=== PATIENT | female | born 1955 | race Caucasian/White ===

== ENCOUNTER 2019-03-08 05:50 | Day surgery (SDC) | payer MEDICARE ==
[~2019-03-08] VITALS: Ht 154.9 cm; Wt 46.7 kg
[~2019-03-08 05:50] MED LIST: CITRACAL + BON1 EACH PO; DONEPEZIL HCL5 MG PO; LEVOTHYROXINE100 MCG PO; MYRBETRIQ25 MG PO; VITAMIN D32000 UNI1 PO
[2019-03-08] MEDS ORDERED: ASPIRIN325 MG PO (06:42)
--- NOTE | 2019-03-08 08:22 | NUR ---
03/08/19 0821 Andreea Sena 0817- PT ARRIVES TO PACU NONAROUSABLE TO NOXIOUS STIMULI WITH AN OPA IN PLACE. OXYGEN SAT HIGH 90'S TO 100% ON 10L VIA MASK. RESP EVEN AND UNLABORED. 0819- OXYGEN TITRATED DOWN TO 6L VIA MASK. 0820- PT AWAKENING AND TRYING TO REMOVE OPA. PT INSTRUCTED TO OPEN HER MOUTH. OPA REMOVED. RESP EVEN AND UNLABORED.
--- NOTE | 2019-03-08 17:27 | OR ---
[facility] [address], [place] [address] Signed DATE OF OPERATION: 03/08/2019 SURGEON: Guilherme Ramirez MD PREOPERATIVE DIAGNOSIS: Constipation alternating with episodes of diarrhea and episodic rectal bleeding. No family history of colon cancer. POSTOPERATIVE DIAGNOSES: 1. Sigmoid diverticulosis. 2. Hyperplastic polyp of sigmoid. PROCEDURE: Total colonoscopy to cecum with cold morcellation, excision of hyperplastic polyp and biopsy of cecum and rectum. ANESTHESIA: Intravenous sedation, propofol infusion; Guilherme Gamez CRNA. INDICATION: This markedly debilitated 63-year-old white woman is a patient Dr. Ayala and has undergone colonoscopy 10 years ago noting a hyperplastic polyp. 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 She is bothered by constipation abdominally, but occasions of diarrhea and occasions of rectal bleeding. She is admitted at this time to undergo colonoscopy for surveillance as well as for evaluation of those problems. The risks of bleeding, infection, and perforation related to colonoscopy were reviewed with her. She understands and wished to proceed. FINDINGS: The prep was adequate. Irrigation was required. There was no solid stool. Complete colonoscopy was undertaken of the cecum without question. Good visualization of the ileocecal valve was noted. She had no actual colitis per se, though biopsies were taken to assess for occult colitis. Diverticular changes noted of the sigmoid. There was a small hyperplastic polyp of the sigmoid, which was excised as well. Internal hemorrhoids were noted as well. DESCRIPTION OF PROCEDURE: The patient was brought to the surgical endoscopy suite, placed in lateral decubitus position, given intravenous sedation to the point of slurred speech and nystagmus with Electronically Signed By: GUILHERME RAMIREZ MD 03/08/19 1727 PATIENT NAME: ABEL CANAS OPERATIVE REPORT DATE OF : 53 REPORT #: [id number] PHYSICIAN: GUILHERME RAMIREZ MD PCP: SANTY AYALA MD REPORT IS CONFIDENTIAL AND NOT TO BE RELEASED WITHOUT AUTHORIZATION [facility] [address], [place] [address] Signed full cardiopulmonary monitoring by the farm rancher. Digital rectal examination was essentially normal. An Olympus video colonoscope was passed in the rectum and manipulated throughout the colon. Irrigation was required. A redundant colon was noted. Abdominal wall stabilization was required. The scope was ultimately manipulated to the cecum. The ileocecal valve appeared normal as did the cecum itself. Attempts to intubate the ileocecal valve were unsuccessful. The valve was small, but normal otherwise. Biopsies were taken of the cecum. The scope was carefully withdrawn from that point. Examination throughout showed no sign of active colitis, but did show diverticula of the sigmoid and left colon. Hyperplastic-appearing polyp was noted at the sigmoid. This was excised with cold morcellation technique. Further withdrawal allowed for biopsy of the rectum, which was otherwise normal. Retroflexed view confirmed internal hemorrhoidal changes. The scope was removed. The patient was taken to recovery room in good condition. CONCLUDING DIAGNOSIS: Symptoms likely related to diverticular disease, physical activity and hemorrhoidal changes. PLAN: I would recommend Citrucel one scoop p.o. daily with added fluids. She will return to the ongoing care of Dr. Ayala. Repeat colonoscopy recommended for 10 years if clinically appropriate at that point. Guilherme Ramirez MD JM/MODL /[id number] cc: Santy Ayala MD Copies: SANTY AYALA MD Electronically Signed By: GUILHERME RAMIREZ MD 03/08/19 1727 PATIENT NAME: GINGER CANASALBINA GRAY OPERATIVE REPORT DATE OF : 53 REPORT #: [id number] PHYSICIAN: GUILHERME RAMIREZ MD PCP: SANTY AYALA MD REPORT IS CONFIDENTIAL AND NOT TO BE RELEASED WITHOUT AUTHORIZATION [address] [place], [place] [address] Signed ~ Electronically Signed By: GUILHERME RAMIREZ MD 03/08/19 1727 PATIENT NAME: ABEL CANAS OPERATIVE REPORT DATE OF : 53 REPORT #: [id number] PHYSICIAN: GUILHERME RAMIREZ MD PCP: SANTY AYALA MD REPORT IS CONFIDENTIAL AND NOT TO BE RELEASED WITHOUT AUTHORIZATION
--- NOTE | 2019-03-09 17:17 | PATH ---
[facility] [address] [place], [place] [address] Signed SPECIMEN(S): A ASCENDING SPECIMEN(S): B SIGMOID POLYP SPECIMEN(S): C RECTUM SPECIMEN SOURCE: A. ASCENDING B. SIGMOID POLYP C. RECTUM CLINICAL HISTORY: Preop: History of constipation. Postop: Hyperplastic polyp, diverticula MICROSCOPIC DESCRIPTION: Histologic sections of all submitted blocks are examined by light microscopy. These findings, together with the gross examination, support the pathologic diagnosis. FINAL PATHOLOGIC DIAGNOSIS: A. Colon, ascending, biopsy: - Colonic mucosa with no histopathologic abnormality. - Negative for dysplasia or malignancy. B. Colon, sigmoid, polyp, polypectomy: - Tubular adenoma. - Negative for high-grade dysplasia or malignancy. C. Rectum, biopsy: - Rectal mucosa with mild hyperplastic mucosa changes. - Negative for dysplasia or malignancy. NAL:cml:C2NR GROSS DESCRIPTION: Three specimens are received in three containers, labeled "MP." A. The specimen, labeled "MP, ascending colon biopsy," is received in formalin and consists of a single 0.2 cm stoddard tissue fragment. The specimen is entirely submitted in cassette (A1). B. The specimen, labeled "MP, sigmoid colon polyp," is received in formalin and consists of a single 0.2 cm stoddard-brown tissue fragment. The specimen is entirely submitted in cassette (B1). C. The specimen, labeled "MP, rectal biopsy," is received in formalin and consists of a single 0.2 cm stoddard tissue fragment. The specimen is entirely submitted in cassette (C1). AM (under the direct supervision of a pathologist) The Gross Description was prepared using a voice recognition system. The PATIENT NAME: ABEL CANAS PATHOLOGY DATE OF : 53 REPORT #: [id number] PHYSICIAN: DOMO BISHOP PCP: SANTY NELSON MD REPORT IS CONFIDENTIAL AND NOT TO BE RELEASED WITHOUT AUTHORIZATION [facility] [address] [place] [address] Signed report was reviewed for accuracy; however, sound-alike word errors, addition and/or deletions may occur. If there is any question about this report, please contact Client Services. PERFORMING LABORATORY: The technical component was performed by [employer] [address] (Workforce Management Coordinator: Faby Mansfield MD; CLIA# [id number]). Professional interpretation was performed by [facility], [address] [address] (Workforce Management Coordinator: Jacques Duran MD; CLIA# [id number]). Diagnostician: Nati Mckoy MD Pathologist Electronically Signed 03/09/2019 Copies: ~ PATIENT NAME: ABEL CANAS PATHOLOGY DATE OF : 53 REPORT #: [id number] PHYSICIAN: DOMO PATHOLOGY PCP: SANTY NELSON MD REPORT IS CONFIDENTIAL AND NOT TO BE RELEASED WITHOUT AUTHORIZATION
== END 2019-03-08 09:05 | disposition home or self-care (01) ==
LOC: OPS 05:50 → DS 05:50 → OPS 06:45 → DS 06:45 → OPS 09:05
PROVIDERS: Surgery
PROC: 0DBP8ZX Excision of Rectum, Via Natural or Artificial Opening Endoscopic, Diagnostic (ICD-10-PCS; 2019-03-08)
PROC: 0DBN8ZZ Excision of Sigmoid Colon, Via Natural or Artificial Opening Endoscopic (ICD-10-PCS; 2019-03-08)
PROC: 0DBK8ZX Excision of Ascending Colon, Via Natural or Artificial Opening Endoscopic, Diagnostic (ICD-10-PCS; principal; 2019-03-08 06:45)
DX: D12.5 Benign neoplasm of sigmoid colon (principal); K57.31 Diverticulosis of large intestine without perforation or abscess with bleeding; K64.8 Other hemorrhoids; E03.9 Hypothyroidism, unspecified; E75.29 Other sphingolipidosis; K21.0 Gastro-esophageal reflux disease with esophagitis; R32 Unspecified urinary incontinence; Z79.899 Other long term (current) drug therapy
CPT/HCPCS: J2704; J7121

== ENCOUNTER 2019-03-08 15:23 | Emergency (ER) | payer MEDICARE ==
[~2019-03-08] VITALS: Ht 154.9 cm; Wt 56.7 kg
--- OUTSIDE RECORDS SUMMARY | ~2019-03-08 | XMS | Encounter Summary ---
Demographics + + + | Address | [address] | | | [place] [address] | + + + | Home Phone | | + + + | Preferred Language | Unknown | + + + | Marital Status | | + + + | Tenriism Affiliation | Unknown | + + + | Race | White | + + + | Ethnic Group | Not or | + + + Author + + + | Author | [facility] | + + + | Organization | [facility] | + + + | Address | Unknown | + + + | Phone | Unavailable | + + + Support + + +---------+ + | Name | Relationship | Address | Phone | + + +---------+ + | Nahomy Briana | ECON | Unknown | | + + +---------+ + Care Team Providers + +------+ + | Care Identification And Records Commander Name | Role | Phone | + +------+ + | Owen Swartz MD | PCP | | + +------+ + Reason for Referral Diagnostic Testing (Routine) +--------+--------+ + + + + | Status | Reason | Specialty | Diagnoses / | Referred By | Referred To | | | | | Procedures | Contact | Contact | +--------+--------+ + + + + | Closed | | Clinical | Diagnoses | Raoul Davis | Cnl Emg | | | | Neurophysiolo | Neuropathy | MD Joshua,PhD | [address] | | | | gy | | [address] | | | | | Leukodystrop | [address] | Mailcode: | | | | | hy ([facility]) | [place], [place] | [facility] | | | | | Procedures | [id number] | for Health | | | | | EMG/NERVE | | and Healing, | | | | | CONDUCTION | | Building [address], | | | | | STUDIES - | | 8th Floor | | | | | NEUROLOGY | | [place], [place] | | | | | | | [address] | | | | | | | Phone: | | | | | | | [phone] | | | | | | | Fax: | | | | | | | [phone] | +--------+--------+ + + + + Reason for Visit + + + | Reason | Comments | + + + | New patient | | | consultation | | + + + | Neuropathy | | + + + Consultation (Routine) +--------+--------+ + + + + | Status | Reason | Specialty | Diagnoses / | Referred By | Referred To | | | | | Procedures | Contact | Contact | +--------+--------+ + + + + | Closed | | Neurology | Diagnoses | Jorge, | Derrick | | | | | Unspecified | Salazar Pickard MD | Neuromusc | | | | | hereditary | [place] | [facility] [address] | | | | | and | CLINIC | [address] | | | | | idiopathic | NEUROLOGY | Mailcode: | | | | | peripheral | [address] | [facility] | | | | | neuropathy | [facility] | for Health | | | | | Leukodystrop | [place], [place] | and Healing, | | | | | hy ([facility]) | [id number] | [address], | | | | | | Phone: | [facility] Floor | | | | | | [phone] | [place], [place] | | | | | | Fax: | [address] | | | | | | [phone] | Phone: | | | | | | | [phone] | | | | | | | Fax: | | | | | | | [phone] | +--------+--------+ + + + + Encounter Details +--------+---------+ + + + | Date | Type | Department | Care Team | Description | +--------+---------+ + + + | 07/08/ | Office | Neurology at | Alan Taylor, | Neuropathy; | | 2010 | Visit | [facility] & | Severino Kate MD | Leukodystrophy | | | | Healing [address] | | | | | | [address] Mailcode: | | | | | | [facility] | | | | | | Health and Healing, | | | | | | [facility] | | | | | | Floor [place], [place] | | | | | | [address] | | | | | | [phone] | | | +--------+---------+ + + + Social History + +-------+ +--------+------+ | Tobacco Use | Types | Packs/Day | Years | Date | | | | | Used | | + +-------+ +--------+------+ | Never Smoker | | | | | + +-------+ +--------+------+ + +---+---+---+ | Smokeless Tobacco: | | | | | Never Used | | | | + +---+---+---+ + + +---------+ + | Alcohol Use | Drinks/Week | oz/Week | Comments | + + +---------+ + | Not Asked | | | | + + +---------+ + + + + | Sex Assigned at | Date Recorded | | | | + + + | Not on file | | + + + + + + + | Job Start Date | Occupation | Industry | + + + + | Not on file | Not on file | Not on file | + + + + + + + + | Travel History | Travel Start | Travel End | + + + + + + | No recent travel history available. | + + documented as of this encounter Last Filed Vital Signs + + + + + | Vital Sign | Reading | Time Taken | Comments | + + + + + | Blood Pressure | 119/60 | 07/08/2010 12:37 PM | | | | | PDT | | + + + + + | Pulse | 76 | 07/08/2010 12:37 PM | | | | | PDT | | + + + + + | Temperature | - | - | | + + + + + | Respiratory Rate | 15 | 07/08/2010 12:37 PM | | | | | PDT | | + + + + + | Oxygen Saturation | - | - | | + + + + + | Inhaled Oxygen | - | - | | | Concentration | | | | + + + + + | Weight | 51.3 kg (113 lb) | 07/08/2010 12:37 PM | | | | | PDT | | + + + + + | Height | 154.9 cm (5' 1") | 07/08/2010 12:37 PM | | | | | PDT | | + + + + + | Body Mass Index | 21.35 | 07/08/2010 12:37 PM | | | | | PDT | | + + + + + documented in this encounter Progress Notes Raoul Davis MD,PhD - 07/09/2010 2:24 PM PDTI personally interviewed the patient, duplic ated the pertinent parts of the physical examination and personally formulated the plan with Dr. Kelly. I agreed with his Documentation and plan. Raoul Davis M.D., Ph.D. Director, Neuromuscular Rehab Tech, EMG Laboratory urba colton Taylor, Severino Kate MD - 07/08/2010 1:49 PM PDTFormatting of this note might be di fferent from the original. NEUROMUSCULAR CONSULT NOTE Author: SEVERINO KELLY MD Consult question: second opinion on leukodystrophy HPI: Charissa Goss is a 54 y.o. female with progressive neurologic symptoms of impaired bal ance, memory, urinary dysfunction, and foot numbness. The first thing she noticed was 10 years ago when she noticed difficulty walking down a slo pe. Around the same time started having problems with balance. If closes eyes in shower wi ll fall over. Not sure if she has any weakness- says legs feel a little weak but might just be balance. Has difficulty walking on uneven ground. Pins and needles in bottoms of feet x 4-5 years, not spreading up her legs. Feet numb x 2 years, not spreading up feet. Sympt oms have all gradually worsened. Memory problems started about 3-4 years ago- for example recently typed up a [employer] bulletin twice over. Aricept helps memory. Cannot take more th an 10 mg due to N/V. Bowel/ bladder problems x 3 years. Started after had thyroidectomy a nd radioactive iodine for thyroid cancer. Very constipated, no bowel incontinence. Urinary incontinence, cannot feel when she urinates, has seen urologist who told her this was a derrick rologic problem. Also has noticed decreased vaginal sensation. Not having significant pain. Very stiff, especially when she's been sitting a long time. Difficult to stand for a long time, eg for an hour during assembly, but is okay if uses cane. No difficulty walkign up s tairs as long as has handrail for balance. Going down stairs is difficult due to balance. No difficulty combing hair or reaching up for things. Gets dizzy if she looks up. No probl ems in hands or arms- no weakness or clumsiness in hands, no numbness in hands. No vertigo, diplopia, slurred speech, changes in mood or personality, language problems, he aring problems, smell or taste problems. Rare difficulty swallowing. Feels like her thinkin erendira is slower. 5-6 years ago started seeing floating diamonds in her eyes, only once or twice a year. Brandi ght light bothers her eyes. Has cataracts. No blurred vision. Vision os 20/30. Has dry e ye. Not aware of any loss of color vision. All of her symptoms have gradually worsened. Never had episodic symptoms coming on over ho urs to days. Did not walk until age 1. Could never keep up with other children when running. Couldn't play basket ball because uncoordinated. Did fine academically in school. Doctor wanted her to be evalauted but patient's parents refused. Reviewed notes from patient's neurologist Dr. Patel. He noted, among other findings, a si gnificant loss of color vision when tested with ishihara color plates. 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 Urine arylsulfatase levels were normal B12 levels were normal. TSH was low (0.08); she is on thyroid replacement after thyroid christensen rgery. 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 Sisters three children all have seizures. Has two adopted children. Mother had similar symptoms to patient. Had difficulty walking due to poor balance, starti ng around age 50s or 60s. Had GTCs since teenager. at 70 from dementia. Started havi ng memory problems around 64. Mother had high arched feet like patient. Father at 85, did not have symptoms like this. Mother had 3 sisters and two brothers, none had symptoms like these or seizures or any othe r neurologic problems. None early except mother. Maternal grandfather at 35 in logging accident Maternal grandmother lived to 90s in good health. Review of Systems: As per HPI, all other systems reviewed and negative General: +fatigue. No constitutional symptoms of fevers,chills, weight loss or sweats. Eye s: +light sensitivity, night blindness, tearing, dry eyes. No changes in vision loss, doub le vision, eye pain, eye irritation, discharge, blurred vision or light sensitivity. Ears, Nose and Throat: +mouth sores, gums receding, dry mouth.No hearing loss, ringing in the ears, ear discharge, earache, nosebleeds, nasal congestion, difficulty swallowing, hoars eness or sore throat. Respiratory: No shortness of breath, coughing up blood, excessive sputum, cough, chest dis comfort or wheezing. Cardiovascular: No chest pain, skipping beats, lightheadedness, difficulty breathing uprig ht or lying down, fatigue, near fainting or fainting, palpitations, weight gain, edema, leg cramps. Gastrointestinal: +vomiting after aricept. +severe constipation. No loss of appetite, ex cessive appetite, indigestion, nausea, gas, abdominal pain, hemorrhoids, diarrhea, bloatin g, bloody stools or dark tarry stools. Genitourinary: +urinary incontinence, frequency, impaired vaginal sensation, infertility. No blood in urine, difficulty in urination, discharge, painful urination, or genital sores. Neurologic: +lightheadedness, falls, weakness, clumsiness, diplopia. No unusual headaches , inability to speak, tremors, sensation of room spinning. Musculoskeletal: +backache. No joint pain, swelling, stiffness, arthritis, muscle aches, muscle cramps or loss of strength. Skin: +dry skin. No itching, rash, poor wound healing, night sweats, changes in skin color , dryness, flushing or suspicious lesions. Psychiatric: +memory change, loss of energy. No abnormal anxiety, depression, thoughts of suicide or hallucinations. PE: BP 119/60 | Pulse 76 | RR 15 | Ht 1.549 m (5' 1") | Wt 51.256 kg (113 lb) | BMI 21.35 kg/(m ^2) Constitutional: NAD Admission Weight: Weight: 51.256 kg (113 lb) (07/08/10 1237) Neurological: Mental Status: General: Awake, alert and oriented to person, place and time Concentration and attention span: Normal. Able to spell world forwards and backwards. Fund of knowledge: Adequate recent and remote recall Language: Fluent and articulate without evidence of aphasia or dysarthria +emotionally labile, cried several times during interview Cranial Nerves: I: Not tested II: PERRL, visual hackett full to confrontation bilaterally III, IV, : Gaze conjugate, EOMI. +saccades slow, with undershoot and catch-up saccades V: Sensation intact and symmetric to light touch V1-V3 VII: Symmetric facial motor function bilaterally VIII: Intact to finger rub bilaterally IX: Palate elevates symmetrically X: Normal cough XI: Normal shrug bilaterally XII: Tongue protrudes midline Motor:no atrophy. +pes cavus deformity of feet. No spasticity in BUE. No significant atro phy except for small feet. Calves large. Delt Tri Bi WE WF DI HF KF KE APF ADF Left 5 5 5 5 5 5 5- 5 5 5 5- Right 5 5 5 5 5 5 5- 5 5 5 4+ Sensation: Light touch: absent to mid thigh bialt Pin prick: intact BUE, reduced at toes bilat Temp: intact BUE, absent to knees bilat Vibration: Intact and symmetric in the fingers bilat (20+seconds), absent at toes, greatly reduced (1-2 seconds) at knees bilat Proprio:present but reduced at toes DTRs: Biceps Brachioradialis Knee Ankle Left 3+ 3+ 3+ 1+ Right 3+ 3+ 3+ 2+ Right toe is down, left toe is equivocal Coordination: Rapid alternating movements are of normal speed and fluency Finger to nose is of normal speed, no action tremor, and no end-point dysmetria Gait: very wide based, unsteady gait, not clearly spastic. ROMBERG: negative HEENT: NCAT. 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 Her family history with a similarly affected mother implies this is autosomal dominant. 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 He r MRI shows severe confluent demyelination and atrophy sparing the basal ganglia and the cor pus callosum. Reviewing her MRI with neuroradiology, it was felt to be most consistent with leukodystrophy (although not completely typical because the demyelination spared the juxtac ortical area), lipid storage disorder, or severe small vessel disease. Small vessel disease was felt to be much less likely due to the sparing of the basal ganglia. Reviewing the various lipid storage disorders, none appeared to fit her clinical case well. They are also predominantly autosomal recessive. Reviewing the leukodystrophies; the most common causes of leukodystrophy are metachromatic leukodystrophy, adrenoleukodystrophy, Krabbe's disease and multiple sulfatase deficiency. M etachromatic leukodystrophy has already been ruled out with aryl sulfatase testing. Krabbe' s disease has been ruled out with galactocerebrosidase testing. Multiple sulfatase deficien cy affects infants and does not fit her clinical syndrome. Adrenoleukodystrophy is X linked but can occur in heterozygous females as well and would ex plain her combination of central and peripheral demyelination. She has already had VLCFA lev els which were normal, however this only captures 80-85% of heterozygous females. Will obta in ABCD1 gene testing to conclusively rule in or rule out adrenoleukodystrophy. If this is negative then she most likely has a previously undescribed mutation causing a leukodystroph y. Will also repeat EMG/NCS. She would likely benefit from physical therapy to address her unsteady gait. -EMG/NCS -will send ABCD1 testing for adrenoleukodystrophy -suggest her local neurologist or PCP order physical therapy to be done locally -followup in neuromuscular clinic in 3 months, after EMG and ABCD1 testing This patient has been seen and examined with Dr. Davis, attending physician, who agrees with the above assessment and plan. SEVERINO KELLY MD docu mented in this encounter Plan of Treatment Not on filedocumented as of this encounter Procedures + +--------+ + + + | Procedure Name | Priori | Date/Time | Associated Diagnosis | Comments | | | ty | | | | + +--------+ + + + | EMG/NERVE CONDUCTION | Routin | 07/16/2010 | Neuropathy | Results for this | | STUDIES,ADULT - | e | | Leukodystrophy | procedure are in the | | NEUROLOGY | | | | results section. | + +--------+ + + + documented in this encounter Results EMG/NERVE CONDUCTION STUDIES,ADULT - NEUROLOGY (07/16/2010) + + + | Narrative | Performed At | + + + | Patient History 54 yo woman with bilateral lower extremity | | | numbness and pes cavus foot deformities Conclusion This is | | | an abnormal study. There is electrophysiologic evidence of: | | | 1. mild left median nerve entrapment at the wrist 2. mild left | | | ulnar nerve entrapment of the wrist 3. 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 | | + + + documented in this encounter Visit Diagnoses + + | Diagnosis | + + | Neuropathy Mononeuritis of unspecified site | + + | Leukodystrophy (HCC) Leukodystrophy | + + documented in this encounter
--- OUTSIDE RECORDS SUMMARY | ~2019-03-08 | XMS | Encounter Summary ---
Demographics + + + | Address | [address] | | | [place] [address] | + + + | Home Phone | | + + + | Preferred Language | Unknown | + + + | Marital Status | | + + + | Adventist Affiliation | 1001 | + + + | Race | Unknown | + + + | Ethnic Group | Unknown | + + + Author + + + | Author | [facility] | | | and [place] | + + + | Organization | [facility] | | | and [place] | + + + | Address | Unknown | + + + | Phone | Unavailable | + + + Support + + + + + | Name | Relationship | Address | Phone | + + + + + | Jesus Goss | LANCE | [address] | | | | | [place], [place] | | | | | [address] | | + + + + + | Tiffanie Chisholm | ECON | [address] | | | | | [place], [place] | | | | | [address] | | + + + + + Care Team Providers + +------+ + | Care Menhaden Vessel Pilot Name | Role | Phone | + +------+ + | Owen Swartz MD | PCP | | + +------+ + Reason for Visit + + + | Reason | Comments | + + + | Enuresis | | + + + Encounter Details +--------+ + + + + | Date | Type | Department | Care Team | Description | +--------+ + + + + | 01/12/ | Clinical | [facility] | Bert Linder, | Urge incontinence | | 2018 | Support | [address] | [address] | | | | | [place] | [place] | | | | | [address] | [address] | | | | | [phone] | | | +--------+ + + + + Social History + +-------+ [...] + +---------+ + | Not Asked | 0 Standard drinks | 0.0 | | | | or equivalent | | | + + +---------+ + [...] + + documented as of this encounter Progress Notes Blessing Rodríguez RN - 01/12/2018 3:30 PM PST Percutaneous tibial nerve stimulation (PTNS) was prescribed for Charissa's overactive symptoms of urge incontinence per Dr. Linder's order. The needle electrode was inserted into the lo wer, inner aspect of the right leg. The surface electrode was placed on the bottom of the f oot on the treatment leg. The lead set was connected to the stimulator, and the needle elec trode clip was connected to the needle electrode. The stimulator that produces an adjustabl e electrical pulse that travels to the sacral nerve plexus via the tibial nerve was adjusted to a setting of 19. The patient's response to treatment was reviewed with patient. See fl ow sheet in chart. PERCUTANEOUS TIBIAL NERVE STIMULATION FLOW SHEET Related health & social habits Comments Caffeine #/day Alcohol #/day Daytime voids #/day Night-time voids #/night Urgency 0=none, 4=severe Incontinenceepisodes #/day Ankle used Setting Feeling/ Response [x] Same [] Change 0 0 3 2-3 0 2-3 [x] R [] L 19 [] Toe Flex [x] Foot sensation [] Both documented in this encounter Plan of Treatment +--------+---------+ + + + | Date | Type | Specialty | Care Team | Description | +--------+---------+ + + + | 05/30/ | Office | Neurology | Negin Campos | | 2019 | Visit | | MD Josiah [address] | | | | | | [place] | | | | | | [place] [address] | | | | | | [phone] | | | | | | | | +--------+---------+ + + + | 07/04/ | Office | Urology | Bert Linder, | | 2019 | Visit | | MD Joy PERSON | | | | | | [place] | | | | | | [id number] | | | | | | | | +--------+---------+ + + + documented as of this encounter Visit Diagnoses + + | Diagnosis | + + | Urge incontinence | + + documented in this encounter"
--- OUTSIDE RECORDS SUMMARY | ~2019-03-08 | XMS | Encounter Summary ---
Demographics + + + | Address | [address] | | | [place] [address] | + + + | Home Phone | | + + + | Preferred Language | Unknown | + + + | Marital Status | | + + + | Druze Affiliation | 1001 | + + + | Race | Unknown | + + + | Ethnic Group | Unknown | + + + Author + + + | Author | [facility] | | | and [place] | + + + | Organization | [facility] | | | and [place] | [...] [place], [place] | | | | | [address] | | + + + + + | Tiffanie Chisholm | ECON | [address] | | | | | [place], [place] | | | | | [address] | | + + + + + Care Team Providers + +------+ + | Care Colorer Hides And Skins Name | Role | Phone | + [...] | +--------+ + + + + | 08/19/ | Clinical | [facility] | Bert Linder, | Urge incontinence | | 2016 | Support | [address] | [address] | (Primary Dx) | | | | [place] | [place] | | | | | [address] | [address] | | | | | [phone] | | | +--------+ + + + [...] encounter Progress Notes Blessing Rodríguez RN - 08/20/2015 6:05 PM PDT Percutaneous tibial nerve stimulation (PTNS) was prescribed for Charissa's urge incontinence. The needle electrode was inserted into the lower, inner aspect of the right leg. The surfa ce electrode was placed on the bottom of the foot on the treatment leg. The lead set was co nnected to the stimulator, and the needle electrode clip was connected to the needle electro de. The stimulator that produces an adjustable electrical pulse that travels to the sacral nerve plexus via the tibial nerve was adjusted to a setting of 13. The patient's response t o treatment was reviewed with patient. See flow sheet in chart. PERCUTANEOUS TIBIAL NERVE STIMULATION FLOW SHEET Related health & social habits Comments Caffeine #/day Alcohol #/day Daytime voids #/day Night-time voids #/night Urgency 0=none, 4=severe Incontinenceepisodes #/day Ankle used Setting Feeling/ Response [x] Same [] Change 0 0 5-6 0 3 2-2 [x] R [] L 13 [] Toe Flex [x] Foot sensation [] [...] [place] | | | | | | [place], [place] [address] | | | | | | [phone] | | | | | | | | +--------+---------+ + + + | 07/04/ | Office | Urology | Bert Linder, | | 2019 | Visit | | MD Joy PERSON | | | | | | [place] | | | | | | [id number] | | | | | | | | +--------+---------+ + + + documented as of this encounter Visit Diagnoses + + | Diagnosis | + + | Urge incontinence - Primary | + + documented in this encounter"
--- OUTSIDE RECORDS SUMMARY | ~2019-03-08 | XMS | Encounter Summary ---
Demographics + + + | Address | [address] | | | [place] [address] | + + + | Home Phone | | + + + | Preferred Language | Unknown | + + + | Marital Status | | + + + | Jainism Affiliation | Unknown | + + + | Race | White | + + + | Ethnic Group | Not or | + + + Author + + + | Author | [facility] | + + + | Organization | [facility] | + + + | Address | Unknown | + + + | Phone | Unavailable | + + + Support + + +---------+ + | Name | Relationship | Address | Phone | + + +---------+ + | Nahomy Briana | ECON | Unknown | | + + +---------+ + Care Team Providers + +------+ + | Care Concrete Paving Supervisor Name | Role | Phone | + +------+ + | Owen Swartz MD | PCP | | + +------+ + Reason for Visit + + + | Reason | Comments | + + + | Referral | for outside physical therapy and orthotics | + + + Encounter Details +--------+ + + + + | Date | Type | Department | Care Team | Description | +--------+ + + + + | 03/29/ | Documentati | Neurology at | Ber[facility] | Referral (for | | 2011 | on | [facility] & | MD Valentin | outside physical | | | | Healing [address] | | therapy and | | | | Stewart Janice Mailcode: | | orthotics ) | | | | 8[facility] | | | | | | Health and Healing, | | | | | | [address], [address] | | | | | | Floor [place], [place] | | | | | | [address] | | | | | | [phone] | | | +--------+ + + + [...] + + documented as of this encounter Plan of Treatment Not on filedocumented as of this encounter Visit Diagnoses Not on filedocumented in this encounter"
--- OUTSIDE RECORDS SUMMARY | ~2019-03-08 | XMS | Encounter Summary ---
Demographics + + + | Address | [address] | | | [place] [address] | + + + | Home Phone | | + + + | Preferred Language | Unknown | + + + | Marital Status | | + + + | Sabianism Affiliation | 1001 | + + + | Race | Unknown | + + + | Ethnic Group | Unknown | + + + Author + + + | Author | and [facility] | | | and [place] | + + + | Organization | and [facility] | | | and [place] | [...] [place], [place] | | | | | [address] | | + + + + + | Tiffanie Chisholm | ECON | [address] | | | | | [place], [place] | | | | | [address] | | + + + + + Care Team Providers + +------+ + | Care Platinumsmith Name | Role | Phone | + +------+ + | Owen Swartz MD | PCP | | + +------+ + Reason for Visit + + + | Reason | Comments | + + + | Enuresis | | + + + Encounter Details +--------+---------+ + + + | Date | Type | Department | Care Team | Description | +--------+---------+ + + + | 04/20/ | Office | [facility] | Bert Linder, | Urge incontinence | | 2017 | Visit | [address] | [address] | (Primary Dx); | | | | [place] | [place] | Neurogenic bladder; | | | | [address] | [address] | Leukodystrophy; | | | | [phone] | | Pyuria | +--------+---------+ + + + Social History [...] + + + | Blood Pressure | 90/58 | 04/20/2016 9:43 AM | | | | | PST | | + + + + + | Pulse | 76 | 04/20/2016 9:43 AM | | | | | PST | | + + + + + | Temperature | - | - | | + + + + + | Respiratory Rate | 12 | 04/20/2016 9:43 AM | | | | | PST | | + + + + + | Oxygen Saturation | - | - | | + + + + + | Inhaled Oxygen | - | - | | | Concentration | | | | + + + + + | Weight | 54.4 kg (120 lb) | 04/20/2016 9:43 AM | | | | | PST | | + + + + + | Height | 154.9 cm (5' 1") | 04/20/2016 9:43 AM | | | | | PST | | + + + + + | Body Mass Index | 22.67 | 04/20/2016 9:43 AM | | | | | PST | | + + + + + documented in this encounter Patient Instructions Patient Instructions Bert Linder MD - 04/20/2016 12:10 PM PSTBladder Irritants Certain foods and liquids, such as those listed below, can be slightly irritating to the bl adder, causing increased frequency of urination, discomfort, and slower stream. Generally, it is not necessary to completely eliminate these foods from your diet, but you may see impr ovement in your symptoms if you reduce the consumption of these food items. It is also bene ficial for your urination symptoms to keep the bowel movements regular and soft, as constipa tion may exacerbate your bladder symptoms. Metamucil and other similar agents typically wor k well in this regard. Alcoholic beverages Apples/Apple juices Cantaloupe Carbonated beverages Chiles/spicy food Chocolate Laurel fruits and drinks Coffee, including decaf Cranberries and cranberry juice Grape/grape juice Guava Peaches Pineapple Plums Strawberries Tea Tomatoes Vinegar Vitamin B complex Vitamin C Other potential irritants: Avocados Bananas Sanchez's yeast Canned figs Champagne Aged Cheese Chicken livers Corned Beef Lucas beans Redmond beans Mayonnaise Nutrasweet Nuts Onions Pickled moscoso Prunes Raisins Safford bread Saccharine Sour cream Soy sauce Wine Yogurt Substitutions: Low acid fruits: Pears, Apricots, papayas, watermelon For tea and coffee drinkers: Non-citrus herbal tea documented in this encounter Progress Notes Bert Linder MD - 04/20/2016 9:41 AM PSTFormatting of this note might be different fro m the original. Charissa is a 60 y.o. female patient of Owen Swartz being seen today for neurogenic bl adder and urinary incontinence. 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 She also has history of microscopic hematuria followed by Dr. Barnes. Charissa has a several year history of urinary urgency and urge incontinence. She underwent u rodynamic studies by Dr. Barnes on 04/10/2010 which demonstrated "overactive bladder, possibl y neurogenic, related to her neuropathy with some sensory abnormality." She also has history of chronic microhematuria. Dr. Barnes performedystoscopy in 2010 whic h was reported as benign. Prior to Dr. Barnes's departure from [place], Charissa was being treated with bladder neurom odulation with percutaneous tibial nerve stimulation (PTNS). She has also been using Myrbet riq 50 mg by mouth daily. Charissa reports that she continues to receive benefit from both Myr betriq and PTNS. She has been undergoing maintenance therapy with once monthly PTNS. With the adverse winter weather, she has not been able to undergo PTNS for the past 2 or 3 months , and she indicates that she has noticed worsening of her urge incontinence. Otherwise, Charissa reports that she has done fairly well over the course of the past year. She has both urge and stress incontinence, but the urge incontinence is much more prominent . She has nocturia 0. She has urinary frequency every 6 hours. She has any dysuria or h ematuria. She denies any urinary tract infections. She is thankful that while she does hav e nocturnal enuresis, her pad is usually absorbent enough that she does not soil her bed she ets. She states that due to her leukodystrophy, her legs are very weak, and she can no longer am bulate. She indicates that she has no sensation in the legs. She states she has been using a wheelchair for about 2 years. She also has difficulties with chronic constipation. She indicates that she has been told that she had a very lengthy, tortuous bowel. She states she goes several days between each bowel movement. She denies any fecal incontinence. She denies any saddle paresthesias. Other than feeling too cold, 10 point review of systems today is negative. Over 25 minute encounter with Charissa today, over 50% of this time spent counseling regarding her neurogenic bladder and urge incontinence and treatment options. Past Medical History She has a past medical history of Malignant neoplasm of thyroid gland (HCC); Microhematuria ; Gross hematuria; Hypothyroidism; Leukodystrophy; Neurogenic bladder; and Neuropathy (HCC). Past Surgical History She has past surgical history that includes Dilation and curettage of uterus and Thyroidect joanie. Family History: Her family history includes Other (see comment) in her mother. Social History: She reports that she has never smoked. She has never used smokeless tobacco. Allergies Allergen Reactions Chocolate Peanut-Containing Drug Products Medications: Outpatient Encounter Prescriptions as of 04/20/2016 Medication Sig Dispense Refill calcium citrate-vitamin D (CITRACAL+D) 315 mg-200 units per tablet Take 1 tablet by vitaliy th Daily. donepezil (ARICEPT) 10 MG tablet Take 10 mg by mouth every morning. levothyroxine (SYNTHROID, LEVOTHROID) 100 mcg tablet 3 [DISCONTINUED] levothyroxine (SYNTHROID, LEVOTHROID) 75 MCG tablet Take 1 tablet by vitaliy th Daily. mirabegron (MYRBETRIQ) 50 mg ER tablet Take 50 mg by mouth Daily. Multiple Vitamins-Minerals (ADULT MULTIVITAMIN WITH MINERALS/IRON) TABS Take 1 tablet b y mouth Daily. No facility-administered encounter medications on file as of 04/20/2016. REVIEW OF SYSTEMS: [] All Negative Constitutional Symptoms: []Fever []Chills []Headache []Change in appetite [] Change in weight [] Change in energy []Other: Neurological: []Tremors []Dizzy Spells []Numbness/Tingling []Seizures []Other: Endocrine: []Excessive thirst []Too hot [x] Too cold []Tired/Sluggish Gastrointestinal: []Abdominal pain []Nausea/vomiting []Indigestion/heartburn []Change in stool size [] Martinez e in stool shape [] Change in stool color []Pain with swallowing []Other: Cardiovascular: []Chest Pain []Rapid heart rate []High blood pressure []Other: Integumentary: []Skin rash []Boils []Persistent itch []Other: Musculoskeletal: []Neck Pain []Joint swelling/pain []Back pain []Bone pain []Other: Respiratory: []Wheezing []Frequent cough []Shortness of breath []Other: Hematologic/Lymphatic: []Swollen glands []Blood clotting problems []Prior blood transfusions []Other: Psychologic: Are you generally satisfied with your life? yes Do you feel severely depressed? no Have you considered suicide? no Other: Habits: Do you smoke? no [x] Yes [] No Patient advised to follow up with PCP regarding positive review of syste ms. PHYSICAL EXAM Vitals: BP 90/58 mmHg | Pulse 76 | Resp 12 | Ht 1.549 m (5' 1") | Wt 54.432 kg (120 lb) | B AK 22.69 kg/m2 General: Awake, alert, in no acute distress. Speech is fluent. Appears elderly and frail. Essentially wheelchair-bound. Neck: Supple; no lymphadenopathy. Scar overlying the lower neck, well-healed. No thyroid tissue or mass palpable. Lungs: Normal respiratory effort, no wheezing, no stridor, no tachypnea. Chest: No rib or bony tenderness. Back: No CVA tenderness. Kyphosis. Abdomen: Soft, nontender, no hepatosplenomegaly. No masses. No guarding; benign. Bladder nondistended. Extremities: Minimal-trace ankle edema. Hips and long bones nontender to fist percussion. Neuro: Awake, alert, oriented x3. Abnormal station. Gait not observed. Lower extremitie s weak. Psychiatric: Mood and affect are normal. Normal judgment. Skin: Warm and dry, no erythematous rash. Groin: No mass. No lymphadenopathy. Genitalia: No vaginal drainage or discharge or bleeding. Normal-appearing external genita chaka. DIAGNOSTIC DATA: PVR 04/20/2016 is 128 cc . PVR 03/13/2015 is 94 cc. Lab Results Component Value Date WBCUA >100* 04/20/2016 RBCUA 5-10* 04/20/2016 SQUAMEPIUA 0-2 04/20/2016 BACTERIAUA Negative 04/20/2016 Lab Results Component Value Date COLORPOC Yellow 04/20/2016 CLARITYU Cloudy 04/20/2016 GLUCOSEPOC Negative 04/20/2016 BILIPOC Negative 04/20/2016 SG 1.020 04/20/2016 RBCUR Negative 04/20/2016 PHUAPOC 7.5 04/20/2016 PROTEINPOC 30 mg/dL* 04/20/2016 UROBILINOGEN 0.2 04/20/2016 NITRITEPOC Negative 04/20/2016 LEUKOCYTESUR Moderate* 04/20/2016 REMARK Culture set up 04/09/2015 Chemistry panel 03/18/2016 shows creatinine 0.51, with GFR >120. Electrolytes are normal. Urine cytology 04/11/2015 is negative for malignancy. IMPRESSION: 1. Neurogenic bladder secondary to leukodystrophy. 2. Urge incontinence. Significant symptom improvement with use of PTNS and Myrbetriq. 3. Leukodystrophy. 4. Microhematuria. Chronic. 5. Chronic constipation. She goes several days between bowel movements. This will signif icantly exacerbate her voiding dysfunction. PLAN: Charissa wishes to continue with percutaneous tibial nerve stimulation. She will also continue Myrbetriq 50 mg by mouth daily. She will undergo PTNS today. She wishes to follow-up for PTNS once a month. She should avoid constipation, and carbonated and caffeinated beverages and alcohol, as all of these may exacerbate her symptoms. She will follow-up in one year with a repeat urinalysis, urine cytology, NMP 22 bladder anegl ck test, renal ultrasound, and PVR and basic metabolic panel at her follow-up visit. She will follow up sooner if any difficulties should arise in the interim. Charissa is instructed to resume her usual and customary care with her primary care provider. I asked Charissa to notify me if there were any difficulties voiding, or UTI symptoms, or flan k pain, or for any questions or concerns whatsoever. This document was generated in part using voice recognition software. Although I have atte mpted to edit the content, I have not thoroughly proofread this note, and manufacturing technology analyst erro rs may occur. CC: Dr Swartz Nursing Note: Percutaneous tibial nerve stimulation (PTNS) was prescribed for Charissa's overactive symptoms of urge incontinence. The needle electrode was inserted into the lower, inner aspect of th e right leg. The surface electrode was placed on the bottom of the foot on the treatment le g. The lead set was connected to the stimulator, and the needle electrode clip was connecte d to the needle electrode. The stimulator that produces an adjustable electrical pulse that travels to the sacral nerve plexus via the tibial nerve was adjusted to a setting of 18. T he patient's response to treatment was reviewed with patient. See flow sheet in chart. PERCUTANEOUS TIBIAL NERVE STIMULATION FLOW SHEET Related health & social habits Comments Caffeine #/day Alcohol #/day Daytime voids #/day Night-time voids #/night Urgency 0=none, 4=severe Incontinenceepisodes #/day Ankle used Setting Feeling/ Response [x] Same [] Change 0 0 4 0 3 2 [x] R [] L 18 [] Toe Flex [x] Foot sensation [] Both documented in this en counter Plan of Treatment +--------+---------+ + + + | Date | Type | Specialty | Care Team | Description | +--------+---------+ + + + | 05/30/ | Office | Neurology | Negin Campos | | | 2019 | Visit | | MD Josiah [address] | | | | | | [place] | | | | | | [place] [address] | | | | | | [phone] | | | | | | | | +--------+---------+ + + + | 07/04/ | Office | Urology | Bert Linder, | | | 2019 | Visit | | [address] | | | | | | [place] | | | | | | [address] | | | | | | | | +--------+---------+ + + + documented as of this encounter Procedures + +--------+ + + + | Procedure Name | Priori | Date/Time | Associated Diagnosis | Comments | | | ty | | | | + +--------+ + + + | URINALYSIS, | Routin | 04/20/2016 | Pyuria | Results for this | | MICROSCOPIC ONLY, | e | 10:50 AM | | procedure are in the | | WITH CULTURE IF | | PST | | results section. | | INDICATED | | | | | + +--------+ + + + | POCT URINALYSIS, | Routin | 04/20/2016 | Pyuria | Results for this | | AUTO WITH CONF | e | 10:49 AM | | procedure are in the | | | | PST | | results section. | + +--------+ + + + | IMAGING REPORT - | | 04/20/2016 | | Results for this | | EXTERNAL SCAN | | 12:00 AM | | procedure are in the | | | | PST | | results section. | + +--------+ + + + | LABS - EXTERNAL SCAN | | 03/18/2016 | | Results for this | | | | 12:00 AM | | procedure are in the | | | | PST | | results section. | + +--------+ + + + documented in this encounter Results Urinalysis, Microscopic Only, with Culture if Indicated (04/20/2016 10:50 AM PST) + + + + + + | Component | Value | Ref Range | Performed | Pathologist | | | | | At | Signature | + + + + + + | WBC UA | >100 (A) | 0 - 2 /HPF | [facility] | | | | | [facility] | | | | | [facility] | | | [facility] - | | | | | | [facility] | | + + + + + + | RBC UA | 5-10 (A) | 0 - 2 /HPF | [facility] | | | | | [facility] | | | | | | [facility] | | | | [facility] - | | | | | | LAB[facility]ATORY | | + + + + + + | SQUAMOUS | 0-2 | 0 - 2 /LPF | [facility] | | [facility] | | [facility] | | | [facility] | | | [facility] | | | | | | [facility] - | | | | | | LABORATORY | | + + + + + + | BACTERIA UA | Negative | Negative /HPF | [facility] | | | | | [facility] | | | | | | [facility] | | | | | [facility] - | | | | | | LAB[facility]ATORY | | + + + + + + | MUCUS UA | Present (A) | Negative /LPF | [facility] | | | | | [facility] | | | | | | [facility] | | | | | [facility] - | | | | | | LAB[facility]ATORY | | + + + + + + + + | Specimen | + + | Urine - Urine | | specimen obtained by | | clean catch | | procedure (specimen) | + + + + + + + | Performing | Address | City/State/Zipcode | Phone Number | | Organization | | | | + + + + + | [facility] | [address] | [place], [place] | [phone] | | [facility] | | [address] | | | - LABORATORY | | | | + + + + + POCT Urinalysis Dipstick Automated (04/20/2016 10:49 AM PST) + + + + + + | Component | Value | Ref Range | Performed | Pathologist | | | | | At | Signature | + + + + + + | Color, UA, | Yellow | Yellow, Light | | | | POC | | Yellow | | | + + + + + + | Clarity, | Cloudy | | | | | UA, POC | | | | | + + + + + + | Glucose, | Negative | Negative | | | | UA, POC | | | | | + + + + + + | Bilirubin, | Negative | Negative | | | | UA, POC | | | | | + + + + + + | Ketones, | Negative | Negative, 100 | | | | UA, POC | | mg/dL | | | + + + + + + | Specific | 1.020 | 1.001 - 1.030 | | | | Cobb, | | | | | | UA, POC | | | | | + + + + + + | Blood, UA, | Negative | Negative | | | | POC | | | | | + + + + + + | pH, UA, POC | 7.5 | 5.0, 6.0, 7.0, | | | | | | 8.0, 5.5, 6.5, | | | | | | 7.5 | | | + + + + + + | Protein, | 30 mg/dL (A) | Negative | | | | UA, POC | | | | | + + + + + + | Urobilinoge | 0.2 | 0.2, Negative, | | | | n, UA, POC | | Normal, < 0.2 | | | | | | mg/dL, 1 mg/dL, | | | | | | < 0.2 E.U./dl, | | | | | | 1.0 E.U./dL, | | | | | | 0.2 mg/dL | | | + + + + + + | Nitrite, | Negative | Negative | | | | UA, POC | | | | | + + + + + + | Leukocyte | Moderate (A) | Negative | | | | Esterase, | | | | | | UA, POC | | | | | + + + + + + | Reducing | | | | | | Substances, | | | | | | Urine | | | | | + + + + + + | Ictotest | | Negative | | | + + + + + + | Remark | | | | | + + + + + + + + | Specimen | + + | Urine specimen | | (specimen) | + + IMAGING REPORT - EXTERNAL SCAN (04/20/2016 12:00 AM PST) + + + | Narrative | Performed At | + + + | Ordered by an | | | unspecified provider. | | + + + LABS - EXTERNAL SCAN (03/18/2016 12:00 AM PST) + + + | Narrative | Performed At | + + + | Ordered by an | | | unspecified provider. | | + + + documented in this encounter Visit Diagnoses + + | Diagnosis | + + | Urge incontinence - Primary | + + | Neurogenic bladder Neurogenic bladder, NOS | + + | Leukodystrophy (HCC) Leukodystrophy | + + | Pyuria Other nonspecific finding on examination of urine | + + documented in this encounter
--- OUTSIDE RECORDS SUMMARY | ~2019-03-08 | XMS | Encounter Summary ---
Demographics + + + | Address | [address] | | | [place] [address] | + + + | Home Phone | | + + + | Preferred Language | Unknown | + + + | Marital Status | | + + + | Sikhism Affiliation | Unknown | + + + | Race | White | + + + | Ethnic Group | Not or | + + + Author + + + | Author | [facility] | + + + | Organization | [facility] | + + + | Address | Unknown | + + + | Phone | Unavailable | + + + Support + + +---------+ + | Name | Relationship | Address | Phone | + + +---------+ + | Nahomy Briana | ECON | Unknown | | + + +---------+ + Care Team Providers + +------+ + | Care Production Weigher Name | Role | Phone | + +------+ + | Owen Swartz MD | PCP | | + +------+ + Encounter Details +--------+ + + + + | Date | Type | Department | Care Team | Description | +--------+ + + + + | 09/01/ | MyChart | Neurology at | Other, Faculty | Appointment with | | 2011 | Encounter | [facility] & | [phone] | [facility] | | | | [facility] [address] | | | | | | [place] Mailcode: | | | | | | [facility] | | | | | | [facility], | | | | | | [facility] | | | | | | Floor [place], [place] | | | | | | [address] | | | | | | [phone] | | | +--------+ + + + [...]
--- OUTSIDE RECORDS SUMMARY | ~2019-03-08 | XMS | Encounter Summary ---
Demographics + + + | Address | [address] | | | [place] [address] | + + + | Home Phone | | + + + | Preferred Language | Unknown | + + + | Marital Status | | + + + | Hinduism Affiliation | 1001 | + + + | Race | Unknown | + + + | Ethnic Group | Unknown | + + + Author + + + | Author | [facility] | | | and [place] | + + + | Organization | [facility] | | | and [place] [...] [place], [place] | | | | | [address] | | + + + + + | Tiffanie Chisholm | ECON | [address] | | | | | [place], [place] | | | | | [address] | | + + + + + Care Team Providers + +------+ + | Care Customer Order Clerk Name | Role | Phone | + [...] | +--------+ + + + + | 07/15/ | Clinical | [facility] | Bert Linder, | Urge incontinence | | 2016 | Support | [address] | [address] | (Primary Dx) | | | | [place] | [place] | | | | | [address] | [address] | | | | | [phone] | | | +--------+ + + + [...] as of this encounter Progress Notes Blessing Rodríguez, RN - 07/16/2015 4:23 PM PDT Percutaneous tibial nerve stimulation (PTNS) was prescribed for Charissa's urge incontinence. The needle electrode was inserted into the lower, inner aspect of the right leg. The surf sujatha electrode was placed on the bottom of the foot on the treatment leg. The lead set was c onnected to the stimulator, and the needle electrode clip was connected to the needle electr ode. The stimulator that produces an adjustable electrical pulse that travels to the sacral nerve plexus via the tibial nerve was adjusted to a setting of 18. The patient's response to treatment was reviewed with patient. See flow sheet in chart. PERCUTANEOUS TIBIAL NERVE STIMULATION FLOW SHEET Related health & social habits Comments Caffeine #/day Alcohol #/day Daytime voids #/day Night-time voids #/night Urgency 0=none, 4=severe Incontinenceepisodes #/day Ankle used Setting Feeling/ Response [x] Same [] Change 0 0 5-6 0 3-4 2 [x] R [] L 18 [] [...] | | | | | [place], [place] [address] | | | | | | [phone] | | | | | | | | +--------+---------+ + + + | 07/04/ | Office | Urology | Bert Linder, | | 2019 | Visit | | MD Joy PERSON | | | | | | [place] | | | | | | [id number] | | | | | | | | +--------+---------+ + + + documented as of this encounter Visit Diagnoses + + | Diagnosis | + + | Urge incontinence - Primary | + + documented in this encounter"
--- OUTSIDE RECORDS SUMMARY | ~2019-03-08 | XMS | Encounter Summary ---
Demographics + + + | Address | [address] | | | [place] [address] | + + + | Home Phone | | + + + | Preferred Language | Unknown | + + + | Marital Status | | + + + | Anglican Affiliation | Unknown | + + + | Race | White | + + + | Ethnic Group | Not or | + + + Author + + + | Author | [facility] | + + + | Organization | [facility] | + + + | Address | Unknown | + + + | Phone | Unavailable | + + + Support + + +---------+ + | Name | Relationship | Address | Phone | + + +---------+ + | Nahomy Briana | ECON | Unknown | | + + +---------+ + Care Team Providers + +------+ + | Care Plugger Man Name | Role | Phone | + +------+ + | Owen Swartz MD | PCP | | + +------+ + Reason for Visit + + + | Reason | Comments | + + + | Prior Authorization | ABCD1 DNA Test | | Request | | + + + Encounter Details +--------+ + + + + | Date | Type | Department | Care Team | Description | +--------+ + + + + | 05/12/ | Documentati | Neurology at | Alan Taylor, | Prior Authorization | | 2010 | on | [facility] & | Maria Kate MD | Request (ABCD1 DNA | | | | [address] | | Test) | | | | [place] Mailcode: | | | | | | [facility] | | | | | | Health and Healing, | | | | | | Building | | | | | | Floor [place], [place] | | | | | | [address] | | | | | | [phone] | | | +--------+ + + + [...] filedocumented as of this encounter Visit Diagnoses + + | Diagnosis | + + | Neuropathy Mononeuritis of unspecified site | + + | Leukodystrophy (HCC) Leukodystrophy | + + documented in this encounter"
--- OUTSIDE RECORDS SUMMARY | ~2019-03-08 | XMS | Encounter Summary ---
Demographics + + + | Address | [address] | | | [place] [address] | + + + | Home Phone | | + + + | Preferred Language | Unknown | + + + | Marital Status | | + + + | Amish Affiliation | 1001 | + + + | Race | Unknown | + + + | Ethnic Group | Unknown | + + + Author + + + | Author | [facility] | | | and [place] | + + + | Organization | [facility] | | | and [place] | + + + | Address | Unknown | + + + | Phone | Unavailable | + + + Support + + + + + | Name | Relationship | Address | Phone | + + + + + | Jesus Goss | LANCE | [address] | | | | | [place], [place] | | | | | [address] | | + + + + + | Tiffanie Chisholm | ECON | [address] | | | | | [place], [place] | | | | | [address] | | + + + + + Care Team Providers + +------+ + | Care Cream Buyer Name | Role | Phone | + +------+ + | Owen Swartz MD | PCP | | + +------+ + Encounter Details +--------+ + + + + | Date | Type | Department | Care Team | Description | +--------+ + + + + | 06/20/ | Abstract | [facility] | Kay, | | | 2018 | | GASTROENTEROLOGY | MD [address] | | | | | [address] [place] | [address] | | | | | [address] [place] | [place] [address] | | | | | [address] | | | | | | [phone] | | | +--------+ + + + [...] as of this encounter Plan of Treatment +--------+---------+ + + + | Date | Type | Specialty | Care Team | Description | +--------+---------+ + + + | 05/30/ | Office | Neurology | Negin Campos | | | 2019 | Visit | | MD Josiah [address] | | | | | | [place] | | | | | | [place] [address] | | | | | | [phone] | | | | | | | | +--------+---------+ + + + | 07/04/ | Office | Urology | Bert Linder, | | | 2019 | Visit | | MD Joy [address] | | | | | | [place] | | | | | | [address] | | | | | | | | +--------+---------+ + + + documented as of this encounter Procedures + +--------+ + + + | Procedure Name | Priori | Date/Time | Associated Diagnosis | Comments | | | ty | | | | + +--------+ + + + | EXTERNAL LAB: KESHIA | Routin | 06/14/2018 | | Results for this | | | e | | | procedure are in the | | | | | | results section. | + +--------+ + + + | EXTERNAL LAB: | Routin | 06/14/2018 | | Results for this | | GLUCOSE | e | | | procedure are in the | | | | | | results section. | + +--------+ + + + | EXTERNAL LAB: | Routin | 06/14/2018 | | Results for this | | CALCIUM | e | | | procedure are in the | | | | | | results section. | + +--------+ + + + | EXTERNAL LAB: CARBON | Routin | 06/14/2018 | | Results for this | | DIOXIDE | e | | | procedure are in the | | | | | | results section. | + +--------+ + + + | EXTERNAL LAB: | Routin | 06/14/2018 | | Results for this | | CHLORIDE | e | | | procedure are in the | | | | | | results section. | + +--------+ + + + | EXTERNAL LAB: | Routin | 06/14/2018 | | Results for this | | POTASSIUM | e | | | procedure are in the | | | | | | results section. | + +--------+ + + + | EXTERNAL LAB: SODIUM | Routin | 06/14/2018 | | Results for this | | | e | | | procedure are in the | | | | | | results section. | + +--------+ + + + | EXTERNAL LAB: EGFR | Routin | 06/14/2018 | | Results for this | | | e | | | procedure are in the | | | | | | results section. | + +--------+ + + + | EXTERNAL LAB: | Routin | 06/14/2018 | | Results for this | | CREATININE | e | | | procedure are in the | | | | | | results section. | + +--------+ + + + | BASIC METABOLIC | Routin | 06/14/2018 | | Results for this | | PANEL | e | | | procedure are in the | | | | | | results section. | + +--------+ + + + documented in this encounter Results Basic Metabolic Panel (06/14/2018) + + + + + + | Component | Value | Ref Range | Performed | Pathologist | | | | | At | Signature | + + + + + + | Anion Gap | 13 | 7 - 21 mmol/L | | | + + + + + + | Bun/Creatin | 35.7 (A) | 6.0 - 28.6 | | | | ine | | Ratio | | | + + + + + + + + | Specimen | + + | Blood | + + External Lab: BUN (06/14/2018) + +-------+ + + + | Component | Value | Ref Range | Performed | Pathologist | | | | | At | Signature | + +-------+ + + + | BUN, | 15 | 6 - 23 | EXTERNAL | | | External | | | LAB | | + +-------+ + + + + +---------+ + + | Performing | Address | City/State/Zipcode | Phone Number | | Organization | | | | + +---------+ + + | EXTERNAL LAB | | | | + +---------+ + + External Lab: Glucose (06/14/2018) + +-------+ + + + | Component | Value | Ref Range | Performed | Pathologist | | | | | At | Signature | + +-------+ + + + | Glucose, | 92 | 70 - 100 | EXTERNAL | | | External | | | LAB | | + +-------+ + + + + +---------+ + + | Performing | Address | City/State/Zipcode | Phone Number | | Organization | | | | + +---------+ + + | EXTERNAL LAB | | | | + +---------+ + + External Lab: Calcium (06/14/2018) + +-------+ + + + | Component | Value | Ref Range | Performed | Pathologist | | | | | At | Signature | + +-------+ + + + | Calcium, | 8.8 | 8.5 - 10.3 | EXTERNAL | | | External | | | LAB | | + +-------+ + + + + +---------+ + + | Performing | Address | City/State/Zipcode | Phone Number | | Organization | | | | + +---------+ + + | EXTERNAL LAB | | | | + +---------+ + + External Lab: Carbon Dioxide (06/14/2018) + +-------+ + + + | Component | Value | Ref Range | Performed | Pathologist | | | | | At | Signature | + +-------+ + + + | Carbon | 29 | 19 - 31 | EXTERNAL | | | Dioxide, | | | LAB | | | External | | | | | + +-------+ + + + + +---------+ + + | Performing | Address | City/State/Zipcode | Phone Number | | Organization | | | | + +---------+ + + | EXTERNAL LAB | | | | + +---------+ + + External Lab: Chloride (06/14/2018) + +-------+ + + + | Component | Value | Ref Range | Performed | Pathologist | | | | | At | Signature | + +-------+ + + + | Chloride, | 104 | 95 - 112 | EXTERNAL | | | External | | | LAB | | + +-------+ + + + + +---------+ + + | Performing | Address | City/State/Zipcode | Phone Number | | Organization | | | | + +---------+ + + | EXTERNAL LAB | | | | + +---------+ + + External Lab: Potassium (06/14/2018) + +-------+ + + + | Component | Value | Ref Range | Performed | Pathologist | | | | | At | Signature | + +-------+ + + + | Potassium, | 3.8 | 3.5 - 5.1 | EXTERNAL | | | External | | | LAB | | + +-------+ + + + + +---------+ + + | Performing | Address | City/State/Zipcode | Phone Number | | Organization | | | | + +---------+ + + | EXTERNAL LAB | | | | + +---------+ + + External Lab: Sodium (06/14/2018) + +-------+ + + + | Component | Value | Ref Range | Performed | Pathologist | | | | | At | Signature | + +-------+ + + + | Sodium, | 142 | 132 - 143 | EXTERNAL | | | External | | | LAB | | + +-------+ + + + + +---------+ + + | Performing | Address | City/State/Zipcode | Phone Number | | Organization | | | | + +---------+ + + | EXTERNAL LAB | | | | + +---------+ + + External Lab: eGFR (06/14/2018) + +-------+ + + + | Component | Value | Ref Range | Performed | Pathologist | | | | | At | Signature | + +-------+ + + + | eGFR, | >120 | 60 - 99,999 | EXTERNAL | | | External | | | LAB | | + +-------+ + + + + + | Specimen | + + | Blood | + + + +---------+ + + | Performing | Address | City/State/Zipcode | Phone Number | | Organization | | | | + +---------+ + + | EXTERNAL LAB | | | | + +---------+ + + External Lab: Creatinine (06/14/2018) + + + + + + | Component | Value | Ref Range | Performed | Pathologist | | | | | At | Signature | + + + + + + | Creatinine, | 0.42 (A) | 0.7 - 1.25 | EXTERNAL | | | External | | | LAB | | + + + + + + + + | Specimen | + + | Blood | + + + +---------+ + + | Performing | Address | City/State/Zipcode | Phone Number | | Organization | | | | + +---------+ + + | EXTERNAL LAB | | | | + +---------+ + + documented in this encounter Visit Diagnoses Not on filedocumented in this encounter"
--- OUTSIDE RECORDS SUMMARY | ~2019-03-08 | XMS | Encounter Summary ---
Demographics + + + | Address | [address] | | | [place] [address] | + + + | Home Phone | | + + + | Preferred Language | Unknown | + + + | Marital Status | | + + + | Restorationist Affiliation | 1001 | + + + | Race | Unknown | + + + | Ethnic Group | Unknown | + + + Author + + + | Author | [facility] | | | and [place] | + + + | Organization | [facility] | | | and [place] | [...] [place], [place] | | | | | [address] | | + + + + + | Tiffanie Chisholm | ECON | [address] | | | | | [place], [place] | | | | | [address] | | + + + + + Care Team Providers + +------+ + | Care Squilgeer Name | Role | Phone | + +------+ + | Colby Ayala | | | MD | | | + +------+ + Encounter Details +--------+ + + + + | Date | Type | Department | Care Team | Description | +--------+ + + + + | 08/01/ | Orders Only | [facility] | Bert Linder, | Neurogenic bladder | | 2019 | | [address] | [address] | (Primary Dx); | | | | [place] | [place] | Nephrolithiasis | | | | [address] | [address] | | | | | [phone] | | | +--------+ + + + [...] Neurology | Negin Campos | | | 2020 | Visit | | MD Josiah [address] | | | | | | [place] | | | | | | [place] [address] | | | | | | [phone] | | | | | | | | +--------+---------+ + + + | 07/04/ | Office | Urology | Bert Linder, | | | 2019 | Visit | | MD Joy [address] | | | | | | [place] | | | | | | [address] | | | | | | | | +--------+---------+ + + + + +---------+--------+ + + | Name | Type | Priori | Associated Diagnoses | Order Schedule | | | | ty | | | + +---------+--------+ + + | Basic Metabolic | Lab | Routin | Neurogenic bladder | Expected: | | Panel | | e | Nephrolithiasis | 06/21/2019, Expires: | | | | | | 08/02/2019 | + +---------+--------+ + + | XR Abdomen AP | Imaging | Routin | Nephrolithiasis | Expected: | | | | e | | 06/21/2019, Expires: | | | | | | 08/02/2019 | + +---------+--------+ + + documented as of this encounter Visit Diagnoses + + | Diagnosis | + + | Neurogenic bladder - Primary Neurogenic bladder, NOS | + + | Nephrolithiasis Calculus of kidney | + + documented in this encounter"
--- OUTSIDE RECORDS SUMMARY | ~2019-03-08 | XMS | Encounter Summary ---
Demographics + + + | Address | [address] | | | [place] [address] | + + + | Home Phone | | + + + | Preferred Language | Unknown | + + + | Marital Status | | + + + | Buddhism Affiliation | 1001 | + + + | Race | Unknown | + + + | Ethnic Group | Unknown | + + + Author + + + | Author | [facility] | | | and [place] | + + + | Organization | [facility] | | | and [place] [...] [place], [place] | | | | | [address] | | + + + + + | Tiffanie Chisholm | ECON | [address] | | | | | [place], [place] | | | | | [address] | | + + + + + Care Team Providers + +------+ + | Care Manager Critical Care Name | Role | Phone | + +------+ + | Owen Swartz MD | PCP | | + +------+ + Reason for Visit +--------+ + | Reason | Comments | +--------+ + | Other | | +--------+ + Encounter Details +--------+ + + + + | Date | Type | Department | Care Team | Description | +--------+ + + + + | 04/06/ | Telephone | [facility] | Bert Linder, | Other | | 2019 | | [address] | [address] | | | | | [place] | [place] | | | | | [address] | [address] | | | | | [phone] | | | +--------+ + + + [...] | | | | | [place] [address] | | | | | | [phone] | | | | | | | | +--------+---------+ + + + | 07/04/ | Office | Urology | Bert Linder, | | | 2019 | Visit | | [address] | | | | | | [place] | | | | | | [address] | | | | | | | | +--------+---------+ + + + documented as of this encounter Visit Diagnoses Not on filedocumented in this encounter"
--- OUTSIDE RECORDS SUMMARY | ~2019-03-08 | XMS | Clinical Summary ---
Demographics + + + | Address | [address] | | | [place] [address] | + + + | Home Phone | | + + + | Preferred Language | Unknown | + + + | Marital Status | | + + + | Muslim Affiliation | 1001 | + + + | Race | Unknown | + + + | Ethnic Group | Unknown | + + + Author + + + | Author | [facility] | | | and [place] | + + + | Organization | [facility] | | | and [place] [...] [place], [place] | | | | | [address] | | + + + + + | Tiffanie Chisholm | ECON | [address] | | | | | [place], [place] | | | | | [address] | | + + + + + Care Team Providers + +------+ + | Care Substitute Nurse Name | Role | Phone | + +------+ + | Colby Ayala | PCP | | | MD | | | + +------+ + Allergies + + + + + + | Active Allergy | Reactions | Severity | Noted | Comments | | | | | Date | | + + + + + + | Chocolate | | | 02/08/20 | | | | | | 15 | | + + + + + + | Peanuts | | | 02/08/20 | | | | | | 15 | | + + + + + + Medications + + + +---------+------+------+-------+ | Medication | Sig | Dispensed | Refills | Star | End | Statu | | | | | | t | Date | s | | | | | | Date | | | + + + +---------+------+------+-------+ | Multiple | Take 1 tablet by | | 0 | | | Activ | | Vitamins-Minerals | mouth Daily. | | | | | e | | (ADULT MULTIVITAMIN | | | | | | | | WITH MINERALS/IRON) | | | | | | | | TABS | | | | | | | + + + +---------+------+------+-------+ | calcium | Take 1 tablet by | | 0 | | | Activ | | citrate-vitamin D | mouth Daily. | | | | | e | | (CITRACAL+D) 315 | | | | | | | | mg-200 units per | | | | | | | | tablet | | | | | | | + + + +---------+------+------+-------+ | donepezil | Take 10 mg by mouth | | 0 | | | Activ | | (ARICEPT) 10 MG | every morning. | | | | | e | | tablet | | | | | | | + + + +---------+------+------+-------+ | mirabegron | Take 50 mg by mouth | | 0 | | | Activ | | (MYRBETRIQ) 50 mg ER | Daily. 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 | + + + | Neuropathy | 07/08/2010 | + + + Immunizations + + + + | Name | Administration Dates | Next Due | + + + + | INFLUENZA PF | 11/21/2012, 10/20/2011, 10/22/2010 | | | TRIVALENT(PED/ADOL/A | | | | DULT)CHARLENEKT | | | + + + + | INFLUENZA QUADR | 01/18/2018 | | | W/PRES | | | | (PED/ADOL/ADULT) | | | | MULTIDOSE | | | + + + + | INFLUENZA, | 11/26/2008, 12/12/2006 | | | UNSPECIFIED | | | | FORMULATION | | | + + + + | PNEUMOCOCCAL | 01/26/2016 | | | CONJUGATE 13-VALENT | | | | (PCV13) | | | + + + + Family History + + +------+ + | Medical History | Relation | Name | Comments | + + +------+ + | Other (see comment) | Mother | | epilepsy | + + +------+ + + +------+ + + | Relation | Name | Status | Comments | + +------+ + + | Father | | | Old age | | | | (Age | | | | | 86) | | + +------+ + + | Mother | | | Epilepsy | | | | (Age | | | | | 72) | | + +------+ + + Social History + +-------+ +--------+------+ [...] recent travel history available. | + + Last Filed Vital Signs + + + + + | Vital Sign | Reading | Time Taken | Comments | + + + + + | Blood Pressure | 92/60 | 06/22/2018 1:40 PM | | | | | PDT | | + + + + + | Pulse | 52 | 06/22/2018 1:40 PM | | | | | PDT | | + + + + + | Temperature | - | - | | + + + + + | Respiratory Rate | 16 | 06/22/2018 1:40 PM | | | | | PDT | | + + + + + | Oxygen Saturation | - | - | | + + + + + | Inhaled Oxygen | - | - | | | Concentration | | | | + + + + + | Weight | 56.7 kg (125 lb) | 06/22/2018 1:40 PM | | | | | PDT | | + + + + + | Height | 154.9 cm (5' 1") | 06/22/2018 1:40 PM | | | | | PDT | | + + + + + | Body Mass Index | 23.62 | 06/22/2018 1:40 PM | | | | | PDT | | + + + + + Plan of Treatment +--------+---------+ + + + | Date | Type | Specialty | Care Team | Description | +--------+---------+ + + + | 05/30/ | Office | Neurology | Negin Campos | | 2019 | Visit | | MD Josiah [address] | | | | | | [place] | | | | | | [place], [place] [address] | | | | | | [phone] | | | | | | | | +--------+---------+ + + + | 07/04/ | Office | Urology | Bert Linder, | | | 2019 | Visit | | MD [address] | | | | | | [place] | | | | | | [address] | | | | | | | | +--------+---------+ + + + + + + + + | Health Maintenance | Due Date | Last Done | Comments | + + + + + | Hepatitis C | | | | | Screening | 5 | | | + + + + + | Vaccine: | | | | | Dtap/Tdap/Td (1 - | 6 | | | | Tdap) | | | | + + + + + | Cervical Cancer | | | | | Screening (Pap) | 5 | | | + + + + + | Colorectal Cancer | | | | | Screening | 5 | | | | (Colonoscopy) | | | | + + + + + | Vaccine: Zoster (1 | | | | | of 2) | 5 | | | + + + + + | Breast Cancer | | | | | Screening | 0 | | | + + + + + | Adult Annual | | | | | Wellness Visit | 5 | | | + + + + + | Vaccine: Influenza | | 01/18/2018, 11/21/2012, | | | (#1) | 9 | 10/20/2011, Additional history | | | | | exists | | + + + + + Results Not on filefrom Last 3 Months Insurance + +--------+ +--------+ +---------+--------+ | Payer | Benefi | Subscriber | Effect | Phone | Address | Type | | | t Plan | ID | jany | | | | | | / | | Dates | | | | | | Group | | | | | | + +--------+ +--------+ +---------+--------+ | MEDICARE | MEDICA | [id number] | | [phone] | | Medica | | | RE | | 013-Pr | 5 | | re | | | PART A | | esent | | | | | | AND B | | | | | | + +--------+ +--------+ +---------+--------+ | AARP | AARP | [id number] | | [phone] | | Indemn | | | MDCR | | 013-Pr | 0 | | ity | | | SUPPL | | esent | | | | + +--------+ +--------+ +---------+--------+ + +--------+ +--------+ + + | Guarantor Name | Accoun | Relation to | Date | Phone | Billing Address | | | t Type | Patient | of | | | | | | | | | | + +--------+ +--------+ + + | Charissa Goss | Person | Self | [birth year] | [address] | | | al/Fam | | [phone] | [phone] | [place] | | | [place] | | | 9 (Home) | [address] | | | | | | [phone] | | | | | | | 7 (Work) | | + +--------+ +--------+ + + Advance Directives + + + + + | Type | Date Recorded | Patient | Explanation | | | | 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
--- OUTSIDE RECORDS SUMMARY | ~2019-03-08 | XMS | Encounter Summary ---
Demographics + + + | Address | [address] | | | [place] [address] | + + + | Home Phone | | + + + | Preferred Language | Unknown | + + + | Marital Status | | + + + | Cheondoism Affiliation | 1001 | + + + | Race | Unknown | + + + | Ethnic Group | Unknown | + + + Author + + + | Author | [facility] | | | and [place] | + + + | Organization | [facility] | | | and [place] [...] [place], [place] | | | | | [address] | | + + + + + | Tiffanie Chisholm | ECON | [address] | | | | | [place], [place] | | | | | [address] | | + + + + + Care Team Providers + +------+ + | Care Police Captain Senior Name | Role | Phone | + +------+ + | Colby Ayala PCP | | | MD | | | + +------+ + Encounter Details +--------+ + + + + | Date | Type | Department | Care Team | Description | +--------+ + + + + | 07/04/ | Abstract | [facility] | Bert Linder, | | | 2018 | | [address] | MD [address] | | | | | [place] | [place] | | | | | [address] | [address] | | | | | [phone] | | | +--------+ + + + [...] | | | | | [place] [address] | | | | | | [phone] | | | | | | | | +--------+---------+ + + + | 07/04/ | Office | Urology | Bert Linder, | | | 2019 | Visit | | MD [address] | | | | | | [place] | | | | | | [address] | | | | | | | | +--------+---------+ + + + documented as of this encounter Procedures + +--------+ + + + | Procedure Name | Priori | Date/Time | Associated Diagnosis | Comments | | | ty | | | | + +--------+ + + + | EXTERNAL LAB: | Routin | 06/16/2018 | | Results for this | | URINALYSIS | e | | | procedure are in the | | | | | | results section. | + +--------+ + + + | URINALYSIS, REFLEX | Routin | 06/16/2018 | | Results for this | | MICROSCOPIC AND/OR | e | | | procedure are in the | | CULTURE | | | | results section. | + +--------+ + + + documented in this encounter Results Urinalysis, Reflex Microscopic and/or Culture (06/16/2018) + + + + + + | Component | Value | Ref Range | Performed | Pathologist | | | | | At | Signature | + + + + + + | COLLECTION | Clean Catch | | | | | METHOD 1 | | | | | + + + + + + | Color | Yellow | | | | + + + + + + | Clarity | Slightly Cloudy | | | | + + + + + + | Bilirubin, | Negative | Negative | | | | Urine | | | | | + + + + + + | Urobilinoge | Normal | < 0.2 mg/dL, | | | | n, Urine | | 1.0 mg/dL, 4.0 | | | | | | mg/dL, Normal, | | | | | | 1.0 E.U./dL, | | | | | | 0.2 E.U./dL, | | | | | | 0.2 mg/dL, | | | | | | Negative, 1 | | | | | | mg/dL, <2.0 | | | | | | mg/dL | | | + + + + + + | Nitrite, | Negative | Negative | | | | Urine | | | | | + + + + + + | BACTERIA UA | Negative | Negative /HPF | | | + + + + + + | CASTS | Negative | | | | + + + + + + | CRYSTAL UA | 4+ | | | | + + + + + + | Epithelial | 1+ | | | | | Cells | | | | | + + + + + + | WBC UA | 10 (A) | 0 - 4 /HPF | | | + + + + + + + + | Specimen | + + | Urine | + + External Lab: Urinalysis (06/16/2018) + + + + + + | Component | Value | Ref Range | Performed | Pathologist | | | | | At | Signature | + + + + + + | UA Blood, | Negative | | EXTERNAL | | | External | | | LAB | | + + + + + + | UA Glucose, | Normal | | EXTERNAL | | | External | | | LAB | | + + + + + + | UA Ketones, | Negative | | EXTERNAL | | | External | | | LAB | | + + + + + + | UA Ph, | 6 | 5 - 9 | EXTERNAL | | | External | | | LAB | | + + + + + + | UA | Negative | | EXTERNAL | | | Proteins, | | | LAB | | | External | | | | | + + + + + + | UA RBC, | 50 (A) | 0 - 4 | EXTERNAL | | | External | | | LAB | | + + + + + + | UA Specific | 1.016 | 1.005 - 1.03 | EXTERNAL | | | Bosler, | | | LAB | | | External | | | | | + + + + + + | UA | Negative | | EXTERNAL | | | Leukocyte | | | LAB | | | Esterase, | | | | | | External | | | | | + + + + + + + +---------+ + + | Performing | Address | City/State/Zipcode | Phone Number | | Organization | | | | + +---------+ + + | EXTERNAL LAB | | | | + +---------+ + + documented in this encounter Visit Diagnoses Not on filedocumented in this encounter"
--- OUTSIDE RECORDS SUMMARY | ~2019-03-08 | XMS | Encounter Summary ---
Demographics + + + | Address | [address] | | | [place] [address] | + + + | Home Phone | | + + + | Preferred Language | Unknown | + + + | Marital Status | | + + + | Cheondoism Affiliation | Unknown | + + + | Race | White | + + + | Ethnic Group | Not or | + + + Author + + + | Author | [facility] | + + + | Organization | [facility] | + + + | Address | Unknown | + + + | Phone | Unavailable | + + + Support + + +---------+ + | Name | Relationship | Address | Phone | + + +---------+ + | Nahomy Briana | ECON | Unknown | | + + +---------+ + Care Team Providers + +------+ + | Care Rn International Name | Role | Phone | + +------+ + | Owen Swartz MD | PCP | | + +------+ + Encounter Details +--------+ + + + + | Date | Type | Department | Care Team | Description | +--------+ + + + + | 08/29/ | Document-Sc | UNKNOWN DEPARTMENT | Unknown . | | | 2008 | anned | [address] | | | | | | [address] | | | | | | [place], [place] | | | | | | [address] | | | +--------+ + + + + Social History + +-------+ +--------+------+ | Tobacco Use | Types | Packs/Day | Years | Date | | | | | Used | | + +-------+ +--------+------+ | Never Assessed | | | | | + +-------+ +--------+------+ + + + | Sex Assigned at [...] | + +--------+ + + + | RADIOLOGY | | 08/29/2008 | | Results for this | | | | 12:00 AM | | procedure are in the | | | | PDT | | results section. | + +--------+ + + + documented in this encounter Results RADIOLOGY (08/29/2008 12:00 AM PDT) + + + | Narrative | Performed At | + + + | | | + + + documented in this encounter Visit Diagnoses Not on filedocumented in this encounter"
--- OUTSIDE RECORDS SUMMARY | ~2019-03-08 | XMS | Encounter Summary ---
Demographics + + + | Address | [address] | | | [place] [address] | + + + | Home Phone | | + + + | Preferred Language | Unknown | + + + | Marital Status | | + + + | Rastafari Affiliation | 1001 | + + + | Race | Unknown | + + + | Ethnic Group | Unknown | + + + Author + + + | Author | [facility] | | | and [place] | + + + | Organization | [facility] | | | and [place] [...] [place], [place] | | | | | [address] | | + + + + + | Tiffanie Chisholm | ECON | [address] | | | | | [place], [place] | | | | | [address] | | + + + + + Care Team Providers + +------+ + | Care Bsa/Aml Compliance Officer Name | Role | Phone | + [...] | +--------+ + + + + | 09/16/ | Clinical | [facility] | Bert Linder, | Urge incontinence | | 2016 | Support | [address] | [address] | (Primary Dx) | | | | [place] | [place] | | | | | [address] | [address] | | | | | [phone] | | | +--------+ + + + [...] encounter Progress Notes Blessing Rodríguez, RN - 09/17/2015 3:23 PM PDT Percutaneous tibial nerve stimulation (PTNS) [...] nerve was adjusted to a setting of 7. The patient's response to treatment was reviewed with patient. See flow sheet in chart. PERCUTANEOUS TIBIAL NERVE STIMULATION FLOW SHEET Related health & social habits Comments Caffeine #/day Alcohol #/day Daytime voids #/day Night-time voids #/night Urgency 0=none, 4=severe Incontinenceepisodes #/day Ankle used Setting Feeling/ Response [x] Same [] Change 0 0 5-6 1 3 3-4 [x] R [] L 7 [] Toe Flex [] Foot sensation [x] Both documented in this encounter Plan of [...] | | | | | [place], [place] [address] | | | | | | [phone] | | | | | | | | +--------+---------+ + + + | 07/04/ | Office | Urology | Bert Linder, | | 2019 | Visit | | MD Joy PERSON | | | | | | [place] | | | | | | [address] | | | | | | | | +--------+---------+ + + + documented as of this encounter Visit Diagnoses + + | Diagnosis | + + | Urge incontinence - Primary | + + documented in this encounter"
--- OUTSIDE RECORDS SUMMARY | ~2019-03-08 | XMS | Encounter Summary ---
Demographics + + + | Address | [address] | | | [place] [address] | + + + | Home Phone | | + + + | Preferred Language | Unknown | + + + | Marital Status | | + + + | Hinduism Affiliation | Unknown | + + + | Race | White | + + + | Ethnic Group | Not or | + + + Author + + + | Author | [facility] | + + + | Organization | [facility] | + + + | Address | Unknown | + + + | Phone | Unavailable | + + + Support + + +---------+ + | Name | Relationship | Address | Phone | + + +---------+ + | Nahomy Briana | ECON | Unknown | | + + +---------+ + Care Team Providers + +------+ + | Care Crutching Contractor Name | Role | Phone | + +------+ + | Owen Swartz MD | PCP | | + +------+ + Reason for Visit +--------+ + | Reason | Comments | +--------+ + | Other | | +--------+ + Encounter Details +--------+ + + + + | Date | Type | Department | Care Team | Description | +--------+ + + + + | 08/04/ | Telephone | Neurology at | [facility] | Other | | 2012 | | [facility] & | MD Valentin | | | | | Healing [address] | | | | | | [place] Mailcode: | | | | | | [address] [place] [address] | | | | | | Health and Healing, | | | | | | Building [address] | | | | | | Floor [place], [place] | | | | | | [address] | | | | | | [phone] | | | +--------+ + + + [...]
--- OUTSIDE RECORDS SUMMARY | ~2019-03-08 | XMS | Encounter Summary ---
Demographics + + + | Address | [address] | | | [place] [address] | + + + | Home Phone | | + + + | Preferred Language | Unknown | + + + | Marital Status | | + + + | Synagogue Affiliation | 1001 | + + + | Race | Unknown | + + + | Ethnic Group | Unknown | + + + Author + + + | Author | [facility] | | | and [place] | + + + | Organization | [facility] | | | and Br[place]ana [...] [place], [place] | | | | | [address] | | + + + + + | Tiffanie Chisholm | ECON | [address] | | | | | [place], [place] | | | | | [address] | | + + + + + Care Team Providers + +------+ + | Care Job Training Specialist Name | Role | Phone | + +------+ + | Owen Swartz MD | PCP | | + +------+ + Encounter Details +--------+ + + + + | Date | Type | Department | Care Team | Description | +--------+ + + + + | 05/06/ | Hospital | [facility] | Niyah Gomez, | Thyroid cancer (HCC) | | 2016 | Encounter | [facility] | MD [address] | | | | | [address] | [place] | | | | | [place] | [address] | | | | | [address] | [phone] | | | | | [phone] | | | | | | | Michelle Burch, | | | | | | Technologist | | +--------+ + + + + [...] + + documented as of this encounter Medications at Time of Discharge + + + +---------+--------+ + | Medication | Sig | Dispensed | Refills | Start | End Date | | | | | | Date | | + + + +---------+--------+ + | calcium | Take 1 tablet by | | 0 | | | | citrate-vitamin D | mouth Daily. | | | | | | (CITRACAL+D) 315 | | | | | | | mg-200 units per | | | | | | | tablet | | | | | | + + + +---------+--------+ + | donepezil | Take 10 mg by mouth | | 0 | | | | (ARICEPT) 10 MG | every morning. | | | | | | tablet | | | | | | + + + +---------+--------+ + | mirabegron | Take 50 mg by mouth | | 0 | | | | (MYRBETRIQ) 50 mg ER | Daily. | | | | | | tablet | | | | | | + + + +---------+--------+ + | Multiple | Take 1 tablet by | | 0 | | | | Vitamins-Minerals | mouth Daily. | | | | | | (ADULT MULTIVITAMIN | | | | | | | WITH MINERALS/IRON) | | | | | | | TABS | | | | | | + + + +---------+--------+ + | levothyroxine | Take 88 mcg by mouth | | 0 | | | | (SYNTHROID, | every morning | | | | 6 | | LEVOTHROID) 88 mcg | (before breakfast). | | | | | | tablet | | | | | | + + + +---------+--------+ + documented as of this encounter Plan [...] | | | | | [place] [address] | | | | | | [phone] | | | | | | | | +--------+---------+ + + + | 07/04/ | Office | Urology | Bert Linder, | | | 2019 | Visit | | MD Joy SINHA | | | | | | [place] | | | | | | [address] | | | | | | | | +--------+---------+ + + + documented as of this encounter Procedures + +--------+ + + + | Procedure Name | Priori | Date/Time | Associated Diagnosis | Comments | | | ty | | | | + +--------+ + + + | US HEAD NECK SOFT | Routin | 05/07/2015 | Thyroid cancer | Results for this | | TISSUE | e | 3:16 PM | (HCC) | procedure are in the | | | | PST | | results section. | + +--------+ + + + documented in this encounter Results US Head Neck Soft Tissue (05/07/2015 3:16 PM PST) + + | Specimen | + + | | + + + + + | Narrative | Performed At | + + + | US HEAD NECK SOFT TISSUE 05/07/2015 3:15 PM HISTORY: THYROID | [facility] | | CANCER. COMPARISON: None. PROTOCOL: Walter scale and Doppler | | | images of the thyroid. FINDINGS: There has been previous | | | thyroidectomy with no evidence for residual thyroid tissue or | | | recurrence of cancer. IMPRESSION - No evidence for tumor | | | recurrence. Dictated and Signed by: Wyatt May MD | | | Electronically signed: 05/07/2015 4:32 PM | | + + + + + | Procedure Note | + + | Albert, Rad Results In - 05/07/2015 4:36 PM PST US HEAD NECK SOFT TISSUE 05/07/2015 3:15 | | PM HISTORY: THYROID CANCER.COMPARISON: None.PROTOCOL: Walter scale and Doppler images of | | the thyroid.FINDINGS:There has been previous thyroidectomy with no evidence for residual | | thyroidtissue or recurrence of cancer.IMPRESSION -No evidence for tumor | | recurrence.Dictated and Signed by: Wyatt May MD Electronically signed: 05/07/2015 4:32 | | PM | |PROTOCOL: Walter scale and Doppler images of the thyroid. | | | |FINDINGS: | |There has been previous thyroidectomy with no evidence for residual thyroid | |tissue or recurrence of cancer. | | | |IMPRESSION - | |No evidence for tumor recurrence. | | | |Dictated and Signed by: Wyatt May MD | | Electronically signed: 05/07/2015 4:32 PM | + + + +---------+ + + | Performing | Address | City/State/Zipcode | Phone Number | | Organization | | | | + +---------+ + + | [facility] | | | | + +---------+ + + documented in this encounter Visit Diagnoses + + | Diagnosis | + + | Thyroid cancer (HCC) Malignant neoplasm of thyroid gland | + + documented in this encounter"
--- OUTSIDE RECORDS SUMMARY | ~2019-03-08 | XMS | Encounter Summary ---
Demographics + + + | Address | [address] | | | [place] [address] | + + + | Home Phone | | + + + | Preferred Language | Unknown | + + + | Marital Status | | + + + | Adventism Affiliation | 1001 | + + + | Race | Unknown | + + + | Ethnic Group | Unknown | + + + Author + + + | Author | [facility] | | | and [place] | + + + | Organization | [facility] | | | and [place] [...] [place], [place] | | | | | [address] | | + + + + + | Tiffanie Chisholm | ECON | [address] | | | | | [place], [place] | | | | | [address] | | + + + + + Care Team Providers + +------+ + | Care B2B Sales Consultant Name | Role | Phone | + +------+ + | Owen Swartz MD | PCP | | + +------+ + Reason for Visit + + + | Reason | Comments | + + + | Urgency Incontinence | | + + + Encounter Details +--------+ + + + + | Date | Type | Department | Care Team | Description | +--------+ + + + + | 03/17/ | Clinical | [facility] | Bert Linder, | Urge incontinence | | 2018 | Support | [address] | [address] | (Primary Dx) | | | | [place] | [place] | | | | | [address] | [address] | | | | | [phone] | | | +--------+ + + + [...] + documented as of this encounter Progress Delores Benítez RN - 03/17/2017 4:00 PM PST Percutaneous tibial nerve stimulation (PTNS) was prescribed for Charissa's overactive symptoms of urge incontinence. She has not been in since 01/27/17 due to inclement weather. She and her report that in the last two weeks she has woken up mostly dry and has also had f ewer episodes of her pad being wet when being taken to the bathroom at her timed voids. The needle electrode was inserted into the lower, inner aspect of the right leg. The surface e lectrode was placed on the bottom of the foot on the treatment leg. The lead set was connec derek to the stimulator, and the needle electrode clip was connected to the needle electrode. The stimulator that produces an adjustable electrical pulse that travels to the sacral nerv e plexus via the tibial nerve was adjusted to a setting of 19. The patient's response to tr eatment was reviewed with patient. See flow sheet in chart. PERCUTANEOUS TIBIAL NERVE STIMULATION FLOW SHEET Related health & social habits Comments Caffeine #/day Alcohol #/day Daytime voids #/day Night-time voids #/night Urgency 0=none, 4=severe Incontinence episodes #/day Ankle used Setting Feeling/ Response [x] Same [] Change 0 0 4-5 0 Woke up mostly dry last 2 weeks 0 No sensation her bladder is filling or needs to void 1-2 [x] R [] L 19 [] Toe [...] | | | | | [place], [place] [address] | | | | | | [phone] | | | | | | | | +--------+---------+ + + + | 07/04/ | Office | Urology | Bert Linder, | | | 2019 | Visit | | MD Joy PERSON | | | | | | [place] | | | | | | [id number] | | | | | | | | +--------+---------+ + + + documented as of this encounter Visit Diagnoses + + | Diagnosis | + + | Urge incontinence - Primary | + + documented in this encounter"
--- OUTSIDE RECORDS SUMMARY | ~2019-03-08 | XMS | Encounter Summary ---
Demographics + + + | Address | [address] | | | [place] [address] | + + + | Home Phone | | + + + | Preferred Language | Unknown | + + + | Marital Status | | + + + | Episcopalian Affiliation | Unknown | + + + [...] Team Providers + +------+ + | Care Dot Etcher Name | Role | Phone | + +------+ + | Owen Swartz MD | PCP | | + +------+ + Encounter Details +--------+ + + + + | Date | Type | Department | Care Team | Description | +--------+ + + + + | 09/25/ | MyChart | Neurology at | [facility] | RE: MRI | | 2014 | Encounter | [facility] & | MD Valentin | | | | | [address] | | | | | | [address] Mailcode: | | | | | | [facility] | | | | | | Health and Healing, | | | | | | | | | | | | [place], [place] | | | | | | [address] | | | | | | [phone] | | | +--------+ + + + [...]
--- OUTSIDE RECORDS SUMMARY | ~2019-03-08 | XMS | Encounter Summary ---
Demographics + + + | Address | [address] | | | [place] [address] | + + + | Home Phone | | + + + | Preferred Language | Unknown | + + + | Marital Status | | + + + | Yazidi Affiliation | Unknown | + + + | Race | White | + + + | Ethnic Group | Not or | + + + Author + + + | Author | [facility] | + + + | Organization | [facility] | + + + | Address | Unknown | + + + | Phone | Unavailable | + + + Support + + +---------+ + | Name | Relationship | Address | Phone | + + +---------+ + | Nahomy Briana | ECON | Unknown | | + + +---------+ + Care Team Providers + +------+ + | Care Template Clerk Name | Role | Phone | + +------+ + | Owen Swartz MD | PCP | | + +------+ + Encounter Details +--------+ + + + + | Date | Type | Department | Care Team | Description | +--------+ + + + + | 10/24/ | Abstract | Neurology at | Brandon Calloway MD | | | 2014 | | [facility] & | | | | | | [address] | | | | | | [place] Mailcode: | | | | | | [facility] | | | | | | Health and Healing, | | | | | | | | | | | | [place], [place] | | | | | | [address] | | | | | | [phone] | | | +--------+ + + + [...]
--- OUTSIDE RECORDS SUMMARY | ~2019-03-08 | XMS | Encounter Summary ---
Demographics + + + | Address | [address] | | | [place] [address] | + + + | Home Phone | | + + + | Preferred Language | Unknown | + + + | Marital Status | | + + + | Restorationism Affiliation | 1001 | + + + | Race | Unknown | + + + | Ethnic Group | Unknown | + + + Author + + + | Author | [facility] | | | and [place] | + + + | Organization | [facility] | | | and Br[place]ana [...] [place], [place] | | | | | [address] | | + + + + + | Tiffanie Chisholm | ECON | [address] | | | | | [place], [place] | | | | | [address] | | + + + + + Care Team Providers + +------+ + | Care Lpn Medical Assistant Name | Role | Phone | + +------+ + | Owen Swartz MD | PCP | | + +------+ + Encounter Details +--------+ + + + + | Date | Type | Department | Care Team | Description | +--------+ + + + + | 02/07/ | Abstract | [facility] | Bert Linder, | | | 2014 | | [address] | MD [address] [facility] | | | | | [place] | [place] | | | | | [address] | [address] | | | | | [phone] | | | +--------+ + + + [...] | Visit | | MD [address] | | | | | | [address] | | | | | | [place] [address] | | | | | | [phone] | | | | | | | | +--------+---------+ + + + | 07/04/ | Office | Urology | Bert Linder, | | | 2019 | Visit | | MD Joy PERSON | | | | | | [place] | | | | | | [address] | | | | | | | | +--------+---------+ + + + documented as of this encounter Visit Diagnoses Not on filedocumented in this encounter"
--- OUTSIDE RECORDS SUMMARY | ~2019-03-08 | XMS | Encounter Summary ---
Demographics + + + | Address | [address] | | | [place] [address] | + + + | Home Phone | | + + + | Preferred Language | Unknown | + + + | Marital Status | | + + + | Bahai Affiliation | 1001 | + + + | Race | Unknown | + + + | Ethnic Group | Unknown | + + + Author + + + | Author | [facility] | | | and [place] | + + + | Organization | [facility] | | | [...] [place], [place] | | | | | [address] | | + + + + + | Tiffanie Chisholm | ECON | [address] | | | | | [place], [place] | | | | | [address] | | + + + + + Care Team Providers + +------+ + | Care Pass Worker Name | Role | Phone | + [...] | +--------+ + + + + | 10/25/ | Clinical | [facility] | Bert Linder, | Urge incontinence | | 2017 | Support | [address] | [address] | (Primary Dx) | | | | [place] | [place] | | | | | [address] | [address] | | | | | [phone] | | | +--------+ + + + [...] this encounter Progress Delores Benítez RN - 10/25/2016 3:00 PM PDT Percutaneous tibial nerve stimulation (PTNS) "as needed" was prescribed for Charissa's overact jany symptoms of urge incontinence. The needle electrode was inserted into the lower, inner aspect of the right leg. The surface electrode was placed on the bottom of the foot on the treatment leg. The lead set was connected to the stimulator, and the needle electrode clip was connected to the needle electrode. The stimulator that produces an adjustable electrica l pulse that travels to the sacral nerve plexus via the tibial nerve was adjusted to a setti ng of 19. The patient's response to treatment was reviewed with patient. She and her husban d feel that after PTNS treatments for about 3-4 weeks she is less wet or even dry when she g ets up in the mornings. She is taken to the bathroom 4-5 times per day and her incontinence pad is much less about a week after treatments until several days before her next treatment. See flow sheet in chart. PERCUTANEOUS TIBIAL NERVE STIMULATION FLOW SHEET Related health & social habits Comments Caffeine #/day Alcohol #/day Daytime voids #/day Night-time voids #/night Urgency 0=none, 4=severe Incontinence episodes #/day Ankle used Setting Feeling/ Response [x] Same [] Change 0 0 5 0-1 (usually wakes up wet) 0 3 [x] R [] L 19 [] Toe [...] | | | | | [place] [address] | | | | | | [phone] | | | | | | | | +--------+---------+ + + + | 07/04/ | Office | Urology | Bert Linder, | | | 2019 | Visit | | MD Joy SINHA | | | | | | [place] | | | | | | [address] | | | | | | | | +--------+---------+ + + + documented as of this encounter Visit Diagnoses + + | Diagnosis | + + | Urge incontinence - Primary | + + documented in this encounter
--- OUTSIDE RECORDS SUMMARY | ~2019-03-08 | XMS | Encounter Summary ---
Demographics + + + | Address | [address] | | | [place] [address] | + + + | Home Phone | | + + + | Preferred Language | Unknown | + + + | Marital Status | | + + + | Moravian Affiliation | 1001 | + + + | Race | Unknown | + + + | Ethnic Group | Unknown | + + + Author + + + | Author | [facility] | | | and [place] | + + + | Organization | [facility] | | | and [...] [place], [place] | | | | | [address] | | + + + + + | Tiffanie Chisholm | ECON | [address] | | | | | [place], [place] | | | | | [address] | | + + + + + Care Team Providers + +------+ + | Care Plant Physiologist Name | Role | Phone | + +------+ + | Owen Swartz MD | PCP | | + +------+ + Reason for Visit + + + | Reason | Comments | + + + | Enuresis | | + + + | Hematuria | | + + + Encounter Details +--------+ + + + + | Date | Type | Department | Care Team | Description | +--------+ + + + + | 06/16/ | Clinical | [facility] | Bert Linder, | Neurogenic bladder | | 2018 | Support | [address] | [address] | (Primary Dx); | | | | [place] | [place] | Microscopic | | | | [address] | [address] | hematuria; | | | | [phone] | | Leukodystrophy | +--------+ + + + + Social [...] documented as of this encounter Progress Notes Delores Milton RN - 06/16/2017 2:00 PM PDT Percutaneous tibial nerve stimulation (PTNS) [...] was adjusted to a setting of 19. T he patient's response to treatment was reviewed with patient. See flow sheet in chart. PERCUTANEOUS TIBIAL NERVE STIMULATION FLOW SHEET Related health & social habits Comments Caffeine #/day Alcohol #/day Daytime voids #/day Night-time voids #/night Urgency 0=none, 4=severe Incontinence episodes #/day Ankle used Setting Feeling/ Response [x] Same [] Change 0 0 4-5 0 Mostly dry more than 3/4 of the mornings 0 3 [x] R [] L 19 [] Toe Flex [] Foot sensation [] Both She has been unable to provide a urine specimen for cytology that was requested by Dr Marva dorsey to be done prior to 05/03/17 appointment. She is unable to provide a specimen today. They ar e given a urine collection hat, container and orders for cytology, reflex FISH if atypical o r suspicious. They will collect a urine specimen at home and take it right to [facility] in [facility] for processing. documented in this encounter Plan of Treatment +--------+---------+ + + + | Date | Type | Specialty | Care Team | Description | +--------+---------+ + + + | 05/30/ | Office | Neurology | Negin Campos | | | 2019 | Visit | | MD Josiah [address] | [address], [place] | | | | | | [place] [address] | | | | | | [phone] | | | | | | | | +--------+---------+ + + + | 07/04/ | Office | Urology | Bert Linder, | | | 2019 | Visit | | MD [address] | | | | | | [place] | | | | | | [address] | | | | | | | | +--------+---------+ + + + + + +--------+ + + | Name | Type | Priori | Associated Diagnoses | Order Schedule | | | | ty | | | + + +--------+ + + | Medical Cytology | Pathology | Routin | Microscopic | Expected: 06/17/2017 | | | and | e | hematuria | (Approximate), | | | Cytology | | | Expires: 06/16/2018 | + + +--------+ + + documented as of this encounter Procedures + +--------+ + + + | Procedure Name | Priori | Date/Time | Associated Diagnosis | Comments | | | ty | | | | + +--------+ + + + | PATHOLOGY - EXTERNAL | | 06/16/2017 | | Results for this | | SCAN | | 12:00 AM | | procedure are in the | | | | PDT | | results section. | + +--------+ + + + | LABS - EXTERNAL SCAN | | 06/16/2017 | | Results for this | | | | 12:00 AM | | procedure are in the | | | | PDT | | results section. | + +--------+ + + + documented in this encounter Results PATHOLOGY - EXTERNAL SCAN (06/16/2017 12:00 AM PDT) + + + | Narrative | Performed At | + + + | Ordered by an | | | unspecified provider. | | + + + LABS - EXTERNAL SCAN (06/16/2017 12:00 AM PDT) + + + | Narrative | Performed At | + + + | Ordered by an | | | unspecified provider. | | + + + documented in this encounter Visit Diagnoses + + | Diagnosis | + + | Neurogenic bladder - Primary Neurogenic bladder, NOS | + + | Microscopic hematuria | + + | Leukodystrophy (HCC) Leukodystrophy | + + documented in this encounter"
--- OUTSIDE RECORDS SUMMARY | ~2019-03-08 | XMS | Encounter Summary ---
Demographics + + + | Address | [address] | | | [place] [address] | + + + | Home Phone | | + + + | Preferred Language | Unknown | + + + | Marital Status | | + + + | Anglican Affiliation | 1001 | + + + | Race | Unknown | + + + | Ethnic Group | Unknown | + + + Author + + + | Author | [facility] | | | and [place] | + + + | Organization | [facility] | | | and [...] [place], [place] | | | | | [address] | | + + + + + | Tiffanie Chisholm | ECON | [address] | | | | | [place], [place] | | | | | [address] | | + + + + + Care Team Providers + +------+ + | Care Senior Information Developer Name | Role | Phone | + +------+ + | Owen Swartz MD | PCP | | + +------+ + Reason for Visit + + + | Reason | Comments | + + + | Appointment | | + + + Encounter Details +--------+ + + + + | Date | Type | Department | Care Team | Description | +--------+ + + + + | 03/22/ | Telephone | [facility] | Bert Linder, | Appointment | | 2016 | | [address] | MD [address] | | | | | [place] | [place] | | | | | [address] | [id number] | | | | | [phone] | | | +--------+ + + + [...] | | | | | [place] [address] | | | | | | [phone] | | | | | | | | +--------+---------+ + + + | 07/04/ | Office | Urology | Bert Linder, | | | 2019 | Visit | | MD [address] | | | | | | [place] | | | | | | [address] | | | | | | | | +--------+---------+ + + + documented as of this encounter Visit Diagnoses Not on filedocumented in this encounter"
--- OUTSIDE RECORDS SUMMARY | ~2019-03-08 | XMS | Encounter Summary ---
Demographics + + + | Address | [address] | | | [place] [address] | + + + | Home Phone | | + + + | Preferred Language | Unknown | + + + | Marital Status | | + + + | Sabianist Affiliation | 1001 | + + + | Race | Unknown | + + + | Ethnic Group | Unknown | + + + Author + + + | Author | [facility] | | | and [place] | + + + | Organization | [facility] | | | and Br[place]ana [...] [place], [place] | | | | | [address] | | + + + + + | Tiffanie Chisholm | ECON | [address] | | | | | [place], [place] | | | | | [address] | | + + + + + Care Team Providers + +------+ + | Care Vertical Mill Operator Name | Role | Phone | + [...] | +--------+ + + + + | 12/27/ | Clinical | [facility] | Bert Linder, | Urge incontinence | | 2017 | Support | [address] | [address] | | | | | [place] | [place] | | | | | [address] | [address] | | | | | [phone] | | | +--------+ + + + [...] encounter Progress Notes Blessing Rodríguez RN - 12/27/2016 4:00 PM PDT Percutaneous tibial nerve stimulation (PTNS) [...] Same [] Change 0 0 4-5 0 4 3 [x] R [] L 19 [] [...] | | | | | | [place] [address] | | | | | | [phone] | | | | | | | | +--------+---------+ + + + | 07/04/ | Office | Urology | Bert Linder, | | 2019 | Visit | | [address] | | | | | | [place] | | | | | | [address] | | | | | | | | +--------+---------+ + + + documented as of this encounter Visit Diagnoses + + | Diagnosis | + + | Urge incontinence | + + documented in this encounter"
--- OUTSIDE RECORDS SUMMARY | ~2019-03-08 | XMS | Encounter Summary ---
Demographics + + + | Address | [address] | | | [place] [address] | + + + | Home Phone | | + + + | Preferred Language | Unknown | + + + | Marital Status | | + + + | Uatsdin Affiliation | Unknown | + + + | Race | White | + + + | Ethnic Group | Not or | + + + Author + + + | Author | [facility] | + + + | Organization | [facility] | + + + | Address | Unknown | + + + | Phone | Unavailable | + + + Support + + +---------+ + | Name | Relationship | Address | Phone | + + +---------+ + | Nahomy Briana | ECON | Unknown | | + + +---------+ + Care Team Providers + +------+ + | Care Clay Maker Name | Role | Phone | + [...] Authorization | | 2010 | on | [facility] & | Maria Kate MD | Request (ABCD[employer] DNA | | | | He[address] | | Test) | | | | [place] Mailcode: | | | | | | [id number] | | | | | | Health and Healing, | | | | | | Building | | | | | | Floor [place], [place] | | | | | | [address] | | | | | | [phone] | | | +--------+ + + + [...]
--- OUTSIDE RECORDS SUMMARY | ~2019-03-08 | XMS | Encounter Summary ---
Demographics + + + | Address | [address] | | | [place] [address] | + + + | Home Phone | | + + + | Preferred Language | Unknown | + + + | Marital Status | | + + + | Mandaen Affiliation | 1001 | + + + | Race | Unknown | + + + | Ethnic Group | Unknown | + + + Author + + + | Author | [facility] | | | and [place] | + + + | Organization | [facility] | | | and [...] [place], [place] | | | | | [address] | | + + + + + | Tiffanie Chisholm | ECON | [address] | | | | | [place], [place] | | | | | [address] | | + + + + + Care Team Providers + +------+ + | Care Bearing Inspector Name | Role | Phone | + [...] | +--------+ + + + + | 01/27/ | Clinical | [facility] | Ralph Quintanilla | Urge incontinence of | | 2017 | Support | [address] | MD Alfredo [address] | urine (Primary Dx) | | | | [place], [place] | [address] [facility] | | | | | [address] | [place] [address] | | | | | [phone] | [phone] | | | | | | | | +--------+ + + + [...] encounter Progress Notes Delores Milton RN - 01/27/2017 11:30 AM PST Percutaneous tibial nerve stimulation (PTNS) was [...] was adjusted to a setting of 19. Sh e reports the sensation feels good to her. The patient's response to treatment was reviewed with patient. See flow sheet in chart. PERCUTANEOUS TIBIAL NERVE STIMULATION FLOW SHEET Related health & social habits Comments Caffeine #/day Alcohol #/day Daytime voids #/day Night-time voids #/night Urgency 0=none, 4=severe Incontinence episodes #/day Ankle used Setting Feeling/ Response [x] Same [] Change 0 0 4-5 0 Her Depends is wet when she gets up in the morning 0 She has no sensation that she's voiding 3-4 times per day (taken to BR 3-4 times per day an d Depends is wet each time, also voids into toilet) [x] R [] L 19 [] Toe [...] [address] | | | | | | [place] [place] | | | | | | [place] [address] | | | | | | [phone] | | | | | | | | +--------+---------+ + + + | 07/04/ | Office | Urology | Bert Linder, | | | 2019 | Visit | | MD [address] | | | | | | [place] | | | | | | [address] | | | | | | | | +--------+---------+ + + + documented as of this encounter Visit Diagnoses + + | Diagnosis | + + | Urge incontinence of urine - Primary Urge incontinence | + + documented in this encounter"
--- OUTSIDE RECORDS SUMMARY | ~2019-03-08 | XMS | Encounter Summary ---
Demographics + + + | Address | [address] | | | [place] [address] | + + + | Home Phone | | + + + | Preferred Language | Unknown | + + + | Marital Status | | + + + | Lutheran Affiliation | Unknown | + + + | Race | White | + + + | Ethnic Group | Not or | + + + Author + + + | Author | [facility] | + + + | Organization | [facility] | + + + | Address | Unknown | + + + | Phone | Unavailable | + + + Support + + +---------+ + | Name | Relationship | Address | Phone | + + +---------+ + | Nahomy Briana | ECON | Unknown | | + + +---------+ + Care Team Providers + +------+ + | Care Flight Test Engineer Name | Role | Phone | + +------+ + | Owen Swartz MD | PCP | | + +------+ + Reason for Visit + + + | Reason | Comments | + + + | Eye examination | OCT | + + + Encounter Details +--------+---------+ + + + | Date | Type | Department | Care Team | Description | +--------+---------+ + + + | 10/12/ | Office | [facility] | | White matter changes | | 2012 | Visit | [facility] | | (Primary Dx) | | | | Photography at [facility] | | | | | | [address] | | | | | | Mailcode: [facility] | | | | | | [facility] | | | | | and Healing, | | | | | | Building | | | | | | [place], [place] | | | | | | [address] | | | | | | [phone] | | | +--------+---------+ + + + [...] + + documented as of this encounter Rashaad Beltran - 10/12/2012 4:08 PM PDT Charissa Goss was seen in the [facility]Ultrasound Department today, 10/12/2012, for OCT OU. 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
--- OUTSIDE RECORDS SUMMARY | ~2019-03-08 | XMS | Encounter Summary ---
Demographics + + + | Address | [address] | | | [place] [address] | + + + | Home Phone | | + + + | Preferred Language | Unknown | + + + | Marital Status | | + + + | Scientology Affiliation | 1001 | + + + | Race | Unknown | + + + | Ethnic Group | Unknown | + + + Author + + + | Author | [facility] | | | and [place] | + + + | Organization | [facility] | | | and Brantana [...] [place], [place] | | | | | [address] | | + + + + + | Tiffanie Chisholm | ECON | [address] | | | | | [place], [place] | | | | | [address] | | + + + + + Care Team Providers + +------+ + | Care Soft Metals Engraver Hand Name | Role | Phone | + +------+ + | Owen Swartz MD | PCP | | + +------+ + Reason for Visit + + + | Reason | Comments | + + + | Follow-up | | + + + Encounter Details +--------+ + + + + | Date | Type | Department | Care Team | Description | +--------+ + + + + | 08/26/ | Telephone | [facility] | Bert Linder, | Follow-up | | 2017 | | [address] | MD [address] | | | | | [place] | [place] | | | | | [address] | [address] | | | | | [phone] | | | +--------+ + + + [...] [place] | | | | | | [place] [address] | | | | | | [phone] | | | | | | | | +--------+---------+ + + + | 07/04/ | Office | Urology | Bert Linder, | | | 2019 | Visit | | MD [address] | | | | | | [place] | | | | | | [address] | | | | | | | | +--------+---------+ + + + documented as of this encounter Visit Diagnoses Not on filedocumented in this encounter"
--- OUTSIDE RECORDS SUMMARY | ~2019-03-08 | XMS | Encounter Summary ---
Demographics + + + | Address | [address] | | | [place] [address] | + + + | Home Phone | | + + + | Preferred Language | Unknown | + + + | Marital Status | | + + + | Episcopal Affiliation | 1001 | + + + | Race | Unknown | + + + | Ethnic Group | Unknown | + + + Author + + + | Author | [facility] | | | and [place] | + + + | Organization | [facility] | | | and [place] | [...] [place], [place] | | | | | [address] | | + + + + + | Tiffanie Chisholm | ECON | [address] | | | | | [place], [place] | | | | | [address] | | + + + + + Care Team Providers + +------+ + | Care Reheat Furnace Operator Name | Role | Phone | + +------+ + | Owen Swartz MD | PCP | | + +------+ + Reason for Visit +--------+ + | Reason | Comments | +--------+ + | Other | Orders | +--------+ + Encounter Details +--------+ + + + + | Date | Type | Department | Care Team | Description | +--------+ + + + + | 09/01/ | Telephone | [facility] | Bert Linder, | Other (Orders) | | 2017 | | [address] | [address] | | | | | [place] | [place] | | | | | [address] | [address] | | | | | [phone] | | | +--------+ + + + [...] | | | | | [place] [address] | | | | | | [phone] | | | | | | | | +--------+---------+ + + + | 07/04/ | Office | Urology | Bert Linder, | | | 2019 | Visit | | MD [address] | | | | | | [place] | | | | | | [address] | | | | | | | | +--------+---------+ + + + documented as of this encounter Visit Diagnoses Not on filedocumented in this encounter"
--- OUTSIDE RECORDS SUMMARY | ~2019-03-08 | XMS | Encounter Summary ---
Demographics + + + | Address | [address] | | | [place] [address] | + + + | Home Phone | | + + + | Preferred Language | Unknown | + + + | Marital Status | | + + + | Mormon Affiliation | Unknown | + + + | Race | White | + + + | Ethnic Group | Not or | + + + Author + + + | Author | [facility] | + + + | Organization | [facility] | + + + | Address | Unknown | + + + | Phone | Unavailable | + + + Support + + +---------+ + | Name | Relationship | Address | Phone | + + +---------+ + | Nahomy Briana | ECON | Unknown | | + + +---------+ + Care Team Providers + +------+ + | Care Cement Or Concrete Finishing Supervisor Name | Role | Phone | + +------+ + | Owen Swartz MD | PCP | | + +------+ + Encounter Details +--------+ + + + + | Date | Type | Department | Care Team | Description | +--------+ + + + + | 09/12/ | Hospital | Radiology/Imaging | | | | 2014 | Encounter | Lab at [facility] [address] | | | | | | [place]acho Mailcode: | | | | | | [facility] | | | | | | Health and Healing, | | | | | | [address] | | | | | | [place], [place] | | | | | | [address] | | | | | | [phone] | | | +--------+ + + + [...] | + + + +---------+--------+ + | CALCIUM | Take 1 Tab by mouth | | 0 | | | | CITRATE/VITAMIN D3 | once daily. | | | | | | (CITRACAL + D ORAL) | | | | | | + + + +---------+--------+ + | donepezil | Take 10 mg by mouth | | 0 | | | | (ARICEPT) 10 mg Oral | once daily in the | | | | | | Tablet | evening. | | | | | + + + +---------+--------+ + | levothyroxine | Take 88 mcg by mouth | | 0 | | | | (SYNTHROID) 88 mcg | once daily. | | | | | | Oral Tablet | | | | | | + + + +---------+--------+ + | mirabegron | Take by mouth once | | 0 | | | | (MYRBETRIQ) 50 mg | daily. | | | | | | oral tablet extended | | | | | | | release 24 hr | | | | | | + + + +---------+--------+ + | MULTIVITAMIN | Take 1 Tab by mouth | | 0 | | | | W-MINERALS/LUTEIN | once daily. | | | | | | (CENTRUM SILVER | | | | | | | ORAL) | | | | | | + + + +---------+--------+ + documented as of this encounter Plan of Treatment Not on filedocumented as of this encounter Procedures + +--------+ + + + | Procedure Name | Priori | Date/Time | Associated Diagnosis | Comments | | | ty | | | | + +--------+ + + + | X-RAY FOOT 3 VIEWS | Routin | 09/12/2014 | Myelopathy (HCC) | Results for this | | RIGHT | e | 9:16 AM | | procedure are in the | | | | PDT | | results section. | + +--------+ + + + documented in this encounter Results X-RAY FOOT 3 VIEWS RIGHT (09/12/2014 9:16 AM PDT) + + + + + + | Component | Value | Ref Range | Performed | Pathologist | | | | | At | Signature | + + + + + + | FOOT 3 | STUDY: FOOT 3 VIEWS | | | | | VIEWS RIGHT | RIGHT 09/12/14 09:16:00 | | | | | | HISTORY: Injury, | | | | | | evaluate for fracture | | | | | | COMPARISON: None | | | | | | FINDINGS:A tiny osseous | | | | | | fragment projects at the | | | | | | dorsal first metatarsal | | | | | | base withextension into | | | | | | the first TMT joint | | | | | | suspicious for a | | | | | | nondisplaced chest. | | | | | | Noadditional fracture is | | | | | | observed. There is no | | | | | | focal destruction. | | | | | | Diffuseosteopenia is | | | | | | seen. There is mild IP | | | | | | joint space narrowing | | | | | | and | | | | | | degenerativespurring. | | | | | | The joint spaces are | | | | | | otherwise preserved. | | | | | | There is soft | | | | | | tissueswelling about the | | | | | | ankle and along the | | | | | | dorsum of the foot | | | | | | IMPRESSION: Probable | | | | | | nondisplaced | | | | | | intra-articular first | | | | | | metatarsal fracture. | | | | | | Mild IP degenerative | | | | | | joint disease. | | | | | | Attending Radiologists: | | | | | | YINKA CAMPBELL, | | | | | | MDAuthor: PETR FRITZ, | | | | | | I have personally | | | | | | viewed this | | | | | | procedure/exam, reviewed | | | | | | this report, and | | | | | | madechanges to it where | | | | | | appropriate. | | | | | | Final/Electronically | | | | | | signed / YINKA | | | | | | ADRIAN 09/12/2014 | | | | | | 10:52 AM | | | | + + + + + + + + | Specimen | + + | | + + + +---------+ + + | Performing | Address | City/State/Zipcode | Phone Number | | Organization | | | | + +---------+ + + | [facility] | | | | | RADIOLOGY | | | | + +---------+ + + documented in this encounter Visit Diagnoses + + | Diagnosis | + + | Myelopathy (HCC) Unspecified disease of spinal cord | + + documented in this encounter"
--- OUTSIDE RECORDS SUMMARY | ~2019-03-08 | XMS | Encounter Summary ---
Demographics + + + | Address | [address] | | | [place] [address] | + + + | Home Phone | | + + + | Preferred Language | Unknown | + + + | Marital Status | | + + + | Orthodox Affiliation | Unknown | + + + | Race | White | + + + | Ethnic Group | Not or | + + + Author + + + | Author | [facility] | + + + | Organization | [facility] | + + + | Address | Unknown | + + + | Phone | Unavailable | + + + Support + + +---------+ + | Name | Relationship | Address | Phone | + + +---------+ + | Nahomy Briana | ECON | Unknown | | + + +---------+ + Care Team Providers + +------+ + | Care Primary Care Nurse Practitioner Name | Role | Phone | + +------+ + | Owen Swartz MD | PCP | | + +------+ + Reason for Visit + + + | Reason | Comments | + + + | Weakness - general | | + + + | Abnormal gait | | + + + | Pain | | + + + | Falls | | + + + Physical Therapy (Routine) +--------+--------+ + + + + | Status | Reason | Specialty | Diagnoses / | Referred By | Referred To | | | | | Procedures | Contact | Contact | +--------+--------+ + + + + | Closed | | Physical | Diagnoses | Airam, | Quin, | | | | Therapy | neuropathy | Beronica Hanson MD | Michael Hanson, | | | | | Procedures | [address] | MS,PT [address] | | | | | CONSULT TO | Terry Camacho | [address] | | | | | PHYSICAL | [place], [place] | Mervin Danni | | | | | THERAPY | [address] | [address] [place], | | | | | | | [place] [address] | | | | | | | Phone: | | | | | | | [phone] | | | | | | | Fax: | | | | | | | [phone] | +--------+--------+ + + + + Encounter Details +--------+---------+ + + + | Date | Type | Department | Care Team | Description | +--------+---------+ + + + | 09/13/ | Office | [facility] | Michael Tsai, | Neuropathy; | | 2011 | Visit | Therapy Services at | MS,PT [address] | Weak; | | | | [facility] | [address] | Abnormal gait; | | | | [address] | [place] [address] | Falls frequently | | | | Mailcode: CH3P | [phone] | | | | | [facility] | | | | | | and Healing, | | | | | | [address] | | | | | | Floor [place], [place] | | | | | | [address] | | | | | | [phone] | | | +--------+---------+ + + + [...] documented as of this encounter Progress Notes Michael Tsai, MS,PT - 09/14/2011 1:13 PM PDTFormatting of this note might be different f rom the original. [id number] ABEL CANAS Date of : 1955 Start of care: 09/14/2011 Date of onset: 09/02/2011 Referring/Attending Practitioner: Beronica Alegria MD . Primary/Referral Diagnosis/ICD-9: 355.9AB Neuropathy 780.79T Weak 781.2F Abnormal gait V15.88H Falls frequently Insurance: Payor: [employer] Plan: ODS [employer] Product Type: PPO Service period from: 09/14/2011 to: 09/12/12 Number visits used/authorized: 1 [facility] PHYSICAL THERAPY INITIAL EVALUATION: Neurological SUBJECTIVE: History of Presenting Problem: Abel Canas is a 55 y.o. female who presents with complaints of weakness, balance problems, walking problems/ gait deviations, falling, s ensory changes, pain and decreased ability to perform exercise program. PT last March t was helpful. 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 Prior medical history: Abel has a past medical history of Incontinence of urine; Neuropat hy; Unspecified disorder of thyroid; and Heart murmur ( ). Prior significant surgery: Abel has past surgical history that includes thyroidectomy and d&c diagnostic / therapeutic. Medications: Current outpatient prescriptions:CALCIUM CITRATE/VITAMIN D3 (CITRACAL + D ORAL ), Take 1 Tab by mouth once daily. , Disp: , Rfl: donepezil (ARICEPT) 10 mg Oral Tablet, Take 10 mg by mouth once daily in the evening., Disp : , Rfl: Fesoterodine (TOVIAZ) 8 mg Oral Tablet Extended Release 24 hr, Take 8 mg by mouth once arlet y. , Disp: , Rfl: levothyroxine (SYNTHROID) 100 mcg Oral Tablet, Take 100 mcg by mouth once daily., Disp: , R fl: MULTIVITAMIN W-MINERALS/LUTEIN (CENTRUM SILVER ORAL), Take 1 Tab by mouth once daily. , Di sp: , Rfl: Prior/concurrent services related to the present condition: PT. Living situation/environment is limiting function: stairs Equipment at home: cane, loaner 4 wheeled walker Requests family members or friends involved with rehabilitation therapy: Chriss Anxieties or concerns about therapy: no Present Status: Equipment the patient currently has: as above. Living situation: Abel lives with her spouse and with her children. House Type: Abel lives in a multi level house. Steps to enter home: yes - 2 sets with rail Steps inside home: yes - flight, rarely use d Activity Level/Exercise: attends health club regularly - goal of 3 times per week, 30-60 mi nutes - Nu-Step x 10 minutes, walk 1/2 mile without cane but with wall, some weights and vanessa e leg exercises. 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 Functional [place]: Bed mobility: 4/4 Complete [place]: no assistance or independ ent with device. ADL's: 4/4 Complete [place]: no assistance or independent with device. Transfers: 4/4 Complete [place]: no assistance or independent with device. OBJECTIVE: Vitals: There were no vitals taken for this visit. Pain Score: 2 Pain location: feet Posture: forward head and rounded shoulders. Strength/Muscle Tone as follows (Note: Strength on a scale of 0-5, * pain): GROSS MUSCLE EXAM 09/14/2011 Shoulder: Flex R 5- L 5- Shoulder: Ext 3+ 3+ Shoulder: Abd 5- 5- Elbow: Flex 5- 5- Elbow: Ext 5- 5- Wrist: Flex 5 5 Wrist: Ext 5 5 Genetic Supervisor weak both Hip: Flex 3 3 Hip: Ext 2+ 2+ Hip: Abd 3- 3- Hip: Add 3- 3- Knee: Flex 3+ 3+ Knee: Ext 5- 5- Ankle: DF 3+ 3+ Ankle: PF 3- 3- ankle: Inversion 3+ 4- Ankle: Eversion 3+ 3+ Trunk: Flex 2 Trunk: Ext 3+ Neck: Flex 3- Neck: Ext 5 Range Of Motion: Generally within functional limits throughout except: slightly limited roberto ulder ROM. Sensation: NT Motor Control: hypotonic. Outcome measure Score 09/14/2011 Interpretation Goal at 12 weeks Pt stated functional Goal Functional goal: 5 reps per day 5 time sit to stand 21.6 seconds without hands seconds Normal values: 60 to 69 years: 11.4 sec 70 to 79 years: 12.6 sec 80 to 89 years: 14.8 sec 5 time sit to stand: 5-10 reps per day with good form Gait 25' walk 9 seconds self selected equipment used: holding cane 8 seconds fast equipment used: same Normal values: < 70 y/o 5.5 seconds (or 3.1 mph) 70-79 y/o 5.8 seconds (or 3.0 mph) > 80 y/o 7.6 seconds (or 2.3 mph) Household ambulator: 42 sec (0.4 mph) Limited community ambulator: 13-19 sec (0.92-1.3 mph) Community ambulator: 7.7-9.5 sec (1.8-2.2 mph) Ability to cross the street: < 5.7 sec (> 3 mph) For fast walk 20': > 7.5 sec correlated with older adults at risk for car crashes Gait 25' walk: same or faster with better toe clearance Assessment Tool Scoring Score 09/14/2011 Interpretation Activities-specific Balance Confidence scale (ABC) 10 item questionaire: Each item rated 0 (no confidence) to 100 (100% confidence) 29.38/100% > 80% High level of functioning 50-80% Moderate level of functioning < 50% indicates Low level of functioning Score < 66% in older adult and < 40% in people with multiple sclerosis has been related to high risk for falls Deviations: decreased hip, knee and ankle flexion in swing RLE, decreased hip, knee and ank le flexion in swing LLE and deviation from straight path. Vision: no problems reported TREATMENT TODAY: PTEvaluation 1:10-1:55, gait training 1:55-2:10. Given handouts: My Chart message with recommendations ASSESSMENT: Abel requires services that can be safely and effectively performed only by a qualified erapist to address the following problems and achieve the following goals: Problem list: weakness: limited functional strength, power, endurance, sensory changes, bal ance problems, walking problems, reduced mobility related ADLs, falling, fatigue and decreas ed functional ROM. Rehab Potential: Good FUNCTIONAL DISCHARGE GOALS: as discussed with Abel, due in 12 weeks. Demonstrate independent home exercise program of 3 or more exercises as instructed today an antonio in [employer] home program. Demonstrate independent and safe gait at household level with appropriate AFOs. PLAN: One on one treatment to instruct in home exercise program with appropriate self-monitoring, pain management/compensation techniques, posture/positioning during activities, proper gait with correct equipment and identification of equipment needed as indicated in initial evalu ation, therapeutic exercise. Frequency/Duration: Treatment will be 1 visit today and she will follow up with therapist kelle padilla to home for recommendations made today. She can communicate with my via [employer] as glen mata. Family will be involved as needed and based on willingness of Abel and family. Treatment began: 1:10 Treatment ended: 2:10 This note is to serve as the discharge summary if the Abel fails to attend further Physica l Therapy appointments or contact the therapist regarding any change in their status. MICHAEL TSAI MS, PT Physical Therapist [facility] [address] [place] [address] And [facility], [address] [place] [address] documented in this encounter Plan of Treatment Not on filedocumented as of this encounter Procedures + +--------+ + + + | Procedure Name | Priori | Date/Time | Associated Diagnosis | Comments | | | ty | | | | + +--------+ + + + | NM GAIT TRAINING | Routin | 09/14/2011 | Neuropathy Weak | | | THERAPY | e | 2:18 PM | Abnormal gait Falls | | | | | PDT | frequently | | + +--------+ + + + | NM PHYS THERAPY | Routin | 09/14/2011 | Neuropathy Weak | | | EVALUATION | e | 2:18 PM | Abnormal gait Falls | | | | | PDT | frequently | | + +--------+ + + + documented in this encounter Visit Diagnoses + + | Diagnosis | + + | Neuropathy Mononeuritis of unspecified site | + + | Weak Other malaise and fatigue | + + | Abnormal gait Abnormality of gait | + + | Falls frequently Personal history of fall | + + documented in this encounter"
--- OUTSIDE RECORDS SUMMARY | ~2019-03-08 | XMS | Encounter Summary ---
Demographics + + + | Address | [address] | | | [place] [address] | + + + | Home Phone | | + + + | Preferred Language | Unknown | + + + | Marital Status | | + + + | Judaism Affiliation | Unknown | + + + | Race | White | + + + | Ethnic Group | Not or | + + + Author + + + | Author | [facility] | + + + | Organization | [facility] | + + + | Address | Unknown | + + + | Phone | Unavailable | + + + Support + + +---------+ + | Name | Relationship | Address | Phone | + + +---------+ + | Nahomy Briana | ECON | Unknown | | + + +---------+ + Care Team Providers + +------+ + | Care Historiography Teacher Name | Role | Phone | + [...] + + + | Closed | | Radiology | Diagnoses | [place], | [facility] | | | | | Neuropathy | Beronica Hanson MD | [address] | | | | | [address] | Mervin Razo | | | | | Procedures | [address] | Rd | | | | | MRI SPINE | [place], [place] | Mailcode: | | | | | THORACIC WWO | [address] | [id number] | | | | | CONT | | [facility] | | | | | | | Research | | | | | | | Center | | | | | | | [place], [place] | | | | | | | [address] | | | | | | | Phone: | | | | | | | [phone] | | | | | | | Fax: | | | | | | | [phone] | +--------+--------+ + + + + Diagnostic Testing (Routine) +--------+--------+ + + + + | Status | Reason | Specialty | Diagnoses / | Referred By | Referred To | | | | | Procedures | Contact | Contact | +--------+--------+ + + + + | Closed | | Radiology | Diagnoses | [place]ger, | [facility] | | | | | Neuropathy | Beronica Hanson MD | [address] | | | | | [address] | [address] | Mervin Razo | | | | | Procedures | [address] | Rd | | | | | MRI SPINE | [place], [place] | Mailcode: | | | | | CERVICAL WWO | [address] | [id number] | | | | | CONTR | | [address] | | | | | | | Research | | | | | | | [place] | | | | | | | [place], [place] | | | | | | | [address] | | | | | | | Phone: | | | | | | | [phone] | | | | | | | Fax: | | | | | | | [phone] | +--------+--------+ + + + + Consultation (Routine) +--------+--------+ + + + + | Status | Reason | Specialty | Diagnoses / | Referred By | Referred To | | | | | Procedures | Contact | Contact | +--------+--------+ + + + + | Closed | | Ophthalmology | Diagnoses | Marburger, | [facility] | | | | | Neuropathy | Beronica Hanson MD | [facility] [address] | | | | | Procedures | [address] | | | | | CONSULT TO | [address] | Mailcode: | | | | | OPHTHALMOLOG | [place], [place] | [address] | | | | | Y | [address] | for Health | | | | | | | and Healing, | | | | | | | Building [address], | | | | | | | 11th Floor | | | | | | | [place], [place] | | | | | | | [address] | | | | | | | Phone: | | | | | | | [phone] | | | | | | | Fax: | | | | | | | [phone] | +--------+--------+ + + + + Reason for Visit + + + | Reason | Comments | + + + | Return Patient | | + + + | Neuropathy | | + + + Encounter Details +--------+---------+ + + + | Date | Type | Department | Care Team | Description | +--------+---------+ + + + | 08/04/ | Office | Neurology at | Beronica Alegria | Neuropathy (Primary | | 2012 | Visit | [facility] & | MD Valentin | Dx) | | | | Healing [address] | | | | | | Terry Camacho Mailcode: | | | | | | [facility] | | | | | | Health and Healing, | | | | | | [facility] | | | | | | Floor [place], [place] | | | | | | [address] | | | | | | [phone] | | | +--------+---------+ + + + [...] + + + | Blood Pressure | 107/58 | 08/04/2012 8:05 AM | | | | | PDT | | + + + + + | Pulse | 81 | 08/04/2012 8:05 AM | | | | | PDT | | + + + + + | Temperature | - | - | | + + + + + | Respiratory Rate | 15 | 08/04/2012 8:05 AM | | | | | PDT | | + + + + + | Oxygen Saturation | - | - | | + + + + + | Inhaled Oxygen | - | - | | | Concentration | | | | + + + + + | Weight | 51.7 kg (114 lb) | 08/04/2012 8:05 AM | | | | | PDT | | + + + + + | Height | - | - | | + + + + + | Body Mass Index | 21.54 | 03/04/2011 11:02 AM | | | | | PST | | + + + + + documented in this encounter Progress Notes Beronica Alegria MD - 08/04/2012 8:05 AM PDT NEUROMUSCULAR CLINIC FOLLOW UP NOTE Author: Beronica Alegria MD. ID: Charissa Goss is a 56 y.o. woman with a family history of seizure disorders and persona l history of progressive neurologic symptoms of impaired balance, memory, urinary dysfunctio n, diplopia and foot numbness in addition to cataracts presenting to the [facility] Neuromuscular division today for follow up. To review, she noticed difficulty walking down a slope in her early 40's. Around the same t shaheen, she started having problems with balance e.g. if closing eyes in shower. In the next 5 years, she developed paresthesias and numbness in her feet that gradually worsened. Memory p roblems started about 2-3 years later. Bowel/ bladder problems started in her early 50's. S he has urinary incontinence and cannot feel when she urinates. She has diplopia as well. N o problems in hands or arms- no weakness or clumsiness in hands. No vertigo, slurred speech, changes in mood or personality, language problems, hearing problems, smell or taste problem s. Rare difficulty swallowing. She did not walk until age 1 and could never keep up with ot her children when running. She did fine academically in school. Interval History: Since last visit, she notes worsening balance. She can't stand for long periods because her legs get really tired. She endorses persistent tingling. She endorse s rare falls, last in April. She started wearing AFO's about a month ago. She uses a cane or hand rail. She exercises at the athletic club. She continues to have incontinence. Sh e continues to have diplopia. 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 Outside [facility] NCS/EMG showed a chronic sensorimotor neuropathy with some demyelinating component (CV in t he 30s) CADASIL testing was negative galactocerebrosidase levels were normal (37.3) Very long change fatty acid levels were normal. Urine arylsulfatase levels were normal B12 levels were normal. TSH was low (0.08); she is on thyroid replacement after thyroid chel aureliano. Past Medical History: Neuropathy Leukodystrophy Past Surgical History: thyroidectomy D&C Home Medications: Current Outpatient Prescriptions on File Prior to Visit Medication Sig Dispense Refill CALCIUM CITRATE/VITAMIN D3 (CITRACAL + D ORAL) Take 1 Tab by mouth once daily. donepezil (ARICEPT) 10 mg Oral Tablet Take 10 mg by mouth once daily in the evening. Fesoterodine (TOVIAZ) 8 mg Oral Tablet Extended Release 24 hr Take 8 mg by mouth once d aily. levothyroxine (SYNTHROID) 88 mcg Oral Tablet Take 88 mcg by mouth once daily. MULTIVITAMIN W-MINERALS/LUTEIN (CENTRUM SILVER ORAL) Take 1 Tab by mouth once daily. No current facility-administered medications on file prior to visit. Allergies: No Known Allergies Social History: She is . No tobacco use. Family History: Her mother had seizure disorder, abnormal feet, walking difficulty. Her sis ter's children have seizure disorders. Physical Examination: Constitutional: Filed Vitals 08/04/2012 8:06 AM Weight: 51.71 kg (114 lbs)( < 3 %ile) BP: 107/58 Pulse: 81 Resp: 15 PainSc: 0 - Zero BMI: 21.55 kg/(m^2) Neurologic Exam: Mental Status: Patient is alert and oriented. Gives detailed history and cooperates with ex am. Cranial Nerve: Visual hackett are intact to confrontation. Optic disc not visualized. Extrao cular movements are full; saccadic smooth pursuits and nystagmus noted with bilateral gaze. Pupils are 2mm, round and equally reactive to light. Facial sensation intact to light touch. Facial strength is full and symmetric. Palate elevates symmetrically. Tongue is full streng th. Motor: Atrophic foot muscles noted with profound pes cavus. Right ankle dorsiflexion 4/5, l eft ankle dorsiflexion 4+/5. Hip abductors are 4+/5 bilaterally, otherwise full strength in lower extremities and 5/5 in upper extremities. Sensory: Sensation is absent to vibratory sense at great toes; proprioception mildly reduce d at great toes. Pinprick reduced to mid moore on the right, to knee on the left and left lat eral thigh. Reflexes: Reflexes are brisk throughout. Gait : Wide-based gait Cerebellum: Normal finger to nose Assessment: Charissa Goss is a 55 yo woman with a family history of epilepsy presenting for follow up for progressive cognitive problems, length-dependent polyneuropathy, diplopia, an d urinary incontinence. MRI showed severe confluent demyelination and atrophy sparing the ba tanner ganglia and the corpus callosum. 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 Work up including testing for metachromatic leukodystrophy, adrenoleukodystrophy, Krabbe's disease and arylsulfatase deficiency was unrevealing. 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 Interval change since last visit includes extension of sensory deficits in her legs, partic ularly her left leg and more proximal lower extremity weakness. I'm concerned about myelopa thy, so I will refer for MRI C and T-spine. Plan: --Repeat MRI cervical and thoracic spine at [facility] - Follow-up in Neuromuscular clinic in 1 year or sooner prn. In the meantime, I will send a pplication for [facility] undiagnosed disease program in [place] after I have MRI spine results. She is amenable to making the trip. documented in this encounter Plan of Treatment + +---------+--------+ + + | Name | Type | Priori | Associated Diagnoses | Order Schedule | | | | ty | | | + +---------+--------+ + + | MRI SPINE CERVICAL | Imaging | Routin | Neuropathy | Expected: | | [facility] CONTR | | e | | 08/04/2012, Expires: | | | | | | 09/03/2013 | + +---------+--------+ + + | MRI SPINE THORACIC | Imaging | Routin | Neuropathy | Expected: | | [facility] CONT | | e | | 08/04/2012, Expires: | | | | | | 09/03/2013 | + +---------+--------+ + + documented as of this encounter Procedures + +--------+ + + + | Procedure Name | Priori | Date/Time | Associated Diagnosis | Comments | | | ty | | | | + +--------+ + + + | RADIOLOGY | | 08/11/2012 | | Results for this | | | | 12:00 AM | | procedure are in the | | | | PDT | | results section. | + +--------+ + + + documented in this encounter Results RADIOLOGY (08/11/2012 12:00 AM PDT) + + + | Narrative | Performed At | + + + | | | | | | + + + + + | Procedure Note | + + | Crispin Valladares - 11/07/2012 12:55 PM PDT | + + documented in this encounter Visit Diagnoses + + | Diagnosis | + + | Neuropathy - Primary Mononeuritis of unspecified site | + + documented in this encounter"
--- OUTSIDE RECORDS SUMMARY | ~2019-03-08 | XMS | Encounter Summary ---
Demographics + + + | Address | [address] | | | [place] [address] | + + + | Home Phone | | + + + | Preferred Language | Unknown | + + + | Marital Status | | + + + | Taoism Affiliation | Unknown | + + + | Race | White | + + + | Ethnic Group | Not or | + + + Author + + + | Author | [facility] | + + + | Organization | [facility] | + + + | Address | Unknown | + + + | Phone | Unavailable | + + + Support + + +---------+ + | Name | Relationship | Address | Phone | + + +---------+ + | Nahomy Briana | ECON | Unknown | | + + +---------+ + Care Team Providers + +------+ + | Care Supply Chain Design Manager Name | Role | Phone | + +------+ + | Owen Swartz MD | PCP | | + +------+ + Encounter Details +--------+ + + + + | Date | Type | Department | Care Team | Description | +--------+ + + + + | 09/12/ | Hospital | Radiology/Imaging | | | | 2014 | Encounter | Lab at [facility] [address] | | | | | | Terry Camacho Mailcode: | | | | | | [facility] | | | | | | Health and Healing, | | | | | | [address] | | | | | | [place], [place] | | | | | | [address] | | | | | | [phone] | | | +--------+ + + + [...]
--- OUTSIDE RECORDS SUMMARY | ~2019-03-08 | XMS | Encounter Summary ---
Demographics + + + | Address | [address] | | | [place] [address] | + + + | Home Phone | | + + + | Preferred Language | Unknown | + + + | Marital Status | | + + + | Spiritism Affiliation | 1001 | + + + | Race | Unknown | + + + | Ethnic Group | Unknown | + + + Author + + + | Author | [facility] | | | and [place] | + + + | Organization | [facility] | | | and [place] [...] [place], [place] | | | | | [address] | | + + + + + | Tiffanie Chisholm | ECON | [address] | | | | | [place], [place] | | | | | [address] | | + + + + + Care Team Providers + +------+ + | Care Corporate Pilot Name | Role | Phone | + +------+ + | Owen Swartz MD | PCP | | + +------+ + Encounter Details +--------+ + + + + | Date | Type | Department | Care Team | Description | +--------+ + + + + | 04/09/ | Orders Only | [facility] | Kathy Carreno | [place] | | 2015 | | [facility] | I, 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 | | | | | [address] | | | | | | [place] | | | | | | [address] | | | | | | [phone] | | | +--------+ + + + [...] | | | | | [place] [address] | | | | | | [phone] | | | | | | | | +--------+---------+ + + + | 07/04/ | Office | Urology | Bert Linder, | | | 2020 | Visit | | MD Joy PERSON | | | | | | [place] | | | | | | [address] | | | | | | | | +--------+---------+ + + + documented as of this encounter Procedures + +--------+ + + + | Procedure Name | Priori | Date/Time | Associated Diagnosis | Comments | | | ty | | | | + +--------+ + + + | URINALYSIS, | Routin | 04/09/2015 | Pyuria | Results for this | | MICROSCOPIC ONLY, | e | 4:00 PM | | procedure are in the | | WITH CULTURE IF | | PST | | results section. | | INDICATED | | | | | + +--------+ + + + | CULTURE, URINE | Routin | 04/09/2015 | Pyuria | Results for this | | | e | 4:00 PM | | procedure are in the | | | | PST | | results section. | + +--------+ + + + documented in this encounter Results Culture, Urine (04/09/2015 4:00 PM PST) + + + + + + | Component | Value | Ref Range | Performed | Pathologist | | | | | At | Signature | + + + + + + | Culture | >100,000 CFU/ml Mixed | | [facility] | | | | chiquita (multiple | | [facility] | | | | morphologies | | MEDICAL | | | | present)Comment: | | CENTER - | | | | Suggests contamination | | LABORATORY | | | | with urogenital or skin | | | | | | chiquita. | | | | + + + + + + + + | Specimen | + + | Urine | + + + + + + + | Performing | Address | City/State/Zipcode | Phone Number | | Organization | | | | + + + + + | [facility] | [address] | [place] | [phone] | | [facility] | | [address] | | | - LABORATORY | | | | + + + + + Urinalysis, Microscopic Only, with Culture if Indicated (04/09/2015 4:00 PM PST) + + + + + + | Component | Value | Ref Range | Performed | Pathologist | | | | | At | Signature | + + + + + + | WBC UA | 5-10 (A) | 0 - 2 /HPF | [facility] | | | | | | [facility] | | | | | | MEDICAL | | | | | | CENTER - | | | | | | LABORATORY | | + + + + + + | RBC UA | 0-2 | 0 - 2 /HPF | [facility] | | | | | | [facility] | | | | | | MEDICAL | | | | | | CENTER - | | | | | | LABORATORY | | + + + + + + | SQUAMOUS | 5-10 (A) | 0 - 2 /LPF | [facility] [...] + + + + + + | CALCIUM | Rare (A) | None Seen /HPF | [facility] | | | [facility] | | | [facility] | | | [facility] | | | MEDICAL | | | | | | CENTER - | | | | | | LABORATORY | | + + + + + + | AMORPHOUS | Many (A) | None Seen /HPF | [facility] | | | [facility] | | | [facility] | | | | | | MEDICAL | | | | | | CENTER - | | | | | | LABORATORY | | + + + + + + | Remark | Culture set up | | [facility] | | | | | | [facility] | | | | | | MEDICAL | | | | | | CENTER - | | | | | | LABORATORY | | + + + + + + + + | Specimen | + + | Urine | + + + + + + + | Performing | Address | City/State/Zipcode | Phone Number | | Organization | | | | + + + + + | [facility] | [address] | [place] | [phone] | | [facility] | | [address] | | | - LABORATORY | | | | + + + + + documented in this encounter Visit Diagnoses + + | Diagnosis | + + | Pyuria Other nonspecific finding on examination of urine | + + documented in this encounter"
--- OUTSIDE RECORDS SUMMARY | ~2019-03-08 | XMS | Encounter Summary ---
Demographics + + + | Address | [address] | | | [place] [address] | + + + | Home Phone | | + + + | Preferred Language | Unknown | + + + | Marital Status | | + + + | Holiness Affiliation | 1001 | + + + | Race | Unknown | + + + | Ethnic Group | Unknown | + + + Author + + + | Author | [facility] | | | and [place] | + + + | Organization | [facility] | | | and Br[place] [...] [place], [place] | | | | | [address] | | + + + + + | Tiffanie Chisholm | ECON | [address] | | | | | [place], [place] | | | | | [address] | | + + + + + Care Team Providers + +------+ + | Care Icu Staff Nurse Name | Role | Phone | [...] [place] | | | | | [address] | [address] | | | | | [phone] | | | +--------+ + + + [...] | | | | | [place] [address] | | | | | | [phone] | | | | | | | | +--------+---------+ + + + | 07/04/ | Office | Urology | Bert Linder, | | | 2019 | Visit | | MD Joy PERSON | | | | | | [place] | | | | | | [address] | | | | | | | | +--------+---------+ + + + documented as of this encounter Visit Diagnoses Not on filedocumented in this encounter"
--- OUTSIDE RECORDS SUMMARY | ~2019-03-08 | XMS | Encounter Summary ---
Demographics + + + | Address | [address] | | | [place] [address] | + + + | Home Phone | | + + + | Preferred Language | Unknown | + + + | Marital Status | | + + + | Yazidi Affiliation | 1001 | + + + | Race | Unknown | + + + | Ethnic Group | Unknown | + + + Author + + + | Author | [facility] | | | and [place] | + + + | Organization | [facility] | | | and [...] [place], [place] | | | | | [address] | | + + + + + | Tiffanie Chisholm | ECON | [address] | | | | | [place], [place] | | | | | [address] | | + + + + + Care Team Providers + +------+ + | Care Rhit Name | Role | Phone | + [...] [place] | | | | | [address] | [address] | | | | | [phone] | | | +--------+ + + + [...] | | | | | [place] [address] | | | | | | [phone] | | | | | | | | +--------+---------+ + + + | 07/04/ | Office | Urology | Bert Linder, | | | 2019 | Visit | | MD Joy PERSON | | | | | | [place] | | | | | | [address] | | | | | | | | +--------+---------+ + + + documented as of this encounter Visit Diagnoses Not on filedocumented in this encounter"
--- OUTSIDE RECORDS SUMMARY | ~2019-03-08 | XMS | Encounter Summary ---
Demographics + + + | Address | [address] | | | [place] [address] | + + + | Home Phone | | + + + | Preferred Language | Unknown | + + + | Marital Status | | + + + | Episcopalian Affiliation | Unknown | + + + | Race | White | + + + | Ethnic Group | Not or | + + + Author + + + | Author | [facility] | + + + | Organization | [facility] | + + + | Address | Unknown | + + + | Phone | Unavailable | + + + Support + + +---------+ + | Name | Relationship | Address | Phone | + + +---------+ + | Nahomy Briana | ECON | Unknown | | + + +---------+ + Care Team Providers + +------+ + | Care Press Tool Maker Name | Role | Phone | + +------+ + | Owen Swartz MD | PCP | | + +------+ + Reason for Visit + + + | Reason | Comments | + + + | MRI Results | | + + + Encounter Details +--------+ + + + + | Date | Type | Department | Care Team | Description | +--------+ + + + + | 10/02/ | Telephone | Neurology at | [facility] | MRI Results | | 2014 | | [facility] | MD Valentin | | | | | [facility] | | | | | | [place] Mailcode: | | | | | | [address] | | | | | | Health and Healing, | | | | | | [facility] | | | | | | Floor [place], [place] | | | | | | [address] | | | | | | [phone] | | | +--------+ + + + [...]
--- OUTSIDE RECORDS SUMMARY | ~2019-03-08 | XMS | Clinical Summary ---
Demographics + + + | Address | [address] | | | [place] [address] | + + + | Home Phone | | + + + | Preferred Language | Unknown | + + + | Marital Status | | + + + | Anglican Affiliation | Unknown | + + + | Race | White | + + + | Ethnic Group | Not or | + + + Author + + + | Author | [facility] | + + + | Organization | [facility] | + + + | Address | Unknown | + + + | Phone | Unavailable | + + + Support + + +---------+ + | Name | Relationship | Address | Phone | + + +---------+ + | Nahomy Warren | ECON | Unknown | | + + +---------+ + Care Team Providers + +------+ + | Care Doctorate Of Chiropractic Name | Role | Phone | + +------+ + | Owen Swartz MD | PCP | | + +------+ + Source Comments [facility] is fully live on both [facility] and [facility] Allergies No Known Allergies Medications + + + +---------+------+------+-------+ | Medication | Sig | Dispensed | Refills | Star | End | Statu | | | | | | t | Date | s | | | | | | Date | | | + + + +---------+------+------+-------+ | donepezil | Take 10 mg by mouth | | 0 | | | Activ | | (ARICEPT) 10 mg Oral | once daily in the | | | | | e | | Tablet | evening. | | | | | | + + + +---------+------+------+-------+ | MULTIVITAMIN | Take 1 Tab by mouth | | 0 | | | Activ | | W-MINERALS/LUTEIN | once daily. | | | | | e | | (CENTRUM SILVER | | | | | | | | ORAL) | | | | | | | + + + +---------+------+------+-------+ | CALCIUM | Take 1 Tab by mouth | | 0 | | | Activ | | CITRATE/VITAMIN D3 | once daily. | | | | | e | | (CITRACAL + D ORAL) | | | | | | | + + + +---------+------+------+-------+ | levothyroxine | Take 88 mcg by mouth | | 0 | | | Activ | | (SYNTHROID) 88 mcg | once daily. | | | | | e | | Oral Tablet | | | | | | | + + + +---------+------+------+-------+ | mirabegron | Take by mouth once | | 0 | | | Activ | | (MYRBETRIQ) 50 mg | daily. 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 | + + + | Incontinence of urine | | + + + Social History + +-------+ [...] + + + | Blood Pressure | 110/77 | 09/12/2014 7:47 AM | | | | | PDT | | + + + + + | Pulse | 76 | 09/12/2014 7:47 AM | | | | | PDT [...] + + + + | Weight | 53.1 kg (117 lb) | 08/07/2013 2:59 PM | | | | | PDT | | + + + + + | Height | 154.9 cm (5' 1") | 03/04/2011 11:02 AM | | | | | PST | | + + + + + | Body Mass Index | 22.11 | 03/04/2011 11:02 AM | | | | | PST | | + + + + + Plan of Treatment + + + + + | Health Maintenance | Due Date | Last Done | Comments | + + + + + | Influenza (Flu) | | | | | vaccination (#1) | 9 | | | + + + + + | Pneumococcal | Aged Out | | No longer eligible | | vaccination | | | based on patient's | | | | | age to complete this | | | | | topic | + + + + + Results Not on filefrom Last 3 Months Insurance + +--------+ +--------+ + +--------+ | Payer | Benefi | Subscriber | Effect | Phone | Address | Type | | | t Plan | ID | jany | | | | | | / | | Dates | | | | | | Group | | | | | | + +--------+ +--------+ + +--------+ | MEDICARE | MEDICA | xxxxxxxxxx | | [phone] | [address] | [address] | | | RE A & | | [phone] | [address] | | | B | | esent | | [place] | | | | | | | | [address] | | + +--------+ +--------+ + +--------+ | [employer] | AARP | xxxxxxxxxxx | Effect | [phone] | [address] | Indemn | | RETIRED PEOPLE | | | jany | 9 | [phone] | ity | | | | | for | | [place] | | | | | | all | | [phone] | | | | | | dates | | | | + +--------+ +--------+ + +--------+ + +--------+ +--------+ + + | Guarantor Name | Accoun | Relation to | Date | Phone | Billing Address | | | t Type | Patient | of | | | | | | | | | | + +--------+ +--------+ + + | Charissa Goss | Person | Self [birth year] | [address] | | | al/[place] | | 1955 | [phone] | [place] | | | [place] | | | 9 (Home) | [address] | | | | | | [phone] | | | | | | | 5 (Work) | | + +--------+ +--------+ + +
--- OUTSIDE RECORDS SUMMARY | ~2019-03-08 | XMS | Encounter Summary ---
Demographics + + + | Address | [address] | | | [place] [address] | + + + | Home Phone | | + + + | Preferred Language | Unknown | + + + | Marital Status | | + + + | Congregational Affiliation | 1001 | + + + | Race | Unknown | + + + | Ethnic Group | Unknown | + + + Author + + + | Author | [facility] | | | and [place] | + + + | Organization | [facility] | | | and Brantana [...] [place], [place] | | | | | [address] | | + + + + + | Tiffanie Chisholm | ECON | [address] | | | | | [place], [place] | | | | | [address] | | + + + + + Care Team Providers + +------+ + | Care Sales Manager Name | Role | Phone | [...] + + + + | 04/09/ | Clinical | [facility] | Bert Linder, | Urge incontinence | | 2016 | Support | [address] | [address] | (Primary Dx); | | | | [place] | [place] | Microhematuria; | | | | [address] | [address] | Pyuria | | | | [phone] | | | +--------+ + + + [...] encounter Progress Notes Blessing Rodríguez RN - 04/09/2015 4:38 PM PST Percutaneous tibial nerve stimulation (PTNS) # 2 of 12 was prescribed for 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 The needle electrode was inserted into the lower, inner as pect of the left leg. The surface electrode was placed on the bottom of the foot on the chichi atment leg. The lead set was connected to the stimulator, and the needle electrode clip was connected to the needle electrode. The stimulator that produces an adjustable electrical p ulse that travels to the sacral nerve plexus via the tibial nerve was adjusted to a setting of 18. The patient's response to treatment was reviewed with patient. See flow sheet in ch art. PERCUTANEOUS TIBIAL NERVE STIMULATION FLOW SHEET Related health & social habits Comments Caffeine #/day Alcohol #/day Daytime voids #/day Night-time voids #/night Urgency 0=none, 4=severe Incontinenceepisodes #/day Ankle used Setting Feeling/ Response [x] Same [] Change 0 0 5-6 1 4 2 [] R [x] L 18 [] Toe Flex [x] Foot sensation [] Both Patient was also needing to leave a urine sample for UA and cytology from last appointment for hematuria. UA dip positive for leukocytes and sent to [facility] lab for microscopic and cul ture if indicated. Cecille Lawrence CMA - 04/09/2015 3:43 PM PSTSent urine to [facility] for cytology via switchboard installer. documented in this e ncounter Plan of Treatment +--------+---------+ + + + | Date | Type | Specialty | Care Team | Description | +--------+---------+ + + + | 05/30/ | Office | Neurology | Negin Campos | | | 2019 | Visit | | MD Josiah [address], [place] | | | | | | [place] [address] | | | | | | [phone] | | | | | | | | +--------+---------+ + + + | 07/04/ | Office | Urology | Bert Linder, | | | 2019 | Visit | | MD Joy SINHA | | | | | | [place] | | | | | | [address] | | | | | | | | +--------+---------+ + + + + + +--------+ + + | Name | Type | Priori | Associated Diagnoses | Order Schedule | | | | ty | | | + + +--------+ + + | Medical Cytology | Pathology | Routin | Microhematuria | Ordered: 04/09/2015 | | | and | e | | | | | Cytology | | | | + + +--------+ + + documented as of this encounter Procedures + +--------+ + + + | Procedure Name | Priori | Date/Time | Associated Diagnosis | Comments | | | ty | | | | + +--------+ + + + | POCT URINALYSIS, | Routin | 04/09/2015 | Pyuria | Results for this | | AUTO WITH CONF | e | 3:52 PM | | procedure are in the | | | | PST | | results section. | + +--------+ + + + | MEDICAL CYTOLOGY | Routin | 04/09/2015 | | Results for this | | | e | 12:00 AM | | procedure are [...] | | | | | | [facility] | | | | | | MED[facility] [...] ST. | [address] | [place] | [phone] | | [facility] | | [address] | | | - LABORATORY | | | | + + + + + POCT Urinalysis Dipstick Automated (04/09/2015 3:52 PM PST) + + + + + + | Component | Value | Ref Range | Performed | Pathologist | | | | | At | Signature | + + + + + + | Color, UA, | Yellow | Yellow, Light | | | | POC | | Yellow | | | + + + + + + | Clarity, | Hazy | | | | | UA, POC [...] + + + + | Specific | 1.015 | 1.001 - 1.030 | | | | [place], | | | | | | UA, POC | | | | | + + + + + + | Blood, UA, | Negative | Negative | | | | POC | | | | | + + + + + + | pH, UA, POC | 7.0 | 5.0, 6.0, 7.0, | | | | | | 8.0, 5.5, 6.5, | | | | | | 7.5 | | | + + + + + + | Protein, | Negative | Negative | | | [...] + + | Nitrite, | Negative | | | | | UA, POC | | | | | + + + + + + | Leukocyte | Trace (A) | Negative | | | | [...] specimen | | (specimen) | + + Medical Cytology (04/09/2015 12:00 AM PST) + + | Specimen | + + | | + + + + + | Narrative | Performed At | + + + | ORDERING PHYSICIAN: Bert Linder MD PATIENT NAME: MISSAEL | [facility] | | ABEL GRAY GENDER: U : 1955 SPECIMEN(S): A | [facility] | | URINE CYTOLOGY GROSS DESCRIPTION: 90 ML OF CLOUDY YELLOW FLUID | | | CLINICAL HISTORY: NO CLINICAL DATA PROVIDED LABORATORY | | | PREPARATIONS: 1 MONOLAYER CYTOLOGIC INTERPRETATION: Urine: | | | Negative for malignant cells. DESCRIPTION: The preparation is | | | sufficiently cellular for interpretation. Urothelial cells are without | | | atypical features. Cytologic features of malignancy are absent. | | | SPECIMEN ADEQUACY: Satisfactory for Evaluation PERFORMING | | | LABORATORY: Technical preparation was performed by [facility] | | | [place], [address] [place] [address] | | | (Cras: Keanu Bourgeois D.O.; CLIA#: [id number]). | | | Professional interpretation was performed by [facility],- | | | [address] [address] (Medical | | | Director: Jeremy Bauman M.D.; CLIA#: [id number]).9 | | | Diagnostician: Sarath WARD ([facility]) Billet Recorder | | | Diagnostician: Jaime Rivera MD Pathologist Electronically Signed | | | 04/11/2015 | | + + + + +---------+ + + | Performing | Address | City/State/Zipcode | Phone Number | | Organization | | | | + +---------+ + + | [facility] | | | | | [facility] | | | | + +---------+ + + documented in this encounter Visit Diagnoses + + | Diagnosis | + + | Urge incontinence - Primary | + + | Microhematuria Microscopic hematuria | + + | Pyuria Other nonspecific finding on examination of urine | + + documented in this encounter"
--- OUTSIDE RECORDS SUMMARY | ~2019-03-08 | XMS | Encounter Summary ---
Demographics + + + | Address | [address] | | | [place] [address] | + + + | Home Phone [...] + + + | Author | [facility] | + + + | Organization | [facility] | + + + | Address | Unknown | + + + | Phone | Unavailable | + + + Support + + +---------+ + | Name | Relationship | Address | Phone | + + +---------+ + | Nahomy Briana | ECON | Unknown | | + + +---------+ + Care Team Providers + +------+ + | Care Billing And Insurance Coordinator Name | Role | Phone | + +------+ + | Owen Swartz MD | PCP | | + +------+ + Reason for Visit + + + | Reason | Comments | + + + | Referral | HH and PT | + + + Encounter Details +--------+ + + + + | Date | Type | Department | Care Team | Description | +--------+ + + + + | 10/16/ | Telephone | Neurology at | [facility] | Referral (HH and PT) | | 2014 | | [facility] & | MD Valentin | | | | | [address] | | | | | | [place] Mailcode: | | | | | | [facility] | | | | | | Health and Healing, | | | | | | Building | | | | | | Floor [place], [place] | | | | | | [address] | | | | | | [phone] | | | +--------+ + + + [...]
--- OUTSIDE RECORDS SUMMARY | ~2019-03-08 | XMS | Encounter Summary ---
Demographics + + + | Address | [address] | | | [place] [address] | + + + | Home Phone | | + + + | Preferred Language | Unknown | + + + | Marital Status | | + + + | Orthodox Affiliation | 1001 | + + + | Race | Unknown | + + + | Ethnic Group | Unknown | + + + Author + + + | Author | [facility] | | | and [place] | + + + | Organization | [facility] | | | and Br[place] [...] [place], [place] | | | | | [address] | | + + + + + | Tiffanie Chisholm | ECON | [address] | | | | | [place], [place] | | | | | [address] | | + + + + + Care Team Providers + +------+ + | Care Advertising Supervisor Name | Role | Phone | + +------+ + | Owen Swartz MD | PCP | | + +------+ + Encounter Details +--------+ + + + + | Date | Type | Department | Care Team | Description | +--------+ + + + + | 04/27/ | Hospital | [facility] | Bert Linder, | Neurogenic bladder; | | 2018 | Encounter | MED CTR ULTRASOUND | [address] [facility] | Leukodystrophy | | | | [address] [place] | [place], [place] | | | | | [place], [place] | [address] | | | | | [address] | | | | | | [phone] | Michelle Burch, | | | | [...] at Time of Discharge + + + +---------+ + + | Medication | Sig | Dispensed | Refills | Start | End Date | | | | | | Date | | + + + +---------+ + + | calcium | Take 1 tablet by | | 0 | | | | citrate-vitamin D | mouth Daily. | | | | | | (CITRACAL+D) 315 | | | | | | | mg-200 units per | | | | | | | tablet | | | | | | + + + +---------+ + + | donepezil | Take 10 mg by mouth | | 0 | | | | (ARICEPT) 10 MG | every morning. | | | | | | tablet | | | | | | + + + +---------+ + + | levothyroxine | | | 3 | 02/02/20 | | | (SYNTHROID, | | | | 16 | | | LEVOTHROID) 100 mcg | | | | | | | tablet | | | | | | + + + +---------+ + + | mirabegron | Take 50 mg by mouth | | 0 | | | | (MYRBETRIQ) 50 mg ER | Daily. | | | | | | tablet | | | | | | + + + +---------+ + + | Multiple | Take 1 tablet by | | 0 | | | | Vitamins-Minerals | mouth Daily. | | | | | | (ADULT MULTIVITAMIN | | | | | | | WITH MINERALS/IRON) | | | | | | | TABS | | | | | | + + + +---------+ + + | ondansetron | as needed. | | 0 | 02/05/20 | | | (SANJUANA) 4 mg tablet | | | | 17 | 9 | + + + +---------+ + + documented as of this encounter [...] | | | | | [place] [address] | | | | | | [phone] | | | | | | | | +--------+---------+ + + + | 07/04/ | Office | Urology | Bert Linder, | | | 2019 | Visit | | [address] | | | | | | [place] | | | | | | [address] | | | | | | | | +--------+---------+ + + + documented as of this encounter Procedures + +--------+ + + + | Procedure Name | Priori | Date/Time | Associated Diagnosis | Comments | | | ty | | | | + +--------+ + + + | US RENAL LIMITED | Routin | 04/27/2017 | Neurogenic bladder | Results for this | | | e | 2:49 PM | Leukodystrophy | procedure are in the | | | | PST | | results section. | + +--------+ + + + | LABS - EXTERNAL SCAN | | 04/08/2017 | | Results for this | | | | 12:00 AM | | procedure are in the | | | | PST | | results section. 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 COMPARISON: None. PROTOCOL: Walter | | | scale and Doppler images of the kidneys and bladder. FINDINGS: | | | Right Kidney: There is increased echogenicity with prominence of the | | | calyces consistent with medical renal disease. There is no | | | hydronephrosis. Resistive indices are 0.72 and 0.64, which are | | | normal. Size of the kidney is 12.3 x 4.2 x 4.9 cm. Left Kidney: | | | There is increased echogenicity with prominence of the calyces | | | consistent with medical renal disease. There is no hydronephrosis. | | | Resistive indices are 0.71 and 0.66, which are normal. Size of the | | | kidney is 11.3 x 4.5 x 4.2 cm. Bladder: The bladder has a normal | | | appearance. Prevoid volume is 226 mL. The patient could not void. | | | Ureteral jets are seen on the right and left. IMPRESSION - | | | Bilateral medical renal disease with no evidence for hydronephrosis. 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 | | | | COMPARISON: None. | | | | PROTOCOL: Walter scale and Doppler images of the kidneys and bladder. | | | | FINDINGS: | | Right Kidney: There is increased echogenicity with prominence of the calyces | | consistent with medical renal disease. There is no hydronephrosis. Resistive | | indices are 0.72 and 0.64, which are normal. Size of the kidney is 12.3 x 4.2 x | | 4.9 cm. | | | | Left Kidney: There is increased echogenicity with prominence of the calyces | | consistent with medical renal disease. There is no hydronephrosis. Resistive | | indices are 0.71 and 0.66, which are normal. Size of the kidney is 11.3 x 4.5 x | | 4.2 cm. | | | | Bladder: The bladder has a normal appearance. Prevoid volume is 226 mL. The | | patient could not void. Ureteral jets are seen on the right and left. | | | | IMPRESSION - | | Bilateral medical renal disease with no evidence for hydronephrosis. | | | | Dictated and Signed by: Wyatt May MD | | Electronically signed: 04/27/2017 4:59 PM | + + + +---------+ + + | Performing | Address | City/State/Zipcode | Phone Number | | Organization | | | | + +---------+ + + | [facility] | | | | + +---------+ + + LABS - EXTERNAL SCAN (04/08/2017 12:00 AM PST) + + + | Narrative | Performed At | + + + | Ordered by an | | | unspecified provider. | | + + + documented in this encounter Visit Diagnoses + + | Diagnosis | + + | Neurogenic bladder Neurogenic bladder, NOS | + + | Leukodystrophy (HCC) Leukodystrophy | + + documented in this encounter"
--- OUTSIDE RECORDS SUMMARY | ~2019-03-08 | XMS | Encounter Summary ---
Demographics + + + | Address | [address] | | | [place] [address] | + + + | Home Phone | | + + + | Preferred Language | Unknown | + + + | Marital Status | | + + + | Yarsanism Affiliation | Unknown | + + + | Race | White | + + + | Ethnic Group | Not or | + + + Author + + + | Author | [facility] | + + + | Organization | [facility] | + + + | Address | Unknown | + + + | Phone | Unavailable | + + + Support + + +---------+ + | Name | Relationship | Address | Phone | + + +---------+ + | Nahomy Briana | ECON | Unknown | | + + +---------+ + Care Team Providers + +------+ + | Care Gas Prover Name | Role | Phone | + +------+ + | Owen Swartz MD | PCP | | + +------+ + Reason for Referral Physical Therapy (Routine) +--------+--------+ + + + + | Status | Reason | Specialty | Diagnoses / | Referred By | Referred To | | | | | Procedures | Contact | Contact | +--------+--------+ + + + + | Closed | | Physical | Diagnoses | Alejandraburger, | Tramaine Pt [facility] | | | | Therapy | Neuropathy | Beronica Hanson MD | [address] | | | | | Procedures | [address] | | | | | PHYSICAL | [address] | Mailcode: | | | | | THERAPY | [place], [place] | [address] | | | | | REFERRAL | [phone] | for Health | | | | | | | and Healing, | | | | | | | [address], | | | | | | | [address] | | | | | | | [place], [place] | | | | | | | [address] | | | | | | | Phone: | | | | | | | [phone] | | | | | | | Fax: | | | | | | | [phone] | +--------+--------+ + + + + +--------+--------+ + + + + | Status | Reason | Specialty | Diagnoses / | Referred By | Referred To | | | | | Procedures | Contact | Contact | +--------+--------+ + + + + | | | | | Airam | | | | | | | Beronica Hanson MD | | | | | | | [address] | | | | | | | [place] | | | | | | | [place] | | | | | | | [address] | | +--------+--------+ + + + + Reason for Visit + + + | Reason | Comments | + + + | Follow-up visit | | + + + Encounter Details +--------+---------+ + + + | Date | Type | Department | Care Team | Description | +--------+---------+ + + + | 03/04/ | Office | Neurology at | Beronica Alegria | Neuropathy (Primary | | 2011 | Visit | [facility] & | MD Valentin | Dx); Leukodystrophy | | | | Healing [address] | | | | | | [address] Mailcode: | | | | | | [facility] | | | | | | Health and Healing, | | | | | | [facility] | | | | | | [place], [place] | | | | | | [address] | | | | | | [phone] | | | +--------+---------+ + + + [...] + + + | Blood Pressure | 99/65 | 03/04/2011 11:02 AM | right arm | | | | PST | | + + + + + | Pulse | 90 | 03/04/2011 11:02 AM | | | | | PST | | + + + + + | Temperature | - | - | | + + + + + | Respiratory Rate | - | - | | + + + + + | Oxygen Saturation | - | - | | + + + + + | Inhaled Oxygen | - | - | | | Concentration | | | | + + + + + | Weight | 53 kg (116 lb 14.4 | 03/04/2011 11:02 AM | | | | oz) | PST | | + + + + + | Height | 154.9 cm (5' 1") | 03/04/2011 11:02 AM | | | | | PST | | + + + + + | Body Mass Index | 22.09 | 03/04/2011 11:02 AM | | | | | PST | | + + + + + documented in this encounter Progress Beronica Ceja MD - 03/04/2011 11:34 AM PST NEUROMUSCULAR CLINIC FOLLOW UP NOTE Author: Beronica Alegria MD. ID: Charissa Goss is a 55 y.o. Woman with a history of progressive neurologic symptoms of impaired balance, memory, urinary dysfunction, diplopia and foot numbness in addition to cat aracts presenting to the [facility] Neuromuscular division today for follow up. To review, she noticed difficulty walking down a slope >10 years ago. Around the same time , she started having problems with balance e.g. if closing eyes in shower. In the next 5 yea rs, she developed paresthesias and numbness in her feet that gradually worsened. Memory prob lems started about 2-3 years later. Bowel/ bladder problems x 3 years that started after sh e had thyroidectomy and radioactive iodine for thyroid cancer. She has urinary incontinence and cannot feel when she urinates. She has diplopia and has opthalmology. She had no benef it from prisms. No problems in hands or arms- no weakness or clumsiness in hands, no numbne ss in hands. No vertigo, slurred speech, changes in mood or personality, language problems , hearing problems, smell or taste problems. Rare difficulty swallowing. No hearing loss. She did not walk until age 1 and could never keep up with other children when running. She did fine academically in school. Doctor wanted her to be evalauted but patient's parents ref used. 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 Urine arylsulfatase levels were normal B12 levels were normal. TSH was low (0.08); she is on thyroid replacement after thyroid chel aureliano. Past Medical History: Incontinence of urine Neuropathy Unspecified disorder of thyroid Heart murmur Past Surgical History: THYROIDECTOMY D&C DIAGNOSTIC / THERAPEUTIC Home Medications: CALCIUM CITRATE/VITAMIN D3 (CITRACAL + D ORAL), Take 1 Tab by mouth once daily. donepezil (ARICEPT) 10 mg Oral Tablet, Take 10 mg by mouth once daily in the evening. Fesoterodine (T OVIAZ) 8 mg Oral Tablet Extended Release 24 hr, Take 8 mg by mouth once daily. levothyroxi ne (SYNTHROID) 100 mcg Oral Tablet, Take 100 mcg by mouth once daily. MULTIVITAMIN W-MINERAL S/LUTEIN (CENTRUM SILVER ORAL), Take 1 Tab by mouth once daily. Allergies: No Known Allergies Social History: History Social History Marital Status: Spouse Name: N/A Number of Children: N/A Years of Education: N/A Occupational History Not on file. Social History Main Topics Smoking status: Never Smoker Smokeless tobacco: Never Used Alcohol Use: Not on file Drug Use: Not on file Sexually Active: Not on file Other Topics Concern Not on file Social History Narrative No narrative on file Family History: Her mother had seizure disorder, abnormal feet, walking difficulty. Her s ister's children have seizure disorders. Physical Examination: Constitutional: BP 99/65[right arm[ | Pulse 90 | Ht 154.9 cm (5' 1") | Wt 53.025 kg (116 lb 14.4 oz) | BMI 22.09 kg/(m^2) Neurologic Exam: Mental Status: Patient is alert and oriented. Gives detailed history and cooperates with e is[place]. Cranial Nerve: Visual hackett are intact to confrontation. Optic disc not visualized. Ext raocular movements are full; saccadic smooth pursuits and nystagmus noted with bilateral gaz e. Pupils are 2mm, round and equally reactive to light. Facial sensation intact to light t ouch. Facial strength is full and symmetric. Palate elevates symmetrically. Tongue is ful l strength. Motor: Atrophic foot muscles noted with profound pes cavus. Right ankle dorsiflexion 4/5, left ankle dorsiflexion 4+/5, otherwise full strength proximally in lower extremities and 5 /5 in upper extremities. Sensory: Sensation is absent to vibratory sense at great toes; proprioception mildly reduce d at great toes. Pinprick reduced at great toes. Reflexes: Reflexes are brisk throughout. Gait : Steppage Gait Cerebellum: Normal finger to nose, heel to moore Assessment: Charissa Goss is a 55 yo woman presenting for follow up for progressive cogni tive and balance problems, distal lower extremity weakness and numbness and family history o f similar condition in her mother. EMG showed a length-dependent motor axonopathy and MRI shows severe confluent demyelination and atrophy sparing the basal ganglia and the corpus ca llosum. 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 Extensive work up including testing for metachromatic leukodystrophy, adrenoleukodystrophy, Krabbe's disease and multiple sulfatase deficiency wa s unrevealing. There are other hereditary conditions with central and peripheral involvemen t, such as Refsum's, but this does not fit her clinical picture - she does not have history of deafness or abnormalities of the retina. I discussed with her today that we may not be a ble to identify the genetic abnormality causing her syndrome, and further testing is unlikel y to post exchange manager. Recommendations: - PT and orthotics referral; given the long distance to [facility], she is going to ask her PCP f or a recommendation on local physical therapists. - Follow-up in Neuromuscular clinic in 6 months or sooner prn. Beronica Alegria MD. 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
--- OUTSIDE RECORDS SUMMARY | ~2019-03-08 | XMS | Encounter Summary ---
Demographics + + + | Address | [address] | | | [place] [address] | + + + | Home Phone | | + + + | Preferred Language | Unknown | + + + | Marital Status | | + + + | Baptist Affiliation | 1001 | + + + | Race | Unknown | + + + | Ethnic Group | Unknown | + + + Author + + + | Author | [facility] | | | and [place] | + + + | Organization | [facility] | | | and [place] [...] [place], [place] | | | | | [address] | | + + + + + | Tiffanie Chisholm | ECON | [address] | | | | | [place], [place] | | | | | [address] | | + + + + + Care Team Providers + +------+ + | Care Valve Inserter Name | Role | Phone | + [...] | [address] | MD [address] [facility] | | | | | [place] | [place] | | | | | [address] | [address] | | | | | [phone] | | | +--------+ + + + [...] [address] | | | | | | [place] [address] | | | | | | [phone] | | | | | | | | +--------+---------+ + + + | 07/04/ | Office | Urology | Bert Linder, | | | 2019 | Visit | | MD [address] | | | | | | [place] | | | | | | [address] | | | | | | | | +--------+---------+ + + + documented as of this encounter Visit Diagnoses Not on filedocumented in this encounter"
--- OUTSIDE RECORDS SUMMARY | ~2019-03-08 | XMS | Encounter Summary ---
Demographics + + + | Address | [address] | | | [place] [address] | + + + | Home Phone | | + + + | Preferred Language | Unknown | + + + | Marital Status | | + + + | Sikhism Affiliation | Unknown | + + + | Race | White | + + + | Ethnic Group | Not or | + + + Author + + + | Author | [facility] | + + + | Organization | [facility] | + + + | Address | Unknown | + + + | Phone | Unavailable | + + + Support + + +---------+ + | Name | Relationship | Address | Phone | + + +---------+ + | Nahomy Briana | ECON | Unknown | | + + +---------+ + Care Team Providers + +------+ + | Care Denture Technician Name | Role | Phone | + +------+ + | Owen Swartz MD | PCP | | + +------+ + Reason for Visit + + + | Reason | Comments | + + + | Eye examination | OCT | + + + Encounter Details +--------+ + + + + | Date | Type | Department | Care Team | Description | +--------+ + + + + | 08/06/ | Diagnostic | [facility] | | Eye examination | | 2013 | Visit | [place] | | (NOV) | | | | Photography at [facility] | | | | | | [address] | | | | | | Mailcode: CH11P | | | | | | [facility] | | | | | | and Healing, | | | | | | Building | | | | | | Floor [place], [place] | | | | | | [address] | | | | | | [phone] | | | +--------+ + + + [...] as of this encounter Rashaad Beltran - 08/06/2013 5:02 PM PDT Charissa Goss was seen in the [facility] [place] Photography/Ultrasound Department today, 08/06/2013, for OCT OU. RASHAAD ZARAT documented in thi s encounter Plan of Treatment Not on filedocumented as of this encounter Visit Diagnoses + + | Diagnosis | + + | White matter changes - Primary Unspecified cause of encephalitis, myelitis, and | | encephalomyelitis | + + documented in this encounter"
--- OUTSIDE RECORDS SUMMARY | ~2019-03-08 | XMS | Encounter Summary ---
Demographics + + + | Address | [address] | | | [place] [address] | + + + | Home Phone | | + + + | Preferred Language | Unknown | + + + | Marital Status | | + + + | Sabianist Affiliation | 1001 | + + + | Race | Unknown | + + + | Ethnic Group | Unknown | + + + Author + + + | Author | [facility] | | | and Br[place] | + + + | Organization | [facility] | | | and Brantana [...] [place], [place] | | | | | [address] | | + + + + + | Tiffanie Chisholm | ECON | [address] | | | | | [place], [place] | | | | | [address] | | + + + + + Care Team Providers + +------+ + | Care High School Coordinator Name | Role | Phone | [...] | +--------+ + + + + | 11/18/ | Clinical | [facility] | Ralph Quintanilla | Urge incontinence | | 2016 | Support | [address] | MD [address] | (Primary Dx) | | | | [place], [place] | [address] [facility] | | | | | [address] | [place] [address] | | | | | [phone] | [phone] | | | | | | | [...] encounter Progress Notes Blessing Rodríguez RN - 11/19/2015 1:42 PM PDT Percutaneous tibial nerve stimulation (PTNS) [...] nerve was adjusted to a setting of 11. T he patient's response to treatment was reviewed with patient. See flow sheet in chart. PERCUTANEOUS TIBIAL NERVE STIMULATION FLOW SHEET Related health & social habits Comments Caffeine #/day Alcohol #/day Daytime voids #/day Night-time voids #/night Urgency 0=none, 4=severe Incontinenceepisodes #/day Ankle used Setting Feeling/ Response [x] Same [] Change 0 0 5-6 0 3 3-4 [x] R [] L 11 [] Toe Flex [] Foot sensation [x] [...] [place] | | | | | | [facility], [place] [address] | | | | | | [phone] | | | | | | | | +--------+---------+ + + + | 07/04/ | Office | Urology | Bert Linder, | | | 2019 | Visit | | MD [address] | | | | | | [place] | | | | | | [id number] | | | | | | | | +--------+---------+ + + + documented as of this encounter Visit Diagnoses + + | Diagnosis | + + | Urge incontinence - Primary | + + documented in this encounter"
--- OUTSIDE RECORDS SUMMARY | ~2019-03-08 | XMS | Encounter Summary ---
Demographics + + + | Address | [address] | | | [place] [address] | + + + | Home Phone | | + + + | Preferred Language | Unknown | + + + | Marital Status | | + + + | Methodist Affiliation | Unknown | + + + | Race | White | + + + | Ethnic Group | Not or | + + + Author + + + | Author | [facility] | + + + | Organization | [facility] | + + + | Address | Unknown | + + + | Phone | Unavailable | + + + Support + + +---------+ + | Name | Relationship | Address | Phone | + + +---------+ + | Nahomy Briana | ECON | Unknown | | + + +---------+ + Care Team Providers + +------+ + | Care Paper Pattern Inspector Name | Role | Phone | + +------+ + | Owen Swartz MD | PCP | | + +------+ + Encounter Details +--------+ + + + + | Date | Type | Department | Care Team | Description | +--------+ + + + + | 08/11/ | Document-Sc | UNKNOWN DEPARTMENT | Unknown . | | | 2012 | anned | [address] | | | | | | [address] | | | | | | [place], [place] | | | | | | [address] | | | +--------+ + + + [...]
--- OUTSIDE RECORDS SUMMARY | ~2019-03-08 | XMS | Encounter Summary ---
Demographics + + + | Address | [address] | | | [place] [address] | + + + | Home Phone | | + + + | Preferred Language | Unknown | + + + | Marital Status | | + + + | Hindu Affiliation | 1001 | + + + | Race | Unknown | + + + | Ethnic Group | Unknown | + + + Author + + + | Author | [facility] | | | and Brantana | + + + | Organization | [facility] | | | and Brantana [...] [place], [place] | | | | | [address] | | + + + + + | Tiffanie Chisholm | ECON | [address] | | | | | [place], [place] | | | | | [address] | | + + + + + Care Team Providers + +------+ + | Care Rug Backing Stenciler Name | Role | Phone | + [...] + + | 04/20/ | Office | [facility] | Bert Linder, | Urge incontinence | | 2017 | Visit | [address] | [address] | (Primary Dx); | | | | [place] | [place] | Neurogenic bladder; | | | | [address] | [address] | Leukodystrophy; | | | | [phone] | | Pyuria | +--------+---------+ + + [...] juices Cantaloupe Carbonated beverages Chiles/spicy food Chocolate Candler fruits and drinks Coffee, including decaf Cranberries and cranberry juice Grape/grape juice Guava Peaches Pineapple Plums Strawberries Tea Tomatoes Vinegar Vitamin B complex Vitamin C Other potential irritants: Avocados Bananas Sanchez's yeast Canned figs Champagne Aged Cheese Chicken livers Corned Beef Lucas beans Redmond beans Mayonnaise Nutrasweet Nuts Onions Pickled moscoso Prunes Raisins [place] bread Saccharine Sour cream Soy sauce Wine [...] benign. Prior to Dr. Barnes's departure from [place], Charissa was being treated with bladder neurom [...] Wt 54.432 kg (120 lb) | B PA 22.69 kg/m2 General: Awake, alert, in no [...] repeat urinalysis, urine cytology, NMP 22 bladder angel ck test, renal ultrasound, and PVR and [...] have not thoroughly proofread this note, and blueprint reader erro rs may occur. CC: Dr Swartz [...] | | | | | [place] [address] | | | | | | [phone] | | | | | | | | +--------+---------+ + + + | 07/04/ | Office | Urology | Bert Linder, | | | 2019 | Visit | | [address] | | | | | | [place] | | | | | | [address] | | | | | | | [...] ST. | [address] | [place], [place] | [phone] | | [facility] | | [address] | | | - LABORATORY | | [...] 1.001 - 1.030 | | | | [place], | | | | | | [facility], [...]
--- OUTSIDE RECORDS SUMMARY | ~2019-03-08 | XMS | Encounter Summary ---
Demographics + + + | Address | [address] | | | [place] [address] | + + + | Home Phone | | + + + | Preferred Language | Unknown | + + + | Marital Status | | + + + | Baptism Affiliation | 1001 | + + + | Race | Unknown | + + + | Ethnic Group | Unknown | + + + Author + + + | Author | [facility] | | | and Brantana | + + + | Organization | [facility] | | | and [...] [place], [place] | | | | | [address] | | + + + + + | Tiffanie Chisholm | ECON | [address] | | | | | [place], [place] | | | | | [address] | | + + + + + Care Team Providers + +------+ + | Care Acid Purification Equipment Operator Name | Role | Phone | + +------+ + | Owen Swartz MD | PCP | | + +------+ + Reason for Visit + + + | Reason | Comments | + + + | Neurogenic Bladder | | + + + | Urgency Incontinence | | + + + Encounter Details +--------+ + + + + | Date | Type | Department | Care Team | Description | +--------+ + + + + | 05/20/ | Clinical | [facility] | Ralph Quintanilla | Urge incontinence | | 2017 | Support | [address] | MD [address] | (Primary Dx) | | | | [place] | [address] [facility] | | | | | [address] | [facility] [place] [place] [address] | | | | | [phone] | [phone] | | | | | | | [...] + + documented as of this encounter Patient Instructions Patient Instructions Delores Milton RN - 05/20/2016 11:52 AM PDT Urinary Incontinence, Female (Adult) Urinary incontinence means loss of control of the bladder.This problem affects many women , especially as they get older. If you have incontinence, you may be embarrassed to ask for help. But know that this problem can be treated. Types of Incontinence There are different types of incontinence. Two of the main types are described here. You ca n have more than one type. Stress incontinence:With this type, urine leaks when pressure (stress) is put on the blad dana.This may happen when you cough, sneeze, or laugh. Stress incontinence most often occur s because the pelvic floor muscles that support the bladder and urethra are weak.This can happen after and vaginal childbirth or a hysterectomy. It can also be due to exces s body weight or hormone changes. Urge incontinence (also called overactive bladder):With this type, a sudden urge to urina te is felt often. This may happen even though there may not be much urine in the bladder. Th e need to urinate often during the night is common. Urge incontinence most often occurs shante use of bladder spasms.This may be due to bladder irritation or infection. Damage to bladde r nerves or pelvic muscles, constipation, and certain medicines can also lead to urge incont inence. Treatment of urinary incontinence depends on the cause. Further evaluation is needed to fin d the type you have. This will likely include an exam and certain tests. Based on the result s, you and your healthcare provider can then plan treatment. Until a diagnosis is made, the home care tips below can help relieve symptoms. Home care Do pelvic floor muscle (Kegel) exercises, if they are prescribed.The pelvic floor musc les help support the bladder and urethra. Many women find that their symptoms improve when d oing special exercises that strengthen these muscles. To do the exercises: Contract the muscles you would use to stop your stream of urine, but do this when you re not urinating. Hold for 10 seconds, then relax. Repeat 10 to 20 times in a row, at least 3 times a day. Your provider may give you other instructions for how to do the exercises and how often. Keep a bladder diary. This helps track how often and how much you urinate over a set per iod of time. Bring this diary with you to your next visit with the provider. The information can help your provider learn more about your bladder problem. Lose weight, if advised to by your provider. Excess weight puts pressure on the bladder. Your provider can help you create a weight-loss plan that s right for you. This may inclu de exercising more and making certain diet changes. Avoid foods and drinks that may irritate the bladder. These can include alcohol and caff einated drinks. Quit smoking. Smoking and other tobacco use can lead to chronic cough that strains the p elvic floor muscles. Smoking may also damage the bladder and urethra. Talk with your provide r about treatments or methods you can use to quit smoking. If drinking large amounts of fluid causes you to have symptoms,you may be advised to l imit your fluid intake.You may also be advised to drink most of your fluids during the day and to limit fluids at night. If you re worried about urine leakage or accidents,you may wear absorbent pads to ca tch urine.Change the pads often.This helps reduce discomfort.It may also reduce the ri sk of skin or bladder infections. Follow-up care Follow up with your healthcare provideras directed. If testing was done, you ll be told the results as soon as they are ready. It may take some to find the right treatment for you r problem. Work closely with your provider to ensure you get the best care for your needs. Y our treatment plan may include special therapies or medicines. Certain procedures or surgery may also be options. Be sure to discuss any questions you have with your provider. When to seek medical advice Call the healthcare provider right away if any of these occur: Fever of 100.4F (38C) or higher, or as directed by your provider Bladder pain or fullness Abdominal swelling Nausea or vomiting Back pain Weakness, dizziness or fainting Date Last Reviewed: 09/22/201419996140-7300 [employer]. [address] [place] [address]. All righ ts reserved. This information is not intended as a substitute for professional medical care. Always follow your healthcare professional's instructions. documented in this encounter Progress Notes Delores Milton RN - 05/20/2016 11:49 AM PDT Percutaneous tibial nerve stimulation was prescribed for Charissa's overactive symptoms of urg e incontinence. The needle electrode was inserted into the lower, inner aspect of the right leg. The surface electrode was placed on the bottom of the foot on the treatment leg. The lead set was connected to the stimulator, and the needle electrode clip was connected to th e needle electrode. The stimulator that produces an adjustable electrical pulse that travel s to the sacral nerve plexus via the tibial nerve was adjusted to a setting of 19. The mars ent's response to treatment was reviewed with patient. See flow sheet in chart. PERCUTANEOUS TIBIAL NERVE STIMULATION FLOW SHEET Related health & social habits Comments Caffeine #/day Alcohol #/day Daytime voids #/day Night-time voids #/night Urgency 0=none, 4=severe Incontinence episodes #/day Ankle used Setting Feeling/ Response [x] Same [] Change Other than a "cold" 0 0 4 0 3 3 [x] R [] L 19 [] [...] | | | | | [place] [address] | | | | | | [phone] | | | | | | | | +--------+---------+ + + + | 07/04/ | Office | Urology | Bert Linder, | | 2019 | Visit | | MD Joy [address]ERSON | | | | | | [place] | | | | | | [address] | | | | | | | | +--------+---------+ + + + documented as of this encounter Visit Diagnoses + + | Diagnosis | + + | Urge incontinence - Primary | + + documented in this encounter
--- OUTSIDE RECORDS SUMMARY | ~2019-03-08 | XMS | Encounter Summary ---
Demographics + + + | Address | [address] | | | [place] [address] | + + + | Home Phone | | + + + | Preferred Language | Unknown | + + + | Marital Status | | + + + | Roman Catholic Affiliation | Unknown | + + + | Race | White | + + + | Ethnic Group | Not or | + + + Author + + + | Author | [facility] | + + + | Organization | [facility] | + + + | Address | Unknown | + + + | Phone | Unavailable | + + + Support + + +---------+ + | Name | Relationship | Address | Phone | + + +---------+ + | Nahomy Briana | ECON | Unknown | | + + +---------+ + Care Team Providers + +------+ + | Care [employer] Flatbed Truck Driver Name | Role | Phone | + +------+ + | Owen Swartz MD | PCP | | + +------+ + Reason for Visit + + + | Reason | Comments | + + + | Home Health Initial | PCP to follow. | | Order | | + + + Encounter Details +--------+ + + + + | Date | Type | Department | Care Team | Description | +--------+ + + + + | 08/21/ | Telephone | Neurology at | Beronica [facility]legria | Home Health Initial | | 2015 | | [facility] & | MD Valentin | Order (PCP to | | | | [address] | | follow. ) | | | | [place] Mailcode: | | | | | | [facility] | | | | | | Health and Healing, | | | | | | Building | | | | | | Floor [place], [place] | | | | | | [address] | | | | | | [phone] | | | +--------+ + + + [...]
--- OUTSIDE RECORDS SUMMARY | ~2019-03-08 | XMS | Encounter Summary ---
Demographics + + + | Address | [address] | | | [place] [address] | + + + | Home Phone | | + + + | Preferred Language | Unknown | + + + | Marital Status | | + + + | Baptism Affiliation | Unknown | + + + | Race | White | + + + | Ethnic Group | Not or | + + + Author + + + | Author | [facility] | + + + | Organization | [facility] | + + + | Address | Unknown | + + + | Phone | Unavailable | + + + Support + + +---------+ + | Name | Relationship | Address | Phone | + + +---------+ + | Nahomy Briana | ECON | Unknown | | + + +---------+ + Care Team Providers + +------+ + | Care [employer] Open Stack Administrator Name | Role | Phone | + +------+ + | Owen Swartz MD | PCP | | + +------+ + Reason for Visit +--------+ + | Reason | Comments | +--------+ + | Other | Records to PCP | +--------+ + Encounter Details +--------+ + + + + | Date | Type | Department | Care Team | Description | +--------+ + + + + | 10/22/ | Telephone | Neurology at | Beronica Alegria | Other (Records to | | 2014 | | [facility] & | MD Valentin | PCP) | | | | [place] [address] | | | | | | Terry Camacho Mailcode: | | | | | | [facility] | | | | | | Health and Healing, | | | | | | [facility] | | | | | | Floor [place], [place] | | | | | | [address] | | | | | | [phone] | | | +--------+ + + + [...]
--- OUTSIDE RECORDS SUMMARY | ~2019-03-08 | XMS | Encounter Summary ---
Demographics + + + | Address | [address] | | | [place] [address] | + + + | Home Phone | | + + + | Preferred Language | Unknown | + + + | Marital Status | | + + + | Bahai Affiliation | 1001 | + + + | Race | Unknown | + + + | Ethnic Group | Unknown | + + + Author + + + | Author | [facility] | | | and Br[place]ana | + + + | Organization | [facility] | | | and Brantana [...] [place], [place] | | | | | [address] | | + + + + + | Tiffanie Chisholm | ECON | [address] | | | | | [place], [place] | | | | | [address] | | + + + + + Care Team Providers + +------+ + | Care Respite Care Provider Name | Role | Phone | + [...] | +--------+ + + + + | 07/13/ | Clinical | [facility] | Bert Linder, | Urge incontinence | | 2018 | Support | [address] | [address] | | | | | [place] | [place] | | | | | [address] | [address] | | | | | [phone] | | | +--------+ + + + [...] encounter Progress Notes Blessing Rodríguez RN - 07/13/2017 11:30 AM PDT Percutaneous tibial nerve stimulation (PTNS) was [...] Same [] Change 0 0 4-5 0 (50% of the time depends are dry in the AM) 0 (no sensation or urge to go) 1 [x] R [] L 19 [] Toe [...] | | | | | [place] [address] | | | | | | [phone] | | | | | | | | +--------+---------+ + + + | 07/04/ | Office | Urology | Bert Linder, | | 2019 | Visit | [address] | | | | | | [place] | | | | | | [address] | | | | | | | | +--------+---------+ + + + documented as of this encounter Visit Diagnoses + + | Diagnosis | + + | Urge incontinence | + + documented in this encounter"
--- OUTSIDE RECORDS SUMMARY | ~2019-03-08 | XMS | Encounter Summary ---
Demographics + + + | Address | [address] | | | [place] [address] | + + + | Home Phone | | + + + | Preferred Language | Unknown | + + + | Marital Status | | + + + | Quaker Affiliation | Unknown | + + + | Race | White | + + + | Ethnic Group | Not or | + + + Author + + + | Author | [facility] | + + + | Organization | [facility] | + + + | Address | Unknown | + + + | Phone | Unavailable | + + + Support + + +---------+ + | Name | Relationship | Address | Phone | + + +---------+ + | Nahomy Briana | ECON | Unknown | | + + +---------+ + Care Team Providers + +------+ + | Care Surveyor Geodetic Name | Role | Phone | + [...] | | | | | THERAPY | [place], [place] | [address] | | | | | REFERRAL | [address] | for Health | | | | | | | and Healing, | | | | | | | [address], | | | | | | | [address] | | | | | | | [place], [place] | | | | | | | [address] | | | | | | | Phone: | | | | | | | [phone] | | | | | | | Fax: | | | | | | | [phone] | +--------+--------+ + + + + +--------+--------+ [...] | | | | | | | [address] | | | | | | | [place] | | | | | | | [place] | | | | | | | [address] | | +--------+--------+ + + + + [...] (Primary | | 2011 | Visit | [facility] & | MD Valentin | Dx); Leukodystrophy | | | | [address] | | | | | | [place] Mailcode: | | | | | | [facility] | | | | | | Health and Healing, | | | | | | [facility] | | | | | | [place], [place] | | | | | | [address] | | | | | | [phone] | | | +--------+---------+ + + + [...] addition to cat aracts presenting to the [facility] Neuromuscular division today for follow up. [...] evalauted but patient's parents ref used. 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 Recommendations: - PT and orthotics referral; given the long distance to [facility], she is going to ask her [...]
--- OUTSIDE RECORDS SUMMARY | ~2019-03-08 | XMS | Encounter Summary ---
Demographics + + + | Address | [address] | | | [place] [address] | + + + | Home Phone | | + + + | Preferred Language | Unknown | + + + | Marital Status | | + + + | Uatsdin Affiliation | 1001 | + + + | Race | Unknown | + + + | Ethnic Group | Unknown | + + + Author + + + | Author | [facility] | | | and [place] | + + + | Organization | [facility] | | | and [...] [place], [place] | | | | | [address] | | + + + + + | Tiffanie Chisholm | ECON | [address] | | | | | [place], [place] | | | | | [address] | | + + + + + Care Team Providers + +------+ + | Care Provider Network Manager Name | Role | Phone | + +------+ + | Owen Swartz MD | PCP | | + +------+ + Reason for Visit + + + | Reason | Comments | + + + | Neurogenic Bladder | | + + + | Incontinence | | + + + Encounter Details +--------+---------+ + + + | Date | Type | Department | Care Team | Description | +--------+---------+ + + + | 05/03/ | Office | [facility] | Bert Linder, | Neurogenic bladder | | 2018 | Visit | [address] | [address] | (Primary Dx); | | | | [place], [place] | [place] | Leukodystrophy; Urge | | | | [address] | [id number] | incontinence of | | | | [phone] | | urine; Abnormal | | | | | | finding in urine | +--------+---------+ + + + Social History [...] + + + | Blood Pressure | 90/56 | 05/03/2017 10:23 AM | | | | | PST | | + + + + + | Pulse | 80 | 05/03/2017 10:23 AM | | | | | PST [...] Weight | 56.7 kg (125 lb) | 05/03/2017 10:23 AM | | | | | PST | | + + + + + | Height | 154.9 cm (5' 1") | 05/03/2017 10:23 AM | | | | | PST | | + + + + + | Body Mass Index | 23.62 | 05/03/2017 10:23 AM | | | | | PST | | + + + + + documented in this encounter Patient Instructions Patient Instructions Bert Linder MD - 05/03/2017 10:00 AM PST Mirabegron extended-release tablets Brand Name: Myrbetrromulo What is this medicine? MIRABEGRON (TATY perez) is used to treat overactive bladder. This medicine reduces the a mount of bathroom visits. It may also help to control wetting accidents. How should I use this medicine? Take this medicine by mouth with a glass of water. Follow the directions on the prescriptio n label. Do not cut, crush or chew this medicine. You can take it with or without food. If i t upsets your stomach, take it with food. Take your medicine at regular intervals. Do not ta ke it more often than directed. Do not stop taking except on your doctor's advice. Talk to your oracle manufacturing consultant regarding the use of this medicine in children. Special care may be needed. What side effects may I notice from receiving this medicine? Side effects that you should report to your doctor or health pharmacist critical care as soon as p ossible: allergic reactions like skin rash, itching or hives, swelling of the face, lips, or tong ue chest pain or palpitations severe or sudden headache high blood pressure fast, irregular heartbeat redness, blistering, peeling or loosening of the skin, including inside the mouth signs of infection like fever or chills; cough; sore throat; pain or difficulty passing urine trouble passing urine or change in the amount of urine Side effects that usually do not require medical attention (report to your doctor or health pharmacist critical care if they continue or are bothersome): constipation diarrhea dizziness dry eyes joint pain mild headache nausea runny nose What may interact with this medicine? certain medicines for bladder problems like fesoterodine, oxybutynin, solifenacin, tolte rodine desipramine digoxin flecainide ketoconazole MAOIs like Carbex, Eldepryl, Marplan, Nardil, and Parnate metoprolol propafenone thioridazine warfarin What if I miss a dose? If you miss a dose, take it as soon as you can. If it is almost time for your next dose, ta ke only that dose. Do not take double or extra doses. Where should I keep my medicine? Keep out of the reach of children. Store at room temperature between 15 and 30 degrees C (59 and 86 degrees F). Throw away any unused medicine after the expiration date. What should I tell my health care provider before I take this medicine? They need to know if you have any of these conditions: difficulty passing urine high blood pressure kidney disease liver disease an unusual or allergic reaction to mirabegron, other medicines, foods, dyes, or preserva tives or trying to get breast-feeding What should I watch for while using this medicine? It may take 8 weeks to notice the full benefit from this medicine. You may need to limit your intake tea, coffee, caffeinated sodas, and alcohol. These drinks may make your symptoms worse. Visit your doctor or health pharmacist critical care for regular checks on your progress. Check yo ur blood pressure as directed. Ask your doctor or health pharmacist critical care what your blood p ressure should be and when you should contact him or her. NOTE:This sheet is a summary. It may not cover all possible information. If you have questi ons about this medicine, talk to your doctor, pharmacist, or health care provider. Copyright 2017 [employer] documented in this encounter Progress Notes Bert Linder MD - 05/03/2017 10:00 AM PSTFormatting of this note might be different fro m the original. Charissa is a 61 y.o. female patient of Owen Swartz being seen today for a follow up o f neurogenic bladder and urinary incontinence. 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 She also has history of microscopic hematuria previously followed by Dr. Barnes. Charissa has a several year history of urinary urgency and urge incontinence. She underwent u rodynamic studies by Dr. Barnes on 04/10/2010 which demonstrated "overactive bladder, possibl y neurogenic, related to her neuropathy with some sensory abnormality." She also has history of chronic microhematuria. Dr. Barnes performed cystoscopy in 2010 wh ich was reported as benign. Prior to Dr. Barnes's departure from [place], Charissa was being treated with bladder neurom odulation with percutaneous tibial nerve stimulation (PTNS). She has also been using Myrbet riq 50 mg by mouth daily. Charissa reports that she continues to receive benefit from both Myr betriq and PTNS. She has been undergoing maintenance therapy with once monthly PTNS. Otherwise, Charissa reports that she continues to do well, although she notes slow progression of her leukodystrophy. She has both urge and stress incontinence, but the urge incontinence is much more prominent . She has nocturia 0. She goes into the bathroom to empty her bladder 4-5 times per day. She denies any dysuria or hematuria. She denies any urinary tract infections. She wears an absorbent undergarments, and will go through to these per day. She states that about 3 o r 4 times a month, she may have a large volume of urine leakage, but usually her incontinenc e is manageable. She has nocturia 0, and infrequently has a large volume of leakage at ni ght time. Due to her leukodystrophy, her legs are very weak, and she has been wheelchair bound, and c annot ambulate independently. She indicates that she has no sensation in the legs. She sta cely she has been using a wheelchair since about 2014. She also has difficulties with chronic constipation. She uses MiraLAX which allows her to be fairly regular. She states she rarely might have an episode of fecal incontinence. She denies any saddle paresthesias, but reports that she has been diagnosed with peripheral neur opathy. Otherwise, 10 point review of systems is negative. She does not use tobacco. Over 30 minute encounter with Charissa and her today, over 50% of this time spent coun seling regarding her neurogenic bladder and urge incontinence and treatment options. Past Medical History She has a past medical history of Gross hematuria; Hypothyroidism; Leukodystrophy; Malignan t neoplasm of thyroid gland (HCC); Microhematuria; Neurogenic bladder; and Neuropathy (HCC). Past Surgical History She has a past surgical history that includes Dilation and curettage of uterus and Thyroide ctomy. Family History: Her family history includes Other (see comment) in her mother. Social History: She reports that she has never smoked. She has never used smokeless tobacco. Allergies Allergen Reactions Chocolate Peanuts Medications: Outpatient Encounter Prescriptions as of 05/03/2017 Medication Sig Dispense Refill calcium citrate-vitamin D (CITRACAL+D) 315 mg-200 units per tablet Take 1 tablet by Daily. donepezil (ARICEPT) 10 MG tablet Take 10 mg by mouth every morning. levothyroxine (SYNTHROID, LEVOTHROID) 100 mcg tablet 3 mirabegron (MYRBETRIQ) 50 mg ER tablet Take 50 mg by mouth Daily. Multiple Vitamins-Minerals (ADULT MULTIVITAMIN WITH MINERALS/IRON) TABS Take 1 tablet b y mouth Daily. ondansetron (ZOFRAN) 4 mg tablet as needed. No facility-administered encounter medications on file as of 05/03/2017. REVIEW OF SYSTEMS: [x] All Negative Constitutional Symptoms: []Fever []Chills []Headache []Change in appetite [] Change in weight [] Change in energy []Other: Neurological: []Tremors []Dizzy Spells []Numbness/Tingling []Seizures []Other: Endocrine: []Excessive thirst []Too hot [] Too cold []Tired/Sluggish Gastrointestinal: []Abdominal pain []Nausea/vomiting [...] no Other: Habits: Do you smoke? no PHYSICAL EXAM Vitals: BP 90/56 | Pulse 80 | Ht 1.549 m (5' 1") | Wt 56.7 kg (125 lb) | BMI 23.62 kg/m General: Awake, alert, in no acute distress. Speech is fluent. Appears elderly and frail. Wheelchair-bound. Neck: Supple; no lymphadenopathy. Scar overlying the lower neck, well-healed. No thyroid tissue or mass palpable. Lungs: Normal respiratory effort, no wheezing, no stridor, no tachypnea. Chest: No rib or bony tenderness. Back: No CVA tenderness. Kyphotic. Abdomen: Soft, nontender, nondistended, no hepatosplenomegaly. No masses. No guarding; be nign. Bladder nondistended. No flank mass. No flank tenderness. Extremities: Trace ankle edema. Hips and long bones nontender to fist percussion. Neuro: Awake, alert, oriented x3. Lower extremities globally weak. Psychiatric: Mood and affect are normal. Normal judgment. Skin: Warm and dry, no erythematous rash. Groin: No mass. No lymphadenopathy. DIAGNOSTIC DATA: PVR 05/03/2017 is 172 cc. PVR 04/20/2016 is 128 cc. PVR 03/13/2015 is 94 cc. Lab Results Component Value Date WBCUA 0-2 04/27/2017 RBCUA 0-2 04/27/2017 SQUAMEPIUA 0-2 04/27/2017 BACTERIAUA Negative 04/27/2017 Lab Results Component Value Date COLORPOC Yellow 04/27/2017 CLARITYU Turbid 04/27/2017 GLUCOSEPOC Negative 04/27/2017 BILIPOC Negative 04/27/2017 SG 1.015 04/27/2017 RBCUR Trace Intact (A) 04/27/2017 PHUAPOC 7.0 04/27/2017 PROTEINPOC Negative 04/27/2017 UROBILINOGEN 0.2 04/27/2017 NITRITEPOC Negative 04/27/2017 LEUKOCYTESUR Negative 04/27/2017 REMARK Culture set up 04/09/2015 Comprehensive metabolic he will 04/08/2017 shows sodium 145, creatinine 0.45, otherwise tresa l parameters. Potassium is 3.9, glucose 83, BUN 14, GFR >120, calcium 98.7. Liver function testing is normal. CBC 04/08/2017 shows WBC 6.5, hemoglobin 13.3, hematocrit 39.8, platelets 232. NMP22 BladderChek test 04/27/2017 is "slightly positive." Urine cytology 04/11/2015 is negative for malignancy. US RENAL LIMITED 04/27/2017 2:19 PM HISTORY: Neurogenic bladder secondary to leukodystrophy. COMPARISON: None. PROTOCOL: Walter scale and Doppler images of the kidneys and bladder. FINDINGS: Right Kidney: There is increased echogenicity with prominence of the calyces consistent with medical renal disease. There is no hydronephrosis. Resistive indices are 0.72 and 0.64, which are normal. Size of the kidney is 12.3 x 4.2 x 4.9 cm. Left Kidney: There is increased echogenicity with prominence of the calyces consistent with medical renal disease. There is no hydronephrosis. Resistive indices are 0.71 and 0.66, which are normal. Size of the kidney is 11.3 x 4.5 x 4.2 cm. Bladder: The bladder has a normal appearance. Prevoid volume is 226 mL. The patient could not void. Ureteral jets are seen on the right and left. IMPRESSION - Bilateral medical renal disease with no evidence for hydronephrosis. Dictated and Signed by: Wyatt May MD Electronically signed: 04/27/2017 (Images personally reviewed with the patient today) IMPRESSION: 1. Neurogenic bladder. Secondary to leukodystrophy. 2. Urge incontinence. Significant symptom improvement with use of PTNS and Myrbetriq. 3. Leukodystrophy. 4. Chronic idiopathic microscopic hematuria. Urinalysis today is negative. Renal ultraso und 04/27/2017 is negative. Cystoscopy in 2010 was reported as negative. 5. Abnormal NMP22 BladderChek test. Underlying etiology unclear as her current urinalysis is negative. This may be a false positive. Urine cytology is pending. 6. Incomplete bladder emptying. PLAN: I believe a urine cytology was collected on 04/27/2017, but it is not available for review. Nursing staff, please ensure that urine cytology was collected and pending. A repeat urinalysis and urine cytology will be collected in 3 months. I had a lengthy discussion with Charissa today regarding her incomplete bladder emptying and p ositive NMP22 BladderChek test and her negative urinalysis. I told her that if her follow-u p urine cytology is positive, that she should undergo further diagnostic evaluation. Otherw ise, repeat testing will be performed in 3 months. Charissa elects to continue with percutaneous tibial nerve stimulation monthly and Myrbetriq 5 0 mg daily. Charissa will follow-up in one year with a repeat urinalysis, urine cytology, renal ultrasound , and PVR and basic metabolic panel at her follow-up visit. She will follow up sooner if any difficulties should arise in the interim. Charissa will resume her usual and customary care with [...] have not thoroughly proofread this note, and sporting goods sales associate erro rs may occur. CC: Dr Swartz documented in this en counter Plan of [...] | | | | | [place] [address] | | | | | | [phone] | | | | | | | | +--------+---------+ + + + | 07/04/ | Office | Urology | Bert Linder, | | 2019 | Visit | | MD Joy PERSON | | | | | | [place] | | | | | | [id number] | | | | | | | | +--------+---------+ + + + documented as of this encounter Procedures + +--------+ + + + | Procedure Name | Priori | Date/Time | Associated Diagnosis | Comments | | | ty | | | | + +--------+ + + + | IMAGING REPORT - | | 05/03/2017 | | Results for this | | EXTERNAL SCAN | | 12:00 AM | | procedure are in the | | | | PST | | results section. | + +--------+ + + + documented in this encounter Results IMAGING REPORT - EXTERNAL SCAN (05/03/2017 12:00 AM PST) + + + | Narrative | Performed At | + + + | Ordered by an | | | unspecified provider. | | + + + documented in this encounter Visit Diagnoses + + | Diagnosis | + + | Neurogenic bladder - Primary Neurogenic bladder, NOS | + + | Leukodystrophy (HCC) Leukodystrophy | + + | Urge incontinence of urine Urge incontinence | + + | Abnormal finding in urine Other nonspecific finding on examination of urine | + + documented in this encounter
--- OUTSIDE RECORDS SUMMARY | ~2019-03-08 | XMS | Encounter Summary ---
Demographics + + + | Address | [address] | | | [place] [address] | + + + | Home Phone | | + + + | Preferred Language | Unknown | + + + | Marital Status | | + + + | Sikh Affiliation | Unknown | + + + | Race | White | + + + | Ethnic Group | Not or | + + + Author + + + | Author | [facility] | + + + | Organization | [facility] | + + + | Address | Unknown | + + + | Phone | Unavailable | + + + Support + + +---------+ + | Name | Relationship | Address | Phone | + + +---------+ + | Nahomy Briana | ECON | Unknown | | + + +---------+ + Care Team Providers + +------+ + | Care Business Lawyer Name | Role | Phone | + [...] and PT) | | 2014 | | [facility] & | MD Valentin | | | | | [address] | | | | | | [place] [address] Mailcode: | | | | | | [facility] | | | | | | [facility], | | | | | | Building | | | | | | Floor [place], [place] | | | | | | [address] | | | | | | [phone] | | | +--------+ + + + [...]
--- OUTSIDE RECORDS SUMMARY | ~2019-03-08 | XMS | Encounter Summary ---
Demographics + + + | Address | [address] | | | [place] [address] | + + + | Home Phone | | + + + | Preferred Language | Unknown | + + + | Marital Status | | + + + | Moravian Affiliation | 1001 | + + + | Race | Unknown | + + + | Ethnic Group | Unknown | + + + Author + + + | Author | [facility] | | | and [place] | + + + | Organization | [facility] [...] [place], [place] | | | | | [address] | | + + + + + | Tiffanie Chisholm | ECON | [address] | | | | | [place], [place] | | | | | [address] | | + + + + + Care Team Providers + +------+ + | Care Title Curator Name | Role | Phone | + [...] | +--------+ + + + + | 12/31/ | Clinical | [facility] | Bert Linder, | Urge incontinence | | 2016 | Support | [address] | [address] | (Primary Dx) | | | | [place] | [place] | | | | | [address] | [address] | | | | | [phone] | | | +--------+ + + + [...] Instructions Patient Instructions Delores Milton RN - 01/01/2016 10:36 AM PDT Urinary Incontinence, Female (Adult) Urinary [...] vomiting Back pain Weakness, dizziness or fainting [id number] [facility]. [address] [place] [address]. All [facility] ts reserved. This information is not intended as a substitute for professional medical care. Always follow your healthcare professional's instructions. documented in this encounter Progress Notes Delores Milton RN - 01/01/2016 10:31 AM PDT Percutaneous tibial nerve stimulation (PTNS) was prescribed for Charissa's overactive symptoms of urge incontinence. She feels her symptoms are "better". The needle electrode was inser derek into the lower, inner aspect of the right leg. The surface electrode was placed on the bottom of the foot on the treatment leg. The lead set was connected to the stimulator, and the needle electrode clip was connected to the needle electrode. The stimulator that produc es an adjustable electrical pulse that travels to the sacral nerve plexus via the tibial ner ve was adjusted to a setting of 19. The patient's response to treatment was reviewed with polly nguyễn. See flow sheet in chart. PERCUTANEOUS TIBIAL NERVE STIMULATION FLOW SHEET Related health & social habits Comments Caffeine #/day Alcohol #/day Daytime voids #/day Night-time voids #/night Urgency 0=none, 4=severe Incontinence episodes #/day Ankle used Setting Feeling/ Response [x] Same [] Change 0 0 5-6 0 3 2 [x] R [] L 19 [] Toe [...] | | | | | [place] [address] | | | | | | [phone] | | | | | | | | +--------+---------+ + + + | 07/04/ | Office | Urology | Bert Linder, | | | 2019 | Visit | | MD Joy PERSON | | | | | | [place] | | | | | | [address] | | | | | | | | +--------+---------+ + + + documented as of this encounter Visit Diagnoses + + | Diagnosis | + + | Urge incontinence - Primary | + + documented in this encounter
--- OUTSIDE RECORDS SUMMARY | ~2019-03-08 | XMS | Encounter Summary ---
Demographics + + + | Address | [address] | | | [place] [address] | + + + | Home Phone | | + + + | Preferred Language | Unknown | + + + | Marital Status | | + + + | Holiness Affiliation | 1001 | + + + | Race | Unknown | + + + | Ethnic Group | Unknown | + + + Author + + + | Author | [facility] | | | and [place] | + + + | Organization | [facility] | | | and Br[place]ana [...] [place], [place] | | | | | [address] | | + + + + + | Tiffanie Chisholm | ECON | [address] | | | | | [place], [place] | | | | | [address] | | + + + + + Care Team Providers + +------+ + | Care Director Of Retail Merchandising Name | Role | Phone | + +------+ + | Owen Swartz MD | PCP | | + +------+ + Reason for Visit + + + | Reason | Comments | + + + | Enuresis | | + + + Evaluate & Treat (Routine) +--------+--------+ + + + + | Status | Reason | Specialty | Diagnoses / | Referred By | Referred To | | | | | Procedures | Contact | Contact | +--------+--------+ + + + + | Closed | | Urology | Diagnoses | Cameron, | Kailash, | | | | | RONEY/PTALICIA | Fifi | Bert Bobo MD | | | | | Procedures | MD Baljit | [address] [place] [address] | | | | | OFFICE VISIT | [address] [facility] | [place]EN [place] | | | | | | [place] | [place] [address] | | | | | | [place], [place] | Phone: | | | | | | [address] | [phone] | | | | | | Phone: | Fax: | | | | | | [phone] | [phone] | | | | | | Fax: | | | | | | | [phone] | | +--------+--------+ + + + + Encounter Details +--------+---------+ + + + | Date | Type | Department | Care Team | Description | +--------+---------+ + + + | 03/13/ | Office | [facility] | Bert Linder, | Neurogenic bladder | | 2016 | Visit | [address] | [address] | (Primary Dx); Urge | | | | [place], [place] | [place] | incontinence; | | | | [address] | [address] | Microhematuria; | | | | [phone] | | Pyuria | +--------+---------+ + + [...] + + + | Blood Pressure | 104/64 | 03/13/2015 10:57 AM | | | | | PST | | + + + + + | Pulse | 72 | 03/13/2015 10:57 AM | | | | | PST | | + + + + + | Temperature | - | - | | + + + + + | Respiratory Rate | 16 | 03/13/2015 10:57 AM | | | | | PST | | + + + + + | Oxygen Saturation | - | - | | + + + + + | Inhaled Oxygen | - | - | | | Concentration | | | | + + + + + | Weight | 54.4 kg (120 lb) | 03/13/2015 10:57 AM | | | | | PST | | + + + + + | Height | 154.9 cm (5' 1") | 03/13/2015 10:57 AM | | | | | PST | | + + + + + | Body Mass Index | 22.67 | 03/13/2015 10:57 AM | | | | | PST | | + + + + + documented in this encounter Progress Notes Bert Linder MD - 03/13/2015 10:54 AM PSTFormatting of this note might be different fro m the original. Charissa is a 59 y.o. female patient of Owen Swartz being seen today for neurogenic bl adder and urinary incontinence. 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 She also has history of microscopic hematuria followed by Dr. Barnes. Charissa reports that she has had urinary urgency and urge incontinence for several years. Lucita parkinson has undergone urodynamic studies by Dr. Barnes on 04/10/2010 demonstrated "overactive bladd er, possibly neurogenic, related to her neuropathy with some sensory abnormality." She has history of chronic microhematuria. Reference to cystoscopy in [address] Barnes w as reported as benign. Charissa reports that for the past year, she has been undergoing bladder neuromodulation with percutaneous tibial nerve stimulation (PTNS). She has also been using Myrbetriq 50 mg by mo uth daily. Charissa reports that the combination of these treatments as made significant improvement in h er urinary urgency and urge incontinence. She has both urge and stress incontinence, but the urge incontinence is much more prominent . She has nocturia 0. She has urinary frequency every 6 hours. She has any dysuria or h ematuria. She denies any urinary tract infections. She states that due to her leukodystrophy, her legs are very weak, and she can no longer am bulate. She states she is been using a wheelchair now for about a year. She also has difficulties with chronic constipation. She states that at her most recent co lonoscopy, she was told that she had a very lengthy, tortuous bowel. She states she goes se veral days between each bowel movement. She denies any fecal incontinence. She denies any saddle paresthesias. Other than leukodystrophy, 10 point review of systems today is negative. Dr. Barnes has transitioned her practice to another community, and Charissa presents to my off ice requesting continuation of tibial nerve stimulation. Over 45 minute encounter with Charissa today, over 50% time spent counseling regarding her nadya rohematuria and neurogenic bladder and urge incontinence and treatment options. Over 50 pages of notes from Dr. Barnes are briefly reviewed. Past Medical History She has a past medical history of Malignant neoplasm of thyroid gland (HCC); Microhematuria ; Gross hematuria; Hypothyroidism; Leukodystrophy; Neurogenic bladder; and Neuropathy. Past Surgical History She has past surgical history that includes Dilation and curettage of uterus and Thyroidect joanie. Family History: Her family history is not on file. Social History: She reports that she has never smoked. She has never used smokeless tobacco. Allergies Allergen Reactions Chocolate Peanut-Containing Drug Products Medications: Outpatient Encounter Prescriptions as of 03/13/2015 Medication Sig Dispense Refill calcium citrate-vitamin D (CITRACAL+D) 315 mg-200 units per tablet Take 1 tablet by vitaliy th Daily. donepezil (ARICEPT) 10 MG tablet Take 10 mg by mouth every morning. [DISCONTINUED] fesoterodine fumarate (TOVIAZ) 8 MG TB24 ER tablet Take 8 mg by mouth Da kiana. levothyroxine (SYNTHROID, LEVOTHROID) 88 mcg tablet Take 88 mcg by mouth every morning (before breakfast). mirabegron (MYRBETRIQ) 50 mg ER tablet Take 50 mg by mouth Daily. Multiple Vitamins-Minerals (ADULT MULTIVITAMIN WITH MINERALS/IRON) TABS Take 1 tablet b y mouth Daily. No facility-administered encounter medications on file as of 03/13/2015. REVIEW OF SYSTEMS: [] All Negative Constitutional Symptoms: []Fever []Chills []Headache []Change in appetite, weight, energy []Other: Neurological: []Tremors []Dizzy Spells []Numbness/Tingling []Seizures [x]Other: Leukodystrophy Endocrine: []Excessive thirst []Too hot/cold []Tired/Sluggish Gastrointestinal: []Abdominal pain []Nausea/vomiting []Indigestion/heartburn []Change in stool size or shape or color []Pain with swallowing []Other: Cardiovascular: []Chest [...] of syste ms. PHYSICAL EXAM Vitals: BP 104/64 mmHg | Pulse 72 | Resp 16 | Ht 1.549 m (5' 1") | Wt 54.432 kg (120 lb) | BMI 22.69 kg/m2 General: Awake, alert, in no acute distress. Speech is fluent. Appears elderly and frail. Neck: Supple; no lymphadenopathy. Scar overlying the lower neck, well-healed. No thyroid tissue or mass palpable. Lungs: Normal respiratory effort, no wheezing, no stridor, no tachypnea. Chest: No rib or bony tenderness. Back: No CVA tenderness. Kyphosis. Abdomen: Soft, nontender, no hepatosplenomegaly. No masses. No guarding; benign. Bladder nondistended. Extremities: Non-edematous. Hips and long bones nontender to fist percussion. Neuro: Awake, alert, oriented x3. Abnormal station and gait. Weak. Requires assistance to transfer from wheelchair to examining table. Psychiatric: Mood and affect are normal. Normal judgment. Skin: Warm and dry, no erythematous rash. Groin: No mass. No lymphadenopathy. Genitalia: No vaginal drainage or discharge or bleeding. Normal-appearing external genita chaka. DIAGNOSTIC DATA: Bladder washings cytology 03/17/2010 is negative for malignancy. Voiding cystourethrogram 04/20/2010 demonstrates "incomplete voiding. Trabeculated bladder. Mild ureterocele." PVR today is 94 cc. Lab Results Component Value Date WBCUA 0-2 03/13/2015 RBCUA 2-5* 03/13/2015 BACTERIAUA Negative 03/13/2015 Lab Results Component Value Date COLORPOC Yellow 03/13/2015 CLARITYU Hazy 03/13/2015 GLUCOSEPOC Negative 03/13/2015 BILIPOC Negative 03/13/2015 SG 1.015 03/13/2015 RBCUR Negative 03/13/2015 PHUAPOC 7.5 03/13/2015 PROTEINPOC Negative 03/13/2015 UROBILINOGEN 0.2 03/13/2015 NITRITEPOC Negative 03/13/2015 LEUKOCYTESUR Trace* 03/13/2015 IMPRESSION: 1. Neurogenic bladder secondary to leukodystrophy. 2. Urge incontinence. Significant symptom improvement with use of PTNS and Myrbetriq. 3. Leukodystrophy. 4. Microhematuria. Chronic. 5. Chronic constipation. She goes several days between bowel movements. This will signif icantly exacerbate her voiding dysfunction. PLAN: InterStim would be a treatment option, but Charissa wishes to continue with percutaneous tibia l nerve stimulation. She'll continue Myrbetriq 50 mg by mouth daily. She will undergo PTNS today. She wishes to follow-up for PTNS once a month. She may reach her two-year Medicare cap for PTNS in July 2015. She is advised to avoid constipation, as this may exacerbate her symptoms. She is also adv ised to avoid carbonated and caffeinated beverages and alcohol. Given her microhematuria, she needs a follow-up urinalysis and urine cytology at her follow -up visit next month. She does not wish to undergo a repeat cystoscopy at this time. She will follow-up in one year with a repeat urinalysis and PVR and basic metabolic panel a t her follow-up visit. She will follow up [...] have not thoroughly proofread this note, and clinical business analyst erro rs may occur. CC: Dr Swartz Percutaneous tibial nerve stimulation (PTNS) # was prescribed for Charissa's overactive sympto ms of urge incontinence. The needle electrode was inserted into the lower, inner aspect of the left leg. The surface electrode was placed on the bottom of the foot on the treatment l eg. The lead set was connected to the stimulator, and the needle electrode clip was connect ed to the needle electrode. The stimulator that produces an adjustable electrical pulse lore t travels to the sacral nerve plexus via the tibial nerve was adjusted to a setting of 14. The patient's response to treatment was reviewed with patient. See flow sheet in chart. PERCUTANEOUS TIBIAL NERVE STIMULATION FLOW SHEET Related health & social habits Comments Caffeine #/day Alcohol #/day Daytime voids #/day Night-time voids #/night Urgency 0=none, 4=severe Incontinenceepisodes #/day Ankle used Setting Feeling/ Response [] Same [] Change 0 0 5-6 0 4 2 [] R [x] L 14 [] Toe Flex [x] Foot sensation [] [...] | | | | | [place] [address] | | | | | | [phone] | | | | | | | | +--------+---------+ + + + | 07/04/ | Office | Urology | Bert Linder, | | | 2019 | Visit | | MD Joy PERSON | | | | | | [place] | | | | | | [id number] | | | | | | | | +--------+---------+ + + + documented as of this encounter Procedures + +--------+ + + + | Procedure Name | Priori | Date/Time | Associated Diagnosis | Comments | | | ty | | | | + +--------+ + + + | URINALYSIS, | Routin | 03/13/2015 | Pyuria | Results for this | | MICROSCOPIC ONLY, | e | 11:12 AM | | procedure are in the | | WITH CULTURE IF | | PST | | results section. | | INDICATED | | | | | + +--------+ + + + | POCT URINALYSIS, | Routin | 03/13/2015 | Pyuria | Results for this | | AUTO WITH CONF | e | 11:02 AM | | procedure are in the | | | | PST | | results section. | + +--------+ + + + documented in this encounter Results Urinalysis, Microscopic Only, with Culture if Indicated (03/13/2015 11:12 AM PST) + + + + + + | Component | Value | Ref Range | Performed | Pathologist | | | | | At | Signature | + + + + + + | WBC UA | 0-2 | 0 - 2 /HPF | [facility] | | | | [facility] | | | [facility] | [facility] - | | | | | | [facility]ORY | | + + + + + + | RBC UA | 2-5 (A) | 0 - 2 /HPF | [facility] | | | [facility] | | | | | | [facility] | | | | | [facility] - | | | | | | LABORATORY | | + + + + + + | RENAL | 0-2 | 0 - 2 /HPF | [facility] | | [facility] | | [facility] | | | [facility] | | | [facility] | | | | | | [facility] - | | | | | | LABORATORY | | + + + + + + | BACTERIA UA | Negative | Negative /HPF | [facility] | | | | [facility] | | | | [facility] [...] ST. | [address] | [place] | [phone] | | [facility] | | [address] | | | - LABORATORY | | | | + + + + + POCT Urinalysis Dipstick Automated (03/13/2015 11:02 AM PST) + + + + + [...] 1.001 - 1.030 | | | | [place], | | | | | | UA, [...] specimen | | (specimen) | + + documented in this encounter Visit Diagnoses + + | Diagnosis | + + | Neurogenic bladder - Primary Neurogenic bladder, NOS | + + | Urge incontinence | + + | Microhematuria Microscopic hematuria | + + | Pyuria Other nonspecific finding on examination of urine | + + documented in this encounter
--- OUTSIDE RECORDS SUMMARY | ~2019-03-08 | XMS | Encounter Summary ---
Demographics + + + | Address | [address] | | | [place] [address] | + + + | Home Phone | | + + + | Preferred Language | Unknown | + + + | Marital Status | | + + + | Zoroastrianism Affiliation | Unknown | + + + [...] Team Providers + +------+ + | Care Sectional Belt Mold Assembler Name | Role | Phone | + +------+ + | Owen Swartz MD | PCP | | + +------+ + Encounter Details +--------+ + + + + | Date | Type | Department | Care Team | Description | +--------+ + + + + | 09/13/ | MyChart | Neurology at | Beronica Alegria | X ray | | 2014 | Encounter | [facility] & | MD Valentin | | | | | [address] [address] | | | | | | [address] Mailcode: | | | | | | [facility] | | | | | | Health and Healing, | | | | | | | | | | | | [place], [place] | | | | | | [address] | | | | | | [phone] | | | +--------+ + + + [...]
--- OUTSIDE RECORDS SUMMARY | ~2019-03-08 | XMS | Encounter Summary ---
Demographics + + + | Address | [address] | | | [place] [address] | + + + | Home Phone | | + + + | Preferred Language | Unknown | + + + | Marital Status | | + + + | Mormon Affiliation | 1001 | + + + | Race | Unknown | + + + | Ethnic Group | Unknown | + + + Author + + + | Author | [facility] | | | and [place] | + + + | Organization | [facility] | | | and [place] | [...] [place], [place] | | | | | [address] | | + + + + + | Tiffanie Chisholm | ECON | [address] | | | | | [place], [place] | | | | | [address] | | + + + + + Care Team Providers + +------+ + | Care Rf Design Engineer Name | Role | Phone | [...] | +--------+ + + + + | 07/27/ | Clinical | [facility] | Bert Linder, | Urge incontinence | | 2017 | Support | [address] | [address] | (Primary Dx) | | | | [place] | [place] | | | | | [address] | [address] | | | | | [phone] | | | +--------+ + + + [...] this encounter Progress Delores Benítez RN - 07/27/2016 3:00 PM PDT Percutaneous tibial nerve stimulation [...] Same [] Change 0 0 4-5 0 (but Depends are wet in the morning) 4 3 [x] R [] L 19 [...] | | | | | [place] [address] | | | | | | [phone] | | | | | | | | +--------+---------+ + + + | 07/04/ | Office | Urology | Bert Linder, | | 2019 | Visit | | MD Joy PERSON | | | | | | [place] | | | | | | [address] | | | | | | | | +--------+---------+ + + + documented as of this encounter Visit Diagnoses + + | Diagnosis | + + | Urge incontinence - Primary | + + documented in this encounter"
--- OUTSIDE RECORDS SUMMARY | ~2019-03-08 | XMS | Encounter Summary ---
Demographics + + + | Address | [address] | | | [place] [address] | + + + | Home Phone | | + + + | Preferred Language | Unknown | + + + | Marital Status | | + + + | Episcopal Affiliation | Unknown | + + + | Race | White | + + + | Ethnic Group | Not or | + + + Author + + + | Author | [facility] | + + + | Organization | [facility] | + + + | Address | Unknown | + + + | Phone | Unavailable | + + + Support + + +---------+ + | Name | Relationship | Address | Phone | + + +---------+ + | Nahomy Briana | ECON | Unknown | | + + +---------+ + Care Team Providers + +------+ + | Care Automobile Mechanic Apprentice Name | Role | Phone | + +------+ + | Owen Swartz MD | PCP | | + +------+ + Reason for Visit Diagnostic Testing (Routine) +--------+--------+ + + + [...] Mailcode: | | | | | hy ([facility]) | [place], [place] | [facility] | | | | | Procedures | [phone] | for Health | | | | | EMG/NERVE | | and Healing, | | | | | CONDUCTION | | Building [address], | | | | | STUDIES - | | 8th Floor | | | | | NEUROLOGY | | [facility] [place] | | | | | | | [address] | | | | | | | Phone: | | | | | | | [phone] | | | | | | | Fax: | | | | | | | [phone] | +--------+--------+ + + + + Encounter Details +--------+ + + + + | Date | Type | Department | Care Team | Description | +--------+ + + + + | 07/16/ | Hospital | Neurophysiology | Raoul Davis, | | | 2010 | Encounter | EMG at [facility] 8th Floor | ,PhD [place], | | | | | [address] | [place] [address] | | | | | Mailcode: [facility] | Mervin Razo | | | | | [facility] | [facility] [place] [address] | | | | | and [place], | [phone] | | | | | | | | | | | Floor [place], [place] | Carlie Brenner | | | | | [address] | [place], [place] | | | | | [phone] | [address] | | | | | | [phone] | | +--------+ + + + + [...] + + + | EMG/NERVE CONDUCTION | | 07/16/2010 | | Results for this | | STUDIES,ADULT - | | 12:00 AM | | procedure are in the | | NEUROLOGY | | PDT | | results section. | + +--------+ + + + documented in this encounter Results EMG/NERVE CONDUCTION STUDIES,ADULT - NEUROLOGY (07/16/2010 12:00 AM PDT) + + + | Narrative | Performed At | + + + | | | + + + + + | Procedure Note | + + | Crispin Valladares - 07/17/2010 8:27 PM PDT | | | + + documented in this encounter Visit Diagnoses + + | Diagnosis | + + | Neuropathy Mononeuritis of unspecified site | + + | Leukodystrophy (HCC) Leukodystrophy | + + | Mononeuritis of unspecified site | + + documented in this encounter"
--- OUTSIDE RECORDS SUMMARY | ~2019-03-08 | XMS | Encounter Summary ---
Demographics + + + | Address | [address] | | | [place] [address] | + + + | Home Phone | | + + + | Preferred Language | Unknown | + + + | Marital Status | | + + + | Lutheran Affiliation | Unknown | + + + | Race | White | + + + | Ethnic Group | Not or | + + + Author + + + | Author | [facility] | + + + | Organization | [facility] | + + + | Address | Unknown | + + + | Phone | Unavailable | + + + Support + + +---------+ + | Name | Relationship | Address | Phone | + + +---------+ + | Nahomy Briana | ECON | Unknown | | + + +---------+ + Care Team Providers + +------+ + | Care Vice President Name | Role | Phone | + +------+ + | Owen Swartz MD | PCP | | + +------+ + Reason for Visit + + + | Reason | Comments | + + + | Diplopia | | + + + Encounter Details +--------+---------+ + + + | Date | Type | Department | Care Team | Description | +--------+---------+ + + + | 08/06/ | Office | [facility] | Owen Zhao, | White matter changes | | 2013 | Visit | [facility] | [address] | (Primary Dx); | | | | Neuro-Ophthalmology | [place], [place] | Blurred vision; | | | | at [facility] [address] | [address] | Diplopia | | | | Ave Mailcode: CH[address] | [phone] | | | | | [facility] | | | | | | and [place], | | | | | | Building | | | | | | Floor [place], [place] | | | | | | [address] | | | | | | [phone] | | | +--------+---------+ + + + [...] documented as of this encounter Progress Notes Owen Zhao MD - 08/06/2013 3:06 PM PDTFormatting of this note might be different fr om the original. Neuro-Ophthalmology Follow Up 08/23/2013 Current Outpatient Prescriptions Medication CALCIUM CITRATE/VITAMIN D3 (CITRACAL + D ORAL) donepezil (ARICEPT) 10 mg Oral Tablet levothyroxine (SYNTHROID) 88 mcg Oral Tablet mirabegron (MYRBETRIQ) 50 mg oral tablet extended release 24 hr MULTIVITAMIN W-MINERALS/LUTEIN (CENTRUM SILVER ORAL) No current facility-administered medications for this visit. No Known Allergies ROS Positive for: Neurological I personally reviewed current medications, allergies, and review of systems. OWEN Shah MD Interval History: Charissa returns to clinic today for follow-up of dip. Returns for follow u p of diplopia. No change still the same. If covers left eye things are better when reading. Denies diplopia when reading or in the distance. She states that "they [eyes] fight again st each other" Must use ruler on line when reading. Has been started on a new incontintence meds. States that her vision has not changed per Dr Juares in the last [address] Acuna. Tried y ellow tinted lenses. Neuro-ophthalmic Exam: Vital Signs: There were no vitals taken for this visit. Pain level: 0/10 Carla Jose, performed, reviewed or revised the above history, medications, allergies, as well as performed elements noted in the Base Ophthalmology Exam, Visual Acuity,Pupils, EO M, CVF and IOP. Octopus visual garcia also performed where indicated. Ophthalmology Exam Visual Acuity Right Left Dist sc 20/20 -3 20/25 -2 Dist ph sc NI Method: Snellen - Linear Color Right Left Color 0/10 1/10 Method: Ishihara Visual Garcia Left Right Result Full Full Method: Counting fingers Pupils Dark Light React APD Right 2 2 Minimal None Left 2 2 Minimal None Extraocular Movement Right Left Result Full Full Comments: Near Convergence Insufficiency - improved/resolved diplopia with 10 prism base i n at near. Slit Lamp and Fundus Exam External Exam Right Left External Normal Normal Slit Lamp Exam Right Left Lids/Lashes Normal Normal Conjunctiva/Sclera White and quiet White and quiet Cornea All layers clear All layers clear Anterior Chamber Deep and quiet Deep and quiet Iris Normal Normal Lens 1+ NSC PCIOL Vitreous PVD PVD Fundus Exam Right Left Disc diffuse pallor diffuse pallor C/D Ratio 0.6 0.6 Macula Normal Normal Vessels Normal Normal Periphery Normal Normal Tonometry Right Left Pressure 13 12 Method: Tonopen Time: 3:04 PM Dilation Both eyes: 2.5% Phenylephrine, 1.0% Mydriacyl @ 4:04 PM Neurological Exam Neuro/Psych Oriented x3: Yes Mood/Affect: Normal Ancillary tests/Review of data: Optical Coherence Tomography Interpretation This is a nerve fiber layer study around the optic nerves performed on 08/06/2013 vs 10.12.13 *unchanged* OD The thicknesses is thinned in all quadrants greatest superiorly and inferiorly. OS The thicknesses in thinned all quadrants. Imaging Tests: No new MRI Brain WWO:08/29/2008: My read: Diffuse T2 hyperintense lesions throughout the subcortical white matter with decreased parenchyma when compared to age. Actual read: White matter changes which can be seen in either demyelinating disease or smal l vessel ischemia, no appreciable abnormality of the structure of the petrous pyramids or th e internal auditory canals. Impression: 1. 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 Non-specific white matter disease 4. Thyroid cancer s/p thyroidectomy Charissa Goss is a 57 y.o. female with a PMH consistent with thyroid cancer s/p radioactive iodine and thyroidectomy who's initial neuro-ophthalmic examination Sep 2012 was consistent with optic atrophy bilaterally. Etiology currently is unclear, however it is quite certain that her white matter disease is somehow related to her optic atrophy. Follow up neuro-ophthalmic exam is unchanged. Convergence Insufficiency neutralized with prism base in at near. Plan: 1. follow up Dr Alegria tomorrow 2. Placed 10 pd prism base in socorrosnell left eye (if difficult to use, then purchase over e counter readers +2.50 3. RTC 1 yr, repeat OCT, dilated fundus exam, PRN I have reviewed and edited history and heavy line technician documentation, and performed all elements to above examination documentation. Owen Zhao M.D. [facility] Neuro-ophthalmology service [facility] documented in this e ncounter Plan of Treatment + + +--------+ + + | Name | Type | Priori | Associated Diagnoses | Order Schedule | | | | ty | | | + + +--------+ + + | CMPTR OPHTH DX IMG | Procedures | Routin | White matter | Expected: | | OPTIC NERVE | | e | changes | 08/06/2013, Expires: | | | | | | 10/05/2013 | + + +--------+ + + documented as of this encounter Visit Diagnoses + + | Diagnosis | + + | White matter changes - Primary Unspecified cause of encephalitis, myelitis, and | | encephalomyelitis | + + | Blurred vision Other specified visual disturbances | + + | Diplopia | + + documented in this encounter
--- OUTSIDE RECORDS SUMMARY | ~2019-03-08 | XMS | Encounter Summary ---
Demographics + + + | Address | [address] | | | [place] [address] | + + + | Home Phone | | + + + | Preferred Language | Unknown | + + + | Marital Status | | + + + | Denominational Affiliation | [id number] | + + + | Race | Unknown | + + + | Ethnic Group | Unknown | + + + Author + + + | Author | [facility] | | | and [place] | + + + | Organization | [facility] | | | and [place] [...] [place], [place] | | | | | [address] | | + + + + + | Tiffanie Chisholm | ECON | [address] | | | | | [place], [place] | | | | | [address] | | + + + + + Care Team Providers + +------+ + | Care Big Data Analytics Lead Name | Role | Phone | + [...] [place] | | | | | [address] | [address] | | | | | [phone] | | | +--------+ + + + [...] | | | | | | [place] [address] | | | | | | [phone] | | | | | | | | +--------+---------+ + + + | 07/04/ | Office | Urology | Bert Linder, | | 2019 | Visit | | [address] | | | | | | [place] | | | | | | [id number] | | | | | | | | +--------+---------+ + + + documented as of this encounter Visit Diagnoses + + | Diagnosis | + + | Urge incontinence | + + documented in this encounter"
--- OUTSIDE RECORDS SUMMARY | ~2019-03-08 | XMS | Encounter Summary ---
Demographics + + + | Address | [address] | | | [place] [address] | + + + | Home Phone | | + + + | Preferred Language | Unknown | + + + | Marital Status | | + + + | Gnosticist Affiliation | 1001 | + + + | Race | Unknown | + + + | Ethnic Group | Unknown | + + + Author + + + | Author | [facility] | | | and [place] | + + + | Organization | [facility] | | | and [...] [place], [place] | | | | | [address] | | + + + + + | Tiffanie Chisholm | ECON | [address] | | | | | [place], [place] | | | | | [address] | | + + + + + Care Team Providers + +------+ + | Care Manufacturing Production Technician Name | Role | Phone | + +------+ + | Colby Ayala PCP | | | MD | | | + +------+ + Reason for Visit + + + | Reason | Comments | + + + | Follow-up | neurogenic bladder; urinary incontinence | + + + Encounter Details +--------+---------+ + + + | Date | Type | Department | Care Team | Description | +--------+---------+ + + + | 06/22/ | Office | [facility] | Bert Linder, | Neurogenic bladder | | 2019 | Visit | [address] | [address] | (Primary Dx); | | | | [place] | [place] | Leukodystrophy; Urge | | | | [address] | [address] | incontinence of | | | | [phone] | | urine; | | | | | | Nephrolithiasis | +--------+---------+ + + + Social History [...] Instructions Patient Instructions Bert Linder MD - 06/22/2018 2:00 PM PDTFormatting of this note m ight be different from the original. Treating Incontinence in Women: Special Therapies During biofeedback, sensors send signals from your pelvic floor muscles to a computer scree n. Your doctor will discuss your options for treating your urinary incontinence. These depend on the cause of your problem and any other health issues you have. Usually behavioral change s are tried first, followed by various medicines. If these methods are unsuccessful, one or more of the therapies described below may be part of your treatment plan. Biofeedback This technique is taught by a nurse or physical therapist. During the therapy, a small sens or is placed in your vagina or rectum. Another sensor is placed on your stomach. Other types of sensors are also available. These sensors read signals from the pelvic floor muscles. Wh en you contract or relax your muscles, these signals are shown as images on a computer scree n. Using the images, you can learn to relax or contract certain muscles. This can help you s trengthen and better control these muscles. And it can help you learn pelvic floor muscle ex ercises. Electrical stimulation This is a painless therapy that uses a tiny amount of electric current. It helps strengthen very weak or damaged pelvic floor muscles. The electric current is sent through the muscles of the pelvic floor and bladder. This causes the muscles to contract. In time, this helps m randolph the muscles stronger. Stimulator implants This technique is used to treat urge incontinence. A small device is implanted under the sk in near the stomach. This device gives off mild electrical signals. These block extra signal s that are being sent to the bladder muscle. This helps the bladder work more normally. Date Last Reviewed: 02/29/201619997095-0566 [employer]. [address] [place] [address], [place] [address]. All [facility] ts reserved. This information is not intended as a substitute for professional medical care. Always follow your healthcare professional's instructions. Treating Incontinence in Women: Nonsurgical Methods The best treatment for you will depend on the type of incontinence you have. Your symptoms, age, and any underlying problems that are found also affect your treatment. While some type s of incontinence may eventually require surgery, nonsurgical treatments may be effective in many cases. Nonsurgical treatments include lifestyle changes, muscle-strengthening exercise s, and medicines. Nonsurgical Treatments Treatment for stress urinary incontinence includes: Bladder training Lifestyle changes such as weight loss and increased activity if incontinence is due to b eing overweight Medicines, if bladder training has not helped Pelvic floormuscle exercises Lifestyle changes Losing weight. Excess weight puts extra pressure on the pelvic floor muscles. Exercising and eating right can help you lose weight. This helps other treatments work better. Making certain diet changes. Some foods may make you need to urinate more, so it may be good to avoid them. These include caffeinated drinks and alcohol. Ask your healthcare provid er whether these or other diet changes might be helpful. Quitting smoking. Smoking can lead to a chronic cough that strains pelvic floor muscles. Smoking may also damage the bladder and urethra. Pelvic floormuscle exercises There areexercises you can do tohelp strengthen your pelvic floor muscles. The pelvic f singh muscles act as a sling to help hold the bladder and urethra in place. These muscles als o help keep the urethra closed. Weak pelvic floor muscles may allow urine to leak. To streng then the pelvic floor muscles, dothe exercises daily. In a few months, the muscles will be stronger and tighter. This can help prevent urine leakage. Date Last Reviewed: 02/29/201619991170-2617 [employer] [address] [place] [address], [place] [address]. All righ ts reserved. This information is not intended as a substitute for professional medical care. Always follow your healthcare professional's instructions. Treating Incontinence in Women withMedicine Urinary incontinence is the leaking of urine from the bladder. In some cases, medicine can reduce or stop the leaking. It is mainly given for urge incontinence.Your healthcare provi dana will talk with you about your options. Make sure to ask what side effects to expect. Below are some types of medicines that may help with urge incontinence. Types of medicine Anticholinergics. These may increase how much urine the bladder can hold. They may also help relax bladder muscles. Estrogen. This may help improve muscle tone in the urethra and bladder. Antibiotics. These are used to treat urinary tract infections. Botulinum toxin. Injection of botulinum toxin into the bladder muscle is an option when other medicines are not effective. Tips for taking medicine Take your medicine on time and as your healthcare provider tell you to. Tell your healthcare provider if you have any side effects, your dosage may be adjusted if necessary. Be patient. It may take time to find the right dose for you. Keep a list of the medicines you take. Show it to your healthcare provider and pharmacis t before you buy [id number] medicines. Date Last Reviewed: 02/29/201619994995-5652 [employer] [place] [address]. All righ ts reserved. This information is not intended as a substitute for professional medical care. Always follow your healthcare professional's instructions. documented in this encounter Progress Notes Bert Linder MD - 06/22/2018 2:00 PM PDTFormatting of this note might be different fro m the original. HPI Charissa Goss is a 62 y.o. female referred by Colby Ayala MD RELEVANT HISTORY GATHERED FROM PRIOR OFFICE VISITS: Charissa has history of neurogenic bladder related to leukodystrophy. She also has history of microscopic hematuria previously followed by Dr. Barnes. Charissa has history of urinary urgency and urge incontinence for several years. She underwent urodynamic studies by Dr. Barnes on 04/10/2010 which demonstrated "overactive bladder, possi ruchi neurogenic, related to her neuropathy with some sensory abnormality." She also has history of chronic microhematuria. Dr. Barnes performed cystoscopy in 2010 wh ich was reported as benign. Prior to Dr. Barnes's departure from [place], Charissa was being treated with bladder neurom odulation with percutaneous tibial nerve stimulation (PTNS). She had also been using Myrbet riq 50 mg by mouth daily. Today, 06/22/2018, Charissa presents for a follow up for neurogenic bladder and urinary inconti nence. She reports that she last received PTNS in ~December 2017, and has not returned due to incl ement weather this winter. Fortunately, she states that her urinary symptoms seem to have improved in the last few mon ths. Her attributes this to engaging her in more frequent toileting. He will take her to the bathroom more often, to keep her bladder as empty as possible. She states she is having less urinary leakage at night time, and is wearing fewer breeched during the daytime. She denies any dysuria or hematuria. She denies any urinary tract infections. She denies any renal colic. She denies passing any kidney stones. She states that she has constipation at times, and sometimes smaller caliber stool. She st ates that Dr. Patel recommended MiraLAX, which has improved her bowel habits. She denies a ny hematochezia or melena. She has occasional dry heaves. She denies any fever or chills. She is not having any abdo kathy pain. She has infrequent speech difficulties, nausea, change in stool size and shape and color, o therwise, 10 point review of systems is negative. She reports that she has an appointment to see her neurologist, Dr. Patel again in the . Past Medical History: Diagnosis Date Gross hematuria Hypothyroidism Leukodystrophy Malignant neoplasm of thyroid gland (HCC) Microhematuria Neurogenic bladder Neuropathy Past Surgical History: Procedure Laterality Date DILATION AND CURETTAGE OF UTERUS THYROIDECTOMY Outpatient Encounter Medications as of 06/22/2018 Medication Sig Dispense Refill calcium citrate-vitamin D [...] Take 1 tablet b y mouth Daily. [DISCONTINUED] ondansetron (ZOFRAN) 4 mg tablet as needed. No facility-administered encounter medications on file as of 06/22/2018. Allergies Allergen Reactions Chocolate Nut [Peanuts] Family History Problem Relation Age of Onset Other (see comment) Mother epilepsy Social History Socioeconomic History Marital status: Spouse name: Not on file Number of children: Not on file Years of education: Not on file Highest education level: Not on file Tobacco Use Smoking status: Never Smoker Smokeless tobacco: Never Used REVIEW OF SYSTEMS: [] Marked All Negative Constitutional Symptoms: [] Fever [] Chills [] Headache [] Change in appetite [] Change in weight [] Change in energy [] Other: Neurological: [] Tremors [] Dizzy Spells [] Numbness/Tingling [] Seizures [] Other: Endocrine: [] Excessive thirst [] Too hot [] Too cold [] Tired/Sluggish Gastrointestinal: [] Abdominal pain [x] Nausea [] Indigestion/heartburn [x] Change in stool size [x] Change in stool shape [x] Change in stool color [] Pain with swallowing [] Other: Cardiovascular: [] Chest Pain [] Rapid heart rate [] High blood pressure [] Other: Integumentary: [] Skin rash [] Boils [] Persistent itch [] Other: Musculoskeletal: [] Neck Pain [] Joint swelling/pain [] Back pain [] Bone pain [] Other: Respiratory: [] Wheezing [] Frequent cough [] Shortness of breath [] Other: Hematologic/Lymphatic: [] Swollen glands [] Blood clotting issues [] Prior blood transfusions []Other: Psychologic: Are you generally satisfied with your life? yes Do you feel severely depressed? no Have you considered suicide? no Habits: Do you smoke? no [x] Yes [] No Patient to follow up with PCP regarding positives on review of systems. PHYSICAL EXAM Vitals: BP 92/60 | Pulse 52 | Resp 16 | Ht 1.549 m (5' 1") | Wt 56.7 kg (125 lb) | BMI 23.62 kg/m General: Awake, alert, in no acute distress. Cheerful, pleasant, cooperative. Neck: Supple; no lymphadenopathy or thyromegaly. Lungs: Normal respiratory effort, no wheezing, no stridor, no tachypnea. Chest: No rib or bony tenderness. Back: No CVA tenderness. No tenderness to fist percussion of the spine. Abdomen: Soft, nondistended, nontender, no hepatosplenomegaly. No masses. No guarding; be nign. Bladder nondistended. No flank tenderness. Extremities: Trace ankle edema. Hips and long bones nontender to fist percussion. Contract ure of the left ankle. Neuro: Awake, alert, oriented x3. Wheelchair-bound. Psychiatric: Mood and affect are normal. Normal judgment. Skin: Warm and dry, no erythematous rash. Groin: No mass. No lymphadenopathy. DIAGNOSTIC DATA: Basic Metabolic Panel 06/14/2018 06/14/2018 is normal except for creatinine of 0.42. GFR is >120. Glucose is 92, calcium 8.8, with normal electrolytes. Urinalysis 06/16/2018 appears contaminated with 1+ epithelial cells. There are 10 WBCs, and 50 RBCs and no bacteria. Urine culture 06/16/2018 shows 100,000 mixed growth, "probably represent contaminating floor ." Renal Ultrasound 06/06/2018 demonstrates a 5 mm shadowing calcification in the interpolar reg ion of the left kidney. There is no hydronephrosis or mass on either side. There is "mildl y thinned renal cortex bilaterally." Bladder residual is 51 cc. (Images personally reviewe d with the patient today) IMPRESSION: 1. Neurogenic bladder. Secondary to leukodystrophy. 2. Urge incontinence. Significant symptom improvement with use of PTNS and Myrbetriq. 3. Leukodystrophy. 4. Chronic idiopathic microscopic hematuria. Urinalysis today is contaminated. Renal ult rasound 04/27/2017 is negative, as is ultrasound 06/06/2018. Cystoscopy in 2010 was reported a s negative. 5. 5 mm nonobstructive left renal calculus. Asymptomatic. 6. Incomplete bladder emptying. Resolved. Bladder residual 06/06/2018 is 51 cc. 7. Mild bilateral renal cortical thinning. PLAN: I reviewed with Charissa her imaging studies and laboratory findings. I showed her the ultrasound images, and I pointed out the hyperechoic lesion in the left ki dney thought to represent a 5 mm left renal calculus. I discussed with her treatment options regarding her left renal calculus. Since her stone is asymptomatic and small enough to pass, she elects continued observation. Elements of kidney stone prevention diet are reviewed. She has a follow up with Dr. Patel next week. She will follow up in 12 months. She will have a UA, BMP and KUB prior to visit. She'll fo llow up sooner if any difficulties arise in the interim. If her urinary incontinence should worsen, she is always welcome to resume PTNS. I also made her aware that there is a urologist in [place] now, Dr. Ellen Roy,. Charissa will continue her regular and customary care and [facility]up [facility]. I asked Charissa to notify me immediately if she should experience any difficulties with voidi ng or if she has any questions or concerns or any problems whatsoever. This document was generated in part using voice recognition software. Frequent wrong word or sound-alike substitutions may have occurred due to the inherent limitations of the voice recognition software. Although I have attempted to edit the content, I have not thoroughly proofread this note, and healthcare technician errors are likely to occur. I, Bert Linder MD, personally performed the services described in this documentation, a portion of which has been scribed by Cecille Baum CMA in my presence, and it is my intent for it to be both accurate and complete, but inadvertent errors may occur. CC: Colby Ayala MD documented in this en counter Plan of [...] | | | | | [place] [address] | | | | | | [phone] | | | | | | | | +--------+---------+ + + + | 07/04/ | Office | Urology | Bert Linder, | | 2019 | Visit | [address] | | | | | | [place] | | | | | | [address] | | | | | | | | +--------+---------+ + + + documented as of this encounter Procedures + +--------+ + + + | Procedure Name | Priori | Date/Time | Associated Diagnosis | Comments | | | ty | | | | + +--------+ + + + | LABS - EXTERNAL SCAN | | 06/14/2018 | | Results for this | | | | 12:00 AM | | procedure are in the | | | | PDT | | results section. | + +--------+ + + + | IMAGING REPORT - | | 06/06/2018 | | Results for this | | EXTERNAL SCAN | | 12:00 AM | | procedure are in the | | | | PDT | | results section. | + +--------+ + + + documented in this encounter Results LABS - EXTERNAL SCAN (06/14/2018 12:00 AM PDT) + + + | Narrative | Performed At | + + + | Ordered by an | | | unspecified provider. | | + + + IMAGING REPORT - EXTERNAL SCAN (06/06/2018 12:00 AM PDT) + + + | [...] urine Urge incontinence | + + | Nephrolithiasis Calculus of kidney | + + documented in this encounter
--- OUTSIDE RECORDS SUMMARY | ~2019-03-08 | XMS | Encounter Summary ---
Demographics + + + | Address | [address] | | | [place] [address] | + + + | Home Phone | | + + + | Preferred Language | Unknown | + + + | Marital Status | | + + + | Mu-Ism Affiliation | 1001 | + + + | Race | Unknown | + + + | Ethnic Group | Unknown | + + + Author + + + | Author | and [facility] | | | and [place] | + + + | Organization | and [facility] | | | and [place] | [...] [place], [place] | | | | | [address] | | + + + + + | Tiffanie Chisholm | ECON | [address] | | | | | [place], [place] | | | | | [address] | | + + + + + Care Team Providers + +------+ + | Care Actuarial Internship Name | Role | Phone | + +------+ + | Owen Swartz MD | PCP | | + +------+ + Reason for Visit + + + | Reason | Comments | + + + | Incontinence | | + + + | Hematuria | | + + + Encounter Details +--------+ + + + + | Date | Type | Department | Care Team | Description | +--------+ + + + + | 04/27/ | Clinical | [facility] | Ralph Quintanilla | Microhematuria | | 2018 | Support | [address] | MD [address] | (Primary Dx); Urge | | | | [place], [place] | [facility] | incontinence of | | | | [address] | [place] [address] | urine | | | | [phone] | [phone] | | | | | | | [...] documented as of this encounter Progress Notes Gustavo Rodriguez RN - 04/27/2017 10:30 AM PST Percutaneous tibial nerve stimulation (PTNS) # 5 of 12 was prescribed for Charissa's overactiv e symptoms of urge incontinence. The needle electrode was inserted into the lower, inner as pect of the Left leg. The surface electrode was placed on [...] Same [] Change 0 0 4 0 Mostly dry at night 0 No sensation or urge to void 3 [] R [x] L [] Toe Flex [x] Foot sensation [] Both Martha, Delores Bobo RN - 04/27/2017 10:30 AM PSTUrine dip positive for blood. Urine specimen sent to [facility] for microscopic urinalysis and culture if indicated. NMP 22: slightly positive, Control: P ositive. Patient was unable to give us a large enough urine specimen for cytology so a speci men container and orders for cytology, reflex FISH if atypical or suspicious given to александр ramos. She will follow up here 05/03/[address] Linder as previously scheduled. ................ ............................Delores Milton RN on 04/27/17 at 10:26 documented in this encounter Plan of Treatment [...] | | | | | [place] [address] | | | | | | [phone] | | | | | | | | +--------+---------+ + + + | 07/04/ | Office | Urology | Bert Linder, | | | 2019 | Visit | | [address] | | | | | | [place] | | | | | | [address] | | | | | | | | +--------+---------+ + + + documented as of this encounter Procedures + +--------+ + + + | Procedure Name | Priori | Date/Time | Associated Diagnosis | Comments | | | ty | | | | + +--------+ + + + | POCT BLADDER TUMOR | Routin | 04/27/2017 | Microhematuria | Results for this | | ASSOCIATED ANTIGEN | e | 11:03 AM | | procedure are in the | | | | PST | | results section. | + +--------+ + + + | URINALYSIS, | Routin | 04/27/2017 | Microhematuria | Results for this | | MICROSCOPIC ONLY, | e | 10:22 AM | | procedure are in the | | WITH CULTURE IF | | PST | | results section. | | INDICATED | | | | | + +--------+ + + + | POCT URINALYSIS, | Routin | 04/27/2017 | Microhematuria | Results for this | | AUTO WITH CONF | e | 10:22 AM | | procedure are in the | | | | PST | | results section. | + +--------+ + + + documented in this encounter Results POCT bladder tumor associated antigen (04/27/2017 11:03 AM PST) + + + + + + | Component | Value | Ref Range | Performed | Pathologist | | | | | At | Signature | + + + + + + | BLADDER | Slightly | | | | | TUMOR | positiveComment: | | | | | MARKER | Control: positive | | | | + + + + + + + + | Specimen | + + | Urine | + + Urinalysis, Microscopic Only, with Culture if Indicated (04/27/2017 10:22 AM PST) + + + + + [...] + + + + | AMORPHOUS | Few (A) | None Seen /HPF | [facility] | | | [facility] | [facility] - | | | | | | LABORATORY | | + + + + + + | URINE | Urine Culture Not | | [facility] | | | COMMENT | Indicated | | [facility] | | | [...] ST. | [address] | [place], [place] | [phone] | | [facility] | | [address] | | | - LABORATORY | | | | + + + + + POCT Urinalysis Dipstick Automated (04/27/2017 10:22 AM PST) + + + + + + | Component | Value | Ref Range | Performed | Pathologist | | | | | At | Signature | + + + + + + | Color, UA, | Yellow | Yellow, Light | | | | POC | | Yellow | | | + + + + + + | Clarity, | Turbid | | | | | UA, POC [...] 1.001 - 1.030 | | | | [place], | | | | | | UA, POC | | | | | + + + + + + | Blood, UA, | Trace Intact (A) | Negative | | | | POC [...] + + + + | Leukocyte | Negative | Negative | | | | Esterase, [...] + + | Urine | + + documented in this encounter Visit Diagnoses + + | Diagnosis | + + | Microhematuria - Primary Microscopic hematuria | + + | Urge incontinence of urine Urge incontinence | + + documented in this encounter"
--- OUTSIDE RECORDS SUMMARY | ~2019-03-08 | XMS | Encounter Summary ---
Demographics + + + | Address | [address] | | | [place] [address] | + + + | Home Phone | | + + + | Preferred Language | Unknown | + + + | Marital Status | | + + + | Catholic Affiliation | Unknown | + + + | Race | White | + + + | Ethnic Group | Not or | + + + Author + + + | Author | [facility] | + + + | Organization | [facility] | + + + | Address | Unknown | + + + | Phone | Unavailable | + + + Support + + +---------+ + | Name | Relationship | Address | Phone | + + +---------+ + | Nahomy Briana | ECON | Unknown | | + + +---------+ + Care Team Providers + +------+ + | Care Tungsten Refiner Name | Role | Phone | + +------+ + | Owen Swartz MD | PCP | | + +------+ + Encounter Details +--------+ + + + + | Date | Type | Department | Care Team | Description | +--------+ + + + + | 10/18/ | Document-Sc | UNKNOWN DEPARTMENT | Unknown . | | | 2014 | anned | [address] | | | | | | [address] | | | | | | [place], [place] | | | | | | [address] | | | +--------+ + + + [...]
--- OUTSIDE RECORDS SUMMARY | ~2019-03-08 | XMS | Encounter Summary ---
Demographics + + + | Address | [address] | | | [place] [address] | + + + | Home Phone [...] Team Providers + +------+ + | Care Chute Man Name | Role | Phone | + +------+ + | Owen Swartz MD | PCP | | + +------+ + Encounter Details +--------+ + + + + | Date | Type | Department | Care Team | Description | +--------+ + + + + | 08/15/ | Abstract | Neurology at | Beronica Alegria | | | 2013 | | [facility] & | MD Valentin | | | | | [facility] | | | | | | Terry Camacho Mailcode: | | | | | | [id number] | | | | | | [facility], | | | | | | | | | | | | [place], [place] | | | | | | [address] | | | | | | [phone] | | | +--------+ + + + [...]
--- OUTSIDE RECORDS SUMMARY | ~2019-03-08 | XMS | Encounter Summary ---
Demographics + + + | Address | [address] | | | [place] [address] | + + + | Home Phone | | + + + | Preferred Language | Unknown | + + + | Marital Status | | + + + | Scientologist Affiliation | 1001 | + + + | Race | Unknown | + + + | Ethnic Group | Unknown | + + + Author + + + | Author | [facility] | | | and [place] | + + + | Organization | [facility] | | | and [...] [place], [place] | | | | | [address] | | + + + + + | Tiffanie Chisholm | ECON | [address] | | | | | [place], [place] | | | | | [address] | | + + + + + Care Team Providers + +------+ + | Care Snapper On Name | Role | Phone | + [...] + + | 07/27/ | Clinical | [facility] | Bert Linder, | Urge incontinence | | 2017 | Support | [address] | [address] | (Primary Dx) | | | | [place] | [place] | | | | | [address] | [address] | | | | | [phone] | | | +--------+ + + + [...] | | | | | [place] [address] | | | | | | [phone] | | | | | | | | +--------+---------+ + + + | 07/04/ | Office | Urology | Bert Lindre, | | 2019 | Visit | | MD Joy PERSON | | | | | | [place] | | | | | | [address] | | | | | | | | +--------+---------+ + + + documented as of this encounter Visit Diagnoses + + | Diagnosis | + + | Urge incontinence - Primary | + + documented in this encounter"
--- OUTSIDE RECORDS SUMMARY | ~2019-03-08 | XMS | Encounter Summary ---
Demographics + + + | Address | [address] | | | [place] [address] | + + + | Home Phone | | + + + | Preferred Language | Unknown | + + + | Marital Status | | + + + | Mandaen Affiliation | 1001 | + + + | Race | Unknown | + + + | Ethnic Group | Unknown | + + + Author + + + | Author | [facility] | | | and [place] | + + + | Organization | [facility] | | | and [place]ana [...] [place], [place] | | | | | [address] | | + + + + + | Tiffanie Chisholm | ECON | [address] | | | | | [place], [place] | | | | | [address] | | + + + + + Care Team Providers + +------+ + | Care Telegraph Printer Mechanic Name | Role | Phone | + +------+ + | Owen Swartz MD | PCP | | + +------+ + Encounter Details +--------+ + + + + | Date | Type | Department | Care Team | Description | +--------+ + + + + | 08/23/ | Abstract | [facility] | Bert Linder, | | | 2017 | | [address] | MD [address] | | | | | [place] | [place] | | | | | [address] | [address] | | | | | [phone] | | | +--------+ + + + [...] | | | | | [place] [address] | | | | | | [phone] | | | | | | | | +--------+---------+ + + + | 07/04/ | Office | Urology | Bert Linder, | | | 2019 | Visit | | MD Joy PERSON | | | | | | [place] | | | | | | [address] | | | | | | | | +--------+---------+ + + + documented as of this encounter Visit Diagnoses Not on filedocumented in this encounter"
--- OUTSIDE RECORDS SUMMARY | ~2019-03-08 | XMS | Encounter Summary ---
Demographics + + + | Address | [address] | | | [place] [address] | + + + | Home Phone | | + + + | Preferred Language | Unknown | + + + | Marital Status | | + + + | Moravian Affiliation | 1001 | + + + | Race | Unknown | + + + | Ethnic Group | Unknown | + + + Author + + + | Author | [facility] | | | and [place] | + + + | Organization | [facility] [...] [place], [place] | | | | | [address] | | + + + + + | Tiffanie Chisholm | ECON | [address] | | | | | [place], [place] | | | | | [address] | | + + + + + Care Team Providers + +------+ + | Care Endless Track Vehicle Mechanic Name | Role | Phone | [...] | +--------+ + + + + | 05/30/ | Telephone | [facility] | Bert Linder, | Appointment | | 2019 | | [address] | MD [address] | | | | | [place] | [place] | | | | | [address] | [address] | | | | | [phone] | | | +--------+ + + + [...] | | | | | [place] [address] | | | | | | [phone] | | | | | | | | +--------+---------+ + + + | 07/04/ | Office | Urology | Bert Linder, | | | 2019 | Visit | | MD Joy PERSON | | | | | | [place] | | | | | | [address] | | | | | | | | +--------+---------+ + + + documented as of this encounter Visit Diagnoses Not on filedocumented in this encounter"
--- OUTSIDE RECORDS SUMMARY | ~2019-03-08 | XMS | Encounter Summary ---
Demographics + + + | Address | [address] | | | [place] [address] | + + + | Home Phone | | + + + | Preferred Language | Unknown | + + + | Marital Status | | + + + | Sabianism Affiliation | 1001 | + + + | Race | Unknown | + + + | Ethnic Group | Unknown | + + + Author + + + | Author | [facility] | | | and [place] | + + + | Organization | [facility] | | | and [place] | [...] [place], [place] | | | | | [address] | | + + + + + | Tiffanie Chisholm | ECON | [address] | | | | | [place], [place] | | | | | [address] | | + + + + + Care Team Providers + +------+ + | Care Traffic Supervisor Name | Role | Phone | [...] + + | 06/16/ | Clinical | [facility] | Bert Linder, | Neurogenic bladder | | 2018 | Support | [address] | [address] | (Primary Dx); | | | | [place] | [place] | Microscopic | | | | [address] | [address] | hematuria; | | | | [phone] | | Leukodystrophy | +--------+ + + [...] at home and take it right to [facility] in [facility] for processing. documented in this encounter [...] | | | | | [place] [address] | | | | | | [phone] | | | | | | | | +--------+---------+ + + + | 07/04/ | Office | Urology | Bert Linder, | | | 2019 | Visit | | MD Joy PERSON | | | | | | [place] | | | | | | [address] | | | | | | | [...]
--- OUTSIDE RECORDS SUMMARY | ~2019-03-08 | XMS | Encounter Summary ---
Demographics + + + | Address | [address] | | | [place] [address] | + + + | Home Phone [...] Author | [facility] | | | and [place]ana | + + + | Organization | [facility] | | [...] [place], [place] | | | | | [address] | | + + + + + | Tiffanie Chisholm | ECON | [address] | | | | | [place], [place] | | | | | [address] | | + + + + + Care Team Providers + +------+ + | Care Tubular Stock Glass Bulb Machine Former Name | Role | Phone | + [...] [place] | | | | | [address] | [address] | | | | | [phone] | | | +--------+ + + + [...] | | | | | [place], [place] [address] | | | | | | [phone] | | | | | | | | +--------+---------+ + + + | 07/04/ | Office | Urology | Bert Linder, | | 2019 | Visit | | MD Joy PERSON | | | | | | [place] | | | | | | [id number] | | | | | | | | +--------+---------+ + + + documented as of this encounter Visit Diagnoses + + | Diagnosis | + + | Urge incontinence - Primary | + + documented in this encounter"
--- OUTSIDE RECORDS SUMMARY | ~2019-03-08 | XMS | Encounter Summary ---
Demographics + + + | Address | [address] | | | [place] [address] | + + + | Home Phone [...] + | Author | [facility] | | | and [place] | + + + | Organization | [facility] | | | and [...] [place], [place] | | | | | [address] | | + + + + + | Tiffanie Chisholm | ECON | [address] | | | | | [place], [place] | | | | | [address] | | + + + + + Care Team Providers + +------+ + | Care Meat Dresser Name | Role | Phone | + [...] | +--------+ + + + + | 04/15/ | Telephone | [facility] | Bert Linder, | Appointment | | 2018 | | [address] | MD [address] | | | | | [place] | [place] | | | | | [address] | [id number] | | | | | [phone] | | | +--------+ + + + [...] | | | | | [place] [address] | | | | | | [phone] | | | | | | | | +--------+---------+ + + + | 07/04/ | Office | Urology | Bert Linder, | | | 2019 | Visit | | MD Joy PERSON | | | | | | [place] | | | | | | [address] | | | | | | | | +--------+---------+ + + + documented as of this encounter Visit Diagnoses Not on filedocumented in this encounter"
--- OUTSIDE RECORDS SUMMARY | ~2019-03-08 | XMS | Encounter Summary ---
Demographics + + + | Address | [address] | | | [place] [address] | + + + | Home Phone [...] + + + | Author | [facility] | + + + | Organization | [facility] | + + + | Address | Unknown | + + + | Phone | Unavailable | + + + Support + + +---------+ + | Name | Relationship | Address | Phone | + + +---------+ + | Nahomy Briana | ECON | Unknown | | + + +---------+ + Care Team Providers + +------+ + | Care Dredge Hand Name | Role | Phone | + +------+ + | Owen Swartz MD | PCP | | + +------+ + Reason for Visit + + + | Reason | Comments | + + + | New patient | | | consultation | | + + + Consultation (Routine) +--------+--------+ + + + + | Status | Reason | Specialty | Diagnoses / | Referred By | Referred To | | | | | Procedures | Contact | Contact | +--------+--------+ + + + + | Closed | | Ophthalmology | Diagnoses | Airam, | [facility] | | | | | Neuropathy | Beronica Hanson MD | [address] | | | | | Procedures | [address] | [place] | | | | | CONSULT TO | [place] | Mailcode: | | | | | OPHTHALMOLOG | [place], [place] | [facility] | | | | | Y | [address] | [facility] | | | | | | | and He[facility], | | | | | | | [address], | | | | | | | 11th Floor | | | | | | | [place], [place] | | | | | | | [address] | | | | | | | Phone: | | | | | | | [phone] | | | | | | | Fax: | | | | | | | [phone] | +--------+--------+ + + + + Encounter Details +--------+---------+ + + + | Date | Type | Department | Care Team | Description | +--------+---------+ + + + | 10/12/ | Office | [facility] | Owen Zhao, | White matter changes | | 2012 | Visit | [place] | [address] | (Primary Dx); | | | | Neuro-Ophthalmology | [place], [place] | Blurred vision | | | | at [facility] [address] | [address] | | | | | Ave Mailcode: [facility] | [phone] | | | | | [facility] | | | | | | [place], | | | | | | [facility] | | | | | | [place], [place] | | | | | | [address] | | | | | | [phone] | | | +--------+---------+ + + + [...] documented as of this encounter Progress Notes Sukumar Bowens MD - 10/12/2012 2:15 PM PDT Neuro-Ophthalmology New Patient Evaluation 10/12/2012 Referred by: Beronica Alegria MD Source of History: Patient Chief Complaint: Here by referral from neuromuscular Present Illness: Charissa Goss is a 56 y.o. female with a PMH consistent with thyroid canc er s/p radioactive iodine and thyroidectomy who comes into clinic today for evaluation of he r optic nerves. Briefly: Ms. Goss began having difficulty walking around 12 years ago as she felt off bal ance. No LH and no vertigo throughout her clinical course. She also would feel off balance when her eyes were closed or when she was walking on uneven surfaces. This was followed by tonya oot tingling for the past 7 years and also foot numbness for the past 4 years. Has had cogn itive issues for 6 years and constipation/bladder incontinence x 5 years (this occurred afte r her thyroidectomy). Also has vaginal numbness. Had diplopia in the past but denies any recent diplopia. No blurry vision, however does co viviana her left eye when she reads as if she leaves it uncovered the words blend together. Has floaters which have been stable for the past 3 years. Denies photophobia or any eye pain. Difficulty seeing in the dark. Does endorse abnormal sensation in back of head with no othe r focal neurologic symptoms which correlate with head sensation. Has been worked up extensively as an outpatient by her primary neurologist as well as other consulting physicians. Pain level: Patient reported 0/10 pain today. Current Outpatient Prescriptions Medication CALCIUM CITRATE/VITAMIN D3 (CITRACAL + D ORAL) donepezil (ARICEPT) 10 mg Oral Tablet Fesoterodine (TOVIAZ) 8 mg Oral Tablet Extended Release 24 hr levothyroxine (SYNTHROID) 88 mcg Oral Tablet MULTIVITAMIN W-MINERALS/LUTEIN (CENTRUM SILVER ORAL) No current facility-administered medications for this visit. No Known Allergies Past Medical History Diagnosis Date Incontinence of urine Neuropathy Unspecified disorder of thyroid Heart murmur Past Surgical History Procedure Laterality Date Thyroidectomy D&c diagnostic / therapeutic POH: Glasses for 25 years. Significant head injury causing unconsciousness? No Toxic Exposures: No Special Diet: No Review of Systems: General: Fever: Negative Unintentional Weight Loss: Negative Skin: Negative Ear, Nose, Throat: Negative Cardiovascular: Negative Pulmonary: Negative Gastrointestinal: See HPI Genitourinary: Negative Muscle, Bones, Joints: Negative Neurological: See HPI Psychiatric: Negative Allergic/Immunologic: Negative Family History: Macular Degeneration: No Retinitis Pigmentosa: No Strabismus or Lazy Eye: No Brain Tumors: No Stroke: No Brain Aneurysm: No Alzheimer's Disease: No Nerve or Muscle Disease: No Epilepsy or Seizures: Sister: all three kids have seizures (30, 35, 28), Mother had GTC Migraine: No Multiple Sclerosis: No Sister's children: (Per-sister) Son: 19 year old for first seizure (GTC) - Son had MRI (abnormal activity) Middle son: 5 y/o for first seizure (Absence seizure) - Had some abnormalities which were c onsistent with seizures Youngest daughter: Infancy for first seizure (GTC, more frequently in highschool) (no seizu res now for 5 years) (had MRI, unsure what they showed) Family willing to supply with medical records Social History: 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 Visual Acuity: Vasc Vacc VAph RE 20/20-1 20/30-1 20/25-2 LE 20/40 20/40-1 20/30 Color Vision: RE AOHRR 0/10 LE AOHRR 0/10 -Seems to have some perception of the color green, however quite dininished Titmus: Animal: 0/3 Circles: 4/9 Amsler's Grid: RE Normal LE Lines are swayed and blowing in the wind everywhere Confrontation VF: FTCF OD and OS Exophthalmometer: no proptosis EOM's: Fixation: Normal without square wave jerks nor other saccadic intrusions Saccades: normal latency, velocity and accuracy Pursuit: normal Convergence: normal Nystagmus: None Strabimus: no Lids: Normal Pupils: RE LE Sluggish: no no RAPD: no no Dilation Lag: no no Size (mm) Dark: 4 4 Size (mm) Light: 3 3 Slit lamp exam: RE LE Conjunctiva: clear clear Cornea: clear clear Anterior Chamber: deep and quiet deep and quiet Iris: normal normal Lens: clear and nuclear sclerosis 1+ clear and PC IOL centered and clear Vitreous: posterior vitreous detachment posterior vitreous detachment Intraocular Pressure: RE: 15 mm Hg, LE: 11 mm Hg by Jak. Dilation: Both eyes dilated with Mydriacyl and Neosynephrine OU @ 3:45 PM by [facility] Fundus Exam: Disc: OD: 0.6 cup/disc ratio, diffuse pallor,, flat OS: 0.6 cup/disc ratio, diffuse pallor, flat Macula: normal , both eyes. Vessels: normal, both eyes. Periphery: normal, both eyes. Neurologic Exam: MS: AAOx4, no dysarthria or aphasia, however odd affect Cranial nerves: I: Not tested II: PERRL, VFF to counting Except for mild obscuration int he right upper quadrant of her right eye III, IV, : EOMI with conjugate gaze and no nystagmus on end gaze V: Facial sensation intact and symmetric over the bilateral V1-V3 VII: Facial muscle activation intact and symmetric over the bilateral upper and lower face VIII: Hearing intact in the b/l ears and symmetrical to finger rub IX, X, XII: TUP midline X: SCMs and shoulder shrug full strength b/l and symmetric Motor: Antigravity without drift in the bilateral upper and lower extremities. Normal tone. No abnormal movements. Sensation: Sensation to light touch intact in the bilateral upper and lower extremities, ho wever decreased to temperature and vibration in the bilateral lower extremities. 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 Outside [facility] NCS/EMG showed a chronic sensorimotor neuropathy with some demyelinating component (CV in t he 30s) CADASIL testing was negative galactocerebrosidase levels were normal (37.3) Very long change fatty acid levels were normal. Urine arylsulfatase levels were normal B12 levels were normal. TSH was low (0.08); she is on thyroid replacement after thyroid chel aureliano. Optical Coherence Tomography Interpretation This is a nerve fiber layer study around the optic nerves performed on 10/12/2012 . OD The thicknesses is thinned in all quadrants greatest superiorly and inferiorly. OS The thicknesses in thinned all quadrants. Imaging Tests: MRI Brain WWO:08/29/2008: My read: Diffuse T2 hyperintense lesions throughout the subcortic al white matter with decreased parenchyma when compared to age. Actual read: White matter changes which can be seen in either demyelinating disease or smal l vessel ischemia, no appreciable abnormality of the structure of the petrous pyramids or th e internal auditory canals. Impression: 1. Opic atrophy, both eyes 2. Non-specific white matter disease 3. Thyroid cancer s/p thyroidectomy Charissa Goss is a 56 y.o. female with a PMH consistent with thyroid cancer s/p radioactive iodine and thyroidectomy who comes into clinic today for evaluation of her optic nerves. Charissa's neuro-ophthalmic examination is consistent with severe color perception difficultie s both eyes and also optic atrophy bilaterally. Etiology currently is unclear, however it is quite certain that her white matter disease is somehow related to her optic atrophy. This all seems to be slowly progressive and she is un likely to be at risk of losing her vision currently, however we would like to repeat her OCT in 4-6 months to ensure there is no progressive thinning of her optic nerve. Krabbe's di sease can certainly be consistent with her clinical picture, however she has tested negative for this etiology. We will further look into her case to see if there is any etiology or sy ndrome we can identify which would cause her multiple findings. We agree to referral to the undiagnosed conditions clinic at the [facility], however wonder if it would be prudent to first pu rsue spinal tap to look for inflammation within the CSF if this has not already been done. We will continue to follow her and will review her case as new developments arise. Until we recommend the following Plan: 1. Talk to radiology about any further imaging which may assist in diagnosis (MRI spect) 2. Consider LP if not already done for inflammatory markers and Flow/Cytology 3. RTC for repeat OCT of optic nerve 6 months, and consider to include macula in the eyes a s well (especially left) given findings on amsler's test. 4. Call clinic with any acute issues. 5. Send copy of note to outpatient providers including Kiersten Juares (barrel raiser) and Maritza Bustillos (neurologist) Sukumar Bowens MD Neurology resident I have reviewed and edited the above resident note after repeating pertinent portions of [facility] history and examination. I agree with the above assessment and plan. Owen Zhao M.D. International Logistics Coordinator Ophthalmology and Neurology Neuro-ophthalmology service [facility] [place] [facility] docume nted in this encounter Plan of Treatment + + +--------+ + + | Name | Type | Priori | Associated Diagnoses | Order Schedule | | | | ty | | | + + +--------+ + + | [facility] OPHTH DX IMG | Procedures | Routin | White matter | Expected: | | OPTIC NERVE | | e | changes | 10/12/2012, Expires: | | | | | | 12/11/2012 | + + +--------+ + + documented as of this encounter Visit Diagnoses + + | Diagnosis | + + | White matter changes - Primary Unspecified cause of encephalitis, myelitis, and | | encephalomyelitis | + + | Blurred vision Other specified visual disturbances | + + documented in this encounter"
--- OUTSIDE RECORDS SUMMARY | ~2019-03-08 | XMS | Encounter Summary ---
Demographics + + + | Address | [address] | | | [place] [address] | + + + | Home Phone | | + + + | Preferred Language | Unknown | + + + | Marital Status | | + + + | Confucianism Affiliation | 1001 | + + + | Race | Unknown | + + + | Ethnic Group | Unknown | + + + Author + + + | Author | [facility] | | | and Br[place]ana | + + + | Organization | [facility] | [...] [place], [place] | | | | | [address] | | + + + + + | Tiffanie Chisholm | ECON | [address] | | | | | [place], [place] | | | | | [address] | | + + + + + Care Team Providers + +------+ + | Care Bun Icer Name | Role | Phone | + [...] [place] | | | | | [address] | [id number] | | | | | [phone] | | | +--------+ + + + [...] | | | | | [place] [address] | | | | | | [phone] | | | | | | | | +--------+---------+ + + + | 07/04/ | Office | Urology | Bert Linder, | | | 2019 | Visit | | MD Joy PERSON | | | | | | [place] | | | | | | [address] | | | | | | | | +--------+---------+ + + + documented as of this encounter Visit Diagnoses Not on filedocumented in this encounter"
--- OUTSIDE RECORDS SUMMARY | ~2019-03-08 | XMS | Encounter Summary ---
Demographics + + + | Address | [address] | | | [place] [address] | + + + | Home Phone | | + + + | Preferred Language | Unknown | + + + | Marital Status | | + + + | Roman Catholic Affiliation | 1001 | + + + | Race | Unknown | + + + | Ethnic Group | Unknown | + + + Author + + + | Author | [facility] | | | and Brantana | + + + | Organization | [facility] | | | and [...] [place], [place] | | | | | [address] | | + + + + + | Tiffanie Chisholm | ECON | [address] | | | | | [place], [place] | | | | | [address] | | + + + + + Care Team Providers + +------+ + | Care Stoker Installer Name | Role | Phone | + [...] [place] | | | | | [address] | [address] | | | | | [phone] | | | +--------+ + + + [...] | | | | | [place], [place] [address] | | | | | | [phone] | | | | | | | | +--------+---------+ + + + | 07/04/ | Office | Urology | Bert Linder, | | 2019 | Visit | | MD Joy PERSON | | | | | | [place] | | | | | | [id number] | | | | | | | | +--------+---------+ + + + documented as of this encounter Visit Diagnoses + + | Diagnosis | + + | Urge incontinence - Primary | + + documented in this encounter"
--- OUTSIDE RECORDS SUMMARY | ~2019-03-08 | XMS | Encounter Summary ---
Demographics + + + | Address | [address] | | | [place] [address] | + + + | Home Phone | | + + + | Preferred Language | Unknown | + + + | Marital Status | | + + + | Baptism Affiliation | 1001 | + + + | Race | Unknown | + + + | Ethnic Group | Unknown | + + + Author + + + | Author | [facility] | | | and Brantana | + + + | Organization | [facility] | [...] [place], [place] | | | | | [address] | | + + + + + | Tiffanie Chisholm | ECON | [address] | | | | | [place], [place] | | | | | [address] | | + + + + + Care Team Providers + +------+ + | Care Product Representative Name | Role | Phone | + +------+ + | Owen Swartz MD | PCP | | + +------+ + Encounter Details +--------+ + + + + | Date | Type | Department | Care Team | Description | +--------+ + + + + | 03/18/ | Orders Only | [facility] | Bert Linder, | Neurogenic bladder | | 2016 | | [address] | [address] | (Primary Dx); | | | | [place] | [place] | Leukodystrophy | | | | [address] | [address] | | | | | [phone] | | | +--------+ + + + [...] | | | | | [place] [address] | | | | | | [phone] | | | | | | | | +--------+---------+ + + + | 07/04/ | Office | Urology | Bert Linder, | | | 2019 | Visit | | MD Joy SINHA | | | | | | [place] | | | | | | [address] | | | | | | | | +--------+---------+ + + + documented as of this encounter Visit Diagnoses + + | Diagnosis | + + | Neurogenic bladder - Primary Neurogenic bladder, NOS | + + | Leukodystrophy (HCC) Leukodystrophy | + + documented in this encounter"
--- OUTSIDE RECORDS SUMMARY | ~2019-03-08 | XMS | Encounter Summary ---
Demographics + + + | Address | [address] | | | [place] [address] | + + + | Home Phone | | + + + | Preferred Language | Unknown | + + + | Marital Status | | + + + | Christianity Affiliation | 1001 | + + + | Race | Unknown | + + + | Ethnic Group | Unknown | + + + Author + + + | Author | [facility] | | | and Brantana | + + + | Organization | [facility] | | | and Brantana | [...] [place], [place] | | | | | [address] | | + + + + + | Tiffanie Chisholm | ECON | [address] | | | | | [place], [place] | | | | | [address] | | + + + + + Care Team Providers + +------+ + | Care Utility Maintenance Worker Name | Role | Phone | [...] | +--------+ + + + + | 09/21/ | Clinical | [facility] | Bert Linder, | Urge incontinence | | 2017 | Support | [address] | [address] | (Primary Dx) | | | | [place] | [place] | | | | | [address] | [address] | | | | | [phone] | | | +--------+ + + + [...] this encounter Progress Delores Benítez RN - 09/21/2016 3:00 PM PDT Percutaneous tibial nerve stimulation [...] she g ets up in the mornings. See flow sheet in chart. PERCUTANEOUS TIBIAL [...] | | | | | [place], [place] [address] | | | | | | [phone] | | | | | | | | +--------+---------+ + + + | 07/04/ | Office | Urology | Bert Linder, | | | 2019 | Visit | | MD Joy PERSON | | | | | | [place] | | | | | | [address] | | | | | | | | +--------+---------+ + + + documented as of this encounter Visit Diagnoses + + | Diagnosis | + + | Urge incontinence - Primary | + + documented in this encounter
--- OUTSIDE RECORDS SUMMARY | ~2019-03-08 | XMS | Encounter Summary ---
Demographics + + + | Address | [address] | | | [place] [address] | + + + | Home Phone | | + + + | Preferred Language | Unknown | + + + | Marital Status | | + + + | Buddhist Affiliation | 1001 | + + + | Race | Unknown | + + + | Ethnic Group | Unknown | + + + Author + + + | Author | [facility] | | | and Brantana | + + + | Organization | [facility] | | | and Brantana [...] [place], [place] | | | | | [address] | | + + + + + | Tiffanie Chisholm | ECON | [address] | | | | | [place], [place] | | | | | [address] | | + + + + + Care Team Providers + +------+ + | Care Senior Ui Web Developer Name | Role | Phone | [...] | +--------+ + + + + | 03/16/ | Telephone | [facility] | Bert Linder, | Appointment | | 2016 | | [address] | MD [address] | | | | | [place] | [place] | | | | | [address] | [address] | | | | | [phone] | | | +--------+ + + + [...] | | | | | [place] [address] | | | | | | [phone] | | | | | | | | +--------+---------+ + + + | 07/04/ | Office | Urology | Bert Linder, | | | 2019 | Visit | | MD Joy PERSON | | | | | | [place] | | | | | | [address] | | | | | | | | +--------+---------+ + + + documented as of this encounter Visit Diagnoses Not on filedocumented in this encounter"
--- OUTSIDE RECORDS SUMMARY | ~2019-03-08 | XMS | Encounter Summary ---
Demographics + + + | Address | [address] | | | [place] [address] | + + + | Home Phone | | + + + | Preferred Language | Unknown | + + + | Marital Status | | + + + | Samaritan Affiliation | Unknown | + + + [...] Team Providers + +------+ + | Care Command And Control Name | Role | Phone | + +------+ + | Owen Swartz MD | PCP | | + +------+ + Reason for Visit + + + | Reason | Comments | + + + | Home Health orders | | + + + Encounter Details +--------+ + + + + | Date | Type | Department | Care Team | Description | +--------+ + + + + | 10/16/ | Telephone | Neurology at | Beronica [facility]legria | Home Health orders | | 2014 | | [facility] & | MD Valentin | | | | | [address] | | | | | | [place] Mailcode: | | | | | | [facility] | | | | | | Health and [facility], | | | | | | [facility] | | | | | | [place], [place] | | | | | | [address] | | | | | | [phone] | | | +--------+ + + + [...]
--- OUTSIDE RECORDS SUMMARY | ~2019-03-08 | XMS | Encounter Summary ---
Demographics + + + | Address | [address] | | | [place] [address] | + + + | Home Phone | | + + + | Preferred Language | Unknown | + + + | Marital Status | | + + + | Confucianism Affiliation | 1001 | + + + | Race | Unknown | + + + | Ethnic Group | Unknown | + + + Author + + + | Author | [facility] | | | and Brantana | + + + | Organization | [facility] | | [...] [place], [place] | | | | | [address] | | + + + + + | Tiffanie Chisholm | ECON | [address] | | | | | [place], [place] | | | | | [address] | | + + + + + Care Team Providers + +------+ + | Care Step Down Nurse Name | Role | Phone | [...] + + | 10/25/ | Clinical | [facility] | Bert Linder, | Urge incontinence | | 2017 | Support | [address] | [address] | (Primary Dx) | | | | [place] | [place] | | | | | [address] | [address] | | | | | [phone] | | | +--------+ + + + [...] | | | | | [place] [address] | | | | | | [phone] | | | | | | | | +--------+---------+ + + + | 07/04/ | Office | Urology | Bert Linder, | | | 2019 | Visit | | MD Joy SINHA | | | | | | [place] | | | | | | [address] | | | | | | | | +--------+---------+ + + + documented as of this encounter Visit Diagnoses + + | Diagnosis | + + | Urge incontinence - Primary | + + documented in this encounter
--- OUTSIDE RECORDS SUMMARY | ~2019-03-08 | XMS | Encounter Summary ---
Demographics + + + | Address | [address] | | | [place] [address] | + + + | Home Phone | | + + + | Preferred Language | Unknown | + + + | Marital Status | | + + + | Adventism Affiliation | 1001 | + + + | Race | Unknown | + + + | Ethnic Group | Unknown | + + + Author + + + | Author | [facility] | | | and Brantana | + + + | Organization | [facility] | [...] [place], [place] | | | | | [address] | | + + + + + | Tiffanie Chisholm | ECON | [address] | | | | | [place], [place] | | | | | [address] | | + + + + + Care Team Providers + +------+ + | Care Briquetter Operator Name | Role | Phone | [...] [place] | | | | | [address] | [address] | | | | | [phone] | | | +--------+ + + + [...] | | | | | [place] [address] | | | | | | [phone] | | | | | | | | +--------+---------+ + + + | 07/04/ | Office | Urology | Bert Linder, | | | 2019 | Visit | | MD Joy PERSON | | | | | | [place] | | | | | | [address] | | | | | | | | +--------+---------+ + + + documented as of this encounter Visit Diagnoses Not on filedocumented in this encounter"
--- OUTSIDE RECORDS SUMMARY | ~2019-03-08 | XMS | Encounter Summary ---
Demographics + + + | Address | [address] | | | [place] [address] | + + + | Home Phone | | + + + | Preferred Language | Unknown | + + + | Marital Status | | + + + | Latter Day Affiliation | 1001 | + + + | Race | Unknown | + + + | Ethnic Group | Unknown | + + + Author + + + | Author | [facility] | | | and Brantana | + + + | Organization | [facility] | | | and [...] [place], [place] | | | | | [address] | | + + + + + | Tiffanie Chisholm | ECON | [address] | | | | | [place], [place] | | | | | [address] | | + + + + + Care Team Providers + +------+ + | Care Supervisor Car And Yard Name | Role | Phone | + [...] + + | 06/22/ | Office | [facility] | Bert Linder, | Neurogenic bladder | | 2019 | Visit | [address] | [address] | (Primary Dx); | | | | [place] | [place] | Leukodystrophy; Urge | | | | [address] | [address] | incontinence of | | | | [phone] | | urine; | | | | [...] bladder work more normally. Date Last Reviewed: 02/29/201619996251-7978 [employer]. [address] [place] [address], [place] [address]. All [facility] ts reserved. This information is not [...] your pelvic floor muscles. The pelvic f sinhg muscles act as a sling to help hold the bladder and urethra in place. These muscles als o help keep the urethra closed. Weak pelvic floor muscles may allow urine to leak. To streng then the pelvic floor muscles, dothe exercises daily. In a few months, the muscles will be stronger and tighter. This can help prevent urine leakage. Date Last Reviewed: 02/29/201619990546-6063 [employer]. [address] [place] [address], [place] [address]. All righ ts reserved. This information is [...] provider and pharmacis t before you buy hfxk-bcq-zpeyafy medicines. Date Last Reviewed: 02/29/201619992157-9825 [employer]. [address] [place] [address]. All righ ts reserved. This information is [...] benign. Prior to Dr. Barnes's departure from [place], Charissa was being treated with bladder neurom [...] aware that there is a urologist in [place] now, Dr. Ellen Roy,. Charissa will continue her regular and customary care and followup with [facility]. I asked Charissa to notify [...] have not thoroughly proofread this note, and radial drill press operator errors are likely to occur. I, Bert [...] | | | | | [place] [address] | | | | | | [phone] | | | | | | | | +--------+---------+ + + + | 07/04/ | Office | Urology | Bert Linder, | | 2019 | Visit | J[place] PERSON | | | | | | [place] | | | | | | [address] | | | | | | | [...]
--- OUTSIDE RECORDS SUMMARY | ~2019-03-08 | XMS | Encounter Summary ---
Demographics + + + | Address | [address] | | | [place] [address] | + + + | Home Phone | | + + + | Preferred Language | Unknown | + + + | Marital Status | | + + + | Anglican Affiliation | Unknown | + + + | Race | White | + + + | Ethnic Group | Not or | + + + Author + + + | Author | [facility] | + + + | Organization | [facility] | + + + | Address | Unknown | + + + | Phone | Unavailable | + + + Support + + +---------+ + | Name | Relationship | Address | Phone | + + +---------+ + | Nahomy Briana | ECON | Unknown | | + + +---------+ + Care Team Providers + +------+ + | Care Grease Man Name | Role | Phone | + +------+ + | Owen Swartz MD | PCP | | + +------+ + Encounter Details +--------+ + + + + | Date | Type | Department | Care Team | Description | +--------+ + + + + | 08/15/ | Abstract | Neurology at | Beronica Alegria | | | 2013 | | [facility] & | MD Valentin | | | | | [address] | | | | | | [place] Mailcode: | | | | | | [facility] | | | | | | Health and Healing, | | | | | | | | | | | | [place], [place] | | | | | | [address] | | | | | | [phone] | | | +--------+ + + + [...]
--- OUTSIDE RECORDS SUMMARY | ~2019-03-08 | XMS | Encounter Summary ---
Demographics + + + | Address | [address] | | | [place] [address] | + + + | Home Phone | | + + + | Preferred Language | Unknown | + + + | Marital Status | | + + + | Scientology Affiliation | Unknown | + + + [...] Team Providers + +------+ + | Care Skid Adzer Name | Role | Phone | + +------+ + | Owen Swartz MD | PCP | | + +------+ + Reason for Referral +--------+--------+ + + + + | Status | Reason | Specialty | Diagnoses / | Referred By | Referred To | | | | | Procedures | Contact | Contact | +--------+--------+ + + + + | | | | | Airam | | | | | | | Beronica Hanson MD | | | | | | | [address] | | | | | | | [place] | | | | | | | [place], [place] | | | | | | | [address] | | +--------+--------+ + + + + Reason for Visit + + + | Reason | Comments | + + + | Referral | external for orthotics | + + + Encounter Details +--------+ + + + + | Date | Type | Department | Care Team | Description | +--------+ + + + + | 03/30/ | [place] | Neurology at | Ber[facility] | Neuropathy (Primary | | 2011 | | [facility] & | MD Valentin | Dx); Leukodystrophy | | | | [address] | | | | | | [place] Mailcode: | | | | | | [facility] | | | | | | Health and Healing, | | | | | | Building | | | | | | Floor [facility] [place] | | | | | | [address] | | | | | | [phone] | | | +--------+ + + + [...] as of this encounter Plan of Treatment + +---------+--------+ + + | Name | Type | Priori | Associated Diagnoses | Order Schedule | | | | ty | | | + +---------+--------+ + + | ORTHOTIC REFERRAL | Consult | Routin | Neuropathy | Ordered: 03/30/2011 | | | | e | Leukodystrophy | | + +---------+--------+ + + documented as of this encounter Visit Diagnoses + + | Diagnosis | + + | 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
--- OUTSIDE RECORDS SUMMARY | ~2019-03-08 | XMS | Encounter Summary ---
Demographics + + + | Address | [address] | | | [place] [address] | + + + | Home Phone | | + + + | Preferred Language | Unknown | + + + | Marital Status | | + + + | Faith Affiliation | 1001 | + + + | Race | Unknown | + + + | Ethnic Group | Unknown | + + + Author + + + | Author | [facility] | | | and Brantana | + + + | Organization | [facility] | | | and [...] [place], [place] | | | | | [address] | | + + + + + | Tiffanie Chisholm | ECON | [address] | | | | | [place], [place] | | | | | [address] | | + + + + + Care Team Providers + +------+ + | Care Student Life Advisor Name | Role | Phone | + +------+ + | Owen Swartz MD | PCP | | + +------+ + Encounter Details +--------+ + + + + | Date | Type | Department | Care Team | Description | +--------+ + + + + | 05/06/ | Hospital | [facility] | Niyah Gomez, | Thyroid cancer (HCC) | | 2016 | Encounter | [facility] | MD [address] | | | | | [address] | [place] | | | | | [place] | [address] | | | | | [address] | [phone] | | | | | [phone] | | | | | | | [...] | | | | | [place] [address] | | | | | | [phone] | | | | | | | | +--------+---------+ + + + | 07/04/ | Office | Urology | Bert Linder, | | | 2019 | Visit | | MD Joy SINHA | | | | | | [place] | | | | | | [address] | | | | | | | [...]
--- OUTSIDE RECORDS SUMMARY | ~2019-03-08 | XMS | Encounter Summary ---
Demographics + + + | Address | [address] | | | [place] [address] | + + + | Home Phone | | + + + | Preferred Language | Unknown | + + + | Marital Status | | + + + | Mosque Affiliation | Unknown | + + + | Race | White | + + + | Ethnic Group | Not or | + + + Author + + + | Author | [facility] | + + + | Organization | [facility] | + + + | Address | Unknown | + + + | Phone | Unavailable | + + + Support + + +---------+ + | Name | Relationship | Address | Phone | + + +---------+ + | Nahomy Briana | ECON | Unknown | | + + +---------+ + Care Team Providers + +------+ + | Care Oyster Grower Name | Role | Phone | + +------+ + | Owen Swartz MD | PCP | | + +------+ + Encounter Details +--------+ + + + + | Date | Type | Department | Care Team | Description | +--------+ + + + + | 09/25/ | Abstract | Neurology at | Ber[facility] | | | 2014 | | [facility] & | MD Valentin | | | | | [address] | | | | | | Terry Camacho Mailcode: | | | | | | [facility] | | | | | | Health and Healing, | | | | | | | | | | | | [place], [place] | | | | | | [address] | | | | | | [phone] | | | +--------+ + + + [...]
--- OUTSIDE RECORDS SUMMARY | ~2019-03-08 | XMS | Encounter Summary ---
Demographics + + + | Address | [address] | | | [place] [address] | + + + | Home Phone [...] Author | [facility] | | | and Brantana | + + + | Organization | [facility] | | | and Brantana [...] [place], [place] | | | | | [address] | | + + + + + | Tiffanie Chisholm | ECON | [address] | | | | | [place], [place] | | | | | [address] | | + + + + + Care Team Providers + +------+ + | Care Alterations Workroom Clerk Name | Role | Phone | [...] | +--------+ + + + + | 12/15/ | Clinical | [facility] | Bert Linder, | Urge incontinence | | 2018 | Support | [address] | [address] | (Primary Dx) | | | | [place] | [place] | | | | | [address] | [address] | | | | | [phone] | | | +--------+ + + + [...] this encounter Progress Delores Benítez RN - 12/15/2017 3:30 PM PDT Percutaneous tibial nerve stimulation (PTNS) [...] with patient. See flow sheet in chart. She and her ask for results of urine studies. Advised cytology in May 2017 was negati ve. They said one was done in August 2017. Called [facility], they will fax report from September 16 cytology (they had the wrong fax number for us). PERCUTANEOUS TIBIAL NERVE STIMULATION FLOW SHEET Related [...] | | | | | | [address] | | | | | | [place], [place] [address] | | | | | | [phone] | | | | | | | | +--------+---------+ + + + | 07/04/ | Office | Urology | Bert Linder, | | | 2019 | Visit | | MD Joy PERSON | | | | | | [place] | | | | | | [address] | | | | | | | | +--------+---------+ + + + documented as of this encounter Visit Diagnoses + + | Diagnosis | + + | Urge incontinence - Primary | + + documented in this encounter"
--- OUTSIDE RECORDS SUMMARY | ~2019-03-08 | XMS | Encounter Summary ---
Demographics + + + | Address | [address] | | | [place] [address] | + + + | Home Phone | | + + + | Preferred Language | Unknown | + + + | Marital Status | | + + + | Confucianism Affiliation | Unknown | + + + | Race | White | + + + | Ethnic Group | Not or | + + + Author + + + | Author | [facility] | + + + | Organization | [facility] | + + + | Address | Unknown | + + + | Phone | Unavailable | + + + Support + + +---------+ + | Name | Relationship | Address | Phone | + + +---------+ + | Nahomy Briana | ECON | Unknown | | + + +---------+ + Care Team Providers + +------+ + | Care Ob Scrub Tech Name | Role | Phone | + +------+ + | Owen Swartz MD | PCP | | + +------+ + Encounter Details +--------+ + + + + | Date | Type | Department | Care Team | Description | +--------+ + + + + | 09/25/ | Abstract | Neurology at | Beronica [facility]legria | | | 2014 | | [facility] & | MD Valentin | | | | | [address] | | | | | | Terry Camacho Mailcode: | | | | | | [facility] | | | | | | Health and Healing, | | | | | | | | | | | | [place], [place] | | | | | | [address] | | | | | | [phone] | | | +--------+ + + + [...]
--- OUTSIDE RECORDS SUMMARY | ~2019-03-08 | XMS | Encounter Summary ---
Demographics + + + | Address | [address] | | | [place] [address] | + + + | Home Phone [...] + | Author | [facility] | | | and Brantana | + + + | Organization | [facility] | | | [...] [place], [place] | | | | | [address] | | + + + + + | Tiffanie Chisholm | ECON | [address] | | | | | [place], [place] | | | | | [address] | | + + + + + Care Team Providers + +------+ + | Care Talend Etl Developer Name | Role | Phone | [...] | | Procedures | MD Baljit | [address] [place] [address] | | | | | OFFICE VISIT | [address] [facility] | [place] | | | | | | [place] | [place] [address] | | | | | | [place], [place] | Phone: | | | | | | [address] | [phone] | | | | | | Phone: | Fax: | | | | | | [phone] | [phone] | | | | | | Fax: | | | | | | | [phone] | | +--------+--------+ + + + + Encounter Details +--------+---------+ + + + | Date | Type | Department | Care Team | Description | +--------+---------+ + + + | 03/13/ | Office | [facility] | Bert Linder, | Neurogenic bladder | | 2016 | Visit | [address] | [address] | (Primary Dx); Urge | | | | [place], [place] | [place] | incontinence; | | | | [address] | [address] | Microhematuria; | | | | [phone] | | Pyuria | +--------+---------+ + + [...] urgency and urge incontinence for several years. Lcuita parkinson has undergone urodynamic studies by Dr. [...] review of systems today is negative. Dr. Branes has transitioned her practice to another community, [...] have not thoroughly proofread this note, and resident service coordinator erro rs may occur. CC: Dr Swartz [...] | | | | | [place] [address] | | | | | | [phone] | | | | | | | | +--------+---------+ + + + | 07/04/ | Office | Urology | Bert Linder, | | | 2019 | Visit | | MD Joy PERSON | | | | | | [place] | | | | | | [address] | | | | | | | [...] ST. | [address] | [place] | [phone] | | [facility] | | [address] | | | - LABORATORY | | [...] 1.001 - 1.030 | | | | [place], | | | | | | [facility], [...]
--- OUTSIDE RECORDS SUMMARY | ~2019-03-08 | XMS | Encounter Summary ---
Demographics + + + | Address | [address] | | | [place] [address] | + + + | Home Phone | | + + + | Preferred Language | Unknown | + + + | Marital Status | | + + + | Quaker Affiliation | Unknown | + + + | Race | White | + + + | Ethnic Group | Not or | + + + Author + + + | Author | [facility] | + + + | Organization | [facility] | + + + | Address | Unknown | + + + | Phone | Unavailable | + + + Support + + +---------+ + | Name | Relationship | Address | Phone | + + +---------+ + | Nahomy Briana | ECON | Unknown | | + + +---------+ + Care Team Providers + +------+ + | Care Physics Technical Officer Name | Role | Phone | [...] | | | | | hy ([facility]) | [place], [place] | [facility] | | | | | Procedures | [address] | for Health | | | | | EMG/NERVE | | and Healing, | | | | | CONDUCTION | | Building 1, | | | | | STUDIES - | | 8th Floor | | | | | NEUROLOGY | | [place], [place] | | | | | | | [address] | | | | | | | Phone: | | | | | | | [phone] | | | | | | | Fax: | | | | | | | [phone] | +--------+--------+ + + + + Reason [...] | | hereditary | [place] | [facility] [address] | | | | | and | CLINIC | [address] | | | | | idiopathic | NEUROLOGY | Mailcode: | | | | | peripheral | [address] | [facility] | | | | | neuropathy | [facility] | for Health | | | | | Leukodystrop | [place], [place] | and Healing, | | | | | hy (FORM[facility]LY [facility]) | [address] | Building 1, | | | | | | Phone: | [facility] Floor | | | | | | [phone] | [place], [place] | | | | | | Fax: | [address] | | | | | | [phone] | Phone: | | | | | | | [phone] | | | | | | | Fax: | | | | | | | [phone] | +--------+--------+ + + + + Encounter Details +--------+---------+ + + + | Date | Type | Department | Care Team | Description | +--------+---------+ + + + | 07/08/ | Office | Neurology at | Alan Taylor, | Neuropathy; | | 2010 | Visit | [facility] & | Severino Kate MD | Leukodystrophy | | | | Healing [address] | | | | | | [address] Mailcode: | | | | | | [facility] | | | | | | Health and Healing, | | | | | | [facility] | | | | | | Floor [place], [place] | | | | | | [address] | | | | | | [phone] | | | +--------+---------+ + + + [...] plan. Raoul Davis M.D., Ph.D. Director, Neuromuscular Housing Management Representative, EMG Laboratory urba colton Taylor, Severino Kate [...] ago- for example recently typed up a [email or web address] bulletin twice over. Aricept helps memory. 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
--- OUTSIDE RECORDS SUMMARY | ~2019-03-08 | XMS | Encounter Summary ---
Demographics + + + | Address | [address] | | | [place] [address] | + + + | Home Phone | | + + + | Preferred Language | Unknown | + + + | Marital Status | | + + + | Confucianist Affiliation | Unknown | + + + | Race | White | + + + | Ethnic Group | Not or | + + + Author + + + | Author | [facility] | + + + | Organization | [facility] | + + + | Address | Unknown | + + + | Phone | Unavailable | + + + Support + + +---------+ + | Name | Relationship | Address | Phone | + + +---------+ + | Nahomy Briana | ECON | Unknown | | + + +---------+ + Care Team Providers + +------+ + | Care Field Marketing Lead Name | Role | Phone | [...] [facility] | | | | | | Beronica Hanson MD | [address] | | | | | Leukodystrop | [address] | Mervin [address]azo | | | | | hy (HCC) | [address] | Rd | | | | | Procedures | [place], [place] | Mailcode: | | | | | MRI BRAIN | [address] | [address] | | | | | WWO CONTRAST | | [place] | | | | | | | Research | | | | | | | Center | | | | | | | [place], [place] | | | | | | | [address] | | | | | | | Phone: | | | | | | | [phone] | | | | | | | Fax: | | | | | | | [phone] | +--------+--------+ + + + + Reason for Visit + + + | Reason | Comments | + + + | Return Patient | | + + + Encounter Details +--------+---------+ + + + | Date | Type | Department | Care Team | Description | +--------+---------+ + + + | 09/13/ | Office | Neurology at | Beronica Alegria | Leukodystrophy | | 2011 | Visit | [facility] & | MD Valentin | (Primary Dx) | | | | Healing [address] | | | | | | [address] Mailcode: | | | | | | [facility] | | | | | | Health and Healing, | | | | | | Building | | | | | | Floor [place], [place] | | | | | | [address] | | | | | | [phone] | | | +--------+---------+ + + + [...] + + + | Blood Pressure | 113/45 | 09/14/2011 3:20 PM | | | | | PDT | | + + + + + | Pulse | 79 | 09/14/2011 3:20 PM | | | | | PDT | | + + + + + | Temperature | - | - | | + + + + + | Respiratory Rate | 15 | 09/14/2011 3:20 PM | | | | | PDT | | + + + + + | Oxygen Saturation | - | - | | + + + + + | Inhaled Oxygen | - | - | | | Concentration | | | | + + + + + | Weight | 52.2 kg (115 lb) | 09/14/2011 3:20 PM | | | | | PDT | | + + + + + | Height | - | - | | + + + + + | Body Mass Index | 21.73 | 03/04/2011 11:02 AM | | | | | PST | | + + + + + documented in this encounter Progress Notes Beronica Alegria MD - 09/14/2011 3:28 PM PDT NEUROMUSCULAR CLINIC FOLLOW UP NOTE Author: Beronica Alegria MD. ID: Charissa Goss is a 55 y.o. Woman with a family history of seizure disorders and history of progressive neurologic symptoms of impaired balance, memory, urinary dysfunction, diplop ia and foot numbness in addition to cataracts presenting to the [facility] Neuromuscular division today for follow up. To review, she noticed difficulty walking down a slope >10 years ago. Around the same time, she started having problems with balance e.g. if closing eyes in shower. In the next 5 year s, she developed paresthesias and numbness in her feet that gradually worsened. Memory probl ems started about 2-3 years later. Bowel/ bladder problems x 3 years that started after she had thyroidectomy and radioactive iodine for thyroid cancer. She has urinary incontinence an d cannot feel when she urinates. She has diplopia and has opthalmology. She had no benefit f rom prisms. No problems in hands or arms- no weakness or clumsiness in hands, no numbness in hands. No vertigo, slurred speech, changes in mood or personality, language problems, heari ng problems, smell or taste problems. Rare difficulty swallowing. No hearing loss. She did n ot walk until age 1 and could never keep up with other children when running. She did fine a cademically in school. Incontinence Toviaz helps with nocturnal incontinence. Interval History: Since last visit, she notes worsening balance. She was seen in PT today and a AFO's were recommended. She notes that foot inserts for hammertoes have helped with balance. 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 Urine arylsulfatase levels were normal B12 levels were normal. TSH was low (0.08); she is on thyroid replacement after thyroid chel aureliano. Past Medical History: Neuropathy Leukodystrophy Past Surgical History: THYROIDECTOMY D&C DIAGNOSTIC / THERAPEUTIC Home Medications: Current Outpatient Prescriptions on File Prior to Visit Medication Sig Dispense Refill CALCIUM CITRATE/VITAMIN D3 (CITRACAL + D ORAL) Take 1 Tab by mouth once daily. donepezil (ARICEPT) 10 mg Oral Tablet Take 10 mg by mouth once daily in the evening. Fesoterodine (TOVIAZ) 8 mg Oral Tablet Extended Release 24 hr Take 8 mg by mouth once d aily. MULTIVITAMIN W-MINERALS/LUTEIN (CENTRUM SILVER ORAL) Take 1 Tab by mouth once daily. Allergies: No Known Allergies Social History: She is . No tobacco use. Family History: Her mother had seizure disorder, abnormal feet, walking difficulty. Her sis ter's children have seizure disorders. Physical Examination: Constitutional: BP 113/45 | Pulse 79 | RR 15 | Wt 52.164 kg (115 lb) GNeurologic Exam: Mental Status: Patient is alert and [...] ankle dorsiflexion 4/5, l eft ankle dorsiflexion 4+/5, otherwise full strength proximally in lower extremities and 5/5 in upper [...] follow up for progressive cognitive problems, length-dependent motor axonopathy. MRI showe d severe confluent demyelination and atrophy sparing the basal ganglia and the corpus callos um. 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 Extensive work up including testing for metachromatic leuko dystrophy, adrenoleukodystrophy, Krabbe's disease and arylsulfatase deficiency was unreveali ng. She does not have history of deafness or abnormalities of the retina or cerebellar find ings on examination. I will repeat MRI to evaluate for interval change. Recommendations: - Follow-up in Neuromuscular clinic in 6 months or sooner prn. -Start-gabapentin 300 mg tid for neuropathic pain. -Repeat MRI brain [facility] I spent 45 minutes with the patient. Greater than 50% of the time was spent counseling the patient regarding diagnosis of leukodystrophy and answering her questions about prognosis.E lectronically signed by Beronica Alegria MD at 09/20/2011 10:50 AM PDTdocumented in this e ncounter Plan of Treatment + +---------+--------+ + + | Name | Type | Priori | Associated Diagnoses | Order Schedule | | | | ty | | | + +---------+--------+ + + | MRI BRAIN WWO | Imaging | Routin | Leukodystrophy | Expected: | | CONTRAST | | e | | 09/14/2011, Expires: | | | | | | 10/14/2012 | + +---------+--------+ + + documented as of this encounter Visit Diagnoses + + | Diagnosis | + + | Leukodystrophy (HCC) - Primary Leukodystrophy | + + documented in this encounter"
--- OUTSIDE RECORDS SUMMARY | ~2019-03-08 | XMS | Encounter Summary ---
Demographics + + + | Address | [address] | | | [place] [address] | + + + | Home Phone | | + + + | Preferred Language | Unknown | + + + | Marital Status | | + + + | Hindu Affiliation | Unknown | + + + | Race | White | + + + | Ethnic Group | Not or | + + + Author + + + | Author | [facility] | + + + | Organization | [facility] | + + + | Address | Unknown | + + + | Phone | Unavailable | + + + Support + + +---------+ + | Name | Relationship | Address | Phone | + + +---------+ + | Nahomy Briana | ECON | Unknown | | + + +---------+ + Care Team Providers + +------+ + | Care Photoengraving Finisher Name | Role | Phone | + [...] (for | | 2011 | on | [facility] & | MD Valentin | outside physical | | | | Healing [address] | | therapy and | | | | [address] Mailcode: | | orthotics ) | | | | [facility] | | | | | | Health and Healing, | | | | | | Building 1, 8th | | | | | | Floor [place], [place] | | | | | | [address] | | | | | | [phone] | | | +--------+ + + + [...]
--- OUTSIDE RECORDS SUMMARY | ~2019-03-08 | XMS | Clinical Summary ---
Demographics + + + | Address | [address] | | | [place] [address] | + + + | Home Phone | | + + + | Preferred Language | Unknown | + + + | Marital Status | | + + + | Muslim Affiliation | Unknown | + + + | Race | White | + + + | Ethnic Group | Not or | + + + Author + + + | Author | [facility] | + + + | Organization [...] Team Providers + +------+ + | Care Art Director Name | Role | Phone | + +------+ + | Owen Swartz MD | PCP | | + +------+ + Source Comments [facility] is fully live on both [facility] and [facility] InPatient.[facility] Allergies No Known Allergies Medications + + [...] | | | | | | | [address] | | + +--------+ +--------+ + +--------+ | [employer] | AARP | xxxxxxxxxxx | Effect | [phone] | [address] | Indemn | | RETIRED PEOPLE | | | jany | 9 | [address] | ity | | | | | for | | [place] | | | | | | all | | [address] | | | | | | dates [...] | | al/Jerardo | | 1955 | [phone] | [place] | | | kiana | | | 9 (Home) | [address] | | | | | | [phone] | | | | | | | 5 (Work) | | + +--------+ +--------+ + +
--- OUTSIDE RECORDS SUMMARY | ~2019-03-08 | XMS | Encounter Summary ---
Demographics + + + | Address | [address] | | | [place] [address] | + + + | Home Phone | | + + + | Preferred Language | Unknown | + + + | Marital Status | | + + + | Rastafarian Affiliation | 1001 | + + + | Race | Unknown | + + + | Ethnic Group | Unknown | + + + Author + + + | Author | [facility] | | | and Brantana | + + + | Organization | [facility] | [...] [place], [place] | | | | | [address] | | + + + + + | Tiffanie Chisholm | ECON | [address] | | | | | [place], [place] | | | | | [address] | | + + + + + Care Team Providers + +------+ + | Care Tool Specialist Name | Role | Phone | [...] + + | 05/03/ | Office | [facility] | Bert Linder, | Neurogenic bladder | | 2018 | Visit | [address] | [address] | (Primary Dx); | | | | [place], [place] | [place] | Leukodystrophy; Urge | | | | [address] | [id number] | incontinence of | | | | [phone] | | urine; Abnormal | | | [...] on your doctor's advice. Talk to your geological e logger regarding the use of this medicine in children. Special care may be needed. What side effects may I notice from receiving this medicine? Side effects that you should report to your doctor or health farm or ranch animal caretaker as soon as p ossible: allergic reactions [...] attention (report to your doctor or health farm or ranch animal caretaker if they continue or are bothersome): constipation [...] symptoms worse. Visit your doctor or health farm or ranch animal caretaker for regular checks on your progress. Check yo ur blood pressure as directed. Ask your doctor or health farm or ranch animal caretaker what your blood p ressure should be and when you should contact him or her. NOTE:This sheet is a summary. It may not cover all possible information. If you have questi ons about this medicine, talk to your doctor, pharmacist, or health care provider. Copyright 2017 [employer] documented in this encounter Progress Notes Bert [...] benign. Prior to Dr. Barnes's departure from [place], Charissa was being treated with bladder neurom [...] have not thoroughly proofread this note, and linseed oil press tender erro rs may occur. CC: Dr Swartz [...] | | | | | [place] [address] | | | | | | [phone] | | | | | | | | +--------+---------+ + + + | 07/04/ | Office | Urology | Bert Linder, | | 2019 | Visit | | MD Joy PERSON | | | | | | [place] | | | | | | [id number] | | | | | | | [...]
--- OUTSIDE RECORDS SUMMARY | ~2019-03-08 | XMS | Encounter Summary ---
Demographics + + + | Address | [address] | | | [place] [address] | + + + | Home Phone | | + + + | Preferred Language | Unknown | + + + | Marital Status | | + + + | Mandaen Affiliation | 1001 | + + + | Race | Unknown | + + + | Ethnic Group | Unknown | + + + Author + + + | Author | [facility] | | | and [place] | + + + | Organization | [facility] [...] [place], [place] | | | | | [address] | | + + + + + | Tiffanie Chisholm | ECON | [address] | | | | | [place], [place] | | | | | [address] | | + + + + + Care Team Providers + +------+ + | Care Cobol Programmer Name | Role | Phone | + [...] + + | 05/20/ | Clinical | [facility] | Ralph Quintanilla | Urge incontinence | | 2017 | Support | [address] | MD Alfredo [address] | (Primary Dx) | | | | [place] | [facility] | | | | | [address] | [facility] [place] [address] | | | | | [phone] | [phone] | | | | | | | [...] Weakness, dizziness or fainting Date Last Reviewed: 09/22/[id number] [employer]. [address] [place] [address]. All righ ts reserved. This information is [...] | | | | | [place] [address] | | | | | | [phone] | | | | | | | | +--------+---------+ + + + | 07/04/ | Office | Urology | Bert Linder, | | 2019 | Visit | | MD Joy PERSON | | | | | | [place] | | | | | | [address] | | | | | | | | +--------+---------+ + + + documented as of this encounter Visit Diagnoses + + | Diagnosis | + + | Urge incontinence - Primary | + + documented in this encounter
--- OUTSIDE RECORDS SUMMARY | ~2019-03-08 | XMS | Encounter Summary ---
Demographics + + + | Address | [address] | | | [place] [address] | + + + | Home Phone | | + + + | Preferred Language | Unknown | + + + | Marital Status | | + + + | Gnosticism Affiliation | Unknown | + + + | Race | White | + + + | Ethnic Group | Not or | + + + Author + + + | Author | [facility] | + + + | Organization | [facility] | + + + | Address | Unknown | + + + | Phone | Unavailable | + + + Support + + +---------+ + | Name | Relationship | Address | Phone | + + +---------+ + | Nahomy Briana | ECON | Unknown | | + + +---------+ + Care Team Providers + +------+ + | Care Machinist Outside Name | Role | Phone | + [...] | | | | | OPHTHALMOLOG | [place], [place] | [facility] | | | | | Y | [address] | for Health | | | | | | | and Healing, | | | | | | | Building 1, | | | | | | | 11th Floor | | | | | | | [place], [place] | | | | | | | [address] | | | | | | | Phone: | | | | | | | [phone] | | | | | | | Fax: | | | | | | | [phone] | +--------+--------+ + + + + Encounter Details +--------+---------+ + + + | Date | Type | Department | Care Team | Description | +--------+---------+ + + + | 10/12/ | Office | [facility] | Owen Zhao, | White matter changes | | 2012 | Visit | [place] | [address] | (Primary Dx); | | | | Neuro-Ophthalmology | [place], [place] | Blurred vision | | | | at [facility] [address] | [address] | | | | | Ave Mailcode: [facility] | [phone] | | | | | [facility] | | | | | | [place], | | | | | | [facility] | | | | | | [place], [place] | | | | | | [address] | | | | | | [phone] | | | +--------+---------+ + + + [...] and Neosynephrine OU @ 3:[address] [facility] Fundus Exam: Disc: OD: 0.6 [...] - NT Ancillary tests/Review of data: Evaluation: 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 Outside [facility] NCS/EMG showed a chronic sensorimotor neuropathy with [...] to the undiagnosed conditions clinic at the [facility], however wonder if it would be prudent [...] note to outpatient providers including Kiersten Juares (loan documents closer) and Maritza Bustillos (neurologist) Sukumar Bowens MD Neurology resident I have reviewed and edited the above resident note after repeating pertinent portions of garnet health history and examination. I agree with the above assessment and plan. Owen Zhao M.D. Erp Business Analyst Ophthalmology and Neurology Neuro-ophthalmology service [facility] [place] - [facility] docume nted in this encounter Plan of [...]
--- OUTSIDE RECORDS SUMMARY | ~2019-03-08 | XMS | Encounter Summary ---
Demographics + + + | Address | [address] | | | [place] [address] | + + + | Home Phone [...] + + + | Author | [facility] | + + + | Organization | [facility] | + + + | Address | Unknown | + + + | Phone | Unavailable | + + + Support + + +---------+ + | Name | Relationship | Address | Phone | + + +---------+ + | Nahomy Briana | ECON | Unknown | | + + +---------+ + Care Team Providers + +------+ + | Care Parking Ramp Attendant Name | Role | Phone | + +------+ + | Owen Swartz MD | PCP | | + +------+ + Reason for Visit + + + | Reason | Comments | + + + | Home Health Initial | | | Order | | + + + Encounter Details +--------+ + + + + | Date | Type | Department | Care Team | Description | +--------+ + + + + | 09/19/ | Telephone | Neurology at | Beronica Alegria | Home Health Initial | | 2015 | | [facility] & | MD Valentin | Order | | | | Healing [address] | | | | | | [address] Mailcode: | | | | | | [facility] | | | | | | Health and Healing, | | | | | | Building | | | | | | Floor [place], [place] | | | | | | [address] | | | | | | [phone] | | | +--------+ + + + [...] + | Diagnosis | + + | Urinary incontinence, unspecified incontinence type - Primary | + + | Neuropathy Mononeuritis of unspecified site | + + documented in this encounter"
--- OUTSIDE RECORDS SUMMARY | ~2019-03-08 | XMS | Encounter Summary ---
Demographics + + + | Address | [address] | | | [place] [address] | + + + | Home Phone | | + + + | Preferred Language | Unknown | + + + | Marital Status | | + + + | Mosque Affiliation | 1001 | + + + | Race | Unknown | + + + | Ethnic Group | Unknown | + + + Author + + + | Author | [facility] | | | and Br[place] | + + + | Organization | [facility] | [...] [place], [place] | | | | | [address] | | + + + + + | Tiffanie Chisholm | ECON | [address] | | | | | [place], [place] | | | | | [address] | | + + + + + Care Team Providers + +------+ + | Care Legal Word Processor Name | Role | Phone | + [...] | +--------+ + + + + | 10/15/ | Clinical | [facility] | Bert Linder, | Urge incontinence | | 2016 | Support | [address] | [address] | (Primary Dx) | | | | [place] | [place] | | | | | [address] | [address] | | | | | [phone] | | | +--------+ + + + [...] encounter Progress Notes Delores Milton RN - 10/16/2015 12:33 PM PDT Percutaneous tibial nerve stimulation (PTNS) [...] [] Change 0 0 5-6 0 4 3 [x] R [] L 19 [] Toe Flex [] Foot sensation [x] [...] | | | | | [place], [place] [address] | | | | | | [phone] | | | | | | | | +--------+---------+ + + + | 07/04/ | Office | Urology | Bert Linder, | | | 2019 | Visit | | [address] | | | | | | [place] | | | | | | [id number] | | | | | | | | +--------+---------+ + + + documented as of this encounter Visit Diagnoses + + | Diagnosis | + + | Urge incontinence - Primary | + + documented in this encounter"
--- OUTSIDE RECORDS SUMMARY | ~2019-03-08 | XMS | Encounter Summary ---
Demographics + + + | Address | [address] | | | [place] [address] | + + + | Home Phone | | + + + | Preferred Language | Unknown | + + + | Marital Status | | + + + | Mormonism Affiliation | 1001 | + + + | Race | Unknown | + + + | Ethnic Group | Unknown | + + + Author + + + | Author | [facility] | | | and Brantana | + + + | Organization | [facility] | | | [...] [place], [place] | | | | | [address] | | + + + + + | Tiffanie Chisholm | ECON | [address] | | | | | [place], [place] | | | | | [address] | | + + + + + Care Team Providers + +------+ + | Care Lead Technologist In Cytogenetics Name | Role | Phone | + +------+ + | Owen Swartz MD | PCP | | + +------+ + Reason for Visit + + + | Reason | Comments | + + + | Enuresis | PTNS for urge incontinence | + + + Encounter Details +--------+ + + + + | Date | Type | Department | Care Team | Description | +--------+ + + + + | 06/10/ | Clinical | [facility] | Bert Linder, | Urge incontinence | | 2016 | Support | [address] | [address] | (Primary Dx) | | | | [place] | [place] | | | | | [address] | [address] | | | | | [phone] | | | +--------+ + + + [...] encounter Progress Notes Blessing Rodríguez RN - 06/11/2015 3:04 PM PDT Percutaneous tibial nerve stimulation (PTNS) was prescribed monthly for Charissa's overactive symptoms of urge incontinence. The needle electrode was inserted into the lower, inner aspe ct of the right leg. The surface electrode was placed on the bottom of the foot on the billy tment leg. The lead set was connected to the stimulator, and the needle electrode clip was connected to the needle electrode. The stimulator that produces an adjustable electrical pu lse that travels to the sacral nerve plexus via the tibial nerve was adjusted to a setting o f 10. The patient's response to treatment was reviewed with patient. See flow sheet in [facility] rt. PERCUTANEOUS TIBIAL NERVE STIMULATION FLOW SHEET Related health & social habits Comments Caffeine #/day Alcohol #/day Daytime voids #/day Night-time voids #/night Urgency 0=none, 4=severe Incontinenceepisodes #/day Ankle used Setting Feeling/ Response [x] Same [] Change 0 0 5-6 0 4 2 [x] R [] L 10 [] Toe Flex [x] Foot sensation [] [...] | | | | | [place], [place] [address] | | | | | | [phone] | | | | | | | | +--------+---------+ + + + | 07/04/ | Office | Urology | Bert Linder, | | | 2019 | Visit | | MD Joy SINHA | | | | | | [place] | | | | | | [address] | | | | | | | | +--------+---------+ + + + documented as of this encounter Visit Diagnoses + + | Diagnosis | + + | Urge incontinence - Primary | + + documented in this encounter"
--- OUTSIDE RECORDS SUMMARY | ~2019-03-08 | XMS | Encounter Summary ---
Demographics + + + | Address | [address] | | | [place] [address] | + + + | Home Phone [...] + + + | Author | [facility] | + + + | Organization | [facility] | + + + | Address | Unknown | + + + | Phone | Unavailable | + + + Support + + +---------+ + | Name | Relationship | Address | Phone | + + +---------+ + | Nahomy Briana | ECON | Unknown | | + + +---------+ + Care Team Providers + +------+ + | Care Napper Tender Name | Role | Phone | + [...] | | | | | PHYSICAL | [place], [place] | [address] | | | | | THERAPY | [address] | [address] [place], | | | | | | | [place] [address] | | | | | | | Phone: | | | | | | | [phone] | | | | | | | Fax: | | | | | | | [phone] | +--------+--------+ + + + + Encounter Details +--------+---------+ + + + | Date | Type | Department | Care Team | Description | +--------+---------+ + + + | 09/13/ | Office | [facility] | Michael Tsai, | Neuropathy; | | 2011 | Visit | Therapy Services at | MS,PT [address] | Weak; | | | | [facility] | [facility] [address] | Abnormal gait; | | | | [address] | [place] [address] | Falls frequently | | | | Mailcode: CH3P | [phone] | | | | | [facility] | | | | | | and Healing, | | | | | | [address] | | | | | | Floor [place], [place] | | | | | | [address] | | | | | | [phone] | | | +--------+---------+ + + + [...] might be different f rom the original. [id number] ABEL CANAS Date of : 1955 Start of care: 09/14/2011 Date of onset: 09/02/2011 Referring/Attending Practitioner: Beronica Alegrai MD . Primary/Referral Diagnosis/ICD-9: 355.9AB Neuropathy 780.79T Weak 781.2F Abnormal gait V15.88H Falls frequently Insurance: Payor: ODS SmallRivers Plan: ODS OEBB Product Type: PPO Service period from: 09/14/2011 to: 09/12/12 Number visits used/authorized: 1 [facility] PHYSICAL THERAPY INITIAL EVALUATION: Neurological SUBJECTIVE: History [...] achie ve optimal level of function. Functional Spink: Bed mobility: 4/4 Complete Spink: no assistance or independ ent with device. ADL's: 4/4 Complete Spink: no assistance or independent with device. Transfers: 4/4 Complete Spink: no assistance or independent with device. OBJECTIVE: [...] Flex 5 5 Wrist: Ext 5 5 Diesel Service Technician weak both Hip: Flex 3 3 Hip: [...] exercises as instructed today an antonio in [employer] home program. Demonstrate independent and safe gait [...] today. She can communicate with my via 1[employer] as glen mata. Family will be involved as needed and based on willingness of Abel and family. Treatment began: 1:10 Treatment ended: 2:10 This note is to serve as the discharge summary if the Abel fails to attend further Physica l Therapy appointments or contact the therapist regarding any change in their status. MICHAEL TSAI MS, PT Physical Therapist [facility] [address] [place] [address] [facility], [address] [place] [address] documented in this encounter Plan of Treatment Not on filedocumented as of this encounter Procedures + +--------+ + + + | Procedure Name | Priori | Date/Time | Associated Diagnosis | Comments | | | ty | | | | + +--------+ + + + | CA GAIT TRAINING | Routin | 09/14/2011 | Neuropathy Weak | | | THERAPY | e | 2:18 PM | Abnormal gait Falls | | | | | PDT | frequently | | + +--------+ + + + | [place] PHYS THERAPY | Routin | 09/14/2011 | [...]
--- OUTSIDE RECORDS SUMMARY | ~2019-03-08 | XMS | Encounter Summary ---
Demographics + + + | Address | [address] | | | [place] [address] | + + + | Home Phone [...] + + + | Author | [facility] | + + + | Organization | [facility] | + + + | Address | Unknown | + + + | Phone | Unavailable | + + + Support + + +---------+ + | Name | Relationship | Address | Phone | + + +---------+ + | Nahomy Briana | ECON | Unknown | | + + +---------+ + Care Team Providers + +------+ + | Care Drafting Layout Worker Name | Role | Phone | [...] MRI | | 2014 | Encounter | [facility] & | MD Valentin | | | | | Healing [address] | | | | | | [place] Mailcode: | | | | | | [id number] | | | | | | Health and Healing, | | | | | | | | | | | | [place], [place] | | | | | | [address] | | | | | | [phone] | | | +--------+ + + + [...]
--- OUTSIDE RECORDS SUMMARY | ~2019-03-08 | XMS | Encounter Summary ---
Demographics + + + | Address | [address] | | | [place] [address] | + + + | Home Phone | | + + + | Preferred Language | Unknown | + + + | Marital Status | | + + + | Taoist Affiliation | 1001 | + + + | Race | Unknown | + + + | Ethnic Group | Unknown | + + + Author + + + | Author | [facility] | | | and Br[place]ana | + + + | Organization | [facility] | | | and [...] [place], [place] | | | | | [address] | | + + + + + | Tiffanie Chisholm | ECON | [address] | | | | | [place], [place] | | | | | [address] | | + + + + + Care Team Providers + +------+ + | Care Sanitation Tank Washer Name | Role | Phone | + [...] [place] | | | | | [address] | [address] | | | | | [phone] | | | +--------+ + + + [...] | | | | | [place] [address] | | | | | | [phone] | | | | | | | | +--------+---------+ + + + | 07/04/ | Office | Urology | Bert Linder, | | | 2019 | Visit | | [address] | | | | | | [place] | | | | | | [address] | | | | | | | | +--------+---------+ + + + documented as of this encounter Visit Diagnoses Not on filedocumented in this encounter"
--- OUTSIDE RECORDS SUMMARY | ~2019-03-08 | XMS | Encounter Summary ---
Demographics + + + | Address | [address] | | | [place] [address] | + + + | Home Phone | | + + + | Preferred Language | Unknown | + + + | Marital Status | | + + + | Sabianist Affiliation | Unknown | + + + | Race | White | + + + | Ethnic Group | Not or | + + + Author + + + | Author | [facility] | + + + | Organization | [facility] | + + + | Address | Unknown | + + + | Phone | Unavailable | + + + Support + + +---------+ + | Name | Relationship | Address | Phone | + + +---------+ + | Nahomy Briana | ECON | Unknown | | + + +---------+ + Care Team Providers + +------+ + | Care Sales And Support Center Agent Name | Role | Phone | + +------+ + | Owen Swartz MD | PCP | | + +------+ + Encounter Details +--------+ + + + + | Date | Type | Department | Care Team | Description | +--------+ + + + + | 09/13/ | MyChart | [facility] | Maryse Tsai, | Today's PT visit | | 2011 | Encounter | Therapy Services at | MS,PT [address] | | | | | [address] | | | | | [address] | [place] [address] | | | | | William Mailcode: S11 | [phone] | | | | | [facility] | | | | | | [place], [place] | | | | | | [address] | | | | | | [phone] | | | +--------+ + + + [...]
--- OUTSIDE RECORDS SUMMARY | ~2019-03-08 | XMS | Encounter Summary ---
Demographics + + + | Address | [address] | | | [place] [address] | + + + | Home Phone [...] + + + | Author | [facility] | + + + | Organization | [facility] | + + + | Address | Unknown | + + + | Phone | Unavailable | + + + Support + + +---------+ + | Name | Relationship | Address | Phone | + + +---------+ + | Nahomy Briana | ECON | Unknown | | + + +---------+ + Care Team Providers + +------+ + | Care International Student Advisor Name | Role | Phone | [...] | | | | | | | [address] | | | | | | | [place] | | | | | | | [place], [place] | | | | | | | [address] | | +--------+--------+ + + + + Reason for Visit + + + | Reason | Comments | + + + | Referral | external for orthotics | + + + Encounter Details +--------+ + + + + | Date | Type | Department | Care Team | Description | +--------+ + + + + | 03/30/ | Sales Service Supervisor | Neurology at | Beronica Alegria | Neuropathy (Primary | | 2011 | | [facility] & | MD Valentin | Dx); Leukodystrophy | | | | [address] | | | | | | [address] Mailcode: | | | | | | [facility] | | | | | | Health and Healing, | | | | | | Building | | | | | | Floor [facility] [place] | | | | | | [address] | | | | | | [phone] | | | +--------+ + + + [...]
--- OUTSIDE RECORDS SUMMARY | ~2019-03-08 | XMS | Encounter Summary ---
Demographics + + + | Address | [address] | | | [place] [address] | + + + | Home Phone | | + + + | Preferred Language | Unknown | + + + | Marital Status | | + + + | Church Affiliation | Unknown | + + + [...] Team Providers + +------+ + | Care Agriculture Inspector Name | Role | Phone | + +------+ + | Owen Swartz MD | PCP | | + +------+ + Reason for Visit + + + | Reason | Comments | + + + | Pt - Physical | scheduling | | Therapy | | + + + Encounter Details +--------+ + + + + | Date | Type | Department | Care Team | Description | +--------+ + + + + | 07/28/ | Telephone | Neurology at | Beronica Alegria | Pt - Physical | | 2012 | | [facility] & | MD Valentin | Therapy (scheduling) | | | | Healing [address] | | | | | | [address] Mailcode: | | | | | | [facility] | | | | | | Health and Healing, | | | | | | [facility] | | | | | | Floor [place], [place] | | | | | | [address] | | | | | | [phone] | | | +--------+ + + + [...]
--- OUTSIDE RECORDS SUMMARY | ~2019-03-08 | XMS | Encounter Summary ---
Demographics + + + | Address | [address] | | | [place] [address] | + + + | Home Phone | | + + + | Preferred Language | Unknown | + + + | Marital Status | | + + + | Protestant Affiliation | Unknown | + + + | Race | White | + + + | Ethnic Group | Not or | + + + Author + + + | Author | [facility] | + + + | Organization | [facility] | + + + | Address | Unknown | + + + | Phone | Unavailable | + + + Support + + +---------+ + | Name | Relationship | Address | Phone | + + +---------+ + | Nahomy Briana | ECON | Unknown | | + + +---------+ + Care Team Providers + +------+ + | Care Relay Record Clerk Name | Role | Phone | [...] MRI Results | | 2014 | | [facility] & | MD Valentin | | | | | Healing [address] | | | | | | [address] Mailcode: | | | | | | [address] | | | | | | Health and Healing, | | | | | | [facility] | | | | | | Floor [place], [place] | | | | | | [address] | | | | | | [phone] | | | +--------+ + + + [...]
--- OUTSIDE RECORDS SUMMARY | ~2019-03-08 | XMS | Encounter Summary ---
Demographics + + + | Address | [address] | | | [place] [address] | + + + | Home Phone | | + + + | Preferred Language | Unknown | + + + | Marital Status | | + + + | Mandaen Affiliation | 1001 | + + + | Race | Unknown | + + + | Ethnic Group | Unknown | + + + Author + + + | Author | [facility] | | | and Brantana | + + + | Organization | [facility] | | [...] [place], [place] | | | | | [address] | | + + + + + | Tiffanie Chisholm | ECON | [address] | | | | | [place], [place] | | | | | [address] | | + + + + + Care Team Providers + +------+ + | Care Vessel Scrapper Name | Role | Phone | + +------+ + | Owen Swartz MD | PCP | | + +------+ + Reason for Visit + + + | Reason | Comments | + + + | Appointment | RESCHEDULE | + + + Encounter Details +--------+ + + + + | Date | Type | Department | Care Team | Description | +--------+ + + + + | 02/15/ | Telephone | [facility] | Bert Linder, | Appointment | | 2015 | | [address] | MD [address] | (RESCHEDULE) | | | | [place] | [place] | | | | | [address] | [address] | | | | | [phone] | | | +--------+ + + + [...] | | | | | [place] [address] | | | | | | [phone] | | | | | | | | +--------+---------+ + + + | 07/04/ | Office | Urology | Bert Linder, | | | 2019 | Visit | | [address] | | | | | | [place] | | | | | | [address] | | | | | | | | +--------+---------+ + + + documented as of this encounter Visit Diagnoses Not on filedocumented in this encounter"
--- OUTSIDE RECORDS SUMMARY | ~2019-03-08 | XMS | Encounter Summary ---
Demographics + + + | Address | [address] | | | [place] [address] | + + + | Home Phone | | + + + | Preferred Language | Unknown | + + + | Marital Status | | + + + | Buddhist Affiliation | 1001 | + + + | Race | Unknown | + + + | Ethnic Group | Unknown | + + + Author + + + | Author | [facility] | | | and Brantana | + + + | Organization | [facility] | | | and [...] [place], [place] | | | | | [address] | | + + + + + | Tiffanie Chisholm | ECON | [address] | | | | | [place], [place] | | | | | [address] | | + + + + + Care Team Providers + +------+ + | Care Toolroom Checker Name | Role | Phone | + [...] + + | 01/27/ | Clinical | [facility] | Ralph Quintanilla | Urge incontinence of | | 2017 | Support | [address] | MD Alfredo [address] | urine (Primary Dx) | | | | [place], [place] | [address] [facility] | | | | | [address] | [place] [address] | | | | | [phone] | [phone] | | | | | | | [...] tibial nerve stimulation (PTNS) was prescribed for Chairssa's overactive symptoms of urge incontinence. The needle [...] | | | | | [place] [address] | | | | | | [phone] | | | | | | | | +--------+---------+ + + + | 07/04/ | Office | Urology | Bert Linder, | | | 2019 | Visit | | MD Joy [address] | | | | | | [place] | | | | | | [address] | | | | | | | | +--------+---------+ + + + documented as of this encounter Visit Diagnoses + + | Diagnosis | + + | Urge incontinence of urine - Primary Urge incontinence | + + documented in this encounter"
--- OUTSIDE RECORDS SUMMARY | ~2019-03-08 | XMS | Encounter Summary ---
Demographics + + + | Address | [address] | | | [place] [address] | + + + | Home Phone [...] Team Providers + +------+ + | Care Jewelry Consultant Name | Role | Phone | + +------+ + | Owen Swartz MD | PCP | | + +------+ + Encounter Details +--------+ + + + + | Date | Type | Department | Care Team | Description | +--------+ + + + + | 01/11/ | MyChart | [facility] | Owen Zhao, | RE: Flu shot | | 2013 | Encounter | [place] | [address] | | | | | Neuro-Ophthalmology | [facility] [place] | | | | | at [facility] [address] | [address] | | | | | Ave Mailcode: CH3 | [phone] | | | | | [facility] | | | | | | and Healing, | | | | | | | | | | | | Floor [facility] [place] | | | | | | [address] | | | | | | [phone] | | | +--------+ + + + [...]
--- OUTSIDE RECORDS SUMMARY | ~2019-03-08 | XMS | Encounter Summary ---
Demographics + + + | Address | [address] | | | [place] [address] | + + + | Home Phone [...] Team Providers + +------+ + | Care Barge Engineer Name | Role | Phone | + +------+ + | Owen Swartz MD | PCP | | + +------+ + Encounter Details +--------+ + + + + | Date | Type | Department | Care Team | Description | +--------+ + + + + | 09/18/ | Document-Sc | Health Information | Unknown . | | | 2014 | anned | Services [address] | | | | | [address] | | | | | | Mailcode: OP17A | | | | | | [facility] | | | | | | [place], [place] | | | | | | [address] | | | | | | [phone] | | | +--------+ + + + [...] + + + | RADIOLOGY | | 09/18/2014 | | Results for this | | | | 12:00 AM | | procedure are in the | | | | PDT | | results section. | + +--------+ + + + documented in this encounter Results RADIOLOGY (09/18/2014 12:00 AM PDT) + + + | Narrative | Performed At | + + + | | | + + + documented in this encounter Visit Diagnoses Not on filedocumented in this encounter"
--- OUTSIDE RECORDS SUMMARY | ~2019-03-08 | XMS | Encounter Summary ---
Demographics + + + | Address | [address] | | | [place] [address] | + + + | Home Phone [...] | [facility] | | | and Brantana | + + + | Organization | [facility] | | | and Brantana [...] [place], [place] | | | | | [address] | | + + + + + | Tiffanie Chisholm | ECON | [address] | | | | | [place], [place] | | | | | [address] | | + + + + + Care Team Providers + +------+ + | Care Garment Sewing Machine Operator Name | Role | Phone | [...] [place] | Microhematuria; | | | | [address] | [address] | Pyuria | | | | [phone] | | | +--------+ + + + [...] dip positive for leukocytes and sent to [facility] lab for microscopic and cul ture if indicated. Cecille Lawrence CMA - 04/09/2015 3:43 PM PSTSent urine to [facility] for cytology via security researcher. documented in this e ncounter Plan of [...] | | | | | [place] [address] | | | | | | [phone] | | | | | | | | +--------+---------+ + + + | 07/04/ | Office | Urology | Bert Linder, | | | 2019 | Visit | | MD Joy [address]INHA | | | | | | [place] | | | | | | [address] | | | | | | | [...] ST. | [address] | [place] | [phone] | | [facility] | | [address] | | | - LABORATORY | | [...] 1.001 - 1.030 | | | | [place], | | | | | | UA, [...] | LABORATORY: Technical preparation was performed by [facility] | | | [facility], [address] [place] [address] | | | (Performance Improvement Analyst: Keanu Bourgeois D.O.; CLIA#: [id number]). | | | Professional interpretation was performed by [facility],- | | | [address] [address] (Medical | | | Director: Jeremy Bauman M.D.; CLIA#: [id number]).9 | | | Diagnostician: Sarath WARD ([facility]) Stage Technician | | | Diagnostician: Jaime Rivera MD [...]
--- OUTSIDE RECORDS SUMMARY | ~2019-03-08 | XMS | Encounter Summary ---
Demographics + + + | Address | [address] | | | [place] [address] | + + + | Home Phone | | + + + | Preferred Language | Unknown | + + + | Marital Status | | + + + | Samaritan Affiliation | 1001 | + + + | Race | Unknown | + + + | Ethnic Group | Unknown | + + + Author + + + | Author | [facility] | | | and Brantana | + + + | Organization | [facility] | | | and Brantana [...] [place], [place] | | | | | [address] | | + + + + + | Tiffanie Chisholm | ECON | [address] | | | | | [place], [place] | | | | | [address] | | + + + + + Care Team Providers + +------+ + | Care Associate Product Manager Name | Role | Phone | + +------+ + | Owen Swartz MD | PCP | | + +------+ + Reason for Visit +--------+ + | Reason | Comments | +--------+ + | Other | PTNS for urge incontinence | +--------+ + Encounter Details +--------+ + + + + | Date | Type | Department | Care Team | Description | +--------+ + + + + | 05/06/ | Clinical | [facility] | Bert Linder, | Urge incontinence | | 2016 | Support | [address] | [address] | (Primary Dx) | | | | [place] | [place] | | | | | [address] | [address] | | | | | [phone] | | | +--------+ + + + [...] encounter Progress Notes Blessing Rodríguez RN - 05/07/2015 4:34 PM PST Percutaneous tibial nerve stimulation (PTNS) was prescribed for Charissa's overactive symptoms of urge incontinence. The needle electrode was inserted into the lower, inner aspect of th e left leg. The surface electrode was placed on the bottom of the foot on the treatment leg . The lead set was connected to the stimulator, and the needle electrode clip was connected to the needle electrode. The stimulator that produces an adjustable electrical pulse that travels to the sacral nerve plexus via the tibial nerve was adjusted to a setting of 16. Th e patient's response to treatment was reviewed with patient. See flow sheet in chart. PERCUTANEOUS TIBIAL NERVE STIMULATION FLOW SHEET Related health & social habits Comments Caffeine #/day Alcohol #/day Daytime voids #/day Night-time voids #/night Urgency 0=none, 4=severe Incontinenceepisodes #/day Ankle used Setting Feeling/ Response [x] Same [] Change 0 0 5-6 1 4 1-2 [] R [x] L 16 [] Toe Flex [x] Foot sensation [] [...] | | | | | [place], [place] [address] | | | | | | [phone] | | | | | | | | +--------+---------+ + + + | 07/04/ | Office | Urology | Bert Linder, | | | 2020 | Visit | | MD Joy [address]ERSON | | | | | | [place] | | | | | | [address] | | | | | | | | +--------+---------+ + + + documented as of this encounter Visit Diagnoses + + | Diagnosis | + + | Urge incontinence - Primary | + + documented in this encounter"
--- OUTSIDE RECORDS SUMMARY | ~2019-03-08 | XMS | Encounter Summary ---
Demographics + + + | Address | [address] | | | [place] [address] | + + + | Home Phone [...] Author | [facility] | | | and Brantana | + + + | Organization | [facility] [...] [place], [place] | | | | | [address] | | + + + + + | Tiffanie Chisholm | ECON | [address] | | | | | [place], [place] | | | | | [address] | | + + + + + Care Team Providers + +------+ + | Care Ophthalmic Nurse Name | Role | Phone | [...] + + | 05/06/ | Clinical | [facility] | Bert Linder, | Urge incontinence | | 2016 | Support | [address] | [address] | (Primary Dx) | | | | [place] | [place] | | | | | [address] | [address] | | | | | [phone] | | | +--------+ + + + [...] | | | | | [place], [place] [address] | | | | | | [phone] | | | | | | | | +--------+---------+ + + + | 07/04/ | Office | Urology | Bert Linder, | | | 2020 | Visit | | MD Joy PERSON | | | | | | [place] | | | | | | [address] | | | | | | | | +--------+---------+ + + + documented as of this encounter Visit Diagnoses + + | Diagnosis | + + | Urge incontinence - Primary | + + documented in this encounter"
--- OUTSIDE RECORDS SUMMARY | ~2019-03-08 | XMS | Encounter Summary ---
Demographics + + + | Address | [address] | | | [place] [address] | + + + | Home Phone | | + + + | Preferred Language | Unknown | + + + | Marital Status | | + + + | Mandaeism Affiliation | Unknown | + + + [...] Team Providers + +------+ + | Care Bulb Sorter Name | Role | Phone | + [...] examination | | 2013 | Visit | [place] | | (NOV) | | | | Photography at [facility] | | | | | | [address] | | | | | | Mailcode: CH11P | | | | | | [facility] | | | | | | and Healing, | | | | | | Building | | | | | | Floor [place], [place] | | | | | | [address] | | | | | | [phone] | | | +--------+ + + + [...] PDT Charissa Goss was seen in the [facility] Photography/Ultrasound Department today, 08/06/2013, for OCT OU. RASHAAD ZARAT documented in thi s encounter Plan of Treatment Not on filedocumented as of this encounter Visit Diagnoses + + | Diagnosis | + + | White matter changes - Primary Unspecified cause of encephalitis, myelitis, and | | encephalomyelitis | + + documented in this encounter"
--- OUTSIDE RECORDS SUMMARY | ~2019-03-08 | XMS | Encounter Summary ---
Demographics + + + | Address | [address] | | | [place] [address] | + + + | Home Phone [...] Team Providers + +------+ + | Care Car Whacker Name | Role | Phone | + +------+ + | Owen Swartz MD | PCP | | + +------+ + Encounter Details +--------+ + + + + | Date | Type | Department | Care Team | Description | +--------+ + + + + | 09/01/ | MyChart | Neurology at | Other, Faculty | Appointment with | | 2011 | Encounter | [facility] & | [phone] | Neuromcular Clinic | | | | [address]aling [address] | | | | | | [address] Mailcode: | | | | | | [facility] | | | | | | Health and Healing, | | | | | | [facility] | | | | | | Floor [place], [place] | | | | | | [address] | | | | | | [phone] | | | +--------+ + + + [...]
--- OUTSIDE RECORDS SUMMARY | ~2019-03-08 | XMS | Encounter Summary ---
Demographics + + + | Address | [address] | | | [place] [address] | + + + | Home Phone | | + + + | Preferred Language | Unknown | + + + | Marital Status | | + + + | Presybeterian Affiliation | Unknown | + + + | Race | White | + + + | Ethnic Group | Not or | + + + Author + + + | Author | [facility] | + + + | Organization | [facility] | + + + | Address | Unknown | + + + | Phone | Unavailable | + + + Support + + +---------+ + | Name | Relationship | Address | Phone | + + +---------+ + | Nahomy Briana | ECON | Unknown | | + + +---------+ + Care Team Providers + +------+ + | Care Grain Grader Name | Role | Phone | + [...] Closed | | Physical | Diagnoses | [facility] | | | | | Therapy | Myelopathy | Beronica Hanson MD | | | | | | ([facility]) | [address] | | | | | | Procedures | [address] | | | | | | PHYSICAL | [place], [place] | | | | | | THERAPY | [address] | | | | | | REFERRAL | | | +--------+--------+ + + + + Diagnostic Testing (Routine) +--------+--------+ + + + + | Status | Reason | Specialty | Diagnoses / | Referred By | Referred To | | | | | Procedures | Contact | Contact | +--------+--------+ + + + + | Closed | | Radiology | Diagnoses | Airam, | | | | | | Myelopathy | Beronica Hanson MD | | | | | | ([facility]) | [address] | | | | | | Procedures | [address] | | | | | | MRI SPINE | [place], [place] | | | | | | CERVICAL/THO | [address] | | | | | | [address] | | | | | | | CONTRAST | | | +--------+--------+ + + + + Diagnostic Testing (Routine) +--------+--------+ + + + + | Status | Reason | Specialty | Diagnoses / | Referred By | Referred To | | | | | Procedures | Contact | Contact | +--------+--------+ + + + + | Closed | | Radiology | Diagnoses | [place], | [facility] | | | | | Myelopathy | Beronica Hanson MD | [address] | | | | | (HCC) | [address] | Mervin Razo | | | | | Procedures | [address] | [address] | | | | | MRI SPINE | [place], [place] | Mailcode: | | | | | THORACIC WO | [address] | [address] | | | | | CONTRAST | | [place] | | | | | | | Research | | | | | | | [place] | | | | | | | [place], [place] | | | | | | | [address] | | | | | | | Phone: | | | | | | | [phone] | | | | | | | Fax: | | | | | | | [phone] | +--------+--------+ + + + + Reason for Visit + + + | Reason | Comments | + + + | Return Patient | 1 yr followup-PT C/O OF MORE LEG WEAKNESS | + + + Encounter Details +--------+---------+ + + + | Date | Type | Department | Care Team | Description | +--------+---------+ + + + | 09/12/ | Office | Neurology at | Beronica Alegria | Myelopathy (HCC) | | 2015 | Visit | [facility] & | MD Valentin | (Primary Dx); | | | | Healing [address] | | Urinary | | | | [address] Mailcode: | | incontinence, | | | | [facility] | | unspecified | | | | Health and Healing, | | incontinence type | | | | [facility] | | | | | | Floor [place], [place] | | | | | | [address] | | | | | | [phone] | | | +--------+---------+ + + + [...] this encounter Last Filed Vital Signs + +---------+ + + | Vital Sign | Reading | Time Taken | Comments | + +---------+ + + | Blood Pressure | 110/77 | 09/12/2014 7:47 AM | | | | | PDT | | + +---------+ + + | Pulse | 76 | 09/12/2014 7:47 AM | | | | | PDT | | + +---------+ + + | Temperature | - | - | | + +---------+ + + | Respiratory Rate | - | - | | + +---------+ + + | Oxygen Saturation | - | - | | + +---------+ + + | Inhaled Oxygen | - | - | | | Concentration | | | | + +---------+ + + | Weight | - | - | | + +---------+ + + | Height | - | - | | + +---------+ + + | Body Mass Index | - | - | | + +---------+ + + documented in this encounter Progress Notes Beronica Alegria MD - 09/12/2014 7:58 AM PDT NEUROMUSCULAR CLINIC FOLLOW UP NOTE Author: Beronica Alegria MD. ID: Charissa Goss is a 57 y.o woman with a family history of seizure disorders and personal history of progressive neurologic symptoms of impaired balance, memory, urinary dysfunction , diplopia and foot numbness in addition to cataracts and optic atrophy presenting to the [facility] Neuromuscular division today for follow up. Neuro hx reviewed: She noticed difficulty walking down a slope in her early 40's. Around the same time, she st arted having problems with balance e.g. if closing eyes in shower. In the next 5 years, she developed paresthesias and numbness in her feet that gradually worsened. Memory problems sta rted about 2-3 years later. Bowel/ bladder problems started in her early 50's. She has urina ry incontinence and cannot feel when she urinates. She has diplopia as well. No problems in hands or arms- no weakness or clumsiness in hands. No vertigo, slurred speech, changes in mo od or personality, language problems, hearing problems, smell or taste problems. Rare diffic ulty swallowing. She did not walk until age 1 and could never keep up with other children wh en running. She has been evaluated by neuro-fats and oils loader Dr. Zhao, initially in September, who noted severe color perception difficulties in both eyes and bilateral optic atrophy . Evaluation: 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 Outside [facility] NCS/EMG showed a chronic sensorimotor neuropathy with some demyelinating component (CV in t he 30s) CADASIL testing was negative galactocerebrosidase levels were normal (37.3) Very long change fatty acid levels were normal. Urine arylsulfatase levels were normal B12 levels were normal. TSH was low (0.08); she is on thyroid replacement after thyroid chel aureliano. Interval History: I referrred her to [facility] undiagnosed disease program, but haven't received response, so I que stion if it was received. Since she was last seen July,, her legs have become weaker. She uses a walker at home , but she falls frequently. She injured her right ankle with a fall 2 weeks ago. It has be en swollen. They have tried to get an appt with her PCP but they haven't been able to get in yet. She continues to have swelling in her feet. Other than with falls, she does n ot have pain. Her vision has not deteriorated. She has diplopia, but she uses glasses, w hich help. She continues to take Aricept. She has occasional spells when she seems confuse d, which is unchanged She is having headaches about one a week but not severe. Headache i s occipital. One ASA is sufficient to resolve it. She continues to receive neurostimulat or electrode therapy treatment. She has occasional episode. She is overall doing better wi th constipation. Dr. Patel in [place] has ordered a wheelchair. They have put a ramp in and making modifications to their house, to permit wheelchair acces sibility. She has had pool therapy in the past, which was helpful She had repeat MRI C spine and T-spine in 07/2012. I hadn't received the results when I saw her last year, so I requested the results, which were scanned in, but I'm seeing them for t he first time today. MRI Cspine and Tspine in 2012 showed C5-6 disc protrusion with slight cord flattening, T8-9 disc protrusion, syrinx form T11-T12 Past Medical History: Current Outpatient Prescriptions on File Prior to Visit Medication Sig Dispense Refill CALCIUM CITRATE/VITAMIN D3 (CITRACAL + D ORAL) Take 1 Tab by mouth once daily. donepezil (ARICEPT) 10 mg Oral Tablet Take 10 mg by mouth once daily in the evening. levothyroxine (SYNTHROID) 88 mcg Oral Tablet Take 88 mcg by mouth once daily. mirabegron (MYRBETRIQ) 50 mg oral tablet extended release 24 hr Take by mouth once luis ly. MULTIVITAMIN W-MINERALS/LUTEIN (CENTRUM SILVER ORAL) Take 1 Tab by mouth once daily. No current facility-administered medications on file prior to visit. Past Surgical History: THYROIDECTOMY D&C DIAGNOSTIC / THERAPEUTIC Home Medications: Current Outpatient Prescriptions on File Prior to Visit Medication Sig Dispense Refill CALCIUM CITRATE/VITAMIN D3 (CITRACAL + D ORAL) Take 1 Tab by mouth once daily. donepezil (ARICEPT) 10 mg Oral Tablet Take 10 mg by mouth once daily in the evening. levothyroxine (SYNTHROID) 88 mcg Oral Tablet Take 88 mcg by mouth once daily. mirabegron (MYRBETRIQ) 50 mg oral tablet extended release 24 hr Take by mouth once luis ly. MULTIVITAMIN W-MINERALS/LUTEIN (CENTRUM SILVER ORAL) Take 1 Tab by mouth once daily. No current facility-administered medications on file prior to visit. Allergies: No Known Allergies Social History: Allergies: No Known Allergies Social History: She is . No tobacco use . Family History: Her mother had seizure disorder, abnormal feet, walking difficulty. Her sis ter's children have seizure disorders. Review of Systems: 6 systems reviewed, positives noted in HPI. Physical Examination: BP 110/77 | Pulse 76 | Wt 0 kg (0 lb) Neurologic Exam: Mental Status: Patient is alert [...] th. Motor: Atrophic foot muscles noted with pes cavus. Power using MRC scales as as follows u sing right/left notation: Deltoid 5/5, biceps 5/5, triceps 5/5, wrist extensors 5/5, wrist flexors 5/5, finger extensors 5/5, finger flexors 5/5, FDI 5/5, hip flexors 4/4, hip abducto rs 5/5, knee extensors 5/5, knee flexors 4/4, ankle dorsiflexion 4/4, ankle plantar flexion 5/5 Sensory: Sensation is absent to vibratory sense at great toes and lateral malleoli; proprio ception impaired at great toes. Pinprick reduced to knees Reflexes: Reflexes are brisk throughout. Gait :deferred Cerebellum: Normal finger to nose Assessment: Charissa Goss is a 58 yo woman with a family history of epilepsy presenting for follow up for progressive cognitive problems, length-dependent polyneuropathy, diplopia, an d urinary incontinence also with optic atrophy. MRI showed severe confluent demyelination an d atrophy sparing the basal ganglia and the corpus callosum. . 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 Work up including testing for metachromatic leukodystrophy, adrenoleukodystroph y, Krabbe's disease and arylsulfatase deficiency was unrevealing. Adult polyglucosan body di sease is associated with white matter changes and neuropathy, but is also associated with me dullary involvement. Her weakness in her lower extremities continues to worsen. Although likely related to dege nerative neurologic condition, her MRI from 2 years ago did show degenerative changes, and t he pattern of worsening could be seen with myelopathy, so I will repeat MRI C and T spine. Plan: - XR foot today to eval for fracture --Repeat MRI cervical and thoracic spine w/o contrast at [facility] - Referral to [place] for PT with focus on exercise in context of worsening weakness. - Follow-up in Neuromuscular clinic in 1 year or sooner prn. - Home Health referral to assessment for accessibility in her home given that she is now es sentially non ambulatory and needs assistance for bathing. Addendum: XR did show probable fracture; she has appt with PCP and ortho pending. Results given by My[facility] umented in this encounter Plan of Treatment + +---------+--------+ + + | Name | Type | Priori | Associated Diagnoses | Order Schedule | | | | ty | | | + +---------+--------+ + + | MRI SPINE THORACIC | Imaging | Routin | Myelopathy (HCC) | Expected: | | WO CONTRAST | | e | | 09/12/2014, Expires: | | | | | | 10/14/2015 | + +---------+--------+ + + | MRI SPINE | Imaging | Routin | Myelopathy (HCC) | Expected: | | CERVICAL/THORACIC WO | | e | | 09/17/2014, Expires: | | CONTRAST | | | | 10/19/2015 | + +---------+--------+ + + documented as of this encounter Results X-RAY FOOT 3 VIEWS [...] | | | | | MDAuthor: PETR FRITZ | | | | | | I [...] | | + +---------+ + + | [facility] DEPARTMENT OF | | | | | RADIOLOGY | | | | + +---------+ + + documented in this encounter Visit Diagnoses + + | Diagnosis | + + | Myelopathy (HCC) - Primary Unspecified disease of spinal cord | + + | Urinary incontinence, unspecified incontinence type | + + documented in this encounter"
--- OUTSIDE RECORDS SUMMARY | ~2019-03-08 | XMS | Encounter Summary ---
Demographics + + + | Address | [address] | | | [place] [address] | + + + | Home Phone [...] | [facility] | | | and Brantana | + + + | Organization | [facility] | | | and Brantana [...] [place], [place] | | | | | [address] | | + + + + + | Tiffanie Chisholm | ECON | [address] | | | | | [place], [place] | | | | | [address] | | + + + + + Care Team Providers + +------+ + | Care Chicle Grinder Feeder Name | Role | Phone | + [...] + + | 04/27/ | Clinical | [facility] | Ralph Quintanilla | Microhematuria | | 2018 | Support | [address] | MD Alfred[address] | (Primary Dx); Urge | | | | [place], [place] | [address] [facility] | incontinence of | | | | [address] | [place] [address] | urine | | | | [phone] | [phone] | | | | | | | [...] positive for blood. Urine specimen sent to [facility] la b for microscopic urinalysis and culture [...] | | | | | [place] [address] | | | | | | [phone] | | | | | | | | +--------+---------+ + + + | 07/04/ | Office | Urology | Bert Linder, | | | 2019 | Visit | | [address] | | | | | | [place] | | | | | | [address] | | | | | | | [...] ST. | [address] | [place], [place] | [phone] | | [facility] | | [address] | | | - LABORATORY | | [...] 1.001 - 1.030 | | | | [place], | | | | | | UA, [...]
--- OUTSIDE RECORDS SUMMARY | ~2019-03-08 | XMS | Encounter Summary ---
Demographics + + + | Address | [address] | | | [place] [address] | + + + | Home Phone | | + + + | Preferred Language | Unknown | + + + | Marital Status | | + + + | Mandaeism Affiliation | 1001 | + + + | Race | Unknown | + + + | Ethnic Group | Unknown | + + + Author + + + | Author | [facility] | | | and Brantana | + + + | Organization | [facility] | | | and Brantana [...] [place], [place] | | | | | [address] | | + + + + + | Tiffanie Chisholm | ECON | [address] | | | | | [place], [place] | | | | | [address] | | + + + + + Care Team Providers + +------+ + | Care Rn Paralegal Name | Role | Phone | + [...] [place] | Nephrolithiasis | | | | [address] | [address] | | | | | [phone] | | | +--------+ + + + [...] | | | | | [place] [address] | | | | | | [phone] | | | | | | | | +--------+---------+ + + + | 07/04/ | Office | Urology | Bert Linder, | | | 2019 | Visit | | MD [address] | | | | | | [place] | | | | | | [address] | | | | | | | [...]
--- OUTSIDE RECORDS SUMMARY | ~2019-03-08 | XMS | Encounter Summary ---
Demographics + + + | Address | [address] | | | [place] [address] | + + + | Home Phone | | + + + | Preferred Language | Unknown | + + + | Marital Status | | + + + | Buddhism Affiliation | Unknown | + + + [...] Team Providers + +------+ + | Care Editing Internship Name | Role | Phone | [...] Health Initial | | 2015 | | [facility] & | MD Valentin | Order (PCP to | | | | Healing [address] | | follow. ) | | | | [address] Mailcode: | | | | | | [facility] | | | | | | Health and Healing, | | | | | | Building | | | | | | Floor [place], [place] | | | | | | [address] | | | | | | [phone] | | | +--------+ + + + [...]
--- OUTSIDE RECORDS SUMMARY | ~2019-03-08 | XMS | Encounter Summary ---
Demographics + + + | Address | [address] | | | [place] [address] | + + + | Home Phone | | + + + | Preferred Language | Unknown | + + + | Marital Status | | + + + | Taoism Affiliation | Unknown | + + + | Race | White | + + + | Ethnic Group | Not or | + + + Author + + + | Author | [facility] | + + + | Organization | [facility] | + + + | Address | Unknown | + + + | Phone | Unavailable | + + + Support + + +---------+ + | Name | Relationship | Address | Phone | + + +---------+ + | Nahomy Briana | ECON | Unknown | | + + +---------+ + Care Team Providers + +------+ + | Care Measurement Coordinator Name | Role | Phone | [...] shot | | 2013 | Encounter | [place] | [address] | | | | | Neuro-Ophthalmology | [facility] [place] | | | | | at [facility] [address] | [address] | | | | | Ave Mailcode: CH3 | [phone] | | | | | [facility] | | | | | | and Healing, | | | | | | | | | | | | Floor [facility] [place] | | | | | | [address] | | | | | | [phone] | | | +--------+ + + + [...]
--- OUTSIDE RECORDS SUMMARY | ~2019-03-08 | XMS | Encounter Summary ---
Demographics + + + | Address | [address] | | | [place] [address] | + + + | Home Phone | | + + + | Preferred Language | Unknown | + + + | Marital Status | | + + + | Hoahaoism Affiliation | 1001 | + + + | Race | Unknown | + + + | Ethnic Group | Unknown | + + + Author + + + | Author | [facility] | | | and Brantana | + + + | Organization | [facility] | | | and Br[place]ana | + + + | Address | Unknown | + + + | Phone | Unavailable | + + + Support + + + + + | Name | Relationship | Address | Phone | + + + + + | Jeuss Goss | LANCE | [address] | | | | | [place], [place] | | | | | [address] | | + + + + + | Tiffanie Chisholm | ECON | [address] | | | | | [place], [place] | | | | | [address] | | + + + + + Care Team Providers + +------+ + | Care Bundle Sorter Name | Role | Phone | + +------+ + | Owen Swartz MD | PCP | | + +------+ + Reason for Visit + + + | Reason | Comments | + + + | Urgency Incontinence | | + + + | Neurogenic Bladder | | + + + Encounter Details +--------+ + + + + | Date | Type | Department | Care Team | Description | +--------+ + + + + | 06/24/ | Clinical | [facility] | Bert Linder, | Urge incontinence | | 2017 | Support | [address] | [address] | (Primary Dx); | | | | [place] | [place] | Neurogenic bladder | | | | [address] | [address] | | | | | [phone] | | | +--------+ + + + [...] this encounter Progress Delores Benítez RN - 06/24/2016 1:23 PM PDT Percutaneous tibial nerve stimulation (PTNS) was prescribed for Charissa's overactive symptoms of urge incontinence and neurogenic bladder. The needle electrode was inserted into the [...] was adjusted to a setting of 19. She has a strong urge to go and due to her immobility, is unable to ge t to the bathroom before leakage occurs (she's in a wheelchair and her transfers her ). She reports she's seeing a animal trainer supervisor for strength training of her upper body weekl y and feels she's stronger. The patient's response to treatment was reviewed with patient. See flow sheet in chart. PERCUTANEOUS TIBIAL NERVE STIMULATION FLOW SHEET Related health & social habits Comments Caffeine #/day Alcohol #/day Daytime voids #/day Night-time voids #/night Urgency 0=none, 4=severe Incontinence episodes #/day Ankle used Setting Feeling/ Response [x] Same [] Change 0 0 4-5 0 (but "I leak, I wear Depends") 4 3 [x] R [] L 19 [...] | | | | | [place], [place] [address] | | | | | | [phone] | | | | | | | | +--------+---------+ + + + | 07/04/ | Office | Urology | Bert Linder, | | | 2019 | Visit | | MD [address]ERSON | | | | | | [place] | | | | | | [address] | | | | | | | | +--------+---------+ + + + documented as of this encounter Visit Diagnoses + + | Diagnosis | + + | Urge incontinence - Primary | + + | Neurogenic bladder Neurogenic bladder, NOS | + + documented in this encounter
--- OUTSIDE RECORDS SUMMARY | ~2019-03-08 | XMS | Encounter Summary ---
Demographics + + + | Address | [address] | | | [place] [address] | + + + | Home Phone | | + + + | Preferred Language | Unknown | + + + | Marital Status | | + + + | Oriental Orthodox Affiliation | Unknown | + + [...] Team Providers + +------+ + | Care Lapidary Apprentice Name | Role | Phone | + +------+ + | Owen Swartz MD | PCP | | + +------+ + Encounter Details +--------+ + + + + | Date | Type | Department | Care Team | Description | +--------+ + + + + | 10/24/ | Abstract | Neurology at | Brandon Calloway MD | | | 2014 | | [facility] & | | | | | | Healing [address] | | | | | | [address] Mailcode: | | | | | | [facility] | | | | | | Health and Healing, | | | | | | | | | | | | [place], [place] | | | | | | [address] | | | | | | [phone] | | | +--------+ + + + [...]
--- OUTSIDE RECORDS SUMMARY | ~2019-03-08 | XMS | Encounter Summary ---
Demographics + + + | Address | [address] | | | [place] [address] | + + + | Home Phone | | + + + | Preferred Language | Unknown | + + + | Marital Status | | + + + | Mormon Affiliation | 1001 | + + + | Race | Unknown | + + + | Ethnic Group | Unknown | + + + Author + + + | Author | [facility] | | | and Brantana | + + + | Organization | [facility] | | | and Brantana [...] [place], [place] | | | | | [address] | | + + + + + | Tiffanie Chisholm | ECON | [address] | | | | | [place], [place] | | | | | [address] | | + + + + + Care Team Providers + +------+ + | Care Frame Changer Name | Role | Phone | + +------+ + | Owen Swartz MD | PCP | | + +------+ + Encounter Details +--------+ + + + + | Date | Type | Department | Care Team | Description | +--------+ + + + + | 03/23/ | Abstract | [facility] | Bert Linder, | | | 2016 | | [address] | MD [address] | | | | | [place] | [place] | | | | | [address] | [address] | | | | | [phone] | | | +--------+ + + + [...] | | | | | [place] [address] | | | | | | [phone] | | | | | | | | +--------+---------+ + + + | 07/04/ | Office | Urology | Bert Linder, | | | 2019 | Visit | | MD Joy PERSON | | | | | | [place] | | | | | | [address] | | | | | | | | +--------+---------+ + + + documented as of this encounter Procedures + +--------+ + + + | Procedure Name | Priori | Date/Time | Associated Diagnosis | Comments | | | ty | | | | + +--------+ + + + | EXTERNAL LAB: KESHIA | Routin | 03/18/2016 | | Results for this | | | e | | | procedure are in the | | | | | | results section. | + +--------+ + + + | EXTERNAL LAB: | Routin | 03/18/2016 | | Results for this | | GLUCOSE | e | | | procedure are in the | | | | | | results section. | + +--------+ + + + | EXTERNAL LAB: | Routin | 03/18/2016 | | Results for this | | CALCIUM | e | | | procedure are in the | | | | | | results section. | + +--------+ + + + | EXTERNAL LAB: CARBON | Routin | 03/18/2016 | | Results for this | | DIOXIDE | e | | | procedure are in the | | | | | | results section. | + +--------+ + + + | EXTERNAL LAB: | Routin | 03/18/2016 | | Results for this | | CHLORIDE | e | | | procedure are in the | | | | | | results section. | + +--------+ + + + | EXTERNAL LAB: | Routin | 03/18/2016 | | Results for this | | POTASSIUM | e | | | procedure are in the | | | | | | results section. | + +--------+ + + + | EXTERNAL LAB: SODIUM | Routin | 03/18/2016 | | Results for this | | | e | | | procedure are in the | | | | | | results section. | + +--------+ + + + | EXTERNAL LAB: EGFR | Routin | 03/18/2016 | | Results for this | | | e | | | procedure are in the | | | | | | results section. | + +--------+ + + + | EXTERNAL LAB: | Routin | 03/18/2016 | | Results for this | | CREATININE | e | | | procedure are in the | | | | | | results section. | + +--------+ + + + | COMPREHENSIVE | Routin | 03/18/2016 | | Results for this | | METABOLIC PANEL | e | | | procedure are in the | | | | | | results section. | + +--------+ + + + documented in this encounter Results Comprehensive Metabolic Panel (03/18/2016) + +-------+ + + + | Component | Value | Ref Range | Performed | Pathologist | | | | | At | Signature | + +-------+ + + + | Anion Gap | 16 | mmol/L | | | + +-------+ + + + | BUN/Creatin | 33.3 | | | | | ine Ratio | | | | | + +-------+ + + + + + | Specimen | + + | Blood specimen | | (specimen) | + + External Lab: BUN (03/18/2016) + +-------+ + + + | Component | Value | Ref Range | Performed | Pathologist | | | | | At | Signature | + +-------+ + + + | BUN, | 17 | 6 - 23 | | | | External | | | | | + +-------+ + + + External Lab: Glucose (03/18/2016) + +-------+ + + + | Component | Value | Ref Range | Performed | Pathologist | | | | | At | Signature | + +-------+ + + + | Glucose, | 92 | 70 - 100 | | | | External | | | | | + +-------+ + + + External Lab: Calcium (03/18/2016) + +-------+ + + + | Component | Value | Ref Range | Performed | Pathologist | | | | | At | Signature | + +-------+ + + + | Calcium, | 8.9 | 8.4 - 10.2 | | | | External | | | | | + +-------+ + + + External Lab: Carbon Dioxide (03/18/2016) + +-------+ + + + | Component | Value | Ref Range | Performed | Pathologist | | | | | At | Signature | + +-------+ + + + | Carbon | 28 | 19 - 31 | | | | Dioxide, | | | | | | External | | | | | + +-------+ + + + External Lab: Chloride (03/18/2016) + +-------+ + + + | Component | Value | Ref Range | Performed | Pathologist | | | | | At | Signature | + +-------+ + + + | Chloride, | 102 | 95 - 112 | | | | External | | | | | + +-------+ + + + External Lab: Potassium (03/18/2016) + +-------+ + + + | Component | Value | Ref Range | Performed | Pathologist | | | | | At | Signature | + +-------+ + + + | Potassium, | 3.9 | 3.6 - 5.1 | | | | External | | | | | + +-------+ + + + External Lab: Sodium (03/18/2016) + +-------+ + + + | Component | Value | Ref Range | Performed | Pathologist | | | | | At | Signature | + +-------+ + + + | Sodium, | 142 | 135 - 145 | | | | External | | | | | + +-------+ + + + External Lab: eGFR (03/18/2016) + +-------+ + + + | Component | Value | Ref Range | Performed | Pathologist | | | | | At | Signature | + +-------+ + + + | eGFR, | >120 | 60 | | | | External | | | | | + +-------+ + + + + + | Specimen | + + | Blood specimen | | (specimen) | + + External Lab: Creatinine (03/18/2016) + + + + + + | Component | Value | Ref Range | Performed | Pathologist | | | | | At | Signature | + + + + + + | Creatinine, | 0.51 (A) | 0.7 - 1.25 | | | | External | | | | | + + + + + + + + | Specimen | + + | Blood specimen | | (specimen) | + + documented in this encounter Visit Diagnoses Not on filedocumented in this encounter"
--- OUTSIDE RECORDS SUMMARY | ~2019-03-08 | XMS | Encounter Summary ---
Demographics + + + | Address | [address] | | | [place] [address] | + + + | Home Phone | | + + + | Preferred Language | Unknown | + + + | Marital Status | | + + + | Restorationist Affiliation | Unknown | + + + | Race | White | + + + | Ethnic Group | Not or | + + + Author + + + | Author | [facility] | + + + | Organization | [facility] | + + + | Address | Unknown | + + + | Phone | Unavailable | + + + Support + + +---------+ + | Name | Relationship | Address | Phone | + + +---------+ + | Nahomy Briana | ECON | Unknown | | + + +---------+ + Care Team Providers + +------+ + | Care Financial Coordinator Name | Role | Phone | [...] - Physical | | 2012 | | [facility] & | MD Valentin | Therapy (scheduling) | | | | Healing [address] | | | | | | [place] Mailcode: | | | | | | [facility] | | | | | | Health and Healing, | | | | | | [facility] | | | | | | Floor [place], [place] | | | | | | [address] | | | | | | [phone] | | | +--------+ + + + [...]
--- OUTSIDE RECORDS SUMMARY | ~2019-03-08 | XMS | Encounter Summary ---
Demographics + + + | Address | [address] | | | [place] [address] | + + + | Home Phone [...] Team Providers + +------+ + | Care Transport Analyst Name | Role | Phone | + [...] | | | | | Procedures | [place], [place] | Mailcode: | | | | | MRI BRAIN | [address] | [address] | | | | | [facility] CONTRAST | | [place] | | | | | | | Research | | | | | | | Center | | | | | | | [place], [place] | | | | | | | [address] | | | | | | | Phone: | | | | | | | [phone] | | | | | | | Fax: | | | | | | | [phone] | +--------+--------+ + + + + Reason [...] Leukodystrophy | | 2011 | Visit | [facility] & | MD Valentin | (Primary Dx) | | | | [address]aling [address] | | | | | | [place] [address] Mailcode: | | | | | | [id number] | | | | | | Health and Healing, | | | | | | Building | | | | | | Floor [place], [place] | | | | | | [address] | | | | | | [phone] | | | +--------+---------+ + + + [...] in addition to cataracts presenting to the [facility] Neuromuscular division today for follow up. [...] for hammertoes have helped with balance. 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 Outside [facility] NCS/EMG showed a chronic sensorimotor neuropathy [...] tid for neuropathic pain. -Repeat MRI brain [facility] I spent 45 minutes with the patient. [...]
--- OUTSIDE RECORDS SUMMARY | ~2019-03-08 | XMS | Encounter Summary ---
Demographics + + + | Address | [address] | | | [place] [address] | + + + | Home Phone [...] + | Author | [facility] | | | and Brantana | + + + | Organization | [facility] | | | and Brantana [...] [place], [place] | | | | | [address] | | + + + + + | Tiffanie Chisholm | ECON | [address] | | | | | [place], [place] | | | | | [address] | | + + + + + Care Team Providers + +------+ + | Care Team Otr Truck Driver Name | Role | Phone [...] + + | 12/15/ | Clinical | [facility] | Bert Linder, | Urge incontinence | | 2018 | Support | [address] | [address] | (Primary Dx) | | | | [place] | [place] | | | | | [address] | [address] | | | | | [phone] | | | +--------+ + + + [...] | | | | | [place], [place] [address] | | | | | | [phone] | | | | | | | | +--------+---------+ + + + | 07/04/ | Office | Urology | Bert Linder, | | | 2019 | Visit | | MD Joy [address]ERSON | | | | | | [place] | | | | | | [address] | | | | | | | | +--------+---------+ + + + documented as of this encounter Visit Diagnoses + + | Diagnosis | + + | Urge incontinence - Primary | + + documented in this encounter"
--- OUTSIDE RECORDS SUMMARY | ~2019-03-08 | XMS | Encounter Summary ---
Demographics + + + | Address | [address] | | | [place] [address] | + + + | Home Phone [...] + + + | Author | [facility] | + + + | Organization | [facility] | + + + | Address | Unknown | + + + | Phone | Unavailable | + + + Support + + +---------+ + | Name | Relationship | Address | Phone | + + +---------+ + | Nahomy Briana | ECON | Unknown | | + + +---------+ + Care Team Providers + +------+ + | Care Benefits Director Name | Role | Phone | [...] [address] | | | | | | [place], [place] | | | | | | [address] | | | +--------+ + + + [...]
--- OUTSIDE RECORDS SUMMARY | ~2019-03-08 | XMS | Encounter Summary ---
Demographics + + + | Address | [address] | | | [place] [address] | + + + | Home Phone | | + + + | Preferred Language | Unknown | + + + | Marital Status | | + + + | Congregation Affiliation | Unknown | + + + [...] Team Providers + +------+ + | Care Rubber Insulator Name | Role | Phone | + [...] Mailcode: | | | | | hy ([facility]) | [place], [place] | [facility] | | | | | Procedures | [address] | for Health | | | | | EMG/NERVE | | and Healing, | | | | | CONDUCTION | | Building [address], | | | | | STUDIES - | | 8th Floor | | | | | NEUROLOGY | | [facility] [place] | | | | | | | [address] | | | | | | | Phone: | | | | | | | [phone] | | | | | | | Fax: | | | | | | | [phone] | +--------+--------+ + + + + Encounter Details +--------+ + + + + | Date | Type | Department | Care Team | Description | +--------+ + + + + | 07/16/ | Hospital | Neurophysiology | Raoul Davis, | | | 2010 | Encounter | EMG at [facility] 8th Floor | ,PhD [place], | | | | | [address] | [place] [address] | | | | | Mailcode: [facility] | Mervin Razo | | | | | [facility] | [facility] [place] [address] | | | | | and [place], | [phone] | | | | | | | | | | | Floor [place], [place] | Carlie Brenner | | | | | [address] | [place], [place] | | | | | [phone] | [address] | | | | | | [phone] | | +--------+ + + + + [...]
--- OUTSIDE RECORDS SUMMARY | ~2019-03-08 | XMS | Encounter Summary ---
Demographics + + + | Address | [address] | | | [place] [address] | + + + | Home Phone | | + + + | Preferred Language | Unknown | + + + | Marital Status | | + + + | Synagogue Affiliation | 1001 | + + + | Race | Unknown | + + + | Ethnic Group | Unknown | + + + Author + + + | Author | [facility] | | | and Brantana | + + + | Organization | [facility] | | | and Brantana [...] [place], [place] | | | | | [address] | | + + + + + | Tiffanie Chisholm | ECON | [address] | | | | | [place], [place] | | | | | [address] | | + + + + + Care Team Providers + +------+ + | Care Delivery Aide Name | Role | Phone | + [...] | | [facility] | I, Blending Tank Tender Helper | | | | | [address] | | | | | | [place] | | | | | | [address] | | | | | | [phone] | | | +--------+ + + + [...] | | | | | [place] [address] | | | | | | [phone] | | | | | | | | +--------+---------+ + + + | 07/04/ | Office | Urology | Bert Linder, | | | 2020 | Visit | | MD Joy [address]ERSON | | | | | | [place] | | | | | | [address] | | | | | | | [...] + | [address] [facility] | [address] | [place] | [phone] | | [facility] | | [address] | | | - LABORATORY | | [...] ST. | [address] | [place] | [phone] | | [facility] | | [address] | | | - LABORATORY | | | | + + + + + documented in this encounter Visit Diagnoses + + | Diagnosis | + + | Pyuria Other nonspecific finding on examination of urine | + + documented in this encounter"
--- OUTSIDE RECORDS SUMMARY | ~2019-03-08 | XMS | Encounter Summary ---
Demographics + + + | Address | [address] | | | [place] [address] | + + + | Home Phone [...] Team Providers + +------+ + | Care Photovoltaic Panel Installer Name | Role | Phone | [...] [address] | | | | | | [place], [place] | | | | | | [address] | | | +--------+ + + + [...]
--- OUTSIDE RECORDS SUMMARY | ~2019-03-08 | XMS | Encounter Summary ---
Demographics + + + | Address | [address] | | | [place] [address] | + + + | Home Phone | | + + + | Preferred Language | Unknown | + + + | Marital Status | | + + + | Sikh Affiliation | 1001 | + + + | Race | Unknown | + + + | Ethnic Group | Unknown | + + + Author + + + | Author | [facility] | | | and Brantana | + + + | Organization | [facility] | | | and Brantana [...] [place], [place] | | | | | [address] | | + + + + + | Tiffanie Chisholm | ECON | [address] | | | | | [place], [place] | | | | | [address] | | + + + + + Care Team Providers + +------+ + | Care Oracle Architect Name | Role | Phone | + [...] Support | [address] | [address] | (Primary Dx) | | | | [place] | [place] | | | | | [address] | [address] | | | | | [phone] | | | +--------+ + + + [...] | | | | | [place], [place] [address] | | | | | | [phone] | | | | | | | | +--------+---------+ + + + | 07/04/ | Office | Urology | Bert Linder, | | 2019 | Visit | | MD Joy PERSON | | | | | | [place] | | | | | | [address] | | | | | | | | +--------+---------+ + + + documented as of this encounter Visit Diagnoses + + | Diagnosis | + + | Urge incontinence - Primary | + + documented in this encounter"
--- OUTSIDE RECORDS SUMMARY | ~2019-03-08 | XMS | Encounter Summary ---
Demographics + + + | Address | [address] | | | [place] [address] | + + + | Home Phone [...] | Author | [facility] | | | and Brantana | + + + | Organization | [facility] | | | and [...] [place], [place] | | | | | [address] | | + + + + + | Tiffanie Chisholm | ECON | [address] | | | | | [place], [place] | | | | | [address] | | + + + + + Care Team Providers + +------+ + | Care Director Of Business Continuity Name | Role | Phone | + +------+ + | Owen Swartz MD | PCP | | + +------+ + Encounter Details +--------+ + + + + | Date | Type | Department | Care Team | Description | +--------+ + + + + | 09/01/ | Orders Only | [facility] | Bert Linder, | Urge incontinence | | 2018 | | [address] | [address] | (Primary Dx); | | | | [place] | [place] | Neurogenic bladder | | | | [address] | [address] | | | | | [phone] | | | +--------+ + + + [...] | | | | | [place] [address] | | | | | | [phone] | | | | | | | | +--------+---------+ + + + | 07/04/ | Office | Urology | Bert Linder, | | | 2019 | Visit | | MD Joy PERSON | | | | | | [place] | | | | | | [address] | | | | | | | | +--------+---------+ + + + + + +--------+ + + | Name | Type | Priori | Associated Diagnoses | Order Schedule | | | | ty | | | + + +--------+ + + | Urinalysis, | Lab | Routin | Urge incontinence | Expected: 09/12/2017 | | Microscopic Only, | | e | Neurogenic bladder | (Approximate), | | with Culture if | | | | Expires: 09/01/2018 | | Indicated | | | | | + + +--------+ + + | Medical Cytology | Pathology | Routin | Urge incontinence | Expected: 09/12/2017 | | | and | e | Neurogenic bladder | (Approximate), | | | Cytology | | | Expires: 09/01/2018 | + + +--------+ + + documented as of this encounter Visit Diagnoses + + | Diagnosis | + + | Urge incontinence - Primary | + + | Neurogenic bladder Neurogenic bladder, NOS | + + documented in this encounter"
--- OUTSIDE RECORDS SUMMARY | ~2019-03-08 | XMS | Encounter Summary ---
Demographics + + + | Address | [address] | | | [place] [address] | + + + | Home Phone | | + + + | Preferred Language | Unknown | + + + | Marital Status | | + + + | Christian Affiliation | 1001 | + + + | Race | Unknown | + + + | Ethnic Group | Unknown | + + + Author + + + | Author | [facility] | | | and Brantana | + + + | Organization | [facility] | | | and Brantana [...] [place], [place] | | | | | [address] | | + + + + + | Tiffanie Chisholm | ECON | [address] | | | | | [place], [place] | | | | | [address] | | + + + + + Care Team Providers + +------+ + | Care Italian Lecturer Name | Role | Phone | + [...] + + | 06/24/ | Clinical | [facility] | Bert Linder, | Urge incontinence | | 2017 | Support | [address] | [address] | (Primary Dx); | | | | [place] | [place] | Neurogenic bladder | | | | [address] | [address] | | | | | [phone] | | | +--------+ + + + [...] her ). She reports she's seeing a personal injury paralegal for strength training of her upper body [...] | | | | | [place], [place] [address] | | | | | | [phone] | | | | | | | | +--------+---------+ + + + | 07/04/ | Office | Urology | Bert Linder, | | | 2019 | Visit | | MD Joy PERSON | | | | | | [place] | | | | | | [address] | | | | | | | | +--------+---------+ + + + documented as of this encounter Visit Diagnoses + + | Diagnosis | + + | Urge incontinence - Primary | + + | Neurogenic bladder Neurogenic bladder, NOS | + + documented in this encounter
--- OUTSIDE RECORDS SUMMARY | ~2019-03-08 | XMS | Encounter Summary ---
Demographics + + + | Address | [address] | | | [place] [address] | + + + | Home Phone | | + + + | Preferred Language | Unknown | + + + | Marital Status | | + + + | Pentecostal Affiliation | 1001 | + + + | Race | Unknown | + + + | Ethnic Group | Unknown | + + + Author + + + | Author | [facility] | | | and Brantana | + + + | Organization | [facility] | | | and [...] [place], [place] | | | | | [address] | | + + + + + | Tiffanie Chisholm | ECON | [address] | | | | | [place], [place] | | | | | [address] | | + + + + + Care Team Providers + +------+ + | Care Music Education Director Name | Role | Phone | [...] + + | 06/10/ | Clinical | [facility] | Bert Linder, | Urge incontinence | | 2016 | Support | [address] | [address] | (Primary Dx) | | | | [place] | [place] | | | | | [address] | [address] | | | | | [phone] | | | +--------+ + + + [...] reviewed with patient. See flow sheet in [facility]. PERCUTANEOUS TIBIAL NERVE STIMULATION FLOW SHEET [...] | | | | | [place], [place] [address] | | | | | | [phone] | | | | | | | | +--------+---------+ + + + | 07/04/ | Office | Urology | Bert Linder, | | | 2019 | Visit | | MD Joy SINHA | | | | | | [place] | | | | | | [address] | | | | | | | | +--------+---------+ + + + documented as of this encounter Visit Diagnoses + + | Diagnosis | + + | Urge incontinence - Primary | + + documented in this encounter"
--- OUTSIDE RECORDS SUMMARY | ~2019-03-08 | XMS | Encounter Summary ---
Demographics + + + | Address | [address] | | | [place] [address] | + + + | Home Phone | | + + + | Preferred Language | Unknown | + + + | Marital Status | | + + + | Restoration Affiliation | 1001 | + + + | Race | Unknown | + + + | Ethnic Group | Unknown | + + + Author + + + | Author | [facility] | | | and Brantana | + + + | Organization | [facility] | | | and [...] [place], [place] | | | | | [address] | | + + + + + | Tiffanie Chisholm | ECON | [address] | | | | | [place], [place] | | | | | [address] | | + + + + + Care Team Providers + +------+ + | Care Waste Salvager Name | Role | Phone | + [...] [place] | | | | | [address] | [address] | | | | | [phone] | | | +--------+ + + + [...] | | | | | [place] [address] | | | | | | [phone] | | | | | | | | +--------+---------+ + + + | 07/04/ | Office | Urology | Bert Linder, | | | 2019 | Visit | | MD Joy PERSON | | | | | | [place] | | | | | | [address] | | | | | | | | +--------+---------+ + + + documented as of this encounter Visit Diagnoses Not on filedocumented in this encounter"
--- OUTSIDE RECORDS SUMMARY | ~2019-03-08 | XMS | Encounter Summary ---
Demographics + + + | Address | [address] | | | [place] [address] | + + + | Home Phone [...] + | Author | [facility] | | | and Brantana | + + + | Organization | [facility] | | | and [...] [place], [place] | | | | | [address] | | + + + + + | Tiffanie Chisholm | ECON | [address] | | | | | [place], [place] | | | | | [address] | | + + + + + Care Team Providers + +------+ + | Care Cytology Manager Name | Role | Phone | + +------+ + | Owen Swartz MD | PCP | | + +------+ + Encounter Details +--------+ + + + + | Date | Type | Department | Care Team | Description | +--------+ + + + + | 04/27/ | Hospital | [facility] | Bert Linder, | Neurogenic bladder; | | 2018 | Encounter | [facility] | [address] [facility] | Leukodystrophy | | | | [address] [place] | [place], [place] | | | | | [place], [place] | [address] | | | | | [address] | | | | | | [phone] | Michelle Burch, | | | | [...] | | | | | [place] [address] | | | | | | [phone] | | | | | | | | +--------+---------+ + + + | 07/04/ | Office | Urology | Bert Linder, | | | 2019 | Visit | | [address] | | | | | | [place] | | | | | | [address] | | | | | | | [...]
--- OUTSIDE RECORDS SUMMARY | ~2019-03-08 | XMS | Encounter Summary ---
Demographics + + + | Address | [address] | | | [place] [address] | + + + | Home Phone [...] Team Providers + +------+ + | Care Regulatory Affairs Assistant Name | Role | Phone | [...] | | | | MRI SPINE | [place], [place] | Mailcode: | | | | | THORACIC WWO | [address] | [id number] | | | | | CONT | | [place] | | | | | | | Research | | | | | | | Center | | | | | | | [place], [place] | | | | | | | [address] | | | | | | | Phone: | | | | | | | [phone] | | | | | | | Fax: | | | | | | | [phone] | +--------+--------+ + + + + Diagnostic [...] | | | | MRI SPINE | [place], [place] | Mailcode: | | | | | CERVICAL WWO | [address] | [id number] | | | | | CONTR | | [facility] | | | | | | | Research | | | | | | | [place] | | | | | | | [place], [place] | | | | | | | [address] | | | | | | | Phone: | | | | | | | [phone] | | | | | | | Fax: | | | | | | | [phone] | +--------+--------+ + + + + Consultation [...] | | | | | OPHTHALMOLOG | [place], [place] | [address] | | | | | Y | [address] | for Health | | | | | | | and Healing, | | | | | | | Building [address], | | | | | | | 11th Floor | | | | | | | [place], [place] | | | | | | | [address] | | | | | | | Phone: | | | | | | | [phone] | | | | | | | Fax: | | | | | | | [phone] | +--------+--------+ + + + + Reason [...] (Primary | | 2012 | Visit | [facility] & | MD Valentin | Dx) | | | | [address] | | | | | | [address] Camacho Mailcode: | | | | | | [facility] | | | | | | Health and Healing, | | | | | | [facility] | | | | | | Floor [place], [place] | | | | | | [address] | | | | | | [phone] | | | +--------+---------+ + + + [...] in addition to cataracts presenting to the [facility] Neuromuscular division today for follow up. [...] Sh e continues to have diplopia. 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 Outside [facility] NCS/EMG showed a chronic sensorimotor neuropathy [...] --Repeat MRI cervical and thoracic spine at [facility] - Follow-up in Neuromuscular clinic in 1 year or sooner prn. In the meantime, I will send a pplication for [facility] undiagnosed disease program in [place] after I have MRI spine results. She [...]
--- OUTSIDE RECORDS SUMMARY | ~2019-03-08 | XMS | Encounter Summary ---
Demographics + + + | Address | [address] | | | [place] [address] | + + + | Home Phone [...] Providers + +------+ + | Care Sales Development Associate Name | Role | Phone | + [...] Health orders | | 2014 | | [facility] & | MD Valentin | | | | | [address] | | | | | | Terry Janice Mailcode: | | | | | | [facility] | | | | | | Health and [facility], | | | | | | [facility] | | | | | | [place], [place] | | | | | | [address] | | | | | | [phone] | | | +--------+ + + + [...]
--- OUTSIDE RECORDS SUMMARY | ~2019-03-08 | XMS | Encounter Summary ---
Demographics + + + | Address | [address] | | | [place] [address] | + + + | Home Phone [...] Team Providers + +------+ + | Care Salesperson Hosiery Name | Role | Phone | + [...] Health Initial | | 2015 | | [facility] & | MD Valentin | Order | | | | [address]aling [address] | | | | | | Terry Camacho Mailcode: | | | | | | [facility] | | | | | | Health and Healing, | | | | | | Building | | | | | | Floor [place], [place] | | | | | | [address] | | | | | | [phone] | | | +--------+ + + + [...]
--- OUTSIDE RECORDS SUMMARY | ~2019-03-08 | XMS | Encounter Summary ---
Demographics + + + | Address | [address] | | | [place] [address] | + + + | Home Phone [...] | [facility] | | | and [place] | + + + | Organization | [facility] | | | and [...] [place], [place] | | | | | [address] | | + + + + + | Tiffanie Chisholm | ECON | [address] | | | | | [place], [place] | | | | | [address] | | + + + + + Care Team Providers + +------+ + | Care Traffic Rate Clerk Name | Role | Phone | [...] | +--------+ + + + + | 08/24/ | Clinical | [facility] | Bert Linder, | Urge incontinence | | 2017 | Support | [address] | [address] | (Primary Dx) | | | | [place] | [place] | | | | | [address] | [address] | | | | | [phone] | | | +--------+ + + + [...] this encounter Progress Delores Benítez RN - 08/24/2016 10:30 AM PDT Percutaneous tibial nerve stimulation (PTNS) [...] | | | | | [place] [address] | | | | | | [phone] | | | | | | | | +--------+---------+ + + + | 07/04/ | Office | Urology | Bert Linder, | | 2019 | Visit | | MD Joy PERSON | | | | | | [place] | | | | | | [address] | | | | | | | | +--------+---------+ + + + documented as of this encounter Visit Diagnoses + + | Diagnosis | + + | Urge incontinence - Primary | + + documented in this encounter"
--- OUTSIDE RECORDS SUMMARY | ~2019-03-08 | XMS | Encounter Summary ---
Demographics + + + | Address | [address] | | | [place] [address] | + + + | Home Phone [...] | Located [facility] | | | and [place] | + + + | Organization | Located Within [facility] | | | and [...] [place], [place] | | | | | [address] | | + + + + + | Tiffanie Chisholm | ECON | [address] | | | | | [place], [place] | | | | | [address] | | + + + + + Care Team Providers + +------+ + | Care Turntable Operator Name | Role | Phone | [...] [place] | | | | | [address] | [address] | | | | | [phone] | | | +--------+ + + + [...] 05/30/ | Office | Neurology | Negin Capmos | | | 2020 | Visit | | MD Josiah [address] | | | | | | [address] | | | | | | [place] [address] | | | | | | [phone] | | | | | | | | +--------+---------+ + + + | 07/04/ | Office | Urology | Bert Linder, | | | 2019 | Visit | | MD Joy PERSON | | | | | | [place] | | | | | | [address] | | | | | | | | +--------+---------+ + + + documented as of this encounter Procedures + +--------+ + + + | Procedure Name | Priori | Date/Time | Associated Diagnosis | Comments | | | ty | | | | + +--------+ + + + | EXTERNAL LAB: T3 | Routin | 04/08/2017 | | Results for this | | UPTAKE | e | | | procedure are in the | | | | | | results section. | + +--------+ + + + | EXTERNAL LAB: FREE | Routin | 04/08/2017 | | Results for this | | THYROXINE INDEX | e | | | procedure are in the | | | | | | results section. | + +--------+ + + + | EXTERNAL LAB: KESHIA | Routin | 04/08/2017 | | Results for this | | | e | | | procedure are in the | | | | | | results section. | + +--------+ + + + | EXTERNAL LAB: KATHERINE | Routin | 04/08/2017 | | Results for this | | | e | | | procedure are in the | | | | | | results section. | + +--------+ + + + | EXTERNAL LAB: CHRISTOPHER | Flynn | 04/08/2017 | | Results for this | | | e | | | procedure are in the | | | | | | results section. | + +--------+ + + + | EXTERNAL LAB: | Routin | 04/08/2017 | | Results for this | | ALKALINE PHOSPHATASE | e | | | procedure are in the | | | | | | results section. | + +--------+ + + + | EXTERNAL LAB: | Routin | 04/08/2017 | | Results for this | | BILIRUBIN, TOTAL | e | | | procedure are in the | | | | | | results section. | + +--------+ + + + | EXTERNAL LAB: | Routin | 04/08/2017 | | Results for this | | ALBUMIN | e | | | procedure are in the | | | | | | results section. | + +--------+ + + + | EXTERNAL LAB: | Routin | 04/08/2017 | | Results for this | | PROTEIN, TOTAL | e | | | procedure are in the | | | | | | results section. | + +--------+ + + + | EXTERNAL LAB: | Routin | 04/08/2017 | | Results for this | | CALCIUM | e | | | procedure are in the | | | | | | results section. | + +--------+ + + + | EXTERNAL LAB: CARBON | Routin | 04/08/2017 | | Results for this | | DIOXIDE | e | | | procedure are in the | | | | | | results section. | + +--------+ + + + | EXTERNAL LAB: | Routin | 04/08/2017 | | Results for this | | CHLORIDE | e | | | procedure are in the | | | | | | results section. | + +--------+ + + + | EXTERNAL LAB: | Routin | 04/08/2017 | | Results for this | | POTASSIUM | e | | | procedure are in the | | | | | | results section. | + +--------+ + + + | EXTERNAL LAB: SODIUM | Routin | 04/08/2017 | | Results for this | | | e | | | procedure are in the | | | | | | results section. | + +--------+ + + + | EXTERNAL LAB: GREGORIA | Routin | 04/08/2017 | | Results for this | | | e | | | procedure are in the | | | | | | results section. | + +--------+ + + + | EXTERNAL LAB: LIZETTE | Routin | 04/08/2017 | | Results for this | | | e | | | procedure are in the | | | | | | results section. | + +--------+ + + + | EXTERNAL LAB: | Routin | 04/08/2017 | | Results for this | | TRIGLYCERIDES | e | | | procedure are in the | | | | | | results section. | + +--------+ + + + | EXTERNAL LAB: | Routin | 04/08/2017 | | Results for this | | CHOLESTEROL, HDL | e | | | procedure are in the | | | | | | results section. | + +--------+ + + + | EXTERNAL LAB: | Routin | 04/08/2017 | | Results for this | | CHOLESTEROL, TOTAL | e | | | procedure are in the | | | | | | results section. | + +--------+ + + + | EXTERNAL LAB: | Routin | 04/08/2017 | | Results for this | | CHOLESTEROL, LDL | e | | | procedure are in the | | | | | | results section. | + +--------+ + + + | EXTERNAL LAB: EGFR | Routin | 04/08/2017 | | Results for this | | | e | | | procedure are in the | | | | | | results section. | + +--------+ + + + | EXTERNAL LAB: | Routin | 04/08/2017 | | Results for this | | CREATININE | e | | | procedure are in the | | | | | | results section. | + +--------+ + + + | VITAMIN B12+FOLATE | Routin | 04/08/2017 | | Results for this | | | e | | | procedure are in the | | | | | | results section. | + +--------+ + + + | THYROGLOBULIN | Routin | 04/08/2017 | | Results for this | | | e | | | procedure are in the | | | | | | results section. | + +--------+ + + + | LIPID PANEL | Routin | 04/08/2017 | | Results for this | | | e | | | procedure are in the | | | | | | results section. | + +--------+ + + + | CBC WITH | Routin | 04/08/2017 | | Results for this | | DIFFERENTIAL | e | | | procedure are in the | | | | | | results section. | + +--------+ + + + | COMPREHENSIVE | Routin | 04/08/2017 | | Results for this | | METABOLIC PANEL | e | | | procedure are in the | | | | | | results section. | + +--------+ + + + documented in this encounter Results Thyroglobulin (04/08/2017) + +-------+ + + + | Component | Value | Ref Range | Performed | Pathologist | | | | | At | Signature | + +-------+ + + + | THYROGLOBUL | <0.9 | | | | | IN AB | | | | | + +-------+ + + + | Thyroglobul | <0.1 | | | | | in | | | | | + +-------+ + + + + + | Specimen | + + | Blood | + + CBC with Differential (04/08/2017) + +-------+ + + + | Component | Value | Ref Range | Performed | Pathologist | | | | | At | Signature | + +-------+ + + + | MCH | 29.0 | 26.0 - 33.0 pg | | | + +-------+ + + + | MCHC | 33.0 | 30.0 - 36.0 % | | | + +-------+ + + + | % Basophils | 0.9 | 0.0 - 1.0 % | | | + +-------+ + + + + + | Specimen | + + | Blood | + + Vitamin B-12 and Folate (04/08/2017) + + + + + + | Component | Value | Ref Range | Performed | Pathologist | | | | | At | Signature | + + + + + + | VITAMIN | 1,843 (A) | 232 - 1,245 | | | | B-12 | | pg/mL | | | + + + + + + | FOLATE | >20.00 | 4.5 - 99,999 | | | | INTERPRETAT | | ng/ml | | | | ION | | | | | + + + + + + + + | Specimen | + + | Blood | + + Comprehensive Metabolic Panel (04/08/2017) + + + + + + | Component | Value | Ref Range | Performed | Pathologist | | | | | At | Signature | + + + + + + | Anion Gap | 17 | 7 - 21 mmol/L | | | + + + + + + | Bun/Creatin | 31.1 (A) | 6 - 28.6 Ratio | | | | ine | | | | | + + + + + + | Globulin | 3.2 | 1.8 - 3.5 g/dl | | | + + + + + + | Albumin/Asmita | 1.2 | 1.1 - 2.4 Ratio | | | | bulin Ratio | | | | | + + + + + + + + | Specimen | + + | Blood | + + Lipid Panel (04/08/2017) + +---------+ + + + | Component | Value | Ref Range | Performed | Pathologist | | | | | At | Signature | + +---------+ + + + | CHOL/HDL | 4.1 | 0 - 4.44 Ratio | | | | RISK | | | | | + +---------+ + + + | Non HDL | 164 (A) | 0 - 130 mg/dL | | | | Chol. | | | | | | (LDL+VLDL) | | | | | + +---------+ + + + + + | Specimen | + + | Blood | + + External Lab: T3 Uptake (04/08/2017) + +-------+ + + + | Component | Value | Ref Range | Performed | Pathologist | | | | | At | Signature | + +-------+ + + + | T3 Uptake, | 2.71 | 2.5 - 4.3 | EXTERNAL | | | External | | | LAB | | + +-------+ + + + + +---------+ + + | Performing | Address | City/State/Zipcode | Phone Number | | Organization | | | | + +---------+ + + | EXTERNAL LAB | | | | + +---------+ + + External Lab: Free Thyroxine Index (04/08/2017) + + + + + + | Component | Value | Ref Range | Performed | Pathologist | | | | | At | Signature | + + + + + + | Free | 1.84 (A) | 0.71 - 1.7 | EXTERNAL | | | Thyroxine | | | LAB | | | Index, | | | | | | External | | | | | + + + + + + + +---------+ + + | Performing | Address | City/State/Zipcode | Phone Number | | Organization | | | | + +---------+ + + | EXTERNAL LAB | | | | + +---------+ + + External Lab: BUN (04/08/2017) + +-------+ + + + | Component | Value | Ref Range | Performed | Pathologist | | | | | At | Signature | + +-------+ + + + | BUN, | 14 | 6 - 23 | EXTERNAL | | | External | | | LAB | | + +-------+ + + + + +---------+ + + | Performing | Address | City/State/Zipcode | Phone Number | | Organization | | | | + +---------+ + + | EXTERNAL LAB | | | | + +---------+ + + External Lab: ALT (04/08/2017) + +-------+ + + + | Component | Value | Ref Range | Performed | Pathologist | | | | | At | Signature | + +-------+ + + + | ALT, | 13 | 7 - 52 | EXTERNAL | | | External | | | LAB | | + +-------+ + + + + +---------+ + + | Performing | Address | City/State/Zipcode | Phone Number | | Organization | | | | + +---------+ + + | EXTERNAL LAB | | | | + +---------+ + + External Lab: AST (04/08/2017) + +-------+ + + + | Component | Value | Ref Range | Performed | Pathologist | | | | | At | Signature | + +-------+ + + + | AST, | 16 | 13 - 39 | EXTERNAL | | | External | | | LAB | | + +-------+ + + + + +---------+ + + | Performing | Address | City/State/Zipcode | Phone Number | | Organization | | | | + +---------+ + + | EXTERNAL LAB | | | | + +---------+ + + External Lab: Alkaline Phosphatase (04/08/2017) + +-------+ + + + | Component | Value | Ref Range | Performed | Pathologist | | | | | At | Signature | + +-------+ + + + | ALP, | 79 | 31 - 130 | EXTERNAL | | | External | | | LAB | | + +-------+ + + + + +---------+ + + | Performing | Address | City/State/Zipcode | Phone Number | | Organization | | | | + +---------+ + + | EXTERNAL LAB | | | | + +---------+ + + External Lab: Bilirubin, Total (04/08/2017) + +-------+ + + + | Component | Value | Ref Range | Performed | Pathologist | | | | | At | Signature | + +-------+ + + + | Bilirubin, | 0.4 | 0 - 1.2 | EXTERNAL | | | Total, | | | LAB | | | External | | | | | + +-------+ + + + + +---------+ + + | Performing | Address | City/State/Zipcode | Phone Number | | Organization | | | | + +---------+ + + | EXTERNAL LAB | | | | + +---------+ + + External Lab: Albumin (04/08/2017) + +-------+ + + + | Component | Value | Ref Range | Performed | Pathologist | | | | | At | Signature | + +-------+ + + + | Albumin, | 3.8 | 3.5 - 5 | EXTERNAL | | | External | | | LAB | | + +-------+ + + + + +---------+ + + | Performing | Address | City/State/Zipcode | Phone Number | | Organization | | | | + +---------+ + + | EXTERNAL LAB | | | | + +---------+ + + External Lab: Protein, Total (04/08/2017) + +-------+ + + + | Component | Value | Ref Range | Performed | Pathologist | | | | | At | Signature | + +-------+ + + + | Protein, | 7.0 | 6 - 8 | EXTERNAL | | | Total, | | | LAB | | | External | | | | | + +-------+ + + + + +---------+ + + | Performing | Address | City/State/Zipcode | Phone Number | | Organization | | | | + +---------+ + + | EXTERNAL LAB | | | | + +---------+ + + External Lab: Calcium (04/08/2017) + +-------+ + + + | Component | Value | Ref Range | Performed | Pathologist | | | | | At | Signature | + +-------+ + + + | Calcium, | 8.7 | 8.4 - 10.2 | EXTERNAL | | | External | | | LAB | | + +-------+ + + + + +---------+ + + | Performing | Address | City/State/Zipcode | Phone Number | | Organization | | | | + +---------+ + + | EXTERNAL LAB | | | | + +---------+ + + External Lab: Carbon Dioxide (04/08/2017) + +-------+ + + + | Component | Value | Ref Range | Performed | Pathologist | | | | | At | Signature | + +-------+ + + + | Carbon | 26 | 19 - 31 | EXTERNAL | [...] + +---------+ + + External Lab: Chloride (04/08/2017) + +-------+ + + + | Component | Value | Ref Range | Performed | Pathologist | | | | | At | Signature | + +-------+ + + + | Chloride, | 106 | 95 - 112 | EXTERNAL | | | External | | | LAB | | + +-------+ + + + + +---------+ + + | Performing | Address | City/State/Zipcode | Phone Number | | Organization | | | | + +---------+ + + | EXTERNAL LAB | | | | + +---------+ + + External Lab: Potassium (04/08/2017) + +-------+ + + + | Component | Value | Ref Range | Performed | Pathologist | | | | | At | Signature | + +-------+ + + + | Potassium, | 3.9 | 3.6 - 5.1 | EXTERNAL | | | External | | | LAB | | + +-------+ + + + + +---------+ + + | Performing | Address | City/State/Zipcode | Phone Number | | Organization | | | | + +---------+ + + | EXTERNAL LAB | | | | + +---------+ + + External Lab: Sodium (04/08/2017) + +---------+ + + + | Component | Value | Ref Range | Performed | Pathologist | | | | | At | Signature | + +---------+ + + + | Sodium, | 145 (A) | 132 - 143 | EXTERNAL | | | External | | | LAB | | + +---------+ + + + + +---------+ + + | Performing | Address | City/State/Zipcode | Phone Number | | Organization | | | | + +---------+ + + | EXTERNAL LAB | | | | + +---------+ + + External Lab: CBC (04/08/2017) + + + + + + | Component | Value | Ref Range | Performed | Pathologist | | | | | At | Signature | + + + + + + | WBC, | 6.5 | 4.5 - 11 | EXTERNAL | | | External | | | LAB | | + + + + + + | HGB, | 13.3 | 12 - 16 | EXTERNAL | | | External | | | LAB | | + + + + + + | HCT, | 39.8 | 35 - 45 | EXTERNAL | | | External | | | LAB | | + + + + + + | PLT, | 232 | 140 - 440 | EXTERNAL | | | External | | | LAB | | + + + + + + | Neutrophils | 70.5 | 39 - 80 | EXTERNAL | | | %, | | | LAB | | | External | | | | | + + + + + + | Lymphocytes | 20.8 (A) | 24 - 44 | EXTERNAL | | | %, | | | LAB | | | External | | | | | + + + + + + | Monocytes | 5.0 | 0 - 12 | EXTERNAL | | | %, External | | | LAB | | + + + + + + | Eosinophils | 2.8 | 0 - 6 | EXTERNAL | | | %, | | | LAB | | | External | | | | | + + + + + + | Neutrophils | 70.5 | 39 - 80 | EXTERNAL | | | , Absolute, | | | LAB | | | External | | | | | + + + + + + | Basophils, | 0.9 | 0 - 2 | EXTERNAL | | | Absolute | | | LAB | | + + + + + + | RBC, | 4.56 | 3.8 - 5.1 | EXTERNAL | | | External | | | LAB | | + + + + + + | MCV, | 87 | 81 - 99 | EXTERNAL | | | External | | | LAB | | + + + + + + | RDW, | 13.8 | 10.5 - 15 | EXTERNAL | | | External | | | LAB | | + + + + + + + +---------+ + + | Performing | Address | City/State/Zipcode | Phone Number | | Organization | | | | + +---------+ + + | EXTERNAL LAB | | | | + +---------+ + + External Lab: TSH (04/08/2017) + +-------+ + + + | Component | Value | Ref Range | Performed | Pathologist | | | | | At | Signature | + +-------+ + + + | TSH, | 0.564 | 0.27 - 4.2 | EXTERNAL | | | External | [...] | + +---------+ + + External Lab: Triglycerides (04/08/2017) + +-------+ + + + | Component | Value | Ref Range | Performed | Pathologist | | | | | At | Signature | + +-------+ + + + | Triglycerid | 71 | 30 - 150 | EXTERNAL | | | es, | | | LAB | | | [...] | + +---------+ + + External Lab: Cholesterol, HDL (04/08/2017) + +-------+ + + + | Component | Value | Ref Range | Performed | Pathologist | | | | | At | Signature | + +-------+ + + + | HDL | 52.4 | 40 - 99,999 | EXTERNAL | | | Cholesterol | | mg/dl | LAB | | | , External | | | | | + +-------+ + + + + + | Specimen | + + | Blood | + + + +---------+ + + | Performing | Address | City/State/Zipcode | Phone Number | | Organization | | | | + +---------+ + + | EXTERNAL LAB | | | | + +---------+ + + External Lab: Cholesterol, Total (04/08/2017) + +---------+ + + + | Component | Value | Ref Range | Performed | Pathologist | | | | | At | Signature | + +---------+ + + + | Cholesterol | 216 (A) | 0 - 200 mg/dl | EXTERNAL | | | , Total, | | | LAB | | | External | | | | | + +---------+ + + + + + | Specimen | + + | Blood | + + + +---------+ + + | Performing | Address | City/State/Zipcode | Phone Number | | Organization | | | | + +---------+ + + | EXTERNAL LAB | | | | + +---------+ + + External Lab: Cholesterol, LDL (04/08/2017) + +---------+ + + + | Component | Value | Ref Range | Performed | Pathologist | | | | | At | Signature | + +---------+ + + + | LDL | 149 (A) | 0 - 100 | EXTERNAL | | | Cholesterol | | | LAB | | | , Direct, | | | | | | External | | | | | + +---------+ + + + + + | Specimen | + + | Blood | + + + +---------+ + + | Performing | Address | City/State/Zipcode | Phone Number | | Organization | | | | + +---------+ + + | EXTERNAL LAB | | | | + +---------+ + + External Lab: eGFR (04/08/2017) + +-------+ + + + | Component | Value | Ref Range | Performed | Pathologist | | | | | At | Signature | + +-------+ + + + | eGFR, | >120 | 60 - 9,999 | EXTERNAL | | | External | [...] + +---------+ + + External Lab: Creatinine (04/08/2017) + + + + + + | Component | Value | Ref Range | Performed | Pathologist | | | | | At | Signature | + + + + + + | Creatinine, | 0.45 (A) | 0.7 - 1.25 | EXTERNAL [...]
--- OUTSIDE RECORDS SUMMARY | ~2019-03-08 | XMS | Encounter Summary ---
Demographics + + + | Address | [address] | | | [place] [address] | + + + | Home Phone | | + + + | Preferred Language | Unknown | + + + | Marital Status | | + + + | Mormon Affiliation | Unknown | + + + | Race | White | + + + | Ethnic Group | Not or | + + + Author + + + | Author | [facility] | + + + | Organization | [facility] | + + + | Address | Unknown | + + + | Phone | Unavailable | + + + Support + + +---------+ + | Name | Relationship | Address | Phone | + + +---------+ + | Nahomy Briana | ECON | Unknown | | + + +---------+ + Care Team Providers + +------+ + | Care Playback Operator Name | Role | Phone | + +------+ + | Owen Swartz MD | PCP | | + +------+ + Encounter Details +--------+ + + + + | Date | Type | Department | Care Team | Description | +--------+ + + + + | 09/18/ | Document-Sc | Health Information | Unknown . | | | 2014 | anned | Services [id number] | | | | | [address] | | | | | | Mailcode: [id number] | | | | | | [facility] | | | | | | [place], [place] | | | | | | [address] | | | | | | [phone] | | | +--------+ + + + [...]
--- OUTSIDE RECORDS SUMMARY | ~2019-03-08 | XMS | Encounter Summary ---
Demographics + + + | Address | [address] | | | [place] [address] | + + + | Home Phone | | + + + | Preferred Language | Unknown | + + + | Marital Status | | + + + | Scientologist Affiliation | 1001 | + + + | Race | Unknown | + + + | Ethnic Group | Unknown | + + + Author + + + | Author | [facility] | | | and [place]ant[place] | + + + | Organization | [facility] | | | and [...] [place], [place] | | | | | [address] | | + + + + + | Tiffanie Chisholm | ECON | [address] | | | | | [place], [place] | | | | | [address] | | + + + + + Care Team Providers + +------+ + | Care Looper Operator Name | Role | Phone | [...] [place] | | | | | [address] | [id number] | | | | | [phone] | | | +--------+ + + + [...] | | | | | [place] [address] | | | | | | [phone] | | | | | | | | +--------+---------+ + + + | 07/04/ | Office | Urology | Bert Linder, | | | 2019 | Visit | | MD Joy PERSON | | | | | | [place] | | | | | | [address] | | | | | | | | +--------+---------+ + + + documented as of this encounter Visit Diagnoses Not on filedocumented in this encounter"
--- OUTSIDE RECORDS SUMMARY | ~2019-03-08 | XMS | Encounter Summary ---
Demographics + + + | Address | [address] | | | [place] [address] | + + + | Home Phone | | + + + | Preferred Language | Unknown | + + + | Marital Status | | + + + | Synagogue Affiliation | 1001 | + + + | Race | Unknown | + + + | Ethnic Group | Unknown | + + + Author + + + | Author | [facility] | | | and [place]ana | + + + | Organization | [facility] | [...] [place], [place] | | | | | [address] | | + + + + + | Tiffanie Chisholm | ECON | [address] | | | | | [place], [place] | | | | | [address] | | + + + + + Care Team Providers + +------+ + | Care Mobile Ui/Ux Designer Name | Role | Phone | + [...] + + | 03/17/ | Clinical | [facility] | Bert Linder, | Urge incontinence | | 2018 | Support | [address] | [address] | (Primary Dx) | | | | [place] | [place] | | | | | [address] | [address] | | | | | [phone] | | | +--------+ + + + [...] | | | | | [place], [place] [address] | | | | | | [phone] | | | | | | | | +--------+---------+ + + + | 07/04/ | Office | Urology | Bert Linder, | | | 2019 | Visit | | MD Joy PERSON | | | | | | [place] | | | | | | [id number] | | | | | | | | +--------+---------+ + + + documented as of this encounter Visit Diagnoses + + | Diagnosis | + + | Urge incontinence - Primary | + + documented in this encounter"
--- OUTSIDE RECORDS SUMMARY | ~2019-03-08 | XMS | Encounter Summary ---
Demographics + + + | Address | [address] | | | [place] [address] | + + + | Home Phone [...] + + | Author | [facility] | | | and [place] | + + + | Organization | [facility] | | | and [...] [place], [place] | | | | | [address] | | + + + + + | Tiffanie Chisholm | ECON | [address] | | | | | [place], [place] | | | | | [address] | | + + + + + Care Team Providers + +------+ + | Care Leguillon Debeader Name | Role | Phone | + [...] [place] | | | | | [address] | [address] | | | | | [phone] | | | +--------+ + + + [...] | | | | | [place] [address] | | | | | | [phone] | | | | | | | | +--------+---------+ + + + | 07/04/ | Office | Urology | Bert Linder, | | | 2019 | Visit | | MD Joy PERSON | | | | | | [place] | | | | | | [address] | | | | | | | | +--------+---------+ + + + documented as of this encounter Visit Diagnoses Not on filedocumented in this encounter"
--- OUTSIDE RECORDS SUMMARY | ~2019-03-08 | XMS | Encounter Summary ---
Demographics + + + | Address | [address] | | | [place] [address] | + + + | Home Phone | | + + + | Preferred Language | Unknown | + + + | Marital Status | | + + + | Shinto Affiliation | 1001 | + + + | Race | Unknown | + + + | Ethnic Group | Unknown | + + + Author + + + | Author | [facility] | | | and Br[place] | + + + | Organization | [facility] | [...] [place], [place] | | | | | [address] | | + + + + + | Tiffanie Chisholm | ECON | [address] | | | | | [place], [place] | | | | | [address] | | + + + + + Care Team Providers + +------+ + | Care Anode Rebuilder Name | Role | Phone | + [...] | +--------+ + + + + | 11/16/ | Clinical | [facility] | Alex Pineda | Urge incontinence | | 2018 | Support | [address] | MD Misti [address] | (Primary Dx); | | | | [place], [place] | [place], [place] | Neurogenic bladder | | | | [address] | [id number] | | | | | [phone] | | | +--------+ + + + [...] this encounter Progress Delores Benítez RN - 11/16/2017 4:00 PM PDT Percutaneous tibial nerve stimulation [...] [place]AN | | | | | | [place], [place] [address] | | | | | | [phone] | | | | | | | | +--------+---------+ + + + | 07/04/ | Office | Urology | Bert Linder, | | | 2019 | Visit | | MD Joy PERSON | | | | | | [place] | | | | | | [address] | | | | | | | | +--------+---------+ + + + documented as of this encounter Visit Diagnoses + + | Diagnosis | + + | Urge incontinence - Primary | + + | Neurogenic bladder Neurogenic bladder, NOS | + + documented in this encounter"
--- OUTSIDE RECORDS SUMMARY | ~2019-03-08 | XMS | Encounter Summary ---
Demographics + + + | Address | [address] | | | [place] [address] | + + + | Home Phone | | + + + | Preferred Language | Unknown | + + + | Marital Status | | + + + | Moravian Affiliation | Unknown | + + + [...] Team Providers + +------+ + | Care Dictaphone Operator Name | Role | Phone | [...] changes | | 2012 | Visit | [place] | | (Primary Dx) | | | | Photography at [facility] | | | | | | [address] | | | | | | Mailcode: CH11P | | | | | [facility] | | | [facility], | | | | | | Building | | | | | | [place], [place] | | | | | | [address] | | | | | | [phone] | | | +--------+---------+ + + + [...] PDT Charissa Goss was seen in the [facility]trasound Department today, 10/12/2012, for OCT OU. 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
--- OUTSIDE RECORDS SUMMARY | ~2019-03-08 | XMS | Encounter Summary ---
Demographics + + + | Address | [address] | | | [place] [address] | + + + | Home Phone | | + + + | Preferred Language | Unknown | + + + | Marital Status | | + + + | Yazidism Affiliation | 1001 | + + + | Race | Unknown | + + + | Ethnic Group | Unknown | + + + Author + + + | Author | [facility] | | | and [place] | + + + | Organization | [facility] | [...] [place], [place] | | | | | [address] | | + + + + + | Tiffanie Chisholm | ECON | [address] | | | | | [place], [place] | | | | | [address] | | + + + + + Care Team Providers + +------+ + | Care Medication Nurse Name | Role | Phone | [...] [place] | | | | | [address] | [address] | | | | | [phone] | | | +--------+ + + + [...] prescribed for Chairssa's overactive symptoms of urge incontinence per Dr. [...] [place] | | | | | | [place] [address] | | | | | | [phone] | | | | | | | | +--------+---------+ + + + | 07/04/ | Office | Urology | Bert Linder, | | 2019 | Visit | | MD Joy PERSON | | | | | | [place] | | | | | | [address] | | | | | | | | +--------+---------+ + + + documented as of this encounter Visit Diagnoses + + | Diagnosis | + + | Urge incontinence | + + documented in this encounter"
--- OUTSIDE RECORDS SUMMARY | ~2019-03-08 | XMS | Encounter Summary ---
Demographics + + + | Address | [address] | | | [place] [address] | + + + | Home Phone | | + + + | Preferred Language | Unknown | + + + | Marital Status | | + + + | Gnosticism Affiliation | 1001 | + + + | Race | Unknown | + + + | Ethnic Group | Unknown | + + + Author + + + | Author | [facility] | | | and [place] | + + + | Organization | [facility] | | [...] [place], [place] | | | | | [address] | | + + + + + | Tiffanie Chisholm | ECON | [address] | | | | | [place], [place] | | | | | [address] | | + + + + + Care Team Providers + +------+ + | Care Test Inspection Engineer Name | Role | Phone | [...] + + | 11/16/ | Clinical | [facility] | Alex Pineda | Urge incontinence | | 2018 | Support | [address] | MD Misti [address] | (Primary Dx); | | | | [place], [place] | [place], [place] | Neurogenic bladder | | | | [address] | [id number] | | | | | [phone] | | | +--------+ + + + [...] | | | | | [place], [place] [address] | | | | | | [phone] | | | | | | | | +--------+---------+ + + + | 07/04/ | Office | Urology | Bert Linder, | | | 2019 | Visit | | MD Joy PERSON | | | | | | [place] | | | | | | [address] | | | | | | | | +--------+---------+ + + + documented as of this encounter Visit Diagnoses + + | Diagnosis | + + | Urge incontinence - Primary | + + | Neurogenic bladder Neurogenic bladder, NOS | + + documented in this encounter"
--- OUTSIDE RECORDS SUMMARY | ~2019-03-08 | XMS | Encounter Summary ---
Demographics + + + | Address | [address] | | | [place] [address] | + + + | Home Phone | | + + + | Preferred Language | Unknown | + + + | Marital Status | | + + + | Pentecostal Affiliation | 1001 | + + + | Race | Unknown | + + + | Ethnic Group | Unknown | + + + Author + + + | Author | [facility] | | | and [place] | + + + | Organization | [facility] | | | and Brantana [...] [place], [place] | | | | | [address] | | + + + + + | Tiffanie Chisholm | ECON | [address] | | | | | [place], [place] | | | | | [address] | | + + + + + Care Team Providers + +------+ + | Care Seed Laboratory Assistant Name | Role | Phone | [...] [place] | | | | | [address] | [address] | | | | | [phone] | | | +--------+ + + + [...] vomiting Back pain Weakness, dizziness or fainting [id number] [employer]. [address] [place] [address]. All [facility] ts reserved. This information is not intended [...] | | | | | [place] [address] | | | | | | [phone] | | | | | | | | +--------+---------+ + + + | 07/04/ | Office | Urology | Bert Linder, | | | 2019 | Visit | | MD Joy PERSON | | | | | | [place] | | | | | | [address] | | | | | | | | +--------+---------+ + + + documented as of this encounter Visit Diagnoses + + | Diagnosis | + + | Urge incontinence - Primary | + + documented in this encounter
--- OUTSIDE RECORDS SUMMARY | ~2019-03-08 | XMS | Encounter Summary ---
Demographics + + + | Address | [address] | | | [place] [address] | + + + | Home Phone | | + + + | Preferred Language | Unknown | + + + | Marital Status | | + + + | Methodist Affiliation | 1001 | + + + | Race | Unknown | + + + | Ethnic Group | Unknown | + + + Author + + + | Author | [facility] | | | and [place] | + + + | Organization | [facility] | | | and Brantana [...] [place], [place] | | | | | [address] | | + + + + + | Tiffanie Chisholm | ECON | [address] | | | | | [place], [place] | | | | | [address] | | + + + + + Care Team Providers + +------+ + | Care Shipping Hand Name | Role | Phone | [...] [place] | Leukodystrophy | | | | [address] | [address] | | | | | [phone] | | | +--------+ + + + [...] | | | | | [place] [address] | | | | | | [phone] | | | | | | | | +--------+---------+ + + + | 07/04/ | Office | Urology | Bert Linder, | | | 2019 | Visit | | MD Joy SINHA | | | | | | [place] | | | | | | [address] | | | | | | | | +--------+---------+ + + + documented as of this encounter Visit Diagnoses + + | Diagnosis | + + | Neurogenic bladder - Primary Neurogenic bladder, NOS | + + | Leukodystrophy (HCC) Leukodystrophy | + + documented in this encounter"
--- OUTSIDE RECORDS SUMMARY | ~2019-03-08 | XMS | Encounter Summary ---
Demographics + + + | Address | [address] | | | [place] [address] | + + + | Home Phone [...] + | Author | [facility] | | | and Brantana | + + + | Organization | [facility] | | | and Brantana [...] [place], [place] | | | | | [address] | | + + + + + | Tiffanie Chisholm | ECON | [address] | | | | | [place], [place] | | | | | [address] | | + + + + + Care Team Providers + +------+ + | Care Core Shaper Sides Name | Role | Phone | + [...] + + | 09/21/ | Clinical | [facility] | Bert Linder, | Urge incontinence | | 2017 | Support | [address] | [address] | (Primary Dx) | | | | [place] | [place] | | | | | [address] | [address] | | | | | [phone] | | | +--------+ + + + [...] | | | | | [place], [place] [address] | | | | | | [phone] | | | | | | | | +--------+---------+ + + + | 07/04/ | Office | Urology | Bert Linder, | | | 2019 | Visit | | MD Joy PERSON | | | | | | [place] | | | | | | [address] | | | | | | | | +--------+---------+ + + + documented as of this encounter Visit Diagnoses + + | Diagnosis | + + | Urge incontinence - Primary | + + documented in this encounter
--- OUTSIDE RECORDS SUMMARY | ~2019-03-08 | XMS | Encounter Summary ---
Demographics + + + | Address | [address] | | | [place] [address] | + + + | Home Phone [...] + + + | Author | [facility] | + + + | Organization | [facility] | + + + | Address | Unknown | + + + | Phone | Unavailable | + + + Support + + +---------+ + | Name | Relationship | Address | Phone | + + +---------+ + | Nahomy Briana | ECON | Unknown | | + + +---------+ + Care Team Providers + +------+ + | Care Paper Steamer Name | Role | Phone | + [...] changes | | 2013 | Visit | [place] | [address] | (Primary Dx); | | | | Neuro-Ophthalmology | [place], [place] | Blurred vision; | | | | at [facility] [address] | [address] | [address] | | | | [address] Mailcode: CH3G | [phone] | | | | | [facility] | | | | | | and [place], | | | | | | Building | | | | | | Floor [place], [place] | | | | | | [address] | | | | | | [phone] | | | +--------+---------+ + + + [...] I have reviewed and edited history and orthotics technician documentation, and performed all elements to above examination documentation. Owen Zhao M.D. [place] Shred Roll Operator Ophthalmology and Neurology Neuro-ophthalmology service [facility] [place] documented in this e ncounter Plan of [...]
--- OUTSIDE RECORDS SUMMARY | ~2019-03-08 | XMS | Encounter Summary ---
Demographics + + + | Address | [address] | | | [place] [address] | + + + | Home Phone | | + + + | Preferred Language | Unknown | + + + | Marital Status | | + + + | Temple Affiliation | Unknown | + + + [...] Team Providers + +------+ + | Care Chaplain Name | Role | Phone | + [...] MD | | | | | | ([facility]) | [address] | | | | | | Procedures | [address] | | | | | | PHYSICAL | [place], [place] | | | | | | THERAPY | [address] | | | | | | REFERRAL [...] MD | | | | | | ([facility]) | [address] | | | | | | Procedures | [address] | | | | | | MRI SPINE | [place], [place] | | | | | | CERVICAL/THO | [address] | | | | | | RACBARTOLO [...] | | | | MRI SPINE | [place], [place] | Mailcode: | | | | | THORACIC WO | [address] | [address] | | | | | CONTRAST | | [place] | | | | | | | Research | | | | | | | [place] | | | | | | | [place], [place] | | | | | | | [address] | | | | | | | Phone: | | | | | | | [phone] | | | | | | | Fax: | | | | | | | [phone] | +--------+--------+ + + + + Reason [...] (HCC) | | 2015 | Visit | [facility] & | MD Valentin | (Primary Dx); | | | | Healing [address] | | Urinary | | | | [address] Mailcode: | | incontinence, | | | | [facility] | | unspecified | | | | [facility], | | incontinence type | | | | [facility] | | | | | | Floor [place], [place] | | | | | | [address] | | | | | | [phone] | | | +--------+---------+ + + + [...] cataracts and optic atrophy presenting to the [facility] Neuromuscular division today for follow up. Neuro [...] en running. She has been evaluated by neuro-bobtailer Dr. Zhao, initially in September, who noted [...] better wi th constipation. Dr. Patel in [place] has ordered a wheelchair. They have put [...] cervical and thoracic spine w/o contrast at [facility] - Referral to [place] for PT with focus on exercise in [...] and ortho pending. Results given by My[facility] umented in this encounter Plan of Treatment [...]
--- OUTSIDE RECORDS SUMMARY | ~2019-03-08 | XMS | Encounter Summary ---
Demographics + + + | Address | [address] | | | [place] [address] | + + + | Home Phone [...] + | Author | [facility] | | | and Brantana | + + + | Organization | [facility] | | | and Brantana [...] [place], [place] | | | | | [address] | | + + + + + | Tiffanie Chisholm | ECON | [address] | | | | | [place], [place] | | | | | [address] | | + + + + + Care Team Providers + +------+ + | Care Labor Crew Supervisor Name | Role | Phone | + +------+ + | Owen Swartz MD | PCP | | + +------+ + Encounter Details +--------+ + + + + | Date | Type | Department | Care Team | Description | +--------+ + + + + | 04/29/ | Orders Only | [facility] | Bert Linder, | Neurogenic bladder | | 2017 | | [address] | [address] | (Primary Dx); | | | | [place] | [place] | Leukodystrophy | | | | [address] | [address] | | | | | [phone] | | | +--------+ + + + [...] [place] | | | | | | [address] | | | | | | [place] [address] | | | | | | [phone] | | | | | | | | +--------+---------+ + + + | 07/04/ | Office | Urology | Bert Linder, | | | 2019 | Visit | | MD Joy SINHA | | | | | | [place] | | | | | | [address] | | | | | | | | +--------+---------+ + + + documented as of this encounter Results US Renal Limited (04/27/2017 2:49 PM PST) + [...]
--- OUTSIDE RECORDS SUMMARY | ~2019-03-08 | XMS | Encounter Summary ---
Demographics + + + | Address | [address] | | | [place] [address] | + + + | Home Phone | | + + + | Preferred Language | Unknown | + + + | Marital Status | | + + + | Religion Affiliation | Unknown | + + + [...] Team Providers + +------+ + | Care Weight Analyst Name | Role | Phone | + +------+ + | Owen Swartz MD | PCP | | + +------+ + Reason for Visit + + + | Reason | Comments | + + + | Return Patient | 1 yr follow-up | + + + | Neuropathy | | + + + Encounter Details +--------+---------+ + + + | Date | Type | Department | Care Team | Description | +--------+---------+ + + + | 06/10/ | Office | Neurology at | Beronica Alegria | Leukodystrophy | | 2013 | Visit | [facility] & | MD Valentin | (Primary Dx); | | | | Healing [address] | | Neuropathy | | | | [place] Mailcode: | | | | | | [facility] | | | | | | Health and Healing, | | | | | | Building | | | | | | Floor [place], [place] | | | | | | [address] | | | | | | [phone] | | | +--------+---------+ + + + [...] + + + | Blood Pressure | 106/57 | 08/07/2013 2:59 PM | | | | | PDT | | + + + + + | Pulse | 86 | 08/07/2013 2:59 PM | | | [...] encounter Progress Notes Beronica Alegria MD - 08/07/2013 3:20 PM PDT NEUROMUSCULAR CLINIC FOLLOW UP NOTE Author: Beronica Alegria MD. ID: Charissa Goss is a 57 y.o woman with a family history of seizure disorders and persona l history of progressive neurologic symptoms of impaired balance, memory, urinary dysfunctio n, diplopia and foot numbness in addition to cataracts presenting to the [facility] Neuromuscular division today for follow up. Neuro [...] with other children wh en running. She did fine academically in school. Evaluation: [facility] EMG [...] replacement after thyroid chel aureliano. Interval History: She was last seen in July,. Her legs have progressively weakened. She has not had pa in in her legs. She continues to have tingling in her feet. Her thighs are getting weaker . In March, she started falling. She has been using walker consistently since April, an d hasn't had falls since using a new walker. Back pain improved. . The other walker was c ausing her to be more fatigued. She is better in the morning. She has been eating natural foods recently, and in the last 2 months, her constipation has much improved. She has occasional swelling in her feet. She has had a little improvement of her urinary incontinence. She has been doing neurostimu lator electrode therapy treatment, which has helped. She denies cp, palpitations, dyspnea, dysphagia. She has occasional headache. She has been evaluated by neuro-shotgun shell loading machine operator Dr. Zhao who noted severe color perception difficulties in both eyes and bilateral optic atrophy. Past Medical History: Incontinence of urine Neuropathy Unspecified disorder of thyroid Heart murmur Past Surgical History: THYROIDECTOMY D&C DIAGNOSTIC / THERAPEUTIC Home Medications: CALCIUM CITRATE/VITAMIN D3 (CITRACAL + D ORAL), Take 1 Tab by mouth once daily. donepezil (ARICEPT) 10 mg Oral Tablet, Take 10 mg by mouth once daily in the evening. levothyroxine (SYNTHROID) 88 mcg Oral Tablet, Take 88 mcg by mouth once daily. mirabegron (MYRBETRIQ) 50 mg oral tablet extended release 24 hr, Take by mouth once daily. MULTIVITAMIN W-MINERALS/LUTEIN (CENTRUM SILVER ORAL), Take 1 Tab by mouth once daily. Allergies: No Known Allergies Social History: Allergies: No Known Allergies Social History: She is . No tobacco use. Family History: Her mother had seizure disorder, abnormal feet, walking difficulty. Her sis ter's children have seizure disorders. Review of Systems: 6 systems reviewed, positives noted in HPI. Physical Examination: Constitutional: BP 106/57 | Pulse 86 | Wt 53.071 kg (117 lb) | BMI 22.12 kg/(m^2) General appearance: Healthy-appeared, well-developed, in no acute distress. Cardiovascular : Regular rate, and rhythm without murmur, S1, S2 normal Resp: Lungs are clear to auscultation. Skin: No apparent rash on exposed skin. Neurologic Exam: Mental Status: Patient is alert [...] th. Motor: Atrophic foot muscles noted with severe pes cavus. Right ankle dorsiflexion 4/5, lef t ankle dorsiflexion 4+/5. Hip abductors are 4+/5 bilaterally, knee flexor are 4/5., otherwi se full strength in lower extremities and 5/5 in upper extremities. Sensory: Sensation is absent to vibratory sense at great toes; proprioception mildly reduce d at great toes. Pinprick reduced to knees Reflexes: Reflexes are brisk throughout. Gait : Wide-based gait Cerebellum: Normal finger to nose Assessment: Charissa Goss is a 57 yo woman with a family history of [...] was unrevealing. 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 (Brigida et al 2012). Interval change since last visit includes extension of sensory deficits in her legs, partic ularly her left leg and more proximal lower extremity weakness. I'm concerned about myelopat hy. She believe she had , so MRI C and T-spine, but I haven't received results. . Plan: --Request MRI cervical and thoracic spine results from [facility] - Follow-up in Neuromuscular clinic in 1 year or sooner prn. I will follow up on applicatio n for [facility] undiagnosed disease program in [place]. Beronica Alegria MD. Neuromuscular Staff Physician documented in this encounter Plan of Treatment Not on filedocumented as of this encounter Visit Diagnoses + + | Diagnosis | + + | Leukodystrophy (HCC) - Primary Leukodystrophy | + + | Neuropathy Mononeuritis of unspecified site | + + documented in this encounter"
--- OUTSIDE RECORDS SUMMARY | ~2019-03-08 | XMS | Encounter Summary ---
Demographics + + + | Address | [address] | | | [place] [address] | + + + | Home Phone | | + + + | Preferred Language | Unknown | + + + | Marital Status | | + + + | Yarsanism Affiliation | 1001 | + + + | Race | Unknown | + + + | Ethnic Group | Unknown | + + + Author + + + | Author | [facility] | | | and Br[place] | + + + | Organization | [facility] | | | and Brantana [...] [place], [place] | | | | | [address] | | + + + + + | Tiffanie Chisholm | ECON | [address] | | | | | [place], [place] | | | | | [address] | | + + + + + Care Team Providers + +------+ + | Care Tube Sizer And Cutter Operator Name | Role | Phone | [...] [place] | | | | | [address] | [address] | | | | | [phone] | | | +--------+ + + + [...] | | | | | | [place] [address] | | | | | | [phone] | | | | | | | | +--------+---------+ + + + | 07/04/ | Office | Urology | Bert Linder, | | | 2019 | Visit | | MD Joy [address]OSN | | | | | | [place] | | | | | | [address] | | | | | | | [...] - 1.03 | EXTERNAL | | | [place], | | | LAB | | | [...]
--- OUTSIDE RECORDS SUMMARY | ~2019-03-08 | XMS | Encounter Summary ---
Demographics + + + | Address | [address] | | | [place] [address] | + + + | Home Phone | | + + + | Preferred Language | Unknown | + + + | Marital Status | | + + + | Anabaptist Affiliation | 1001 | + + + | Race | Unknown | + + + | Ethnic Group | Unknown | + + + Author + + + | Author | [facility] | | | and Brantana | + + + | Organization | [facility] | [...] [place], [place] | | | | | [address] | | + + + + + | Tiffanie Chisholm | ECON | [address] | | | | | [place], [place] | | | | | [address] | | + + + + + Care Team Providers + +------+ + | Care Chemical Inspector Name | Role | Phone | [...] | +--------+ + + + + | 09/06/ | Clinical | [facility] | Bert Linder, | Neurogenic bladder | | 2018 | Support | [address] | [address] | (Primary Dx); Urge | | | | [place] | [place] | incontinence of | | | | [address] | [id number] | urine | | | | [phone] | | | +--------+ + + + [...] documented as of this encounter Progress Notes Montse Staton, RN - 09/06/2017 3:30 PM PDTFormatting of this note might be different fro m the original. Percutaneous tibial nerve stimulation (PTNS) was prescribed [...] | | | | | [place], [place] [address] | | | | | | [phone] | | | | | | | | +--------+---------+ + + + | 07/04/ | Office | Urology | Bert Linder, | | | 2020 | Visit | | MD Joy PERSON | | | | | | [place] | | | | | | [address] | | | | | | | | +--------+---------+ + + + documented as of this encounter Visit Diagnoses + + | Diagnosis | + + | Neurogenic bladder - Primary Neurogenic bladder, NOS | + + | Urge incontinence of urine Urge incontinence | + + documented in this encounter"
--- OUTSIDE RECORDS SUMMARY | ~2019-03-08 | XMS | Encounter Summary ---
Demographics + + + | Address | [address] | | | [place] [address] | + + + | Home Phone | | + + + | Preferred Language | Unknown | + + + | Marital Status | | + + + | Yarsani Affiliation | Unknown | + + + [...] Team Providers + +------+ + | Care Cracker Off Name | Role | Phone | + [...] | | | | [address] | [place] [address] | | | | | William Mailcode: [address] | [phone] | | | | | [facility] | | | | | | [place], [place] | | | | | | [address] | | | | | | [phone] | | | +--------+ + + + [...]
--- OUTSIDE RECORDS SUMMARY | ~2019-03-08 | XMS | Encounter Summary ---
Demographics + + + | Address | [address] | | | [place] [address] | + + + | Home Phone | | + + + | Preferred Language | Unknown | + + + | Marital Status | | + + + | Pentecostalism Affiliation | 1001 | + + + | Race | Unknown | + + + | Ethnic Group | Unknown | + + + Author + + + | Author | [facility] | | | and Brantana | + + + | Organization | [facility] | | | and [...] [place], [place] | | | | | [address] | | + + + + + | Tiffanie Chisholm | ECON | [address] | | | | | [place], [place] | | | | | [address] | | + + + + + Care Team Providers + +------+ + | Care Manual Control Auger Press Operator Name | Role | Phone | + +------+ + | Owen Swartz MD | PCP | | + +------+ + Encounter Details +--------+ + + + + | Date | Type | Department | Care Team | Description | +--------+ + + + + | 05/10/ | Orders Only | [facility] [place] [facility] | Bert Linder, | Neurogenic bladder | | 2018 | | [address] | [address] | (Primary Dx); | | | | [place], [place] | [place] | Incomplete bladder | | | | [address] | [address] | emptying | | | | [phone] | | | +--------+ + + + [...] | | | | | [place] [address] | | | | | | [phone] | | | | | | | | +--------+---------+ + + + | 07/04/ | Office | Urology | Bert Linder, | | | 2019 | Visit | | MD Joy PERSON | | | | | | [place] | | | | | | [address] | | | | | | | | +--------+---------+ + + + + +---------+--------+ + + | Name | Type | Priori | Associated Diagnoses | Order Schedule | | | | ty | | | + +---------+--------+ + + | Basic Metabolic | Lab | Routin | Neurogenic bladder | Expected: 04/25/2018 | | Panel | | e | Incomplete bladder | (Approximate), | | | | | emptying | Expires: 07/28/2018 | + +---------+--------+ + + | US Renal Complete | Imaging | Routin | Neurogenic bladder | Expected: | | | | e | Incomplete bladder | 04/25/2018, Expires: | | | | | emptying | 07/28/2018 | + +---------+--------+ + + documented as of this encounter Visit Diagnoses + + | Diagnosis | + + | Neurogenic bladder - Primary Neurogenic bladder, NOS | + + | Incomplete bladder emptying | + + documented in this encounter"
--- OUTSIDE RECORDS SUMMARY | ~2019-03-08 | XMS | Encounter Summary ---
Demographics + + + | Address | [address] | | | [place] [address] | + + + | Home Phone [...] | Author | [facility] | | | and Brantana | + + + | Organization | [facility] [...] [place], [place] | | | | | [address] | | + + + + + | Tiffanie Chisholm | ECON | [address] | | | | | [place], [place] | | | | | [address] | | + + + + + Care Team Providers + +------+ + | Care Elementary School Music Teacher Name | Role | Phone | [...] + + | 11/18/ | Clinical | [facility] | Ralph Quintanilla | Urge incontinence | | 2016 | Support | [address] | MD Alfredo [address] | (Primary Dx) | | | | [place], [place] | [address] [facility] | | | | | [address] | [place] [address] | | | | | [phone] | [phone] | | | | | | | [...] [place] | | | | | | [facility], [place] [address] | | | | | | [phone] | | | | | | | | +--------+---------+ + + + | 07/04/ | Office | Urology | Bert Linder, | | | 2019 | Visit | | MD Joy PERSON | | | | | | [place] | | | | | | [address] | | | | | | | | +--------+---------+ + + + documented as of this encounter Visit Diagnoses + + | Diagnosis | + + | Urge incontinence - Primary | + + documented in this encounter"
--- OUTSIDE RECORDS SUMMARY | ~2019-03-08 | XMS | Encounter Summary ---
Demographics + + + | Address | [address] | | | [place] [address] | + + + | Home Phone [...] | Author | [facility] | | | and Brantana | + + + | Organization | [facility] | [...] [place], [place] | | | | | [address] | | + + + + + | Tiffanie Chisholm | ECON | [address] | | | | | [place], [place] | | | | | [address] | | + + + + + Care Team Providers + +------+ + | Care Back Closer Name | Role | Phone | + [...] | Neurogenic bladder | | | | [address] | [address] | | | | | [phone] | | | +--------+ + + + [...] | | | | | [place] [address] | | | | | | [phone] | | | | | | | | +--------+---------+ + + + | 07/04/ | Office | Urology | Bert Linder, | | | 2019 | Visit | | MD Joy PERSON | | | | | | [place] | | | | | | [address] | | | | | | | [...]
--- OUTSIDE RECORDS SUMMARY | ~2019-03-08 | XMS | Encounter Summary ---
Demographics + + + | Address | [address] | | | [place] [address] | + + + | Home Phone [...] + + | Author | [facility] | | | and Brantana | + + + | Organization | [facility] | [...] [place], [place] | | | | | [address] | | + + + + + | Tiffanie Chisholm | ECON | [address] | | | | | [place], [place] | | | | | [address] | | + + + + + Care Team Providers + +------+ + | Care Build Automation Engineer Name | Role | Phone | [...] | [address] | [address] | | | | | [address] [place] | [place] [address] | | | | | [address] | | | | | | [phone] | | | +--------+ + + + [...] | | | | | [place] [address] | | | | | | [phone] | | | | | | | | +--------+---------+ + + + | 07/04/ | Office | Urology | Bert Linder, | | | 2019 | Visit | | MD Joy PERSON | | | | | | [place] | | | | | | [address] | | | | | | | [...]
--- OUTSIDE RECORDS SUMMARY | ~2019-03-08 | XMS | Encounter Summary ---
Demographics + + + | Address | [address] | | | [place] [address] | + + + | Home Phone | | + + + | Preferred Language | Unknown | + + + | Marital Status | | + + + | Anglican Affiliation | Unknown | + + + | Race | White | + + + | Ethnic Group | Not or | + + + Author + + + | Author | [facility] | + + + | Organization | [facility] | + + + | Address | Unknown | + + + | Phone | Unavailable | + + + Support + + +---------+ + | Name | Relationship | Address | Phone | + + +---------+ + | Nahomy Briana | ECON | Unknown | | + + +---------+ + Care Team Providers + +------+ + | Care Dioramist Name | Role | Phone | + [...] | Other | | 2012 | | [facility] & | MD Valentin | | | | | Healing [address] | | | | | | [place] Mailcode: | | | | | | [address] [place] [address] | | | | | | Health and Healing, | | | | | | Building [address] | | | | | | Floor [place], [place] | | | | | | [address] | | | | | | [phone] | | | +--------+ + + + [...]
--- OUTSIDE RECORDS SUMMARY | ~2019-03-08 | XMS | Encounter Summary ---
Demographics + + + | Address | [address] | | | [place] [address] | + + + | Home Phone | | + + + | Preferred Language | Unknown | + + + | Marital Status | | + + + | Yarsani Affiliation | Unknown | + + + | Race | White | + + + | Ethnic Group | Not or | + + + Author + + + | Author | [facility] | + + + | Organization | [facility] | + + + | Address | Unknown | + + + | Phone | Unavailable | + + + Support + + +---------+ + | Name | Relationship | Address | Phone | + + +---------+ + | Nahomy Briana | ECON | Unknown | | + + +---------+ + Care Team Providers + +------+ + | Care Roster Clerk Name | Role | Phone | [...] ray | | 2014 | Encounter | [facility] & | MD Valentin | | | | | [address] | | | | | | [place] Mailcode: | | | | | | [facility] [facility] | | | | | | Health and Healing, | | | | | | | | | | | | [place], [place] | | | | | | [address] | | | | | | [phone] | | | +--------+ + + + [...]
--- OUTSIDE RECORDS SUMMARY | ~2019-03-08 | XMS | Encounter Summary ---
Demographics + + + | Address | [address] | | | [place] [address] | + + + | Home Phone | | + + + | Preferred Language | Unknown | + + + | Marital Status | | + + + | Faith Affiliation | 1001 | + + + | Race | Unknown | + + + | Ethnic Group | Unknown | + + + Author + + + | Author | [facility] | | | and Brantana | + + + | Organization | [facility] | [...] [place], [place] | | | | | [address] | | + + + + + | Tiffanie Chisholm | ECON | [address] | | | | | [place], [place] | | | | | [address] | | + + + + + Care Team Providers + +------+ + | Care Director Internal Communications Name | Role | Phone | + [...] + + | 08/24/ | Clinical | [facility] | Bert Linder, | Urge incontinence | | 2017 | Support | [address] | [address] | (Primary Dx) | | | | [place] | [place] | | | | | [address] | [address] | | | | | [phone] | | | +--------+ + + + [...] | | | | | [place] [address] | | | | | | [phone] | | | | | | | | +--------+---------+ + + + | 07/04/ | Office | Urology | Bert Linder, | | 2019 | Visit | | MD Joy PERSON | | | | | | [place] | | | | | | [address] | | | | | | | | +--------+---------+ + + + documented as of this encounter Visit Diagnoses + + | Diagnosis | + + | Urge incontinence - Primary | + + documented in this encounter"
--- OUTSIDE RECORDS SUMMARY | ~2019-03-08 | XMS | Encounter Summary ---
Demographics + + + | Address | [address] | | | [place] [address] | + + + | Home Phone | | + + + | Preferred Language | Unknown | + + + | Marital Status | | + + + | Congregation Affiliation | 1001 | + + + | Race | Unknown | + + + | Ethnic Group | Unknown | + + + Author + + + | Author | [facility] | | | and Brantana | + + + | Organization | [facility] | | [...] [place], [place] | | | | | [address] | | + + + + + | Tiffanie Chisholm | ECON | [address] | | | | | [place], [place] | | | | | [address] | | + + + + + Care Team Providers + +------+ + | Care Bartender Name | Role | Phone | + [...] | incontinence of | | | | [address] | [id number] | urine | | | | [phone] | | | +--------+ + + + [...] | | | | | [place], [place] [address] | | | | | | [phone] | | | | | | | | +--------+---------+ + + + | 07/04/ | Office | Urology | Bert Linder, | | | 2020 | Visit | | MD Joy PERSON | | | | | | [place] | | | | | | [address] | | | | | | | | +--------+---------+ + + + documented as of this encounter Visit Diagnoses + + | Diagnosis | + + | Neurogenic bladder - Primary Neurogenic bladder, NOS | + + | Urge incontinence of urine Urge incontinence | + + documented in this encounter"
--- OUTSIDE RECORDS SUMMARY | ~2019-03-08 | XMS | Encounter Summary ---
Demographics + + + | Address | [address] | | | [place] [address] | + + + | Home Phone | | + + + | Preferred Language | Unknown | + + + | Marital Status | | + + + | Religion Affiliation | 1001 | + + + | Race | Unknown | + + + | Ethnic Group | Unknown | + + + Author + + + | Author | [facility] | | | and Brantana | + + + | Organization | [facility] | | | and [...] [place], [place] | | | | | [address] | | + + + + + | Tiffanie Chisholm | ECON | [address] | | | | | [place], [place] | | | | | [address] | | + + + + + Care Team Providers + +------+ + | Care Corporation Officer Name | Role | Phone | [...] [place] | | | | | [address] | [address] | | | | | [phone] | | | +--------+ + + + [...] | | | | | [place], [place] [address] | | | | | | [phone] | | | | | | | | +--------+---------+ + + + | 07/04/ | Office | Urology | Bert Linder, | | | 2019 | Visit | | [address] | | | | | | [place] | | | | | | [id number] | | | | | | | | +--------+---------+ + + + documented as of this encounter Visit Diagnoses + + | Diagnosis | + + | Urge incontinence - Primary | + + documented in this encounter"
--- OUTSIDE RECORDS SUMMARY | ~2019-03-08 | XMS | Encounter Summary ---
Demographics + + + | Address | [address] | | | [place] [address] | + + + | Home Phone [...] + + | Author | [facility] | | | and Brantana | + + + | Organization | [facility] | | [...] [place], [place] | | | | | [address] | | + + + + + | Tiffanie Chisholm | ECON | [address] | | | | | [place], [place] | | | | | [address] | | + + + + + Care Team Providers + +------+ + | Care Precast Concrete Ironworker Name | Role | Phone | + [...] | | | [place] | [place] | | | | | [address] | [address] | | | | | [phone] | | | +--------+ + + + [...] | | | | | [place] [address] | | | | | | [phone] | | | | | | | | +--------+---------+ + + + | 07/04/ | Office | Urology | Bert Linder, | | | 2019 | Visit | | MD Joy PERSON | | | | | | [place] | | | | | | [address] | | | | | | | [...]
--- OUTSIDE RECORDS SUMMARY | ~2019-03-08 | XMS | Encounter Summary ---
Demographics + + + | Address | [address] | | | [place] [address] | + + + | Home Phone | | + + + | Preferred Language | Unknown | + + + | Marital Status | | + + + | Restorationism Affiliation | 1001 | + + + | Race | Unknown | + + + | Ethnic Group | Unknown | + + + Author + + + | Author | [facility] | | | and Brantana | + + + | Organization | [facility] | | | and [...] [place], [place] | | | | | [address] | | + + + + + | Tiffanie Chisholm | ECON | [address] | | | | | [place], [place] | | | | | [address] | | + + + + + Care Team Providers + +------+ + | Care Metal Casket Assembler Name | Role | Phone | [...] | (Primary Dx); | | | | [place], [place] | [address] [place] | Incomplete bladder | | | | [address] | [address] | emptying | | | | [phone] | | | +--------+ + + + [...] | | | | | [place] [address] | | | | | | [phone] | | | | | | | | +--------+---------+ + + + | 07/04/ | Office | Urology | Bert Linder, | | | 2019 | Visit | | MD Joy PERSON | | | | | | [place] | | | | | | [address] | | | | | | | [...]
--- OUTSIDE RECORDS SUMMARY | ~2019-03-08 | XMS | Encounter Summary ---
Demographics + + + | Address | [address] | | | [place] [address] | + + + | Home Phone | | + + + | Preferred Language | Unknown | + + + | Marital Status | | + + + | Islam Affiliation | 1001 | + + + | Race | Unknown | + + + | Ethnic Group | Unknown | + + + Author + + + | Author | [facility] | | | and [place] | + + + | Organization | [facility] | | | and [...] [place], [place] | | | | | [address] | | + + + + + | Tiffanie Chisholm | ECON | [address] | | | | | [place], [place] | | | | | [address] | | + + + + + Care Team Providers + +------+ + | Care Division Superintendent Name | Role | Phone | + [...] + + | 02/15/ | Telephone | [facility] | Bert Linder, | Appointment | | 2015 | | [address] | MD [address] | (RESCHEDULE) | | | | [place] | [place] | | | | | [address] | [address] | | | | | [phone] | | | +--------+ + + + [...] | | | | | [place] [address] | | | | | | [phone] | | | | | | | | +--------+---------+ + + + | 07/04/ | Office | Urology | Bert Linder, | | | 2019 | Visit | | [address] | | | | | | [place] | | | | | | [address] | | | | | | | | +--------+---------+ + + + documented as of this encounter Visit Diagnoses Not on filedocumented in this encounter"
--- OUTSIDE RECORDS SUMMARY | ~2019-03-08 | XMS | Clinical Summary ---
Demographics + + + | Address | [address] | | | [place] [address] | + + + | Home Phone [...] Author | [facility] | | | and [place] | + + + | Organization | [facility] | | | and [place] | [...] [place], [place] | | | | | [address] | | + + + + + | Tiffanie Chisholm | ECON | [address] | | | | | [place], [place] | | | | | [address] | | + + + + + Care Team Providers + +------+ + | Care Pricing Strategist Name | Role | Phone | + [...] [place] | | | | | | [place], [place] [address] | | | | | | [phone] | | | | | | | | +--------+---------+ + + + | 07/04/ | Office | Urology | Bert Linder, | | | 2019 | Visit | | MD [address] | | | | | | [place] | | | | | | [address] | | | | | | | [...] +--------+ +---------+--------+ | MEDICARE | MEDICA | [id number] | | [phone] | | Medica | | | RE | | 013-Pr | 5 | | re | | | PART A | | esent | | | | | | AND B | | | | | | + +--------+ +--------+ +---------+--------+ | AARP | AARP | [id number] | | [phone] | | Indemn | [...] | | al/Fam | | 1955 | [phone] | [place] | | | kiana | | | 9 (Home) | [address] | | | | | | [phone] | | | | | | | 7 (Work) | | + +--------+ +--------+ + + Advance Directives + + + + + | Type | Date Recorded | Patient | Explanation | | | | Skiving Machine Operator | | + + + + + | Power of | | | | | Cleaner And Polisher | | | | + + + + + | Advance | 05/07/2015 10:44 | | | | Directive | AM | | | + + + + +
--- OUTSIDE RECORDS SUMMARY | ~2019-03-08 | XMS | Encounter Summary ---
Demographics + + + | Address | [address] | | | [place] [address] | + + + | Home Phone [...] Author | [facility] | | | and [place] | + + + | Organization | [facility] | | [...] [place], [place] | | | | | [address] | | + + + + + | Tiffanie Chisholm | ECON | [address] | | | | | [place], [place] | | | | | [address] | | + + + + + Care Team Providers + +------+ + | Care Shooting Gallery Operator Name | Role | Phone | [...] [place] | | | | | [address] | [address] | | | | | [phone] | | | +--------+ + + + [...] | | | | | [place] [address] | | | | | | [phone] | | | | | | | | +--------+---------+ + + + | 07/04/ | Office | Urology | Bert Linder, | | 2019 | Visit | [address] | | | | | | [place] | | | | | | [address] | | | | | | | | +--------+---------+ + + + documented as of this encounter Visit Diagnoses + + | Diagnosis | + + | Urge incontinence | + + documented in this encounter"
--- OUTSIDE RECORDS SUMMARY | ~2019-03-08 | XMS | Encounter Summary ---
Demographics + + + | Address | [address] | | | [place] [address] | + + + | Home Phone [...] + | Author | [facility] | | | and [place] | + + + | Organization | [facility] | | [...] [place], [place] | | | | | [address] | | + + + + + | Tiffanie Chisholm | ECON | [address] | | | | | [place], [place] | | | | | [address] | | + + + + + Care Team Providers + +------+ + | Care Newsagent Name | Role | Phone | + [...] [place] | Leukodystrophy | | | | [address] | [address] | | | | | [phone] | | | +--------+ + + + [...] | | | | | [place] [address] | | | | | | [phone] | | | | | | | | +--------+---------+ + + + | 07/04/ | Office | Urology | Bert Linder, | | | 2019 | Visit | | MD Joy [address]INHA | | | | | | [place] | | | | | | [address] | | | | | | | [...]
--- OUTSIDE RECORDS SUMMARY | ~2019-03-08 | XMS | Encounter Summary ---
Demographics + + + | Address | [address] | | | [place] [address] | + + + | Home Phone | | + + + | Preferred Language | Unknown | + + + | Marital Status | | + + + | Nondenominational Affiliation | Unknown | + + + [...] Team Providers + +------+ + | Care Oss Architect Name | Role | Phone | [...] Leukodystrophy | | 2013 | Visit | [facility] & | MD Valentin | (Primary Dx); | | | | He[address] | | Neuropathy | | | | [place] Mailcode: | | | | | | [facility] | | | | | | Health and Healing, | | | | | | Building | | | | | | Floor [place], [place] | | | | | | [address] | | | | | | [phone] | | | +--------+---------+ + + + [...] in addition to cataracts presenting to the [facility] Neuromuscular division today for follow up. Neuro [...] She did fine academically in school. 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 Urine arylsulfatase levels were normal B12 levels were normal. TSH was low (0.08); she is on thyroid replacement after thyroid chel aurleiano. Interval History: She was last seen in [...] occasional headache. She has been evaluated by neuro-adoption manager Dr. Zhao who noted severe color perception [...] MRI cervical and thoracic spine results from [facility] - Follow-up in Neuromuscular clinic in 1 year or sooner prn. I will follow up on applicatio n for [facility] undiagnosed disease program in [place]. Beronica Alegria MD. Neuromuscular Staff Physician documented in this encounter Plan of Treatment Not on filedocumented as of this encounter Visit Diagnoses + + | Diagnosis | + + | Leukodystrophy (HCC) - Primary Leukodystrophy | + + | Neuropathy Mononeuritis of unspecified site | + + documented in this encounter"
--- OUTSIDE RECORDS SUMMARY | ~2019-03-08 | XMS | Encounter Summary ---
Demographics + + + | Address | [address] | | | [place] [address] | + + + | Home Phone | | + + + | Preferred Language | Unknown | + + + | Marital Status | | + + + | Orthodox Affiliation | Unknown | + + + | Race | White | + + + | Ethnic Group | Not or | + + + Author + + + | Author | [facility] | + + + | Organization | [facility] | + + + | Address | Unknown | + + + | Phone | Unavailable | + + + Support + + +---------+ + | Name | Relationship | Address | Phone | + + +---------+ + | Nahomy Briana | ECON | Unknown | | + + +---------+ + Care Team Providers + +------+ + | Care Machine Maintenance Supervisor Name | Role | Phone | [...] [address] | | | | | | [place], [place] | | | | | | [address] | | | +--------+ + + + [...]
--- OUTSIDE RECORDS SUMMARY | ~2019-03-08 | XMS | Encounter Summary ---
Demographics + + + | Address | [address] | | | [place] [address] | + + + | Home Phone | | + + + | Preferred Language | Unknown | + + + | Marital Status | | + + + | Protestant Affiliation | 1001 | + + + | Race | Unknown | + + + | Ethnic Group | Unknown | + + + Author + + + | Author | [facility] | | | and [place] | + + + | Organization | [facility] | | | and [...] [place], [place] | | | | | [address] | | + + + + + | Tiffanie Chisholm | ECON | [address] | | | | | [place], [place] | | | | | [address] | | + + + + + Care Team Providers + +------+ + | Care Body Service Team Member Name | Role | Phone | + [...] [place] | | | | | [address] | [address] | | | | | [phone] | | | +--------+ + + + [...] | | | | | [place] [address] | | | | | | [phone] | | | | | | | | +--------+---------+ + + + | 07/04/ | Office | Urology | Bert Linder, | | | 2019 | Visit | | MD [address] | | | | | | [place] | | | | | | [address] | | | | | | | [...]
--- OUTSIDE RECORDS SUMMARY | ~2019-03-08 | XMS | Encounter Summary ---
Demographics + + + | Address | [address] | | | [place] [address] | + + + | Home Phone | | + + + | Preferred Language | Unknown | + + + | Marital Status | | + + + | Druze Affiliation | Unknown | + + + [...] Team Providers + +------+ + | Care Engineering Faculty Name | Role | Phone | + [...] (Records to | | 2014 | | [facility] & | MD Valentin | PCP) | | | | [address] | | | | | | [place] Mailcode: | | | | | | [facility] | | | | | | Health and Healing, | | | | | | [facility] | | | | | | Floor [place], [place] | | | | | | [address] | | | | | | [phone] | | | +--------+ + + + [...]
[~2019-03-08 15:23] MED LIST changes: +ASPIRIN325 MG PO
== END 2019-03-08 19:00 | disposition home or self-care (01) ==
LOC: ED 15:23
DX: G89.18 Other acute postprocedural pain (principal); R10.9 Unspecified abdominal pain; K59.2 Neurogenic bowel, not elsewhere classified; Z79.899 Other long term (current) drug therapy; Z79.82 Long term (current) use of aspirin
CPT/HCPCS: 99284

== ENCOUNTER 2019-05-26 18:29 | Emergency (ER) | payer MEDICARE ==
[~2019-05-26] VITALS: Ht 154.9 cm; Wt 56.7 kg
[2019-05-26] MEDS ORDERED: OMEPRAZOLE20 MG PO (18:39)
--- NOTE | 2019-05-26 21:02 | EKG ---
[facility] [address] [facility] [place], [place] [address] Signed Normal sinus rhythm Normal ECG No previous ECGs available Confirmed by DUSTIN ANDERSON MD ([id number]) on 05/26/2019 9:02:04 PM Electronically Signed By: DUSTIN ANDERSON MD 05/26/192101 PATIENT NAME: ABEL CANAS Electrocardiogram DATE OF : 53 PHYSICIAN: DUSTIN ANDERSON MD REPORT #: [id number] REPORT IS CONFIDENTIAL AND NOT TO BE RELEASED WITHOUT AUTHORIZATION
== END 2019-05-26 20:54 | disposition home or self-care (01) ==
LOC: ED 18:29
DX: R41.82 Altered mental status, unspecified (principal); K21.9 Gastro-esophageal reflux disease without esophagitis; Z79.899 Other long term (current) drug therapy
CPT/HCPCS: 51701; 70450; 80053; 81001; 84484; 85025; 85610; 85730; 93005; 93010; 99285-25